=== PATIENT | female | born 1960 | race Caucasian/White ===

== ENCOUNTER → 2018-12-17 | Outpatient (CLI) | payer OTHER ==
[~2018-12-17] MED LIST: LISINOPRIL; ZOLOFT; [UNRECOGNIZED DRUG - OTHER]; [UNRECOGNIZED DRUG - OTHER]
== END ==
LOC: CARD 08:13
PROVIDERS: ATTEND Internal Medicine Cardiovascular Disease
DX: R07.89 Other chest pain (principal); J44.9 Chronic obstructive pulmonary disease, unspecified; I10 Essential (primary) hypertension; Z72.0 Tobacco use
CPT/HCPCS: 93306

== ENCOUNTER 2019-01-01 12:49 | Emergency (ER) | payer OTHER ==
[~2019-01-01] VITALS: Ht 162.6 cm; Wt 78.0 kg
--- NOTE | 2019-01-01 13:06 | Diagnostic Imaging Report ---
INDICATION: Stroke with left-sided weakness and slurred speech. Noncontrast brain CT is performed. FINDINGS: There were no extra-axial fluid collections. No intracranial hemorrhage. No intracranial mass or mass effect. No midline shift. The ventricles are normal in size and position. There were no focal parenchymal abnormalities in the brain. Calvarial windows are unremarkable. IMPRESSION: Negative noncontrast brain CT. Dictated by: Dictated on workstation # [id number]
[2019-01-01 13:10] LABS: BASOPHILS # (AUTO) 0.1 10^3/uL (0.0-0.1); BASOPHILS % (AUTO) 1 % (0-10); EOSINOPHILS # (AUTO) 0.2 10^3/uL (0.0-0.3); EOSINOPHILS % (AUTO) 2 % (0-10); HEMATOCRIT 41 % (35-52); HEMOGLOBIN 14.3 G/DL (11.5-16.0); LYMPHOCYTES # (AUTO) 4.2 X 10^3 (1.0-4.0); LYMPHOCYTES % (AUTO) 35 % (12-44); MEAN CORPUSCULAR HEMOGLOBIN 33 PG (25-34); MEAN CORPUSCULAR HGB CONC 35 G/DL (32-36); MEAN CORPUSCULAR VOLUME 95 FL (80-99); MEAN PLATELET VOLUME 11.3 FL (7.4-10.4); MONOCYTES # (AUTO) 1.2 X 10^3 (0.0-1.0); MONOCYTES % (AUTO) 10 % (0-12); NEUTROPHILS # (AUTO) 6.5 X 10^3 (1.8-7.8); NEUTROPHILS % (AUTO) 53 % (42-75); PLATELET COUNT 198 10^3/uL (130-400); RED CELL DISTRIBUTION WIDTH 13.6 % (10.0-14.5); WHITE BLOOD COUNT 12.2 10^3/uL (4.3-11.0)
--- NOTE | 2019-01-01 13:27 | ED 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 Problem ---
General Chief Complaint: Neuro-Stroke Like Symptoms Stated Complaint: STROKE Nursing Triage Note: PT PRESENTS WITH SLURRED SPEECH, LEFT- SIDED WEAKNESS, AND PAIN IN LEFT CALF X COUPLE DAYS. BG 156 EN ROUTE PER EMS. Nursing Sepsis Screen: No Definite Risk Source: patient Exam Limitations: no limitations History of Present Illness Date Seen by Provider: Jan 01, 2019 Time Seen by Provider: 12:48 Initial Comments Here by EMS with report of slurred speech and left-sided weakness. She is also got pain in her left calf is had that for a few days. The patient reports that she's got low back problems and has pain from that. Speech was quite slurred on arrival and there appeared to be left-sided weakness. Son reports at 1145 the patient became acutely ill with left-sided weakness that actually was described as global weakness. EMS was called and brought her to the hospital. Stroke activation initiated on arrival. Patient denies any injuries or any other problems. Timing/Duration: 1 hour Severity: moderate Associated Symptoms: No fever/chills, No nausea/vomiting, No seizures; slurred speech, trouble walking, weakness Allergies and Home Medications Allergies Coded Allergies: Sulfa (Sulfonamide Antibiotics) (Unverified Allergy, Unknown, 05/26/18) latex (Unverified Allergy, Unknown, 05/26/18) loratadine (Unverified Allergy, Unknown, 05/26/18) mushroom (Unverified Allergy, Unknown, 05/25/18) pseudoephedrine (Unverified Allergy, Unknown, 05/26/18) sulfamethoxazole (Unverified Allergy, Unknown, 05/26/18) trimethoprim (Unverified Allergy, Unknown, 05/26/18) Patient Home Medication List Home Medication List Reviewed: Yes Review of Systems Review of Systems Constitutional: see HPI; No chills, No fever Eyes: No Symptoms Reported Ears, Nose, Mouth, Throat: see HPI; denies mouth swelling, denies throat pain Respiratory: No cough, No short of breath Cardiovascular: No chest pain, No edema Gastrointestinal: No abdominal pain, No nausea, No vomiting Genitourinary: no symptoms reported : No Musculoskeletal: see HPI, back pain, muscle pain Skin: no symptoms reported Psychiatric/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: See HPI, Weakness All Other Systems Reviewed Negative Unless Noted: Yes Past Akbvjiz-Whzsxn-Uyjhvi Hx Past Med/Social Hx: Reviewed Nursing Past Med/Soc Hx Patient Social History Alcohol Use: Denies Use Alcohol Beverage of Choice: Other Recreational Drug Use: No Smoking Status: Current Everyday Smoker Type Used: Cigarettes Recent Foreign Travel: No Contact w/Someone Who Travel: No Recent Infectious Disease Expo: No Recent Hopitalizations: No Seasonal Allergies Seasonal Allergies: Yes Past Medical History Surgeries: Yes (HERNIA) Section, Hysterectomy Respiratory: Yes COPD Currently Using CPAP: No Currently Using BIPAP: No Cardiac: Yes (CHEST PAIN) Hypertension 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: No Genitourinary: No Gastrointestinal: Yes Gall Bladder Disease Musculoskeletal: Yes Degenerate Disk Disease, Chronic Back Pain Endocrine: No HEENT: No Cancer: No Psychosocial: Yes (SINCE PASSED 2 MONTHS AGO) Sleep Difficulties, Anxiety, Depression Integumentary: No Blood Disorders: No Adverse Reaction/Blood Tranf: No Family Medical History Reviewed Nursing Family Hx Cardiovascular disease 19 MOTHER Cataracts Colon cancer 19 FATHER (UNKNOWN) G8 BROTHER G8 BROTHER G8 BROTHER G8 SISTER Congenital heart disease 19 MOTHER (UNKNOWN) Diabetes mellitus 19 MOTHER G8 BROTHER G8 BROTHER Infertility Kidney disease 19 MOTHER Osteoporosis G8 SISTER Physical Exam Vital Signs Vital Signs - First Documented 01/01/19 01/01/19 12:50 13:29 Temp 99.5 Pulse 94 Resp 21 B/P (MAP) 164/102 (122) Pulse Ox 94 O2 Delivery Nasal Cannula O2 Flow Rate 2.00 Capillary Refill : Less Than 3 Seconds Height, Weight, BMI Height: 5'4.00" Weight: 172lbs. 0.0oz. 78.874551nm; 27.8 BMI Method:Stated General Appearance: WD/WN, mild distress HEENT: PERRL/EOMI (2 mm bilaterally), TMs normal, pharynx normal Neck: full range of motion, supple Respiratory: lungs clear, normal breath sounds, no accessory muscle use Cardiovascular: regular rate, rhythm, no murmur Peripheral Pulses: 2+ Dorsalis Pedis (R), 2+ Left Dors-Pedis (L), 2+ Radial Pulses (R), 2+ Radial Pulses (L) Gastrointestinal: non tender, soft Back: normal inspection, no CVA tenderness, no vertebral tenderness Extremities: non-tender, normal inspection Neurologic/Psychiatric: alert, normal mood/affect, oriented x 3 Crainal Nerves: PERRL, abnormal speech (slurred) Motor/Sensory: no sensory deficit, weak motor strength LUE, weak motor strength LLE Skin: normal color, warm/dry Progress/Results/Core Measures Results/Orders Lab Results Laboratory Tests Test 01/01/19 12:51 01/01/19 13:19 01/01/19 13:23 Range/Units White Blood Count 12.2 H 4.3-11.0 10^3/uL Red Blood Count 4.37 4.35-5.85 10^6/uL Hemoglobin 14.3 11.5-16.0 G/DL Hematocrit 41 35-52 % Mean Corpuscular Volume 95 80-99 FL Mean Corpuscular Hemoglobin 33 25-34 PG Mean Corpuscular Hemoglobin Concent 35 32-36 G/DL Red Cell Distribution Width 13.6 10.0-14.5 % Platelet Count 198 130-400 10^3/uL Mean Platelet Volume 11.3 H 7.4-10.4 FL Neutrophils (%) (Auto) 53 42-75 % Lymphocytes (%) (Auto) 35 12-44 % Monocytes (%) (Auto) 10 0-12 % Eosinophils (%) (Auto) 2 0-10 % Basophils (%) (Auto) 1 0-10 % Neutrophils # (Auto) 6.5 1.8-7.8 X 10^3 Lymphocytes # (Auto) 4.2 H 1.0-4.0 X 10^3 Monocytes # (Auto) 1.2 H 0.0-1.0 X 10^3 Eosinophils # (Auto) 0.2 0.0-0.3 10^3/uL Basophils # (Auto) 0.1 0.0-0.1 10^3/uL Sodium Level 143 135-145 MMOL/L Potassium Level 3.5 L 3.6-5.0 MMOL/L Chloride Level 109 H 98-107 MMOL/L Carbon Dioxide Level 25 21-32 MMOL/L Anion Gap 9 5-14 MMOL/L Blood Urea Nitrogen 16 7-18 MG/DL Creatinine 0.86 0.60-1.30 MG/DL Estimat Glomerular Filtration Rate > 60 BUN/Creatinine Ratio 19 Glucose Level 91 70-105 MG/DL Calcium Level 9.2 8.5-10.1 MG/DL Corrected Calcium 9.2 8.5-10.1 MG/DL Total Bilirubin 0.2 0.1-1.0 MG/DL Aspartate Amino Transf (AST/SGOT) 27 5-34 U/L Alanine Aminotransferase (ALT/SGPT) 27 0-55 U/L Alkaline Phosphatase 88 40-136 U/L Troponin I < 0.028 <0.028 NG/ML Total Protein 6.9 6.4-8.2 GM/DL Albumin 4.0 3.2-4.5 GM/DL Thyroid Stimulating Hormone (TSH) 0.59 0.35-4.94 UIU/ML Salicylates Level < 5.0 L 5.0-20.0 MG/DL Acetaminophen Level < 10 L 10-30 UG/ML Serum Alcohol < 10 <10 MG/DL Urine Color YELLOW Urine Clarity CLEAR Urine pH 5 5-9 Urine Specific [place] 1.005 L 1.016-1.022 Urine Protein NEGATIVE NEGATIVE Urine Glucose (UA) NEGATIVE NEGATIVE Urine Ketones NEGATIVE NEGATIVE Urine Nitrite NEGATIVE NEGATIVE Urine Bilirubin NEGATIVE NEGATIVE Urine Urobilinogen NORMAL NORMAL MG/DL Urine Leukocyte Esterase NEGATIVE NEGATIVE Urine RBC (Auto) NEGATIVE NEGATIVE Urine RBC NONE /HPF Urine WBC RARE /HPF Urine Squamous Epithelial Cells 5-10 /HPF Urine Crystals NONE /LPF Urine Bacteria FEW H /HPF Urine Casts NONE /LPF Urine Mucus NEGATIVE /LPF Urine Culture Indicated YES Urine Opiates Screen NEGATIVE NEGATIVE Urine Oxycodone Screen NEGATIVE NEGATIVE Urine Methadone Screen NEGATIVE NEGATIVE Urine Propoxyphene Screen NEGATIVE NEGATIVE Urine Barbiturates Screen NEGATIVE NEGATIVE Ur Tricyclic Antidepressants Screen NEGATIVE NEGATIVE Urine Phencyclidine Screen NEGATIVE NEGATIVE Urine Amphetamines Screen NEGATIVE NEGATIVE Urine Methamphetamines Screen NEGATIVE NEGATIVE Urine Benzodiazepines Screen NEGATIVE NEGATIVE Urine Cocaine Screen NEGATIVE NEGATIVE Urine Cannabinoids Screen NEGATIVE NEGATIVE Prothrombin Time 12.2 12.2-14.7 SEC INR Comment 0.9 0.8-1.4 Activated Partial Thromboplast Time 26 24-35 SEC D-Dimer 0.31 0.00-0.49 UG/ML Glucometer 102 70-110 MG/DL My Orders Orders - JERROD MIRANDA MD Ct Head Wo-R/O Stroke (01/01/19 12:52) Cbc With Automated Diff (01/01/19 12:53) Protime With Inr (01/01/19 12:53) Partial Thromboplastin Time (01/01/19 12:53) Comprehensive Metabolic Panel (01/01/19 12:53) Fibrin Degradation Products (01/01/19 12:53) Troponin I (01/01/19 12:53) Ua Culture If Indicated (01/01/19 12:53) Chest 1 View, Ap/Pa Only (01/01/19 12:53) Catheter(Urinary) Insert & Ass 03,15 (01/01/19 12:53) Ekg Tracing (01/01/19 12:53) Nothing By Mouth (01/01/19 Dinner) Accucheck Stat ONCE (01/01/19 12:53) Saline Lock/Iv-Start (01/01/19 12:53) Saline Lock/Iv-Start (01/01/19 12:53) Vital Signs Stroke Patient Q15M (01/01/19 12:53) O2 (01/01/19 12:53) Intake & Output 06,14,22 (01/01/19 12:53) Monitor-Rhythm Ecg Trace Only (01/01/19 12:53) Dysphagia Screening Tool (01/01/19 12:53) Post Thrombolytic Adminstratio (01/01/19 12:53) Lipid Panel (01/02/19 06:00) Acetaminophen (01/01/19 13:21) Alcohol (01/01/19 13:21) Drug Screen Stat (Urine) (01/01/19 13:21) Salicylate (01/01/19 13:21) Thyroid Stimulating Hormone (01/01/19 13:21) Urine Culture (01/01/19 13:19) Ct Angio Head/Neck (01/01/19 13:57) Iohexol Injection (Omnipaque 350 Mg/Ml 1 (01/01/19 14:15) Received Contrast (Hold Metformin- Contr (01/01/19 14:15) Ns Iv 1000 Ml (Sodium Chloride 0.9%) (01/01/19 16:04) Saline Lock/Iv-Start (01/01/19 16:10) Ns Iv 1000 Ml (Sodium Chloride 0.9%) (01/01/19 16:10) Medications Given in ED Current Medications Medications Dose Ordered Sig/Marika Route Start Time Stop Time Status Last Admin Dose Admin Iohexol 75 ml ONCE ONCE IV 01/01/19 14:15 01/01/19 14:16 DC 01/01/19 14:20 75 ML Sodium Chloride 1,000 ml @ 0 mls/hr Q0M ONCE IV 01/01/19 16:10 01/01/19 16:11 DC 01/01/19 16:07 1,000 MLS/HR Vital Signs/I&O 01/01/19 01/01/19 01/01/19 01/01/19 12:50 13:29 14:07 15:00 Temp 99.5 Pulse 94 88 76 Resp 21 20 20 B/P (MAP) 164/102 (122) 151/91 113/70 Pulse Ox 94 94 96 95 O2 Delivery Nasal Cannula O2 Flow Rate 2.00 Blood Pressure Mean: 122 FSBG Bedside Testing Finger Stick Blood Glucose: 102 Blood Glucose Action Taken: rn and physician notified Progress Progress Note : Progress Note Seen and evaluated on arrival. Stroke activation initiated with rapid CT assessment. Stroke order set initiated. Stroke scale 5 but left lower extremity is chronic which would bring stroke scale to 3 for left arm and dysarthria. CT negative. On a contraindication to TPA has relative with regard to low stroke scale and and patient's symptoms are improving. I did discuss the case with the stroke neurologist at 1435. We reviewed all the findings thus far. CT angiogram of the head and neck is pending and patient is currently having the procedure done. Patient's symptoms have improved some more and she is much more responsive and reactive with the family and with medical personnel. Still reports some left-sided weakness. Stroke scale is now 3 I did discuss with patient and family as well as stroke neurologist regarding TPA. TPA not Indicated for low stroke scale and improving symptoms so we will did not give that. We will continue to monitor. 1611: I discussed at length with the patient regarding admission and including talking with Dr. Ortiz. We will offer her admission at least observation status for probable TIA. Patient is adamant that she does not want to stay. I and her son both discussed the risk and benefits with her including and patient still stated she wants to go home. We will allow for discharge home with the understanding that she return. Patient verbalize understanding. We will give normal saline 1 L bolus to flush contrast and then discharge. Initial ECG Impression Date: Jan 01, 2019 Initial ECG Impression Time: 13:09 Initial ECG Rate: 84 Initial ECG Rhythm: Normal Sinus Comment Sinus rhythm with left atrial abnormality. Left ventricular hypertrophy noted insulin to previous of 05/25/18. Normal axis. Interpreted by me. Diagnostic Imaging Diagonstic Imaging: Xray Plain Films/CT/US/NM/MRI: chest Comments NAME: JULIEN NEWTON [facility] REC#: [id number] PT STATUS: REG ER : 1960 PHYSICIAN: JERROD MIRANDA MD ADMIT DATE: 01/01/19/ER Signed Date of Exam: 01/01/19 CT HEAD WO-R/O STROKE INDICATION: Stroke with left-sided weakness and slurred speech. Noncontrast brain CT is performed. FINDINGS: There were no extra-axial fluid collections. No intracranial hemorrhage. No intracranial mass or mass effect. No midline shift. The ventricles are normal in size and position. There were no focal parenchymal abnormalities in the brain. Calvarial windows are unremarkable. IMPRESSION: Negative noncontrast brain CT. Dictated by: Dictated on workstation # [id number] Dict: 01/01/19 1301 Trans: 01/01/19 1343 Interpreted by: FADI CLEMENTS MD Electronically signed by: FADI CLEMENTS MD 01/01/19 1343 Diagonstic Imaging: CT Plain Films/CT/US/NM/MRI: head Comments NAME: JULIEN NEWTON [facility] REC#: [id number] PT STATUS: REG ER : 1960 PHYSICIAN: JERROD MIRANDA MD ADMIT DATE: 01/01/19/ER Signed Date of Exam: 01/01/19 CHEST 1 VIEW, AP/PA ONLY INDICATION: Left-sided weakness and slurred speech. Time of exam: 1:26 PM Correlation is made with prior study from 05/25/2018. The heart size is normal. The pulmonary vascularity is unremarkable. The lungs are clear. No infiltrate, effusion or pneumothorax is detected. Impression: No acute cardiopulmonary process is detected. Dictated by: Dictated on workstation # [id number] Dict: 01/01/19 1340 Trans: 01/01/19 1519 Interpreted by: ADRIANE CAMPBELL MD Electronically signed by: ADRIANE CAMPBELL MD 01/01/19 1519 Diagonstic Imaging: CT Plain Films/CT/US/NM/MRI: head, other Comments [facility] [place] NAME: JULIEN NEWTON [facility] REC#: [id number] PT STATUS: REG ER : 1960 PHYSICIAN: JERROD MIRANDA MD ADMIT DATE: 01/01/19/ER Draft Date of Exam:01/01/19 CT ANGIO HEAD/NECK CLINICAL INDICATION: Followup stroke activation. EXAMS: 1: Head CT with and without IV contrast. 2: CT angiogram of the head and neck performed with 100 cc of Omnipaque 350 IV contrast. Sagittal and coronal MIP reformations were created for better visualization of vascular anatomy. COMPARISON: Head CT without contrast dated 01/01/2019. FINDINGS: Head CT: There is no evidence of acute cerebral infarct, intracranial hemorrhage, or gross mass effect. There is no abnormal IV contrast enhancement. The brain parenchymal volume appears appropriate for patient's age. There is normal meza-white matter distinction. There is no significant midline shift or herniation. There is no evidence of hydrocephalus. The basal cisterns are unremarkable. The skull, extracranial soft tissue, and orbits are unremarkable. There is mild mucosal thickening involving the left maxillary sinus. Temporal bones show no significant abnormality. CT angiogram: Of note, the aortic arch is not completely imaged on this exam. The origin of the left subclavian artery, left common carotid artery and brachiocephalic artery are not completely imaged. The visualized portions of the brachiocephalic artery, and right subclavian artery are patent. There is dense contrast in the left subclavian vein which obscures the mid to distal left subclavian artery. Otherwise, left subclavian artery is patent. The visualized portion of the bilateral CCA, bilateral cervical ICA, and bilateral ECA are patent. There are only mild atherosclerotic changes involving the bilateral ICA bulb with no significant stenosis. The bilateral cervical vertebral arteries are patent. The intradural bilateral cervical vertebral arteries are patent. The PICA are patent. The basilar artery, bilateral superior cerebellar arteries are patent. The left posterior communicating artery is patent. There is a right posterior communicating artery. The right P1 RESTAURANT SHIFT SUPERVISOR is patent. The petrous and cavernous carotid arteries are patent. The bilateral A1 ACAs and distal branches are patent. The bilateral MCA and the distal branches are patent. The dural venous sinuses are patent. The neck soft tissue structures are unremarkable. There are emphysematous lung disease changes. The neck soft tissue structures show no significant abnormality. There are cervical spine vertebral body spurs with suggestion of diffuse disc bulge at C6-C7 level with associated [id number] right C6-C7 bony neural foramen narrowing and moderate left C6-C7 bony neural foramen narrowing. IMPRESSION: 1: Unremarkable CT scan of the brain for age. There is no abnormal IV contrast enhancement. 2: CT angiogram of the [place] and neck shows no significant stenosis, vascular malformation, aneurysm, or dissection. 3: Mild left maxillary sinus disease. Results of this report were discussed with Dr. Jerrod Miranda via the telephone on 01/01/2019 at 1450 hours. Dictated on workstation # [id number] Dict: 01/01/19 1440 Trans: 01/01/19 1503 [facility] [id number] Interpreted by: ALEXANDRO BEASLEY MD Electronically signed by: Departure Impression Primary Impression: Transient cerebral ischemia Qualified Codes: G45.9 - Transient cerebral ischemic attack, unspecified Additional Impression: Low back pain with left-sided sciatica Qualified Codes: M54.42 - Lumbago with sciatica, left side; G89.29 - Other chronic pain Disposition: 01 HOME, SELF-CARE Condition: Stable Departure-Patient Inst. Decision time for Depature: 16:14 Referrals: KLAUDIA VELEZ (PCP) Primary Care Physician NO,LOCAL PHYSICIAN (Family) Primary Care Physician Patient Instructions: Low Back Pain (DC), Sciatica (DC), Transient Ischemic Attack (DC) Add. Discharge Instructions: All discharge instructions reviewed with patient and/or family. Voiced understanding. Continue home medications as previously prescribed. You need to return for any concerns and certainly for any increasing weakness, numbness, vision or balance problems, speech difficulty, facial droop or other concerns as needed. It is very important that he follow up with your DrIsabel right away for recheck and further evaluation. Follow-up with your doctor regarding her back problems as well as you need further workup for that which is in progress. Drink plenty of fluids and eat a normal diet. Copy Copies To 1: MALAIKA ORTIZ MD, TIMOTHY D MD Jan 01, 2019 13:27
[2019-01-01 13:28] LABS: ALANINE AMINOTRANSFERASE 27 U/L (0-55); ALKALINE PHOSPHATASE 88 U/L (40-136); BILIRUBIN,TOTAL 0.2 MG/DL (0.1-1.0); BUN/CREATININE RATIO 19; CALCIUM 9.2 MG/DL (8.5-10.1); CARBON DIOXIDE 25 MMOL/L (21-32); CHLORIDE 109 MMOL/L (98-107); CREATININE SERUM 0.86 MG/DL (0.60-1.30); GFR ESTIMATED > 60; GLUCOSE 91 MG/DL (70-105); POTASSIUM 3.5 MMOL/L (3.6-5.0); SODIUM 143 MMOL/L (135-145); TOTAL PROTEIN 6.9 GM/DL (6.4-8.2)
[2019-01-01 13:35] LABS: BILIRUBIN,URINE NEGATIVE (NEGATIVE); CLARITY,URINE CLEAR; COLOR,URINE YELLOW; GLUCOSE, URINE (UA) NEGATIVE (NEGATIVE); KETONES,URINE NEGATIVE (NEGATIVE); LEUKOCYTE ESTERASE ,URINE NEGATIVE (NEGATIVE); NITRITE,URINE NEGATIVE (NEGATIVE); PH,URINE 5 (5-9); PROTEIN,URINE NEGATIVE (NEGATIVE); UROBILINOGEN,URINE NORMAL (NORMAL)
--- NOTE | 2019-01-01 13:43 | Diagnostic Imaging Report ---
INDICATION: Left-sided weakness and slurred speech. Time of exam: 1:26 PM Correlation is made with prior study from 05/25/2018. The heart size is normal. The pulmonary vascularity is unremarkable. The lungs are clear. No infiltrate, effusion or pneumothorax is detected. Impression: No acute cardiopulmonary process is detected. Dictated by: Dictated on workstation # [id number]
[2019-01-01 13:46] LABS: FIBRIN DEGRADATION PRODUCTS 0.31 UG/ML (0.00-0.49); INR 0.9 (0.8-1.4); PROTHROMBIN TIME PATIENT 12.2 SEC (12.2-14.7)
[2019-01-01 13:50] LABS: BACTERIA,URINE FEW /HPF
[2019-01-01 13:51] LABS: WBC,URINE RARE /HPF
[2019-01-01 13:53] LABS: SALICYLATE < 5.0 MG/DL (5.0-20.0)
[2019-01-01 13:55] LABS: AMPHETAMINE SCREEN, URINE NEGATIVE (NEGATIVE); BARBITURATE SCREEN URINE NEGATIVE (NEGATIVE); BENZODIAZEPINES SCREEN URINE NEGATIVE (NEGATIVE); CANNABINOID SCREEN, URINE NEGATIVE (NEGATIVE); COCAINE SCREEN URINE NEGATIVE (NEGATIVE); METHADONE STAT NEGATIVE (NEGATIVE); METHAMPHETAMINE SCREEN URINE S NEGATIVE (NEGATIVE); OPIATE SCREEN URINE NEGATIVE (NEGATIVE); OXYCODONE STAT NEGATIVE (NEGATIVE); PROPOXYPHENE STAT NEGATIVE (NEGATIVE); TRICYCLIC ANTIDEPRESSANTS SCRE NEGATIVE (NEGATIVE)
[2019-01-01 13:58] LABS: ACETAMINOPHEN < 10 UG/ML (10-30)
[2019-01-01 14:07] VITALS: BP 151/91
[2019-01-01] MEDS ORDERED: IOHEXOL 350 MG/ML 100 ML (OMNIPAQUE 350) VIAL IV ONE (14:15)
[2019-01-01] MEDS ORDERED: HOLD METFORMIN - RECEIVED CONTRAST 20 ML VIAL IV SCH (14:15)
[2019-01-01 15:00] VITALS: BP 113/70
--- NOTE | 2019-01-01 15:04 | Diagnostic Imaging Report ---
CLINICAL INDICATION: Followup stroke activation. EXAMS: 1: Head CT with and without IV contrast. 2: CT angiogram of the head and neck performed with 100 cc of Omnipaque 350 IV contrast. Sagittal and coronal MIP reformations were created for better visualization of vascular anatomy. COMPARISON: Head CT without contrast dated 01/01/2019. FINDINGS: Head CT: There is no evidence of acute cerebral infarct, intracranial hemorrhage, or gross mass effect. There is no abnormal IV contrast enhancement. The brain parenchymal volume appears appropriate for patient's age. There is normal meza-white matter distinction. There is no significant midline shift or herniation. There is no evidence of hydrocephalus. The basal cisterns are unremarkable. The skull, extracranial soft tissue, and orbits are unremarkable. There is mild mucosal thickening involving the left maxillary sinus. Temporal bones show no significant abnormality. CT angiogram: Of note, the aortic arch is not completely imaged on this exam. The origin of the left subclavian artery, left common carotid artery and brachiocephalic artery are not completely imaged. The visualized portions of the brachiocephalic artery, and right subclavian artery are patent. There is dense contrast in the left subclavian vein which obscures the mid to distal left subclavian artery. Otherwise, left subclavian artery is patent. The visualized portion of the bilateral CCA, bilateral cervical ICA, and bilateral ECA are patent. There are only mild atherosclerotic changes involving the bilateral ICA bulb with no significant stenosis. The bilateral cervical vertebral arteries are patent. The intradural bilateral cervical vertebral arteries are patent. The PICA are patent. The basilar artery, bilateral superior cerebellar arteries are patent. The left posterior communicating artery is patent. There is a right posterior communicating artery. The right P1 MANAGER GAMING is patent. The petrous and cavernous carotid arteries are patent. The bilateral A1 ACAs and distal branches are patent. The bilateral MCA and the distal branches are patent. The dural venous sinuses are patent. The neck soft tissue structures are unremarkable. There are emphysematous lung disease changes. The neck soft tissue structures show no significant abnormality. There are cervical spine vertebral body spurs with suggestion of diffuse disc bulge at C6-C7 level with associated [id number]-sujgok right C6-C7 bony neural foramen narrowing and moderate left C6-C7 bony neural foramen narrowing. IMPRESSION: 1: Unremarkable CT scan of the brain for age. There is no abnormal IV contrast enhancement. 2: CT angiogram of the [place] and neck shows no significant stenosis, vascular malformation, aneurysm, or dissection. 3: Mild left maxillary sinus disease. Results of this report were discussed with Dr. Jerrod Brown via the telephone on 01/01/2019 at 1450 hours. Dictated by: Dictated on workstation # [id number]
[2019-01-01] MEDS ORDERED: NS IV 1000 ML 1,000 ML ONE (16:04)
[2019-01-01] MEDS ORDERED: NS IV 1000 ML 1,000 ML IV ONE (16:10)
[2019-01-01 17:24] VITALS: BP 115/79
== END 2019-01-01 17:23 | disposition home or self-care (01) ==
LOC: EDUNIT# 12:49 → ER 12:50
DX: G45.9 Transient cerebral ischemic attack, unspecified (principal); M54.42 Lumbago with sciatica, left side; J44.9 Chronic obstructive pulmonary disease, unspecified; F41.9 Anxiety disorder, unspecified; F32.9 Major depressive disorder, single episode, unspecified; I10 Essential (primary) hypertension; F17.210 Nicotine dependence, cigarettes, uncomplicated; Z87.19 Personal history of other diseases of the digestive system; Z82.49 Family history of ischemic heart disease and other diseases of the circulatory system; Z80.0 Family history of malignant neoplasm of digestive organs; Z88.2 Allergy status to sulfonamides; Z98.890 Other specified postprocedural states; Z90.710 Acquired absence of both cervix and uterus; Z91.040 Latex allergy status; Z88.8 Allergy status to other drugs, medicaments and biological substances; Z88.1 Allergy status to other antibiotic agents
CPT/HCPCS: 36415; 70450; 70496; 70498; 71045; 80053; 80306; 80320; 80329; 81000; 82962; 84443; 84484; 85025; 85379; 85610; 85730; 87088; 93005; 93041; 96360

== ENCOUNTER → 2019-01-10 | Outpatient (CLI) | payer OTHER ==
--- NOTE | 2019-01-10 13:16 | Diagnostic Imaging Report ---
CLINICAL INDICATION: Patient with low back pain and bilateral leg pain/numbness with left side worse than the right. Patient has had lumbar discectomy about two years ago. EXAM: MRI of the lumbar spine performed without IV contrast. Sequences include sagittal T2, sagittal T1, sagittal T2 fat-sat, and axial T2. COMPARISON: None. FINDINGS: There is abnormal straightening of the lumbar spine posture. There is no acute lumbar spine fracture or dislocation. There is a small amount of Modic type I degenerative signal changes involving the L1-L2 intervertebral level. The visualized portions of the distal thoracic spinal cord, conus medullaris, and cauda equina nerve roots are unremarkable. The conus medullaris tip is seen at the L1-L2 intervertebral level. There is no significant paraspinal soft tissue abnormality. There are mild to moderately hypertrophic disc spurs seen throughout the lumbar spine and facet arthropathy. T11-T12: There is a small left paracentral disc protrusion/herniation which causes mild central canal narrowing and xxpf-mq-xjarnspu left neural foramen narrowing. There is a chronic Schmorl's node involving the endplates. There is no significant right neural foramen narrowing. T12-L1: Posterior disc bulge is seen with mild bilateral facet arthropathy. There is no significant central spinal canal or neural foramen narrowing. L1-L2: There is a diffuse disc bulge with superimposed left paracentral disc protrusion/herniation. There is crao-ol-kmgofmor loss of intervertebral disc height and mild bilateral facet arthropathy. There is mild impression upon the thecal sac anteriorly. There is no significant right neural foramen narrowing and moderate left neural foramen narrowing. L2-L3: There is a diffuse disc bulge with moderate loss of intervertebral disc height. There is mild bilateral facet arthropathy. There is aqun-dj-jjzepygo central canal narrowing. There is bsjf-bb-tdwvrsyq bilateral neural foramen narrowing. L3-L4: There is a diffuse disc bulge with moderate loss of intervertebral disc height. There is moderate bilateral facet arthropathy. There is moderate central canal narrowing and severe bilateral neural foramen narrowing. L4-L5: There is a diffuse disc bulge with mild loss of intervertebral disc height. There is moderate bilateral facet arthropathy. There is severe bilateral neural foramen narrowing. There is mild impression upon the thecal sac anteriorly. L5-S1: There is a diffuse disc bulge with nnxt-fh-nsrqpvkj loss of intervertebral disc height. There is moderate left facet arthropathy/hypertrophy and xaqv-aj-coxarreo right facet arthropathy. There is no significant central canal narrowing. There is severe bilateral neural foramen narrowing. IMPRESSION: There is txyvbqrl-lc-ujqgru thoracolumbar spine degenerative disc disease and multilevel diffuse disc bulges, disc herniations, and facet arthropathy. This is described in detail above. Dictated by: Dictated on workstation # [id number]
== END ==
LOC: RAD 12:06
PROVIDERS: ATTEND Nurse Practitioner
DX: M51.17 Intervertebral disc disorders with radiculopathy, lumbosacral region (principal); M46.87 Other specified inflammatory spondylopathies, lumbosacral region; M48.07 Spinal stenosis, lumbosacral region; M51.15 Intervertebral disc disorders with radiculopathy, thoracolumbar region; M47.26 Other spondylosis with radiculopathy, lumbar region; Z98.890 Other specified postprocedural states
CPT/HCPCS: 72148

== ENCOUNTER → 2019-02-26 | Outpatient (CLI) | payer OTHER ==
[~2019-02-26] VITALS: Ht 162.6 cm; Wt 76.2 kg
[~2019-02-26] MED LIST changes: +ASPI-586 PO; +BUSP5TAB59 PO; +CATHETER FLUSH 10 ML SYR IV PRN; +CYCL10TA9 PO; +EZET10TA27 PO; +FLUT1DIS28 IH; +ICOS1CAP PO; +LISI1TAB8 PO; +MELO7.5T46 PO; +NITR0.4T42 SL; +PANT40TA3 PO; +PRAV10TA PO; +REGADENOSON 0.4 MG/5 ML SYR (LEXISCAN) IV ONE; +TRAM50TA2 PO; +VNL75T PO
--- NOTE | 2019-02-26 15:16 | STRESS TEST ---
DATE OF SERVICE: 02/26/2019 LEXISCAN MYOVIEW STRESS TEST REPORT REFERRING PHYSICIAN [facility]. Baseline heart rate is 88, baseline blood pressure is 148/95. Baseline EKG is sinus rhythm with diffuse T-wave inversion. SUMMARY: The patient was injected with 10.89 mCi of technetium-99 Myoview and the resting images were obtained. Then, the patient received 0.4 mg of Lexiscan followed by 32.4 mCi of technetium-99 Myoview. Throughout the test, there were no EKG changes. The resting and stress images were reviewed and compared in the short axis, horizontal long axis, and vertical long axis views. Review of the images showed breast attenuation, there is decreased uptake noted involving the mid to apical inferior wall and inferolateral wall with subtle reversibility. SSS is 8. SDS 1. TID value 1.15. On the gated images, the left ventricle appeared to be in normal size with normal contractility. Calculated ejection fraction 62%. CONCLUSION: 1. The patient tolerated Lexiscan well. 2. Breast attenuation with decreased uptake at the mid to apical inferior wall and inferolateral wall with subtle reversibility. 3. Normal left ventricular size with normal contractility. Calculated ejection fraction 62%. Job ID: [id number] DocumentID: [id number] Dictated Date: 02/26/2019 15:04:28 Production Control Specialist Date: 02/26/2019 15:15:54 Dictated By: HARPREET GOLDMAN MD
== END ==
LOC: CARD 07:54
PROVIDERS: ATTEND Internal Medicine Cardiovascular Disease
DX: R07.89 Other chest pain (principal); I10 Essential (primary) hypertension; J44.9 Chronic obstructive pulmonary disease, unspecified; F41.9 Anxiety disorder, unspecified; Z72.0 Tobacco use
CPT/HCPCS: 78452; 93017

== ENCOUNTER 2019-03-05 06:35 | Day surgery (SDC) | payer OTHER ==
[~2019-03-05] VITALS: Ht 162.6 cm; Wt 76.2 kg
[2019-03-05] VITALS (11 sets, daily range): BP systolic 110–150; BP diastolic 72–113
[~2019-03-05 06:35] MED LIST changes: -ASPI-586 PO; -BUSP5TAB59 PO; -CATHETER FLUSH 10 ML SYR IV PRN; -CYCL10TA9 PO; -EZET10TA27 PO; -FLUT1DIS28 IH; -ICOS1CAP PO; -LISI1TAB8 PO; -MELO7.5T46 PO; -NITR0.4T42 SL; -PANT40TA3 PO; -PRAV10TA PO; -REGADENOSON 0.4 MG/5 ML SYR (LEXISCAN) IV ONE; -TRAM50TA2 PO; -VNL75T PO
[2019-03-05] MEDS ORDERED: NS IV 1000 ML 1,000 ML ONE (06:44)
[2019-03-05] MEDS ORDERED: HEParin (CATH LAB) 2,000 ML IV ONE (06:44)
[2019-03-05] MEDS ORDERED: LIDOCAINE 1% INJ 20 ML 20 ML VIAL ONE (06:44)
[2019-03-05] MEDS ORDERED: NS IV 1000 ML 1,000 ML IV SCH ×2 (06:45→08:21)
[2019-03-05 07:11] LABS: HEMOGLOBIN 15.5 G/DL (11.5-16.0); MEAN PLATELET VOLUME 11.8 FL (7.4-10.4)
[2019-03-05 07:13] LABS: BILIRUBIN,URINE NEGATIVE (NEGATIVE); CLARITY,URINE CLEAR; COLOR,URINE YELLOW; GLUCOSE, URINE (UA) NEGATIVE (NEGATIVE); KETONES,URINE NEGATIVE (NEGATIVE); LEUKOCYTE ESTERASE ,URINE NEGATIVE (NEGATIVE); NITRITE,URINE NEGATIVE (NEGATIVE); PH,URINE 7 (5-9); PROTEIN,URINE NEGATIVE (NEGATIVE); UROBILINOGEN,URINE NORMAL (NORMAL)
--- OUTSIDE RECORDS SUMMARY | 2019-03-05 07:22 | XMS REPORT | Continuity of Care Document ---
Author Organization Unknown Address Unknown Allergies Active Description Code Type Severity Reaction Onset Reported/Identified Relationship to Patient Clinical Status Yes mushroom [id number] Drug Allergy Unknown N/A 05/25/2018 Yes latex [id number] Drug Allergy Unknown N/A 05/26/2018 Yes loratadine [id number] Drug Allergy Unknown N/A 05/26/2018 Yes pseudoephedrine [id number] Drug Allergy Unknown N/A 05/26/2018 Yes Sulfa (Sulfonamide Antibiotics) [id number] Drug Allergy Unknown N/A 05/26/2018 Yes sulfamethoxazole [id number] Drug Allergy Unknown N/A 05/26/2018 Yes trimethoprim [id number] Drug Allergy Unknown N/A 05/26/2018 Medications There is no data. Problems Date Dx Coded Attending Type Code Diagnosis Diagnosed By 05/26/2018 JARED HENRY MD Ot F17.210 NICOTINE DEPENDENCE, CIGARETTES, UNCOMPL 05/26/2018 JARED HENRY MD Ot F32.9 MAJOR DEPRESSIVE DISORDER, SINGLE EPISOD 05/26/2018 JARED HENRY MD, Ot F41.9 ANXIETY DISORDER, UNSPECIFIED 05/26/2018 JARED HENRY MD Ot I10 ESSENTIAL (PRIMARY) HYPERTENSION 05/26/2018 JARED HENRY MD Ot R07.9 CHEST PAIN, UNSPECIFIED 05/31/2018 JARED HENRY MD Ot F17.210 NICOTINE DEPENDENCE, CIGARETTES, UNCOMPL 05/31/2018 JARED HENRY MD, Ot F32.9 MAJOR DEPRESSIVE DISORDER, SINGLE EPISOD 05/31/2018 JARED HENRY MD, Ot F41.9 ANXIETY DISORDER, UNSPECIFIED 05/31/2018 JARED HENRY MD Ot I10 ESSENTIAL (PRIMARY) HYPERTENSION 05/31/2018 JARED HENRY MD Ot R07.9 CHEST PAIN, UNSPECIFIED 05/31/2018 CARL MD, JARED M Ot F17.210 NICOTINE DEPENDENCE, CIGARETTES, UNCOMPL 05/31/2018 JARED HENRY MD Ot F32.9 MAJOR DEPRESSIVE DISORDER, SINGLE EPISOD 05/31/2018 JARED HENRY MD Ot F41.9 ANXIETY DISORDER, UNSPECIFIED 05/31/2018 JARED HENRY MD Ot I10 ESSENTIAL (PRIMARY) HYPERTENSION 05/31/2018 JARED HENRY MD Ot R07.9 CHEST PAIN, UNSPECIFIED 12/18/2018 HARPREET GOLDMAN MD J Ot I10 ESSENTIAL (PRIMARY) HYPERTENSION 12/18/2018 HARPREET GOLDMAN MD J Ot J44.9 CHRONIC OBSTRUCTIVE PULMONARY DISEASE, U 12/18/2018 HARPREET GOLDMAN MD J Ot R07.89 OTHER CHEST PAIN 12/18/2018 HARPREET GOLDMAN MD J Ot Z72.0 TOBACCO USE 01/01/2019 HARPREET GOLDMAN MD J Ot I10 ESSENTIAL (PRIMARY) HYPERTENSION 01/01/2019 HARPREET GOLDMAN MD J Ot J44.9 CHRONIC OBSTRUCTIVE PULMONARY DISEASE, U 01/01/2019 HARPREET GOLDMAN MD J Ot R07.89 OTHER CHEST PAIN 01/01/2019 HARPREET GOLDMAN MD J Ot Z72.0 TOBACCO USE 01/01/2019 HANNAH MIRANDA MD Ot F17.210 NICOTINE DEPENDENCE, CIGARETTES, UNCOMPL 01/01/2019 HANNAH MIRANDA MD Ot F32.9 MAJOR DEPRESSIVE DISORDER, SINGLE EPISOD 01/01/2019 HANNAH MIRANDA MD Ot F41.9 ANXIETY DISORDER, UNSPECIFIED 01/01/2019 HANNAH MIRANDA MD Ot G45.9 TRANSIENT CEREBRAL ISCHEMIC ATTACK, UNSP 01/01/2019 HANNAH MIRANDA MD Ot I10 ESSENTIAL (PRIMARY) HYPERTENSION 01/01/2019 HANNAH MIRANDA MD Ot J44.9 CHRONIC OBSTRUCTIVE PULMONARY DISEASE, U 01/01/2019 HANNAH MIRANDA MD Ot M54.42 LUMBAGO WITH SCIATICA, LEFT SIDE 01/01/2019 HANNAH MIRANDA MD Ot R47.81 SLURRED SPEECH 01/01/2019 HANNAH MIRANDA MD Ot Z80.0 FAMILY HISTORY OF MALIGNANT NEOPLASM OF 01/01/2019 HANNAH MIRANDA MD Ot Z82.49 FAMILY HX OF ISCHEM HEART DIS AND OTH DI 01/01/2019 HANNAH MIRANDA MD Ot Z87.19 PERSONAL HISTORY OF OTHER DISEASES OF TH 01/01/2019 HANNAH MIRANDA MD, Ot Z88.1 ALLERGY STATUS TO OTHER ANTIBIOTIC AGENT 01/01/2019 HANNAH MIRANDA MD Ot Z88.2 ALLERGY STATUS TO SULFONAMIDES STATUS 01/01/2019 HANNAH MIRANDA MD Ot Z88.8 ALLERGY STATUS TO OTH DRUG/MEDS/BIOL SUB 01/01/2019 HANNAH MIRANDA MD Ot Z90.710 ACQUIRED ABSENCE OF BOTH CERVIX AND UTER 01/01/2019 HANNAH MIRANDA MD Ot Z91.040 LATEX ALLERGY STATUS 01/01/2019 HANNAH MIRANDA MD Ot Z98.890 OTHER SPECIFIED POSTPROCEDURAL STATES 01/04/2019 HANNAH MIRANDA MD Ot F17.210 NICOTINE DEPENDENCE, CIGARETTES, UNCOMPL 01/04/2019 HANNAH MIRANDA MD Ot F32.9 MAJOR DEPRESSIVE DISORDER, SINGLE EPISOD 01/04/2019 HANNAH MIRANDA MD Ot F41.9 ANXIETY DISORDER, UNSPECIFIED 01/04/2019 HANNAH MIRANDA MD Ot G45.9 TRANSIENT CEREBRAL ISCHEMIC ATTACK, UNSP 01/04/2019 HANNAH MIRANDA MD Ot I10 ESSENTIAL (PRIMARY) HYPERTENSION 01/04/2019 HANNAH MIRANDA MD Ot J44.9 CHRONIC OBSTRUCTIVE PULMONARY DISEASE, U 01/04/2019 HANNAH MIRANDA MD Ot M54.42 LUMBAGO WITH SCIATICA, LEFT SIDE 01/04/2019 HANNAH MIRANDA MD Ot R47.81 SLURRED SPEECH 01/04/2019 HANNAH MIRANDA MD Ot Z80.0 FAMILY HISTORY OF MALIGNANT NEOPLASM OF 01/04/2019 HANNAH MIRANDA MD Ot Z82.49 FAMILY HX OF ISCHEM HEART DIS AND OTH DI 01/04/2019 HANNAH MIRANDA MD Ot Z87.19 PERSONAL HISTORY OF OTHER DISEASES OF TH 01/04/2019 HANNAH MIRANDA MD Ot Z88.1 ALLERGY STATUS TO OTHER ANTIBIOTIC AGENT 01/04/2019 HANNAH MIRANDA MD Ot Z88.2 ALLERGY STATUS TO SULFONAMIDES STATUS 01/04/2019 HANNAH MIRANDA MD Ot Z88.8 ALLERGY STATUS TO OTH DRUG/MEDS/BIOL SUB 01/04/2019 HANNAH MIRANDA MD Ot Z90.710 ACQUIRED ABSENCE OF BOTH CERVIX AND UTER 01/04/2019 HANNAH MIRANDA MD Ot Z91.040 LATEX ALLERGY STATUS 01/04/2019 HANNAH MIRANDA MD Ot Z98.890 OTHER SPECIFIED POSTPROCEDURAL STATES 01/22/2019 KLAUDIA VELEZ Ot M46.87 OTH INFLAMMATORY SPONDYLOPATHIES, LUMBOS 01/22/2019 KLAUDIA VELEZP Ot M47.26 OTHER SPONDYLOSIS WITH RADICULOPATHY, BRENNAN 01/22/2019 KLAUDIA VELEZ Ot M48.07 SPINAL STENOSIS, LUMBOSACRAL REGION 01/22/2019 KLAUDIA VELEZ Ot M51.15 INTVRT DISC DISORDERS W RADICULOPATHY, T 01/22/2019 KLAUDIA VELEZ Ot M51.17 INTVRT DISC DISORDERS W RADICULOPATHY, L 01/22/2019 KLAUDIA VELEZ Ot Z98.890 OTHER SPECIFIED POSTPROCEDURAL STATES Procedures There is no data. Results Test Result Range Complete blood count (CBC) with automated white blood cell (WBC) differential - 01/01/19 12:51 Blood leukocytes automated count (number/volume) 12.2 10*3/uL 4.3-11.0 Blood erythrocytes automated count (number/volume) 4.37 10*6/uL 4.35-5.85 Venous blood hemoglobin measurement (mass/volume) 14.3 g/dL 11.5-16.0 Blood hematocrit (volume fraction) 41 % 35-52 Automated erythrocyte mean corpuscular volume 95 [foz_us] 80-99 Automated erythrocyte mean corpuscular hemoglobin (mass per erythrocyte) 33 pg 25-34 Automated erythrocyte mean corpuscular hemoglobin concentration measurement (mass/volume) 35 g/dL 32-36 Automated erythrocyte distribution width ratio 13.6 % 10.0- 14.5 Automated blood platelet count (count/volume) 198 10*3/uL 130-400 Automated blood platelet mean volume measurement 11.3 [foz_us] 7.4-10.4 Automated blood neutrophils/100 leukocytes 53 % 42-75 Automated blood lymphocytes/100 leukocytes 35 % 12-44 Blood monocytes/100 leukocytes 10 % 0-12 Automated blood eosinophils/100 leukocytes 2 % 0-10 Automated blood basophils/100 leukocytes 1 % 0-10 Blood neutrophils automated count (number/volume) 6.5 10*3 1.8-7.8 Blood lymphocytes automated count (number/volume) 4.2 10*3 1.0-4.0 Blood monocytes automated count (number/volume) 1.2 10*3 0.0- 1.0 Automated eosinophil count 0.2 10*3/uL 0.0-0.3 Automated blood basophil count (count/volume) 0.1 10*3/uL 0.0-0.1 Comprehensive metabolic panel - 01/01/19 12:51 Serum or plasma sodium measurement (moles/volume) 143 mmol/L 135-145 Serum or plasma potassium measurement (moles/volume) 3.5 mmol/L 3.6-5.0 Serum or plasma chloride measurement (moles/volume) 109 mmol/L 98-107 Carbon dioxide 25 mmol/L 21-32 Serum or plasma anion gap determination (moles/volume) 9 mmol/L 5-14 Serum or plasma urea nitrogen measurement (mass/volume) 16 mg/dL 7-18 Serum or plasma creatinine measurement (mass/volume) 0.86 mg/dL 0.60-1.30 Serum or plasma urea nitrogen/creatinine mass ratio 19 NRG Serum or plasma creatinine measurement with calculation of estimated glomerular filtration rate > NRG Serum or plasma glucose measurement (mass/volume) 91 mg/dL 70-105 Serum or plasma calcium measurement (mass/volume) 9.2 mg/dL 8.5-10.1 Serum or plasma total bilirubin measurement (mass/volume) 0.2 mg/dL 0.1-1.0 Serum or plasma alkaline phosphatase measurement (enzymatic activity/volume) 88 U/L 40-136 Serum or plasma aspartate aminotransferase measurement (enzymatic activity/volume) 27 U/L 5-34 Serum or plasma alanine aminotransferase measurement (enzymatic activity/volume) 27 U/L 0-55 Serum or plasma protein measurement (mass/volume) 6.9 g/dL 6.4-8.2 Serum or plasma albumin measurement (mass/volume) 4.0 g/dL 3.2-4.5 CALCIUM CORRECTED 9.2 mg/dL 8.5-10.1 Serum or plasma troponin i.cardiac measurement (mass/volume) - 01/01/19 12:51 Serum or plasma troponin i.cardiac measurement (mass/volume) < ng/mL <0.028 THYROID STIMULATING HORMONE - 01/01/19 12:51 THYROID STIMULATING HORMONE 0.59 u[iU]/mL 0.35-4.94 Serum or plasma salicylates measurement (mass/volume) - 01/01/19 12:51 Serum or plasma salicylates measurement (mass/volume) < mg/dL 5.0-20.0 Serum or plasma acetaminophen measurement (mass/volume) - 01/01/19 12:51 Serum or plasma acetaminophen measurement (mass/volume) < ug/mL 10-30 Serum or plasma ethanol measurement (mass/volume) - 01/01/19 12:51 Serum or plasma ethanol measurement (mass/volume) < mg/dL <10 Complete urinalysis with reflex to culture - 01/01/19 13:19 Urine color determination YELLOW NRG Urine clarity determination CLEAR NRG Urine pH measurement by test strip 5 5-9 Specific gravity of urine by test strip 1.005 1.016-1.022 Urine protein assay by test strip, semi-quantitative NEGATIVE NEGATIVE Urine glucose detection by automated test strip NEGATIVE NEGATIVE Erythrocytes detection in urine sediment by light microscopy NEGATIVE NEGATIVE Urine ketones detection by automated test strip NEGATIVE NEGATIVE Urine nitrite detection by test strip NEGATIVE NEGATIVE Urine total bilirubin detection by test strip NEGATIVE NEGATIVE Urine urobilinogen measurement by automated test strip (mass/volume) NORMAL NORMAL Urine leukocyte esterase detection by dipstick NEGATIVE NEGATIVE Automated urine sediment erythrocyte count by microscopy (number/high power field) NONE NRG Automated urine sediment leukocyte count by microscopy (number/high power field) RARE NRG Bacteria detection in urine sediment by light microscopy FEW NRG Squamous epithelial cells detection in urine sediment by light microscopy 5-10 NRG Crystals detection in urine sediment by light microscopy NONE NRG Casts detection in urine sediment by light microscopy NONE NRG Mucus detection in urine sediment by light microscopy NEGATIVE NRG Complete urinalysis with reflex to culture YES NRG Urine drug screening test - 01/01/19 13:19 Urine phencyclidine detection by screening method NEGATIVE NEGATIVE Urine benzodiazepines detection by screening method NEGATIVE NEGATIVE Urine cocaine detection NEGATIVE NEGATIVE Urine amphetamines detection by screening method NEGATIVE NEGATIVE Urine methamphetamine detection by screening method NEGATIVE NEGATIVE Urine cannabinoids detection by screening method NEGATIVE NEGATIVE Urine opiates detection by screening method NEGATIVE NEGATIVE Urine barbiturates detection NEGATIVE NEGATIVE Screening urine tricyclic antidepressants detection NEGATIVE NEGATIVE Urine methadone detection by screening method NEGATIVE NEGATIVE Urine oxycodone detection NEGATIVE NEGATIVE Urine propoxyphene detection NEGATIVE NEGATIVE Capillary blood glucose measurement by glucometer (mass/volume) - 01/01/19 13:23 Capillary blood glucose measurement by glucometer (mass/volume) 102 mg/dL 70-110 PT panel in platelet poor plasma by coagulation assay - 01/01/19 13:23 Prothrombin time (PT) in platelet poor plasma by coagulation assay 12.2 s 12.2-14.7 INR in platelet poor plasma or blood by coagulation assay 0.9 0.8-1.4 Activated partial thromboplastin time (aPTT) in platelet poor plasma bycoagulation assay - 01/01/19 13:23 Activated partial thromboplastin time (aPTT) in platelet poor plasma bycoagulation assay 26 s 24-35 Fibrin D-dimer FEU measurement in platelet poor plasma (mass/volume) - 01/01/19 13:23 Fibrin D-dimer FEU measurement in platelet poor plasma (mass/volume) 0.31 ug/mL 0.00-0.49 Encounters ACCT No. Visit Date/Time Discharge Status Pt. Type Provider Facility Loc./Unit Complaint [id number] 02/26/2019 07:54:00 02/26/2019 23:59:59 CLS Outpatient HARPREET GOLDMAN MD [facility] CARD ANTERIOR CHEST WALL PAIN [id number] 01/10/2019 12:06:00 01/10/2019 23:59:59 CLS Outpatient VELEZ, KLAUDIA J SAND SYSTEM OPERATOR [facility] RAD LUMBAR RADICULOPATHY [id number] 01/01/2019 12:50:00 01/01/2019 17:23:00 DIS Emergency HANNAH MIRANDA MD [facility] ER STROKE [id number] 12/17/2018 08:13:00 12/17/2018 23:59:59 CLS Outpatient HARPREET GOLDMAN MD [facility] CARD ANTERIOR CHEST WALL PAIN [id number] 12/05/2018 15:50:00 12/05/2018 23:59:59 CLS Preadmit HARPREET GOLDMAN MD [facility] CARD ANTERIOR CHEST WALL PAIN [id number] 05/25/2018 18:54:00 05/26/2018 03:50:00 DIS Inpatient CARL PAN, JARED Sow [facility] 4TH CHEST PAIN [id number] 03/05/2019 08:00:00 PEN Preadmit HARPREET GOLDMAN MD [facility] CATH ABN STRESS TEST
[2019-03-05 07:27] LABS: INR 0.9 (0.8-1.4)
[2019-03-05 07:32] LABS: BACTERIA,URINE NEGATIVE /HPF; RBC,URINE RARE /HPF
[2019-03-05] MEDS ORDERED: BUSP5TAB59 PO (07:33)
[2019-03-05] MEDS ORDERED: TRAM50TA2 PO (07:33)
[2019-03-05] MEDS ORDERED: EZET10TA27 PO (07:33)
[2019-03-05] MEDS ORDERED: PRAV10TA PO (07:33)
[2019-03-05] MEDS ORDERED: CYCL10TA9 PO (07:33)
[2019-03-05] MEDS ORDERED: PANT40TA3 PO (07:33)
[2019-03-05] MEDS ORDERED: LISI1TAB8 PO (07:33)
[2019-03-05] MEDS ORDERED: NITR0.4T42 SL (07:33)
[2019-03-05] MEDS ORDERED: FLUT1DIS28 IH (07:33)
[2019-03-05] MEDS ORDERED: ASPI-586 PO (07:33)
[2019-03-05] MEDS ORDERED: VNL75T PO (07:33)
[2019-03-05] MEDS ORDERED: MELO7.5T46 PO (07:33)
[2019-03-05 07:34] LABS: ALANINE AMINOTRANSFERASE 30 U/L (0-55); ALBUMIN 4.2 GM/DL (3.2-4.5); ALKALINE PHOSPHATASE 99 U/L (40-136); BILIRUBIN,TOTAL 0.3 MG/DL (0.1-1.0); BUN/CREATININE RATIO 18; CALCIUM 9.5 MG/DL (8.5-10.1); CARBON DIOXIDE 22 MMOL/L (21-32); CHLORIDE 107 MMOL/L (98-107); CHOLESTEROL 167 MG/DL (< 200); CREATININE SERUM 0.74 MG/DL (0.60-1.30); GFR ESTIMATED > 60; GLUCOSE 123 MG/DL (70-105); HDL CHOLESTEROL 27 MG/DL (40-60); POTASSIUM 3.6 MMOL/L (3.6-5.0); SODIUM 144 MMOL/L (135-145); TOTAL PROTEIN 7.4 GM/DL (6.4-8.2); TRIGLYCERIDES 741 MG/DL (<150); VLDL CHOLESTEROL 148 MG/DL (5-40)
[2019-03-05] MEDS ORDERED: MIDAZOLAM 5 MG/5 ML (VERSED) VIAL ONE (07:35)
[2019-03-05] MEDS ORDERED: fentaNYL INJECTION 100 MCG/2 ML AMP ONE (07:35)
--- NOTE | 2019-03-05 07:49 | Diagnostic Imaging Report ---
INDICATION: Heart disease. Comparison is made with prior examination from 01/01/2019. FINDINGS: The heart size, mediastinal configuration, and pulmonary vascularity are within normal limits. There is no pleural effusion, pneumothorax, or pneumonia. The osseous structures are unremarkable. IMPRESSION: No acute cardiopulmonary abnormality. Dictated by: Dictated on workstation # [id number]
--- NOTE | 2019-03-05 08:08 | Cardiac Procedure Note-CS/ASA ---
Pre-Procedure Note Pre-Op Procedure Note H&P Reviewed The H&P was reviewed, patient examined and no changes noted. Date H&P Reviewed: March 05, 2019 Time H&P Reviewed: 07:30 Conscious Sedation Pre-Proced Time 07:30 ASA Score 3 For ASA 3 and 4: Consider anesthesia and medical clearance. Also, for patients with a history of failed moderate sedation consider anesthesia. Airway Lungs Heart ASA score ASA 1: a normal healthy patient ASA 2: a patient with a mild systemic disease (mid diabetes, controlled hypertension, obesity x ASA 3: a patient with a severe systemic disease that limits activity (angina, COPD, prior Myocardial infarction) ASA 4: a patient with an incapacitating disease that is a constant threat to life (CHF, renal failure) ASA 5: a moribund patient not expected to survive 24 hrs. (ruptured aneurysm) ASA 6: a declared brain- patient whose organs are being harvested. For emergent operations, add the letter E after the classification Mallampati Classification Grade 3 Sedation Plan Analgesia, Amnesia, Plan communicated to team members, Discussed options with patient/fam, Discussed risks with patient/fam The patient is an appropriate candidate to undergo the planned procedure, sedation, and anesthesia. The patient immediately re-assessed prior to indication. HARPREET GOLDMAN MD March 05, 2019 08:08
[2019-03-05] MEDS ORDERED: ICOS1CAP PO (08:24)
--- NOTE | 2019-03-05 08:25 | Discharge Inst-Post CATH ---
Discharge Inst-CATH/EP Post Cardiac Cath/EP D/C Inst Follow Up/Plan Appointment with Dr. Sevilla's office in 2-4 weeks <b>CARDIAC CATH/EP PROCEDURE DISCHARGE INSTRUCTIONS</b> Cardiac Rehab Please be expecting a follow up call from Cardiac Rehab within in one week. ACTIVITY * Go Home directly and rest. * Limit activity of the leg (or wrist if it was used) for 7 days including aerobics, swimming, jogging, bicycling, etc. * Restrict stair-climbing for 7 days if possible, if not, climb up with your non-cath leg, then bring together on the same step. * Avoid lifting, pushing, pulling or excessive movement of the affected extremity for 7 days. * Customary sexual activity may be resumed after 2 days-use caution not to use a position that strains or causes pain to the affected extremity. * No driving for 24 hours. * NO SMOKING. * Avoid straining for bowel movements for 7 days. * Gentle walking on level ground is allowed. * Returning to work will depend on the type of procedure and the results. Your doctor will discuss this with you. CALL YOUR DOCTOR FOR ANY OF THE FOLLOWING: *If bleeding from the puncture site occurs- Apply gentle pressure to site with clean cloth and call your doctor or EMS. * If a knot or lump forms under the skin, increases in size, or causes pain. * If bruising appears to be worsening or moving further down your leg instead of disappearing. * Temperature above 101 F. CARE OF YOUR GROIN INCISION; * Bruising or purple discoloration of the skin near the puncture site is common. * You may shower only, no bathtub bathing for 5 days. Be careful to avoid slipping as your leg may feel stiff. * If a closure device was used on your femoral artery, please see the attached guide regarding care of the device and your leg. * Leave dressing on FOR 24 hours. CARE OF YOUR WRIST INCISION; * Bruising or purple discoloration of the skin near the puncture site is common. * You may shower. * DO NOT submerge wrist. * Leave dressing on FOR 24 hours. HARPREET SEVILLA MD March 05, 2019 08:25
[2019-03-05] MEDS ORDERED: PATIENT MAY USE OWN MEDS, ALL PO SCH (08:30)
--- NOTE | 2019-03-05 08:33 | Cardiac Cath Report ---
Cardiac Cath Report Physician (s)/Cheese Cooker (s) Physician HARPREET GOLDMAN MD Pre-Procedure Diagnosis Pre-Procedure Diagnosis: coronary artery disease Post-Procedure Note Procedure Start Date: March 05, 2019 Name of Procedure: left heart catheterization Left ventriculogram Aortic arch angiogram Findings/Procedure Note PROCEDURE NOTE: 58 years old lady with history of hypertension and hyperlipidemia, had an abnormal stress test with inferior wall ischemia she was scheduled for cardiac catheterization possible PTCA. After explaining the procedure to the patient, all pros and cons were explained, all questions were answered. The patient signed the consent and then she was placed on the cardiac catheterization laboratory. Groin was prepped SL fashion local anesthesia was used. Sheath placed in the Right femoral artery. Bella right and left catheter were used to access the coronary system. Pigtail was used to access the left ventricular cavity. Left ventriculogram was done Aortic arch angiogram was done At the end of the procedure the sheath was removed. Closure device was used FINDINGS: Hemodynamics LV 132/22, end-diastolic pressure of 22 Aorta 136/84 mean of 106 ANATOMY: Left Main is free of obstructive disease Left Anterior Descending is slightly tortuous with mild disease, the first diagonal artery is moderate in size with 50 percent stenosis proximally. Left Circumflex it is moderate in size with normal obstructive disease Right Coronory Artery is dominant artery, totally occluded proximally, lateral filling the right coronary artery from the left system LV Gram is normal in size, normal systolic function, estimated ejection fraction 60 percent Aorta evaluation done with aortic arch angiogram which showed normal aortic arch, no dissection or aneurysm, origin of the innominate artery, left carotid artery and left subclavian arteries were normal CONCLUSION: 1. Totally occluded dominant right coronary system with collaterals filling the right from the left system 2. 50 percent proximal first diagonal artery stenosis, moderate disease 3. Otherwise mild coronary artery disease in the LAD and circumflex system 4. Normal left ventricular size and systolic function estimated ejection fraction 60 percent 5. Normal aortic arch and great vessels of the neck DISCUSSION AND RECOMMENDATION: patient has totally occluded right coronary artery that appeared to be chronic total occlusion, we will continue to try aggressive medical therapy. 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
== END 2019-03-05 12:25 | disposition home or self-care (01) ==
LOC: CATH 06:35 → SDC 08:41 → CATH 12:25
PROVIDERS: ATTEND Internal Medicine Cardiovascular Disease
DX: I25.118 Atherosclerotic heart disease of native coronary artery with other forms of angina pectoris (principal); I25.10 Atherosclerotic heart disease of native coronary artery without angina pectoris; I10 Essential (primary) hypertension; E78.5 Hyperlipidemia, unspecified; E78.1 Pure hyperglyceridemia; J44.9 Chronic obstructive pulmonary disease, unspecified; F32.9 Major depressive disorder, single episode, unspecified; K21.9 Gastro-esophageal reflux disease without esophagitis; F41.9 Anxiety disorder, unspecified; Z79.82 Long term (current) use of aspirin; Z79.899 Other long term (current) drug therapy; I65.23 Occlusion and stenosis of bilateral carotid arteries; M51.35 Other intervertebral disc degeneration, thoracolumbar region; F17.210 Nicotine dependence, cigarettes, uncomplicated
CPT/HCPCS: 36221; 36415; 71045; 80053; 80061; 81000; 85027; 85610; 85730; 87081; 93458

== ENCOUNTER → 2019-04-21 | Outpatient (CLI) | payer OTHER ==
[~2019-04-21] MED LIST changes: +ASPI-586 PO; +BUSP5TAB59 PO; +CYCL10TA9 PO; +EZET10TA49 PO; +FLUT1DIS28 IH; +ICOS1CAP PO; +LISI1TAB8 PO; +MELO7.5T46 PO; +NITR0.4T42 SL; +PANT40TA3 PO; +PRAV10TA PO; +TRAM50TA2 PO; +VNL75T PO
[2019-04-21 13:21] LABS: ABG BASE EXCESS 0.5 MMOL/L (-2.5-2.5); ABG OXYGEN SATURATION 97 % (94-100); ABG PCO2 35 MMHG (35-45); ABG PH 7.45 (7.37-7.43); ABG PO2 70 MMHG (79-93); ABG TCO2 25.4 MMOL/L (21.0-31.0)
[2019-04-21 13:22] LABS: ALLENS TEST YES-POS; INSPIRED O2 ROOM AIR
[2019-04-21 13:23] LABS: PATIENT TEMP 96.7; VENTILATOR NO
== END ==
LOC: RT 10:15
PROVIDERS: ATTEND Internal Medicine Critical Care Medicine
DX: R06.00 Dyspnea, unspecified (principal); Z72.0 Tobacco use
CPT/HCPCS: 36600; 82805

== ENCOUNTER 2019-05-20 12:16 | Emergency (ER) | payer OTHER ==
[~2019-05-20] VITALS: Ht 162.6 cm; Wt 77.1 kg
--- OUTSIDE RECORDS SUMMARY | 2019-05-20 12:20 | XMS REPORT | Continuity of Care Document ---
Author Organization Unknown Address Unknown Phone Unavailable Allergies Active Description Code Type Severity Reaction Onset Reported/Identified Relationship to Patient Clinical Status Yes BACTRIM DS SEVERE SEVERE Yes BACTRIM DS SEVERE UNKNOWN Yes CLARITIN SEVERE SEVERE Yes CLARITIN SEVERE UNKNOWN Yes mushroom [id number] Drug Allergy Unknown N/A 05/25/2018 Yes latex [id number] Drug Allergy Unknown N/A 05/26/2018 Yes loratadine [id number] Drug Allergy Unknown N/A 05/26/2018 Yes pseudoephedrine [id number] Drug Allergy Unknown N/A 05/26/2018 Yes Sulfa (Sulfonamide Antibiotics) [id number] Drug Allergy Unknown N/A 05/26/2018 Yes sulfamethoxazole [id number] Drug Allergy Unknown N/A 05/26/2018 Yes trimethoprim [id number] Drug Allergy Unknown N/A 05/26/2018 Medications Medication Packaging Start Date Stop Date Route Dosage Sig KETOROLAC VIAL INJ 60 MG/2CC (TORADOL VIAL) MG 09/25/2018 09/25/2018 [id number] Problems Date Dx Coded Attending Type Code Diagnosis Diagnosed By 05/26/2018 JARED HENRY MD Ot F17.210 NICOTINE DEPENDENCE, CIGARETTES, UNCOMPL 05/26/2018 JARED HENRY MD, Ot F32.9 MAJOR DEPRESSIVE [...] MD Ot F41.9 ANXIETY DISORDER, UNSPECIFIED 05/31/2018 AJRED HENRY MD Ot I10 ESSENTIAL (PRIMARY) HYPERTENSION [...] HENRY MD Ot R07.9 CHEST PAIN, UNSPECIFIED 09/25/2018 Brokob, Maritza W 466.0 ACUTE BRONCHITIS 09/25/2018 Brokob, Maritza A 724.4 THORACIC OR LUMBOSACRAL NEURITIS OR RADICULITIS, UNSPECIFIED 09/25/2018 Brokob, Maritza W J20.9 ACUTE BRONCHITIS, UNSPECIFIED 09/25/2018 Brokob, Maritza A M54.16 RADICULOPATHY, LUMBAR REGION 12/18/2018 HARPREET GOLDMAN MD Ot I10 ESSENTIAL (PRIMARY) HYPERTENSION 12/18/2018 HARPREET GOLDMAN MD Ot J44.9 CHRONIC OBSTRUCTIVE PULMONARY DISEASE, U 12/18/2018 HARPREET GOLDMAN MD Ot R07.89 OTHER CHEST PAIN 12/18/2018 HARPREET GOLDMAN MD Ot Z72.0 TOBACCO USE 01/01/2019 HARPREET GOLDMAN MD Ot I10 ESSENTIAL (PRIMARY) HYPERTENSION 01/01/2019 HARPREET GOLDMAN MD Ot J44.9 CHRONIC OBSTRUCTIVE PULMONARY DISEASE, U 01/01/2019 HARPREET GOLDMAN MD Ot R07.89 OTHER CHEST PAIN 01/01/2019 HARPREET GOLDMAN MD Ot Z72.0 TOBACCO USE 01/01/2019 HANNAH MIRANDA MD Ot F17.210 NICOTINE DEPENDENCE, CIGARETTES, UNCOMPL 01/01/2019 HANNAH MIRANDA MD Ot F32.9 MAJOR DEPRESSIVE DISORDER, SINGLE EPISOD 01/01/2019 HANNAH MIRANDA MD Ot F41.9 ANXIETY DISORDER, UNSPECIFIED 01/01/2019 HANNAH MIRANDA MD, Ot G45.9 TRANSIENT CEREBRAL ISCHEMIC ATTACK, UNSP 01/01/2019 HANNAH MIRANDA MD Ot I10 ESSENTIAL (PRIMARY) HYPERTENSION 01/01/2019 HANNAH MIRANDA MD, Ot J44.9 CHRONIC OBSTRUCTIVE PULMONARY DISEASE, U 01/01/2019 HANNAH MIRANDA MD Ot M54.42 LUMBAGO WITH SCIATICA, LEFT SIDE 01/01/2019 HANNAH MIRANDA MD Ot R47.81 SLURRED SPEECH 01/01/2019 HANNAH MIRANDA MD, Ot Z80.0 FAMILY HISTORY OF MALIGNANT NEOPLASM OF 01/01/2019 HANNAH MIRANDA MD, Ot Z82.49 FAMILY HX OF ISCHEM HEART DIS AND OTH DI 01/01/2019 HANNAH MIRANDA MD, Ot Z87.19 PERSONAL HISTORY OF OTHER DISEASES OF TH 01/01/2019 HANNAH MIRANDA MD, Ot Z88.1 ALLERGY STATUS TO OTHER ANTIBIOTIC AGENT 01/01/2019 HANNAH MIRANDA MD Ot Z88.2 ALLERGY STATUS TO SULFONAMIDES STATUS 01/01/2019 HANNAH MIRANDA MD, Ot Z88.8 ALLERGY STATUS TO OTH DRUG/MEDS/BIOL [...] DEPRESSIVE DISORDER, SINGLE EPISOD 01/04/2019 HANNAH MIRANDA MD, Ot F41.9 ANXIETY DISORDER, UNSPECIFIED 01/04/2019 HANNAH MIRADNA MD, Ot 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 TRANSIENT CEREBRAL ISCHEMIC ATTACK, UNSP 01/04/2019 HANNAH MIRANDA MD Ot I10 ESSENTIAL (PRIMARY) HYPERTENSION 01/04/2019 HANNAH MIRANDA MD, Ot J44.9 CHRONIC OBSTRUCTIVE PULMONARY DISEASE, U [...] OTHER DISEASES OF TH 01/04/2019 HANNAH MIRANDA MD, Ot Z88.1 ALLERGY STATUS TO OTHER ANTIBIOTIC AGENT 01/04/2019 HANNAH MIRANDA MD, Ot Z88.2 ALLERGY STATUS TO SULFONAMIDES STATUS 01/04/2019 HANNAH MIRANDA MD, Ot Z88.8 ALLERGY STATUS TO OTH DRUG/MEDS/BIOL SUB 01/04/2019 HANNAH MIRANDA MD Ot Z90.710 ACQUIRED ABSENCE OF BOTH CERVIX AND UTER 01/04/2019 HANNAH MIRANDA MD Ot Z91.040 LATEX ALLERGY STATUS 01/04/2019 HANNAH MIRANDA MD Ot Z98.890 OTHER SPECIFIED POSTPROCEDURAL STATES 01/22/2019 KLAUDIA VELEZ Ot M46.87 OTH INFLAMMATORY SPONDYLOPATHIES, LUMBOS 01/22/2019 KLAUDIA VELEZP Ot M47.26 OTHER SPONDYLOSIS WITH RADICULOPATHY, BRENNAN 01/22/2019 KLAUDIA VELEZP Ot M48.07 SPINAL STENOSIS, LUMBOSACRAL REGION 01/22/2019 KLAUDIA VELEZP Ot M51.15 INTVRT DISC DISORDERS W RADICULOPATHY, T 01/22/2019 KLAUDIA VELEZP Ot M51.17 INTVRT DISC DISORDERS W RADICULOPATHY, L 01/22/2019 KLAUDIA VELEZP Ot Z98.890 OTHER SPECIFIED POSTPROCEDURAL STATES 03/04/2019 HARPREET GOLDMAN MD Ot F41.9 ANXIETY DISORDER, UNSPECIFIED 03/04/2019 HARPREET GOLDMAN MD Ot I10 ESSENTIAL (PRIMARY) HYPERTENSION 03/04/2019 HARPREET GOLDMAN MD Ot J44.9 CHRONIC OBSTRUCTIVE PULMONARY DISEASE, U 03/04/2019 HARPREET GOLDMAN MD Ot R07.89 OTHER CHEST PAIN 03/04/2019 HARPREET GOLDMAN MD Ot Z72.0 TOBACCO USE 03/05/2019 HARPREET GOLDMAN MD Ot E78.1 PURE HYPERGLYCERIDEMIA 03/05/2019 HARPREET GOLDMAN MD Ot E78.5 HYPERLIPIDEMIA, UNSPECIFIED 03/05/2019 HARPREET GOLDMAN MD Ot F17.210 NICOTINE DEPENDENCE, CIGARETTES, UNCOMPL 03/05/2019 HARPREET GOLDMAN MD Ot F32.9 MAJOR DEPRESSIVE DISORDER, SINGLE EPISOD 03/05/2019 HARPREET GOLDMAN MD Ot F41.9 ANXIETY DISORDER, UNSPECIFIED 03/05/2019 HARPREET GOLDMAN MD Ot I10 ESSENTIAL (PRIMARY) HYPERTENSION 03/05/2019 HARPREET GOLDMAN MD Ot I25.10 ATHSCL HEART DISEASE OF [place] CORONARY 03/05/2019 HARPREET GOLDMAN MD Ot I25.118 ATHSCL HEART DISEASE OF [place] COR ART W 03/05/2019 HARPREET GOLDMAN MD Ot I65.23 OCCLUSION AND STENOSIS OF BILATERAL [place] 03/05/2019 HARPREET GOLDMAN MD, Ot J44.9 CHRONIC OBSTRUCTIVE PULMONARY DISEASE, U 03/05/2019 HARPREET GOLDMAN MD Ot K21.9 GASTRO-ESOPHAGEAL REFLUX DISEASE WITHOUT 03/05/2019 HARPREET GOLDMAN MD Ot 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, 03/05/2019 HARPREET GOLDMAN MD Ot Z79.82 SUPERVISOR TREE TRIMMING (CURRENT) USE OF ASPIRIN 03/05/2019 HARPREET GOLDMAN MD Ot Z79.899 OTHER FPC (CURRENT) DRUG THERAPY 03/06/2019 HARPREET GOLDMAN MD, Ot F41.9 ANXIETY DISORDER, UNSPECIFIED 03/06/2019 HARPREET GOLDMAN MD Ot I10 ESSENTIAL (PRIMARY) HYPERTENSION 03/06/2019 HARPREET GOLDMAN MD, Ot J44.9 CHRONIC OBSTRUCTIVE PULMONARY DISEASE, U 03/06/2019 HARPREET GOLDMAN MD Ot R07.89 OTHER CHEST PAIN 03/06/2019 HARPREET GOLDMAN MD Ot Z72.0 TOBACCO USE 03/07/2019 HARPREET GOLDMAN MD Ot E78.1 PURE HYPERGLYCERIDEMIA 03/07/2019 HARPREET GOLDMAN MD Ot E78.5 HYPERLIPIDEMIA, UNSPECIFIED 03/07/2019 HARPREET GOLDMAN MD Ot F17.210 NICOTINE DEPENDENCE, CIGARETTES, UNCOMPL 03/07/2019 HARPREET GOLDMAN MD, Ot F32.9 MAJOR DEPRESSIVE DISORDER, SINGLE EPISOD 03/07/2019 HARPREET GOLDMAN MD, Ot F41.9 ANXIETY DISORDER, UNSPECIFIED 03/07/2019 HARPREET GOLDMAN MD Ot I10 ESSENTIAL (PRIMARY) HYPERTENSION 03/07/2019 HARPREET GOLDMAN MD, Ot I25.10 ATHSCL HEART DISEASE OF [place] CORONARY 03/07/2019 HARPREET GOLDMAN MD, Ot I25.118 ATHSCL HEART DISEASE OF [place] COR ART W 03/07/2019 HARPREET GOLDMAN MD Ot I65.23 OCCLUSION AND STENOSIS OF BILATERAL [place] 03/07/2019 HARPREET GOLDMAN MD, Ot J44.9 CHRONIC OBSTRUCTIVE PULMONARY DISEASE, U 03/07/2019 HARPREET GOLDMAN MD, Ot K21.9 GASTRO-ESOPHAGEAL REFLUX DISEASE WITHOUT 03/07/2019 HARPREET GOLDMAN MD Ot 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, 03/07/2019 HARPREET GOLDMAN MD, Ot Z79.82 SUPERVISOR TREE TRIMMING (CURRENT) USE OF ASPIRIN 03/07/2019 HARPREET GOLDMAN MD, Ot Z79.899 OTHER SUPERVISOR TREE TRIMMING (CURRENT) DRUG THERAPY 03/13/2019 HARPREET GOLDMAN MD, Ot F41.9 ANXIETY DISORDER, UNSPECIFIED 03/13/2019 HARPREET GOLDMAN MD Ot I10 ESSENTIAL (PRIMARY) HYPERTENSION 03/13/2019 HARPREET GOLDMAN MD, Ot J44.9 CHRONIC OBSTRUCTIVE PULMONARY DISEASE, U 03/13/2019 HARPREET GOLDMAN MD Ot R07.89 OTHER CHEST PAIN 03/13/2019 HARPREET GOLDMAN MD, Ot Z72.0 TOBACCO USE 05/07/2019 JESS CHACON DO Ot R06.00 DYSPNEA, UNSPECIFIED 05/07/2019 JESS CHACON DO Ot Z72.0 TOBACCO USE Procedures There is no data. Results Test Result Range CMP - 06/25/18 16:29 GLUCOSE 81 mg/dL 65-99 UREA NITROGEN (BUN) 19 mg/dL 7-25 CREATININE 0.90 mg/dL 0.50-1.05 eGFR NON-AFR. ANDORRAN 71 mL/min/1.73m2 > OR=60 eGFR 83 mL/min/1.73m2 > OR=60 BUN/CREATININE RATIO NOT APPLICABLE (calc) 6-22 SODIUM 140 mmol/L 135-146 POTASSIUM 4.3 mmol/L 3.5-5.3 CHLORIDE 103 mmol/L 98-110 CARBON DIOXIDE 30 mmol/L 20-32 CALCIUM 9.9 mg/dL 8.6-10.4 PROTEIN, TOTAL 7.3 g/dL 6.1-8.1 ALBUMIN 4.4 g/dL 3.6-5.1 GLOBULIN 2.9 g/dL (calc) 1.9-3.7 ALBUMIN/GLOBULIN RATIO 1.5 (calc) 1.0-2.5 BILIRUBIN, TOTAL 0.4 mg/dL 0.2-1.2 ALKALINE PHOSPHATASE 67 U/L 33-130 AST 16 U/L 10-35 ALT 13 U/L 6-29 Complete blood count (CBC) with automated white [...] platelet poor plasma (mass/volume) 0.31 ug/mL 0.00-0.49 Automated blood complete blood count (hemogram) panel - 03/05/19 07:03 Blood leukocytes automated count (number/volume) 10.0 10*3/uL 4.3-11.0 Blood erythrocytes automated count (number/volume) 4.76 10*6/uL 4.35-5.85 Venous blood hemoglobin measurement (mass/volume) 15.5 g/dL 11.5-16.0 Blood hematocrit (volume fraction) 44 % 35-52 Automated erythrocyte mean corpuscular volume 93 [foz_us] 80-99 Automated erythrocyte mean corpuscular hemoglobin (mass per erythrocyte) 33 pg 25-34 Automated erythrocyte mean corpuscular hemoglobin concentration measurement (mass/volume) 35 g/dL 32-36 Automated erythrocyte distribution width ratio 13.0 % 10.0- 14.5 Automated blood platelet count (count/volume) 199 10*3/uL 130-400 Automated blood platelet mean volume measurement 11.8 [foz_us] 7.4-10.4 PT panel in platelet poor plasma by coagulation assay - 03/05/19 07:03 Prothrombin time (PT) in platelet poor plasma by coagulation assay 12.0 s 12.2-14.7 INR in platelet poor plasma or blood by coagulation assay 0.9 0.8-1.4 Activated partial thromboplastin time (aPTT) in platelet poor plasma bycoagulation assay - 03/05/19 07:03 Activated partial thromboplastin time (aPTT) in platelet poor plasma bycoagulation assay 28 s 24-35 Complete urinalysis with reflex to culture - 03/05/19 07:03 Urine color determination YELLOW NRG Urine clarity determination CLEAR NRG Urine pH measurement by test strip 7 5-9 Specific gravity of urine by test [...] erythrocyte count by microscopy (number/high power field) RARE NRG Automated urine sediment leukocyte count by microscopy (number/high power field) NONE NRG Bacteria detection in urine sediment by light microscopy NEGATIVE NRG Squamous epithelial cells detection in urine sediment by light microscopy 2-5 NRG Crystals detection in urine sediment by light microscopy NONE NRG Casts detection in urine sediment by light microscopy NONE NRG Mucus detection in urine sediment by light microscopy NEGATIVE NRG Complete urinalysis with reflex to culture NO NRG Comprehensive metabolic panel - 03/05/19 07:03 Serum or plasma sodium measurement (moles/volume) 144 mmol/L 135-145 Serum or plasma potassium measurement (moles/volume) 3.6 mmol/L 3.6-5.0 Serum or plasma chloride measurement (moles/volume) 107 mmol/L 98-107 Carbon dioxide 22 mmol/L 21-32 Serum or plasma anion gap determination (moles/volume) 15 mmol/L 5-14 Serum or plasma urea nitrogen measurement (mass/volume) 13 mg/dL 7-18 Serum or plasma creatinine measurement (mass/volume) 0.74 mg/dL 0.60-1.30 Serum or plasma urea nitrogen/creatinine mass ratio 18 NRG Serum or plasma creatinine measurement with calculation of estimated glomerular filtration rate > NRG Serum or plasma glucose measurement (mass/volume) 123 mg/dL 70-105 Serum or plasma calcium measurement (mass/volume) 9.5 mg/dL 8.5-10.1 Serum or plasma total bilirubin measurement (mass/volume) 0.3 mg/dL 0.1-1.0 Serum or plasma alkaline phosphatase measurement (enzymatic activity/volume) 99 U/L 40-136 Serum or plasma aspartate aminotransferase measurement (enzymatic activity/volume) 26 U/L 5-34 Serum or plasma alanine aminotransferase measurement (enzymatic activity/volume) 30 U/L 0-55 Serum or plasma protein measurement (mass/volume) 7.4 g/dL 6.4-8.2 Serum or plasma albumin measurement (mass/volume) 4.2 g/dL 3.2-4.5 CALCIUM CORRECTED 9.3 mg/dL 8.5-10.1 Lipid 1996 panel - 03/05/19 07:03 Serum or plasma triglyceride measurement (mass/volume) 741 mg/dL <150 Serum or plasma cholesterol measurement (mass/volume) 167 mg/dL < 200 Serum or plasma cholesterol in HDL measurement (mass/volume) 27 mg/dL 40-60 Cholesterol in LDL [mass/volume] in serum or plasma by direct assay 52 mg/dL 1-129 Serum or plasma cholesterol in VLDL measurement (mass/volume) 148 mg/dL 5-40 Methicillin resistant Staphylococcus aureus (MRSA) screening culture - 03/05/19 07:03 Methicillin resistant Staphylococcus aureus (MRSA) screening culture NEG NRG Arterial blood gas measurement - 04/21/19 13:10 Blood pCO2 35 mm[Hg] 35-45 Blood pO2 70 mm[Hg] 79-93 Arterial blood bicarbonate measurement (moles/volume) 24 mmol/L 23-27 Arterial blood base excess by calculation 0.5 mmol/L -2.5-2.5 Arterial blood oxygen saturation measurement 97 % 94-100 * Inhaled oxygen flow rate ROOM AIR NRG Arterial blood pH measurement with patient temperature correction 7.45 7.37-7.43 Arterial blood carbon dioxide, total measurement (moles/volume) 25.4 mmol/L 21.0-31.0 Body site LT RAD NRG Assessment of wrist artery patency prior to arterial puncture YES-POS NRG Setting of ventilation mode NO NRG Measurement of body temperature 96.7 NRG Encounters ACCT No. Visit Date/Time Discharge Status Pt. Type Provider Facility Loc./Unit Complaint [id number] 05/01/2019 12:44:00 05/01/2019 23:59:00 DIS Outpatient VelezKlaudia [id number] 09/25/2018 18:27:00 09/25/2018 19:20:00 [id number] 19:05:24 Document Registration [id number] 04/30/2019 09:00:00 04/30/2019 23:59:59 CLS Outpatient KLAUDIA VELEZ [facility] [id number] 06/25/2018 15:20:00 Document Registration [id number] 04/24/2019 11:03:00 04/24/2019 23:59:59 CLS Preadmit JESS CHACON DO [facility] SLEEP G47.10 G47.50 R06.00 R06.83 SNORING [id number] 04/24/2019 11:00:00 04/24/2019 23:59:59 CLS Preadmit JESS CHACON DO [facility] RT DYSPNEA [id number] 04/24/2019 10:59:00 04/24/2019 23:59:59 CLS Preadmit JESS CAHCON DO [facility] RAD DYSPNEA [id number] 04/23/2019 10:00:00 04/23/2019 23:59:59 CLS Preadmit HARPREET GOLDMAN MD [facility] CR STABLE ANGINA [id number] 04/21/2019 12:51:00 04/21/2019 23:59:59 CLS Outpatient JESS CHACON DO [facility] RT R06.00 [id number] 03/05/2019 06:35:00 03/05/2019 12:25:00 DIS Outpatient HARPREET GOLDMAN MD [facility] CATH ABN STRESS TEST [id number] 02/26/2019 07:54:00 02/26/2019 23:59:59 CLS Outpatient HARPREET GOLDMAN MD [facility] CARD ANTERIOR CHEST WALL PAIN [id number] 01/10/2019 12:06:00 01/10/2019 23:59:59 CLS Outpatient KLAUDIA VELEZ [employer]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 [facility] RAD LUMBAR RADICULOPATHY [id number] 01/01/2019 12:50:00 01/01/2019 17:23:00 DIS Emergency HANNAH MIRANDA MD [facility] ER STROKE [id number] 12/17/2018 08:13:00 12/17/2018 23:59:59 CLS Outpatient HARPREET GOLDMAN MD [facility] CARD ANTERIOR CHEST WALL PAIN [id number] 12/05/2018 15:50:00 12/05/2018 23:59:59 CLS Preadmit HARPREET GOLDMAN MD [facility] CARD ANTERIOR CHEST WALL PAIN [id number] 05/25/2018 18:54:00 05/26/2018 03:50:00 DIS Inpatient CARL PAN, JARED Sow [facility] 4TH CHEST PAIN
--- NOTE | 2019-05-20 12:55 | ED Neck-Back Pain/Injury ---
General Chief Complaint: Head/Cervical Problems Stated Complaint: NECK/SHOULDER/HEAD PAIN Nursing Triage Note: has neck, shoulder, and head pain that started approx 4 weeks ago Nursing Sepsis Screen: No Definite Risk Source of Information: Patient Exam Limitations: No Limitations History of Present Illness Date Seen by Provider: May 20, 2019 Time Seen by Provider: 13:30 Initial Comments 60-year-old female who presents to the emergency room with complaints of head, neck pain that radiates down into her shoulders bilaterally for the past 4 week s. She reports that her doctor told her she probably had slipped disks in her neck. She has chronic low back pain but has had increasing pain for the past 4 weeks. She reports that she also fell out of her bed this morning striking her head on her bedside table. There is no ecchymosis or abrasions noted. She does have mild cervical spine tenderness. Denies loss of consciousness. Location: C-Spine Timing/Duration: Other (4 weeks) Associated Symptoms: denies symptoms Allergies and Home Medications Allergies Coded Allergies: Sulfa (Sulfonamide Antibiotics) (Unverified Allergy, Unknown, 05/26/18) latex (Unverified Allergy, Unknown, 05/26/18) loratadine (Unverified Allergy, Unknown, 05/26/18) mushroom (Unverified Allergy, Unknown, 05/25/18) pseudoephedrine (Unverified Allergy, Unknown, 05/26/18) sulfamethoxazole (Unverified Allergy, Unknown, 05/26/18) trimethoprim (Unverified Allergy, Unknown, 05/26/18) Home Medications Aspirin 81 Mg Tablet.dr, 81 MG PO DAILY, (Reported) Buspirone HCl 5 Mg Tablet, 5 MG PO BID, (Reported) Cyclobenzaprine HCl 10 Mg Tablet, 10 MG PO TID PRN for PRN, (Reported) Ezetimibe 10 Mg Tablet, 10 MG PO DAILY, (Reported) Fluticasone/Salmeterol 1 Each Blst.w.dev, 1 EACH IH DAILY, (Reported) Icosapent Ethyl 1 Gm Capsule, 1 GM PO BID Prescribed by: HARPREET GOLDMAN on 03/05/19 0824 Lisinopril/Hydrochlorothiazide 1 Each Tablet, 1 EACH PO DAILY, (Reported) Meloxicam 7.5 Mg Tablet, 7.5 MG PO DAILY, (Reported) Pantoprazole Sodium 40 Mg Tablet.dr, 40 MG PO DAILY, (Reported) Pravastatin Sodium 10 Mg Tablet, 10 MG PO HS, (Reported) Tramadol HCl 50 Mg Tablet, 50 MG PO TID PRN for PRN, (Reported) Venlafaxine HCl 75 Mg Tab, 75 MG PO DAILY PRN, (Reported) Patient Home Medication List Home Medication List Reviewed: Yes Review of Systems Constitutional: see HPI; No chills, No fever Musculoskeletal: see HPI, neck pain All Other Systems Reviewed Negative Unless Noted: Yes Past Gnxrsfk-Afgqzn-Bgtxqw Hx Past Med/Social Hx: Reviewed Nursing Past Med/Soc Hx Patient Social History Alcohol Use: Denies Use Number of Drinks Today: II Alcohol Beverage of Choice: Other Recreational Drug Use: No Type Used: Cigarettes Recent Foreign Travel: No Contact w/Someone Who Travel: No Recent Infectious Disease Expo: No Recent Hopitalizations: No Physical Abuse: No Sexual Abuse: No Mistreated: No Fear: No Seasonal Allergies Seasonal Allergies: No Past Medical History Surgeries: Yes Appendectomy, Bowel Surgery, Section, Hysterectomy, Lumpectomy Respiratory: Yes COPD Currently Using CPAP: No Currently Using BIPAP: No Cardiac: Yes Hypertension 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: No 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 PROGRAM DIRECTOR History: Hysterectomy Genitourinary: No Gastrointestinal: No Gall Bladder Disease Musculoskeletal: Yes (HERNIATED DISK) Chronic Back Pain Endocrine: No HEENT: No Cancer: No Psychosocial: Yes Depression Integumentary: No Blood Disorders: No Adverse Reaction/Blood Tranf: No Family Medical History Reviewed Nursing Family Hx Cardiovascular disease 19 MOTHER Cataracts Colon cancer 19 FATHER (UNKNOWN) G8 BROTHER G8 BROTHER G8 BROTHER G8 SISTER Congenital heart disease 19 MOTHER (UNKNOWN) Diabetes mellitus 19 MOTHER G8 BROTHER G8 BROTHER Infertility Kidney disease 19 MOTHER Osteoporosis G8 SISTER Physical Exam Vital Signs Vital Signs - First Documented 05/20/19 12:23 Temp 96.9 Pulse 101 Resp 18 B/P (MAP) 130/87 (101) Capillary Refill : Less Than 3 Seconds Height, Weight, BMI Height: 5'4.00" Weight: 170lbs. 0.0oz. [id number]; 28.8 BMI Method:Stated General Appearance: No Apparent Distress, WD/WN Cardiovascular: Regular Rate, Rhythm, No Edema, No Gallop, No JVD, No Murmur, Normal Peripheral Pulses Respiratory: Chest Non Tender, Lungs Clear, Normal Breath Sounds, No Accessory Muscle Use, No Respiratory Distress, Accessory Muscle Use Back: Vertebral Tenderness (C-spine) Extremity: Normal Capillary Refill Neurologic/Psychiatric: Alert, Oriented x3, Normal Mood/Affect Skin: Normal Color, Warm/Dry Progress/Results/Core Measures Results/Orders My Orders Orders - LADY KAPLAN Ct Head/Cervical Spine Wo (05/20/19 12:22) Ketorolac Injection (Toradol Injection) (05/20/19 13:30) Vital Signs/I&O 05/20/19 12:23 Temp 96.9 Pulse 101 Resp 18 B/P (MAP) 130/87 (101) Blood Pressure Mean: 101 Departure Impression Primary Impression: Neck pain Disposition: 01 HOME, SELF-CARE Condition: Stable/Unchanged Departure-Patient Inst. Decision time for Depature: 13:29 Referrals: [facility] (PCP) Primary Care Physician KLAUDIA VELEZ (Family) Primary Care Physician EDWARD MAGANA MD Patient Instructions: Chronic Neck Pain (DC) Add. Discharge Instructions: Continue your home medications as previously prescribed. Take the hydrocodone as needed for pain relief. Follow-up with [facility] to schedule an appointment for further evaluation neck. Return back to the emergency room for worsening symptoms or concerns as needed. All discharge instructions reviewed with patient and/or family. Voiced understanding. Scripts Hydrocodone Bit/Acetaminophen (Hydrocodone/Acetaminophen 5/325mg Tablet) 1 Tab Tab 1 EACH PO Q4-6HR PRN for PAIN-MODERATE MDD 10 for 3 Days, #10 TAB Prov: LADY KAPLAN 05/20/19 LADY KAPLAN May 20, 2019 12:55
--- NOTE | 2019-05-20 13:04 | NUR ---
pt sitting quietly in ED bed playing with cell phone, pt denies any needs or c/o at this time, pt shows no s/s of distress, vs assessed and stable, will continue to monitor
--- NOTE | 2019-05-20 13:10 | Diagnostic Imaging Report ---
PROCEDURE: CT head and CT cervical spine without contrast. TECHNIQUE: Multiple contiguous axial images were obtained through the brain and cervical spine without the use of intravenous contrast. Sagittal and coronal reformations through the cervical spine were then performed. Auto Exposure Controls were utilized during the CT exam to meet ALARA standards for radiation dose reduction. INDICATION: Trauma, fall last night hitting head on nightstand. COMPARISON: CTA head and neck from 01/01/2019. FINDINGS: CT head: No hyperdense hemorrhage or space-occupying mass. No hydrocephalus or midline shift. Lal-white matter differentiation is well preserved. No skull fracture. Paranasal sinuses and mastoid air cells are clear. CT cervical spine: No fracture or traumatic malalignment in the cervical spine. No high-grade spinal stenosis. Nyaw-pl-lybngydg spinal stenosis at C6-C7 due to posterior disc osteophyte complex. No cervical lymphadenopathy. Thyroid is normal. Minimal calcifications of the bilateral carotid bulbs. IMPRESSION: 1. No acute intracranial process or skull fracture. 2. No fracture or malalignment in the cervical spine. Dictated by: Dictated on workstation # [id number]
[2019-05-20] MEDS ORDERED: KETOROLAC 60 MG/2 ML VIAL IM ONE (13:30)
[2019-05-20] MEDS ORDERED: ACHD5005 PO (13:32)
--- NOTE | 2019-05-20 13:40 | NUR ---
pt rates pain at 03/24, pt has no needs or c/o at this time
[2019-05-20 13:42] VITALS: BP 108/58
== END 2019-05-20 13:43 | disposition home or self-care (01) ==
LOC: EDUNIT# 12:16 → ER 12:16
DX: M54.2 Cervicalgia (principal); I10 Essential (primary) hypertension; J44.9 Chronic obstructive pulmonary disease, unspecified; F32.9 Major depressive disorder, single episode, unspecified; Z90.710 Acquired absence of both cervix and uterus; Z88.2 Allergy status to sulfonamides; Z88.1 Allergy status to other antibiotic agents; Z88.8 Allergy status to other drugs, medicaments and biological substances; Z91.040 Latex allergy status; Z79.82 Long term (current) use of aspirin; Z79.51 Long term (current) use of inhaled steroids; Z90.49 Acquired absence of other specified parts of digestive tract; Z82.49 Family history of ischemic heart disease and other diseases of the circulatory system; Z80.0 Family history of malignant neoplasm of digestive organs; W06.XXXA Fall from bed, initial encounter
CPT/HCPCS: 70450; 72125; 96372

== ENCOUNTER 2019-07-03 14:05 | Emergency (ER) | payer OTHER ==
[~2019-07-03] VITALS: Ht 162 cm; Wt 85.0 kg
[~2019-07-03 14:05] MED LIST changes: +ACHD5005 PO
--- NOTE | 2019-07-03 14:22 | NUR ---
SEE LIST FOR CURRENT MEDS
[2019-07-03] MEDS ORDERED: ASPIRIN 81 MG CHEW (CHILDREN'S ASA) PO STA (14:33)
[2019-07-03 14:40] LABS: BASOPHILS % (AUTO) 0 % (0-10); EOSINOPHILS % (AUTO) 0 % (0-10); HEMATOCRIT 43 % (35-52); LYMPHOCYTES # (AUTO) 1.8 X 10^3 (1.0-4.0); LYMPHOCYTES % (AUTO) 11 % (12-44); MEAN CORPUSCULAR HEMOGLOBIN 33 PG (25-34); MEAN CORPUSCULAR HGB CONC 35 G/DL (32-36); MEAN CORPUSCULAR VOLUME 95 FL (80-99); MEAN PLATELET VOLUME 11.2 FL (7.4-10.4); MONOCYTES # (AUTO) 0.7 X 10^3 (0.0-1.0); MONOCYTES % (AUTO) 4 % (0-12); NEUTROPHILS # (AUTO) 14.1 X 10^3 (1.8-7.8); NEUTROPHILS % (AUTO) 84 % (42-75); PLATELET COUNT 248 10^3/uL (130-400); RED CELL DISTRIBUTION WIDTH 12.4 % (10.0-14.5); WHITE BLOOD COUNT 16.7 10^3/uL (4.3-11.0)
[2019-07-03 14:44] LABS: INR 0.9 (0.8-1.4); PROTHROMBIN TIME PATIENT 12.4 SEC (12.2-14.7)
--- NOTE | 2019-07-03 14:49 | ED Chest Pain ---
General Chief Complaint: Chest Pain Stated Complaint: CHEST PAIN Nursing Triage Note: PT ARRIVED PER EMS, PT CO OF CHEST PAIN ROVING CAN TENDER GONE NOW HAS TAKEN ONE NITRO AT HOME. PT CHEST PAIN FREE AT THIS X. Nursing Sepsis Screen: No Definite Risk Source: patient, family Exam Limitations: no limitations (JINA GIBBONS MED STUDENT) History of Present Illness Date Seen by Provider: Jul 03, 2019 Time Seen by Provider: 14:30 Initial Comments The patient is a wd/wn 58 y/o woman who is here with a chief complaint of chest pain. She states that she has been sick with congested lungs for the past few days. She was prescribed doxycycline and mucinex 2 days ago. This morning she woke up and felt like her congestion was getting worse and had a tight feeling in her chest. Around 11 am she started having a sharp stabbing pain in her chest while she was at the clinic. They administer her nitrogylcerin and the pain resolved within 3-5 minutes. Afterwards she felt dizzy and nauseated and she states that she is still having the dizzy sensation intermittently. She says that she has had chest pain in the past, but never this intense. Timing/Duration: 4-6 hours Severity/Quality: mild Location: substernal Associated Symptoms: diaphoresis, dizziness, fever/chills (JINA GIBBONS MED STUDENT) Prior CP/Workup: cardiac cath, stress test ASA po ROVING CAN TENDER: No NTG SL ROVING CAN TENDER: Yes Associated Symptoms: heartburn; No nausea/vomiting (HANNAH MIRANDA MD) Allergies and Home Medications Allergies Coded Allergies: Sulfa (Sulfonamide Antibiotics) (Unverified Allergy, Unknown, 05/26/18) latex (Unverified Allergy, Unknown, 05/26/18) loratadine (Unverified Allergy, Unknown, 05/26/18) mushroom (Unverified Allergy, Unknown, 05/25/18) pseudoephedrine (Unverified Allergy, Unknown, 05/26/18) sulfamethoxazole (Unverified Allergy, Unknown, 05/26/18) trimethoprim (Unverified Allergy, Unknown, 05/26/18) Home Medications Aspirin 81 Mg Tablet.dr, 81 MG PO DAILY, (Reported) Buspirone HCl 5 Mg Tablet, 5 MG PO BID, (Reported) Cyclobenzaprine HCl 10 Mg Tablet, 10 MG PO TID PRN for PRN, (Reported) Ezetimibe 10 Mg Tablet, 10 MG PO DAILY, (Reported) Fluticasone/Salmeterol 1 Each Blst.w.dev, 1 EACH IH DAILY, (Reported) Hydrocodone Bit/Acetaminophen 1 Tab Tab, 1 EACH PO Q4-6HR PRN for PAIN-MODERATE Prescribed by: LADY KAPLAN on 05/20/19 1332 Icosapent Ethyl 1 Gm Capsule, 1 GM PO BID Prescribed by: HARPREET GOLDMAN on 03/05/19 0824 Lisinopril/Hydrochlorothiazide 1 Each Tablet, 1 EACH PO DAILY, (Reported) Meloxicam 7.5 Mg Tablet, 7.5 MG PO DAILY, (Reported) Pantoprazole Sodium 40 Mg Tablet.dr, 40 MG PO DAILY, (Reported) Pravastatin Sodium 10 Mg Tablet, 10 MG PO HS, (Reported) Tramadol HCl 50 Mg Tablet, 50 MG PO TID PRN for PRN, (Reported) Venlafaxine HCl 75 Mg Tab, 75 MG PO DAILY PRN, (Reported) Patient Home Medication List Home Medication List Reviewed: Yes (HANNAH MIRANDA MD) Review of Systems Review of Systems Constitutional: diaphoresis, dizziness, fever Respiratory: Cough, Shortness of Air Cardiovascular: Chest Pain, Lightheadedness Genitourinary: Frequency; Denies Pain (JINA GIBBONS STUDENT) Gastrointestinal: See HPI; Denies Vomiting (HANNAH MIRANDA MD) All Other Systems Reviewed Negative Unless Noted: Yes (HANNAH MIRANDA MD) Past Yulrmjd-Agrueo-Gdqfmz Hx Past Med/Social Hx: Reviewed Nursing Past Med/Soc Hx (HANNAH MIRANDA MD) Patient Social History Alcohol Use: Denies Use Number of Drinks Today: II Alcohol Beverage of Choice: Other Recreational Drug Use: No Smoking Status: Current Everyday Smoker Type Used: Cigarettes Recent Foreign Travel: No Contact w/Someone Who Travel: No Recent Infectious Disease Expo: No Recent Hopitalizations: No (JINA GIBBONS STUDENT) Seasonal Allergies Seasonal Allergies: No (JINA GIBBONS STUDENT) Past Medical History Surgeries: Yes Appendectomy, Bowel Surgery, Section, Hysterectomy, Lumpectomy Respiratory: Yes COPD Currently Using CPAP: No Currently Using BIPAP: No Cardiac: Yes Hypertension 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 Genitourinary: No Gastrointestinal: No Gall Bladder Disease Musculoskeletal: Yes (HERNIATED DISK) Chronic Back Pain Endocrine: No HEENT: No Cancer: No Psychosocial: Yes Depression Integumentary: No Blood Disorders: No Adverse Reaction/Blood Tranf: No (JINA GIBBONS STUDENT) Family Medical History Reviewed Nursing Family Hx (HANNAH MIRANDA MD) Cardiovascular disease 19 MOTHER Cataracts Colon cancer 19 FATHER (UNKNOWN) G8 BROTHER G8 BROTHER G8 BROTHER G8 SISTER Congenital heart disease 19 MOTHER (UNKNOWN) Diabetes mellitus 19 MOTHER G8 BROTHER G8 BROTHER Infertility Kidney disease 19 MOTHER Osteoporosis G8 SISTER Physical Exam Vital Signs Vital Signs - First Documented (HANNAH MIRANDA MD) Vital Signs Capillary Refill : Less Than 3 Seconds (JINA GIBBONS STUDENT) Height, Weight, BMI Height: 5'4.00" Weight: 170lbs. 0.0oz. 77.502284yu; 32.00 BMI Method:Stated General Appearance: WD/WN, Anxious Respiratory: Chest Non Tender, Wheezing Cardiovascular: Regular Rate, Rhythm, No Edema Neurologic/Psychiatric: Alert, Oriented x3 Skin: Normal Color, Warm/Dry (JINA GIBBONS STUDENT) General Appearance: WD/WN HEENT: PERRL/EOMI, Pharynx Normal Neck: Non Tender, Supple Respiratory: Lungs Clear, Normal Breath Sounds Cardiovascular: Regular Rate, Rhythm, No Edema, No Murmur Gastrointestinal: Non Tender, Soft Extremity: Normal Range of Motion, Non Tender Neurologic/Psychiatric: Alert, Oriented x3 Skin: Normal Color, Warm/Dry (HANNAH MIRANDA MD) Progress/Results/Core Measures Results/Orders Lab Results Laboratory Tests Test 07/03/19 14:11 07/03/19 16:10 Range/Units White Blood Count 16.7 H 4.3-11.0 10^3/uL Red Blood Count 4.52 4.35-5.85 10^6/uL Hemoglobin 15.0 11.5-16.0 G/DL Hematocrit 43 35-52 % Mean Corpuscular Volume 95 80-99 FL Mean Corpuscular Hemoglobin 33 25-34 PG Mean Corpuscular Hemoglobin Concent 35 32-36 G/DL Red Cell Distribution Width 12.4 10.0-14.5 % Platelet Count 248 130-400 10^3/uL Mean Platelet Volume 11.2 H 7.4-10.4 FL Neutrophils (%) (Auto) 84 H 42-75 % Lymphocytes (%) (Auto) 11 L 12-44 % Monocytes (%) (Auto) 4 0-12 % Eosinophils (%) (Auto) 0 0-10 % Basophils (%) (Auto) 0 0-10 % Neutrophils # (Auto) 14.1 H 1.8-7.8 X 10^3 Lymphocytes # (Auto) 1.8 1.0-4.0 X 10^3 Monocytes # (Auto) 0.7 0.0-1.0 X 10^3 Eosinophils # (Auto) 0.0 0.0-0.3 10^3/uL Basophils # (Auto) 0.0 0.0-0.1 10^3/uL Neutrophils % (Manual) 84 % Lymphocytes % (Manual) 12 % Monocytes % (Manual) 3 % Basophils % (Manual) 1 % Blood Morphology Comment NORMAL Prothrombin Time 12.4 12.2-14.7 SEC INR Comment 0.9 0.8-1.4 Activated Partial Thromboplast Time 22 L 24-35 SEC Sodium Level 135 135-145 MMOL/L Potassium Level 4.4 3.6-5.0 MMOL/L Chloride Level 103 98-107 MMOL/L Carbon Dioxide Level 21 21-32 MMOL/L Anion Gap 11 5-14 MMOL/L Blood Urea Nitrogen 15 7-18 MG/DL Creatinine 1.00 0.60-1.30 MG/DL Estimat Glomerular Filtration Rate 57 BUN/Creatinine Ratio 15 Glucose Level 322 H 70-105 MG/DL Calcium Level 9.2 8.5-10.1 MG/DL Corrected Calcium 9.1 8.5-10.1 MG/DL Magnesium Level 1.9 1.6-2.4 MG/DL Total Bilirubin 0.3 0.1-1.0 MG/DL Aspartate Amino Transf (AST/SGOT) 27 5-34 U/L Alanine Aminotransferase (ALT/SGPT) 56 H 0-55 U/L Alkaline Phosphatase 90 40-136 U/L Myoglobin 42.3 10.0-92.0 NG/ML Troponin I < 0.028 < 0.028 <0.028 NG/ML Total Protein 7.1 6.4-8.2 GM/DL Albumin 4.1 3.2-4.5 GM/DL (HANNAH MIRANDA MD) My Orders Orders - HANNAH MIRANDA MD Cbc With Automated Diff (07/03/19 14:31) Magnesium (07/03/19 14:31) Chest 1 View, Ap/Pa Only (07/03/19 14:31) Ekg Tracing (07/03/19 14:31) Cardiac Profile 1 (07/03/19 14:31) Comprehensive Metabolic Panel (07/03/19 14:31) Myoglobin Serum (07/03/19 14:31) Protime With Inr (07/03/19 14:31) Partial Thromboplastin Time (07/03/19 14:31) O2 (07/03/19 14:31) Monitor-Rhythm Ecg Trace Only (07/03/19 14:31) Lipid Panel (07/04/19 06:00) Ed Iv/Invasive Line Start (07/03/19 14:31) Aspirin Chewable Tablet (Baby Aspirin Ch (07/03/19 14:33) Manual Differential (07/03/19 14:11) Lidocaine 2% Viscous 15 Ml (Xylocaine Vi (07/03/19 15:15) Antacid Suspension (Mylanta Suspension (07/03/19 15:15) Famotidine Injection (Pepcid Injection) (07/03/19 15:08) Troponin I (07/03/19 15:57) (HANNAH MIRANDA MD) Medications Given in ED Current Medications Medications Dose Ordered Sig/Marika Route Start Time Stop Time Status Last Admin Dose Admin Al Hydrox/Mg Hydrox/Simethicone 30 ml ONCE ONCE PO 07/03/19 15:15 07/03/19 15:16 DC 07/03/19 15:19 30 ML Lidocaine HCl 15 ml ONCE ONCE PO 07/03/19 15:15 07/03/19 15:16 DC 07/03/19 15:20 15 ML (HANNAH MIRANDA MD) Vital Signs/I&O 07/03/19 07/03/19 14:05 14:05 Temp 37.1 Pulse 105 Resp 18 B/P (MAP) 133/71 (91) Pulse Ox 98 98 O2 Delivery Nasal Cannula Nasal Cannula O2 Flow Rate 2.00 2.00 (HANNAH MIRANDA MD) Blood Pressure Mean: 91 Progress Progress Note : Progress Note The patient is resting comfortably in the exam room. She will be evaluated for cardiac ischemia with standard protocol. (JINA GIBBONS MED STUDENT) Progress Note : Progress Note Have seen and evaluated the patient and agree with above except as indicated. I have directed the plan of care. Patient is here with central chest pain that has been intermittent but worse today. She went to the clinic and had an event where it was quite severe. She did take one of her nitroglycerin and did feel better. She came here by EMS for the continuing pain. She does have cardiac history and has previous cardiac workup including heart catheter and stress test. 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 She is currently being medically managed. Reports that the pain was central and went up the middle of her chest and radiated to the left and went to her back. Ports that she is on prednisone for cough and congestion and this is her second around that she has been on. Has noted some increase as reflux. Does have continued cough. Denies nausea or vomiting. Chest sounds are coarse. Heart is regular in rate and rhythm. She is slightly tachycardic. She has increased stress recently as her that within the last year has a birthday coming up this week and that is causing her great sadness. We will check labs, EKG and chest x-ray. Famotidine 20 mg IV and GI cocktail given. Monitor patient. 1600: Pain has resolved and she is feeling much better. Troponin is negative and there is no other acute findings. We will repeat troponin at the 2 hour juan daniel and reassess. Patient is comfortable with that plan. This was discussed at length with the patient and her family who are in agreement. 1641: Overall improved. Repeat troponin negative. Discharged home with return precautions. Patient verbalize understanding instructions and agreement with plan. (HANNAH MIRANDA MD) Initial ECG Impression Date: Jul 03, 2019 Initial ECG Impression Time: 14:07 Initial ECG Rate: 101 Initial ECG Rhythm: S.Tach Comment Sinus tachycardia with LVH. Normal axis. No evidence of ST elevation IN. Similar to previous of 01/01/19. Interpreted by me. (HANNAH MIRANDA MD) Diagnostic Imaging Diagonstic Imaging: Xray Plain Films/CT/US/NM/MRI: chest Comments [facility]. [place], [place] NAME: J[facility] REC#: [id number] PT STATUS: REG ER : 1960 PHYSICIAN: HANNAH MIRANDA MD ADMIT DATE: 07/03/19/ER Draft Date of Exam:07/03/19 CHEST 1 VIEW, AP/PA ONLY INDICATION: Chest pain, resolved with nitroglycerin. TECHNIQUE: Single-view chest at 02:40 p.m. CORRELATION STUDY: 03/05/2019. FINDINGS: Heart size and vasculature are within normal limits. Mildly prominent appearance about the mediastinum and likely tortuous ectatic thoracic aorta. Lung adams are slightly hyperinflated but overall clear. No infiltrate. IMPRESSION: 1. Stable chest demonstrates no acute abnormality. Dictated on workstation # [id number] Dict: 07/03/19 1447 Trans: 07/03/19 1500 [id number] Interpreted by: FRANKLIN ANDRADE DO Electronically signed by: (HANNAH MIRANDA MD) Departure Impression Primary Impression: Chest pain Qualified Codes: R07.9 - Chest pain, unspecified Additional Impression: Gastroesophageal reflux disease Qualified Codes: K21.9 - Gastro-esophageal reflux disease without esophagitis Disposition: 01 HOME, SELF-CARE Condition: Improved Departure-Patient Inst. Decision time for Depature: 16:42 (HANNAH MIRANDA MD) Referrals: [facility] (PCP) Primary Care Physician KLAUDIA VELEZ (Family) Primary Care Physician Patient Instructions: Chest Pain (DC), Acid Reflux (Gastroesophageal Reflux Disease), Adult (DC) Add. Discharge Instructions: All discharge instructions reviewed with patient and/or family. Voiced understanding. Follow-up with your in one to 2 days for recheck. You should initiate [id number]-[id number]-aztuhdm famotidine (Pepcid) 20 mg once or twice daily for the next 7 days and then as needed thereafter. Talk with your doctor about adjusting your pantoprazole or switching medicines as you're having problems. Follow-up with your carry out clerk with in 1 week for recheck and further evaluation. Return for worse pain, fever, vomiting, weakness, breathing problems or other concerns as needed. JINA GIBBONS MED STUDENT Jul 03, 2019 14:49 HANNAH MIRANDA MD Jul 03, 2019 16:09
[2019-07-03 14:53] LABS: ALANINE AMINOTRANSFERASE 56 U/L (0-55); ALBUMIN 4.1 GM/DL (3.2-4.5); ALKALINE PHOSPHATASE 90 U/L (40-136); BILIRUBIN,TOTAL 0.3 MG/DL (0.1-1.0); BUN/CREATININE RATIO 15; CALCIUM 9.2 MG/DL (8.5-10.1); CARBON DIOXIDE 21 MMOL/L (21-32); CHLORIDE 103 MMOL/L (98-107); GFR ESTIMATED 57; GLUCOSE 322 MG/DL (70-105); MAGNESIUM 1.9 MG/DL (1.6-2.4); POTASSIUM 4.4 MMOL/L (3.6-5.0); SODIUM 135 MMOL/L (135-145); TOTAL PROTEIN 7.1 GM/DL (6.4-8.2)
--- NOTE | 2019-07-03 15:01 | Diagnostic Imaging Report ---
INDICATION: Chest pain, resolved with nitroglycerin. TECHNIQUE: Single-view chest at 02:40 p.m. CORRELATION STUDY: 03/05/2019. FINDINGS: Heart size and vasculature are within normal limits. Mildly prominent appearance about the mediastinum and likely tortuous ectatic thoracic aorta. Lung adams are slightly hyperinflated but overall clear. No infiltrate. IMPRESSION: 1. Stable chest demonstrates no acute abnormality. Dictated by: Dictated on workstation # [id number]
[2019-07-03 15:07] LABS: BASOPHILS % (MANUAL) 1 %; LYMPHOCYTES % (MANUAL) 12 %; MONOCYTES % (MANUAL) 3 %; NEUTROPHILS % (MANUAL) 84 %
[2019-07-03 15:08] LABS: RBC MORPH NORMAL
[2019-07-03] MEDS ORDERED: FAMOTIDINE 20MG/2ML IV (PEPCID) IV STA (15:08)
[2019-07-03] MEDS ORDERED: ANTACID SUSP 30 ML UDC (MYLANTA) PO ONE (15:15)
[2019-07-03] MEDS ORDERED: LIDOCAINE 2% VISCOUS 15 ML UDC PO ONE (15:15)
[2019-07-03 16:52] VITALS: BP 125/71
== END 2019-07-03 16:59 | disposition home or self-care (01) ==
LOC: EDUNIT# 14:05 → ER 14:06
DX: R07.9 Chest pain, unspecified (principal); K21.9 Gastro-esophageal reflux disease without esophagitis; I10 Essential (primary) hypertension; J44.9 Chronic obstructive pulmonary disease, unspecified; F32.9 Major depressive disorder, single episode, unspecified; F17.210 Nicotine dependence, cigarettes, uncomplicated; Z90.49 Acquired absence of other specified parts of digestive tract; Z90.710 Acquired absence of both cervix and uterus; Z95.9 Presence of cardiac and vascular implant and graft, unspecified; Z88.2 Allergy status to sulfonamides; Z91.040 Latex allergy status; Z88.1 Allergy status to other antibiotic agents; Z88.8 Allergy status to other drugs, medicaments and biological substances; Z79.82 Long term (current) use of aspirin; Z79.51 Long term (current) use of inhaled steroids; Z82.49 Family history of ischemic heart disease and other diseases of the circulatory system; Z80.0 Family history of malignant neoplasm of digestive organs
CPT/HCPCS: 36415; 71045; 80053; 83735; 83874; 84484; 85007; 85027; 85610; 85730; 93005; 93041

== ENCOUNTER 2019-10-06 18:10 | Emergency (ER) | payer OTHER ==
[~2019-10-06] VITALS: Ht 162.5 cm; Wt 78.1 kg
[2019-10-06 19:52] LABS: BILIRUBIN,URINE NEGATIVE (NEGATIVE); CLARITY,URINE CLEAR; COLOR,URINE YELLOW; GLUCOSE, URINE (UA) NEGATIVE (NEGATIVE); KETONES,URINE NEGATIVE (NEGATIVE); LEUKOCYTE ESTERASE ,URINE NEGATIVE (NEGATIVE); NITRITE,URINE NEGATIVE (NEGATIVE); PROTEIN,URINE NEGATIVE (NEGATIVE)
[2019-10-06 19:52] LABS: BASOPHILS # (AUTO) 0.1 10^3/uL (0.0-0.1); BASOPHILS % (AUTO) 1 % (0-10); EOSINOPHILS # (AUTO) 0.2 10^3/uL (0.0-0.3); EOSINOPHILS % (AUTO) 2 % (0-10); HEMATOCRIT 43 % (35-52); LYMPHOCYTES # (AUTO) 4.1 X 10^3 (1.0-4.0); LYMPHOCYTES % (AUTO) 40 % (12-44); MEAN CORPUSCULAR HEMOGLOBIN 33 PG (25-34); MEAN CORPUSCULAR HGB CONC 35 G/DL (32-36); MEAN CORPUSCULAR VOLUME 95 FL (80-99); MEAN PLATELET VOLUME 11.5 FL (7.4-10.4); MONOCYTES # (AUTO) 1.3 X 10^3 (0.0-1.0); MONOCYTES % (AUTO) 12 % (0-12); NEUTROPHILS # (AUTO) 4.6 X 10^3 (1.8-7.8); NEUTROPHILS % (AUTO) 45 % (42-75); PLATELET COUNT 211 10^3/uL (130-400); RED CELL DISTRIBUTION WIDTH 13.4 % (10.0-14.5); WHITE BLOOD COUNT 10.2 10^3/uL (4.3-11.0)
[2019-10-06 19:57] LABS: INR 0.9 (0.8-1.4); PROTHROMBIN TIME PATIENT 12.6 SEC (12.2-14.7)
--- NOTE | 2019-10-06 19:59 | Diagnostic Imaging Report ---
PROCEDURE: CT cervical spine without contrast. TECHNIQUE: Multiple contiguous axial images were obtained through the cervical spine without the use of intravenous contrast. Sagittal and coronal reformations were then performed. Auto Exposure Controls were utilized during the CT exam to meet ALARA standards for radiation dose reduction. INDICATION: Severe neck pain radiating down the left upper extremity. COMPARISON is made with study performed 05/30/2019 FINDINGS: Degenerative changes are greatest at the C6-C7 level where posterior osteophyte disc material results in severe canal stenosis with moderate right and jefx-mm-bhgpmjsv left foraminal stenosis, unchanged. Alignment is normal. More mild degenerative changes throughout the remaining levels are unchanged. No paravertebral mass, hemorrhage or fluid collection. Carotid vascular calcifications, chronic. IMPRESSION: No change in multilevel spondylosis and resultant stenosis greatest at C6-C7. Dictated by: Dictated on workstation # [id number]
[2019-10-06 20:00] LABS: BACTERIA,URINE MODERATE /HPF; RBC,URINE RARE /HPF; WBC,URINE 0-2 /HPF
--- NOTE | 2019-10-06 20:01 | Diagnostic Imaging Report ---
INDICATION: Neck and back pain. FINDINGS: The lungs are clear. The heart and vessels normal. There is no effusion or pneumothorax. There has been no change when compared to study of 07/03/2019. IMPRESSION: Stable negative chest. Dictated by: Dictated on workstation # [id number]
[2019-10-06 20:02] LABS: AMPHETAMINE SCREEN, URINE NEGATIVE (NEGATIVE); BARBITURATE SCREEN URINE NEGATIVE (NEGATIVE); BENZODIAZEPINES SCREEN URINE NEGATIVE (NEGATIVE); CANNABINOID SCREEN, URINE NEGATIVE (NEGATIVE); COCAINE SCREEN URINE NEGATIVE (NEGATIVE); METHADONE STAT NEGATIVE (NEGATIVE); METHAMPHETAMINE SCREEN URINE S NEGATIVE (NEGATIVE); OPIATE SCREEN URINE NEGATIVE (NEGATIVE); OXYCODONE STAT NEGATIVE (NEGATIVE); PROPOXYPHENE STAT NEGATIVE (NEGATIVE); TRICYCLIC ANTIDEPRESSANTS SCRE NEGATIVE (NEGATIVE)
[2019-10-06 20:05] LABS: ALANINE AMINOTRANSFERASE 22 U/L (0-55); ALBUMIN 4.3 GM/DL (3.2-4.5); ALKALINE PHOSPHATASE 88 U/L (40-136); BILIRUBIN,TOTAL 0.4 MG/DL (0.1-1.0); BUN/CREATININE RATIO 10; CALCIUM 9.6 MG/DL (8.5-10.1); CARBON DIOXIDE 23 MMOL/L (21-32); CHLORIDE 106 MMOL/L (98-107); CREATINE KINASE 233 U/L (29-168); CREATININE SERUM 0.83 MG/DL (0.60-1.30); GFR ESTIMATED > 60; GLUCOSE 104 MG/DL (70-105); POTASSIUM 3.5 MMOL/L (3.6-5.0); SODIUM 141 MMOL/L (135-145); TOTAL PROTEIN 7.2 GM/DL (6.4-8.2)
[2019-10-06 20:12] LABS: CREATINE KINASE MB 2.7 NG/ML (<6.6)
[2019-10-06] MEDS ORDERED: diphenhydrAMINE 50 MG/ML INJ (BENADRYL) IVP ONE (20:15)
[2019-10-06] MEDS ORDERED: ORPHENADRINE 60 MG/2 ML (NORFLEX) AMP IV ONE (20:15)
[2019-10-06] MEDS ORDERED: KETOROLAC 30 MG/ML VIAL IVP ONE (20:15)
[2019-10-06] MEDS ORDERED: MELO15TA14 PO (20:27)
[2019-10-06] MEDS ORDERED: CYCL10TA9 PO (20:27)
[2019-10-06] MEDS ORDERED: TRAM-42 PO (20:27)
--- NOTE | 2019-10-06 20:27 | ED Neck-Back Pain/Injury ---
General Chief Complaint: General Problems/Pain Stated Complaint: BACK OF NECK AND L ARM PAIN Nursing Triage Note: Pt ambulatory to ED with multiple complaints. Pt reports severe neck pain that radiates into the L arm upon waking this morning. Pt also reports BUCIO. Pt reports then having a syncopal episode just [employer] to ED. Pt's daughter witnessed episode and reports pt woke up within a couple of seconds. Pt reports neck pain has worsened over the course of the day. Nursing Sepsis Screen: No Definite Risk Allergies and Home Medications Allergies Coded Allergies: Sulfa (Sulfonamide Antibiotics) (Unverified Allergy, Unknown, 05/26/18) latex (Unverified Allergy, Unknown, 05/26/18) loratadine (Unverified Allergy, Unknown, 05/26/18) mushroom (Unverified Allergy, Unknown, 05/25/18) pseudoephedrine (Unverified Allergy, Unknown, 05/26/18) sulfamethoxazole (Unverified Allergy, Unknown, 05/26/18) trimethoprim (Unverified Allergy, Unknown, 05/26/18) Home Medications Aspirin 81 Mg Tablet.dr, 81 MG PO DAILY, (Reported) Buspirone HCl 5 Mg Tablet, 5 MG PO BID, (Reported) Cyclobenzaprine HCl 10 Mg Tablet, 10 MG PO TID PRN for PRN, (Reported) Ezetimibe 10 Mg Tablet, 10 MG PO DAILY, (Reported) Fluticasone/Salmeterol 1 Each Blst.w.dev, 1 EACH IH DAILY, (Reported) Hydrocodone Bit/Acetaminophen 1 Tab Tab, 1 EACH PO Q4-6HR PRN for PAIN-MODERATE Prescribed by: LADY KAPLAN on 05/20/19 1332 Icosapent Ethyl 1 Gm Capsule, 1 GM PO BID Prescribed by: HARPREET GOLDMAN on 03/05/19 0824 Lisinopril/Hydrochlorothiazide 1 Each Tablet, 1 EACH PO DAILY, (Reported) Meloxicam 7.5 Mg Tablet, 7.5 MG PO DAILY, (Reported) Pantoprazole Sodium 40 Mg Tablet.dr, 40 MG PO DAILY, (Reported) Pravastatin Sodium 10 Mg Tablet, 10 MG PO HS, (Reported) Tramadol HCl 50 Mg Tablet, 50 MG PO TID PRN for PRN, (Reported) Venlafaxine HCl 75 Mg Tab, 75 MG PO DAILY PRN, (Reported) Past Ktwykvt-Nddgfe-Wotetn Hx Patient Social History Alcohol Use: Denies Use Number of Drinks Today: II Alcohol Beverage of Choice: Other Recreational Drug Use: No Smoking Status: Current Everyday Smoker Type Used: Cigarettes 2nd Hand Smoke Exposure: Yes Recent Foreign Travel: No Contact w/Someone Who Travel: No Recent Infectious Disease Expo: No Recent Hopitalizations: No Seasonal Allergies Seasonal Allergies: No Past Medical History Surgeries: Yes Appendectomy, Bowel Surgery, Section, Hysterectomy, Lumpectomy Respiratory: Yes COPD Currently Using CPAP: No Currently Using BIPAP: No Cardiac: Yes Hypertension 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: No 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 Genitourinary: No Gastrointestinal: No Gall Bladder Disease Musculoskeletal: Yes (HERNIATED DISK) Chronic Back Pain Endocrine: No HEENT: No Cancer: No Psychosocial: Yes Depression Integumentary: No Blood Disorders: No Adverse Reaction/Blood Tranf: No Family Medical History Cardiovascular disease 19 MOTHER Cataracts Colon cancer 19 FATHER (UNKNOWN) G8 BROTHER G8 BROTHER G8 BROTHER G8 SISTER Congenital heart disease 19 MOTHER (UNKNOWN) Diabetes mellitus 19 MOTHER G8 BROTHER G8 BROTHER Infertility Kidney disease 19 MOTHER Osteoporosis G8 SISTER Physical Exam Vital Signs Vital Signs - First Documented 10/06/19 18:19 Temp 36.6 Pulse 92 Resp 15 B/P (MAP) 128/83 (98) Pulse Ox 96 O2 Delivery Room Air Capillary Refill : Less Than 3 Seconds Height, Weight, BMI Height: 5'4.00" Weight: 170lbs. 0.0oz. [id number]; 29.00 BMI Method:Stated Progress/Results/Core Measures Results/Orders Lab Results Laboratory Tests Test 10/06/19 19:38 10/06/19 19:42 Range/Units White Blood Count 10.2 4.3-11.0 10^3/uL Red Blood Count 4.52 4.35-5.85 10^6/uL Hemoglobin 15.0 11.5-16.0 G/DL Hematocrit 43 35-52 % Mean Corpuscular Volume 95 80-99 FL Mean Corpuscular Hemoglobin 33 25-34 PG Mean Corpuscular Hemoglobin Concent 35 32-36 G/DL Red Cell Distribution Width 13.4 10.0-14.5 % Platelet Count 211 130-400 10^3/uL Mean Platelet Volume 11.5 H 7.4-10.4 FL Neutrophils (%) (Auto) 45 42-75 % Lymphocytes (%) (Auto) 40 12-44 % Monocytes (%) (Auto) 12 0-12 % Eosinophils (%) (Auto) 2 0-10 % Basophils (%) (Auto) 1 0-10 % Neutrophils # (Auto) 4.6 1.8-7.8 X 10^3 Lymphocytes # (Auto) 4.1 H 1.0-4.0 X 10^3 Monocytes # (Auto) 1.3 H 0.0-1.0 X 10^3 Eosinophils # (Auto) 0.2 0.0-0.3 10^3/uL Basophils # (Auto) 0.1 0.0-0.1 10^3/uL Prothrombin Time 12.6 12.2-14.7 SEC INR Comment 0.9 0.8-1.4 Activated Partial Thromboplast Time 28 24-35 SEC Sodium Level 141 135-145 MMOL/L Potassium Level 3.5 L 3.6-5.0 MMOL/L Chloride Level 106 98-107 MMOL/L Carbon Dioxide Level 23 21-32 MMOL/L Anion Gap 12 5-14 MMOL/L Blood Urea Nitrogen 8 7-18 MG/DL Creatinine 0.83 0.60-1.30 MG/DL Estimat Glomerular Filtration Rate > 60 BUN/Creatinine Ratio 10 Glucose Level 104 70-105 MG/DL Calcium Level 9.6 8.5-10.1 MG/DL Corrected Calcium 9.4 8.5-10.1 MG/DL Magnesium Level 2.0 1.6-2.4 MG/DL Total Bilirubin 0.4 0.1-1.0 MG/DL Aspartate Amino Transf (AST/SGOT) 22 5-34 U/L Alanine Aminotransferase (ALT/SGPT) 22 0-55 U/L Alkaline Phosphatase 88 40-136 U/L Total Creatine Kinase 233 H 29-168 U/L Creatine Kinase MB 2.7 <6.6 NG/ML Myoglobin 64.4 10.0-92.0 NG/ML Troponin I < 0.028 <0.028 NG/ML B-Type Natriuretic Peptide < 10.0 <100.0 PG/ML Total Protein 7.2 6.4-8.2 GM/DL Albumin 4.3 3.2-4.5 GM/DL Serum Alcohol < 10 <10 MG/DL Urine Color YELLOW Urine Clarity CLEAR Urine pH 7.0 5-9 Urine Specific [place] <=1.005 1.016-1.022 Urine Protein NEGATIVE NEGATIVE Urine Glucose (UA) NEGATIVE NEGATIVE Urine Ketones NEGATIVE NEGATIVE Urine Nitrite NEGATIVE NEGATIVE Urine Bilirubin NEGATIVE NEGATIVE Urine Urobilinogen 1.0 < = 1.0 MG/DL Urine Leukocyte Esterase NEGATIVE NEGATIVE Urine RBC (Auto) TRACE-I NEGATIVE Urine RBC RARE /HPF Urine WBC 0-2 /HPF Urine Squamous Epithelial Cells 5-10 /HPF Urine Crystals NONE /LPF Urine Bacteria MODERATE H /HPF Urine Casts NONE /LPF Urine Mucus NEGATIVE /LPF Urine Culture Indicated YES Urine Opiates Screen NEGATIVE NEGATIVE Urine Oxycodone Screen NEGATIVE NEGATIVE Urine Methadone Screen NEGATIVE NEGATIVE Urine Propoxyphene Screen NEGATIVE NEGATIVE Urine Barbiturates Screen NEGATIVE NEGATIVE Ur Tricyclic Antidepressants Screen NEGATIVE NEGATIVE Urine Phencyclidine Screen NEGATIVE NEGATIVE Urine Amphetamines Screen NEGATIVE NEGATIVE Urine Methamphetamines Screen NEGATIVE NEGATIVE Urine Benzodiazepines Screen NEGATIVE NEGATIVE Urine Cocaine Screen NEGATIVE NEGATIVE Urine Cannabinoids Screen NEGATIVE NEGATIVE My Orders Orders - DEYSI MILLER DO Ed Iv/Invasive Line Start (10/06/19 19:28) Ekg Tracing (10/06/19 19:28) Monitor-Rhythm Ecg Trace Only (10/06/19 19:28) BNP (10/06/19 19:28) Cbc With Automated Diff (10/06/19 19:28) Comprehensive Metabolic Panel (10/06/19 19:28) Creatine Kinase (10/06/19 19:28) Creatine Kinase Mb (10/06/19 19:28) Magnesium (10/06/19:28) Protime With Inr (10/06/19:28) Partial Thromboplastin Time (10/06/19 19:28) Myoglobin Serum (10/06/19 19:28) Troponin I (10/06/19 19:28) Ct Cervical Spine Wo (10/06/19 19:35) Chest 1 View, Ap/Pa Only (10/06/19 19:35) Alcohol (10/06/19 19:35) Drug Screen Stat (Urine) (10/06/19 19:35) Ua Culture If Indicated (10/06/19 19:35) Urine Culture (10/06/19 19:42) Ketorolac Injection (Toradol Injection) (10/06/19 20:15) Orphenadrine Injection (Norflex Injectio (10/06/19 20:15) Diphenhydramine Injection (Benadryl Inje (10/06/19 20:15) Vital Signs/I&O 10/06/19 18:19 Temp 36.6 Pulse 92 Resp 15 B/P (MAP) 128/83 (98) Pulse Ox 96 O2 Delivery Room Air Blood Pressure Mean: 98 Departure Impression Primary Impression: EXACERBATION OF CHRONIC NECK PAIN Additional Impressions: Cervical radicular pain Cervical disc disease Disposition: HOME, SELF-CARE Condition: Improved Departure-Patient Inst. Referrals: [facility] (PCP) Primary Care Physician KLAUDIA VELEZ (Family) Primary Care Physician Patient Instructions: Chronic Neck Pain (DC), Chronic Pain (DC), Degenerative Disc Disease (DC), Radiculopathy (DC) Add. Discharge Instructions: ALTERNATE ICE AND HEAT TO SORE AREAS AT 20 MINUTE INTERVALS FOLLOW UP WITH YOUR DR IN 3-4 DAYS IF NO BETTER All discharge instructions reviewed with patient and/or family. Voiced understanding. Scripts Tramadol HCl (Ultram) 50 Mg Tablet 50 MG PO Q4H PRN for PAIN-MODERATE for 3 Days, #20 TAB Prov: DEYSI MILLER DO 10/06/19 Cyclobenzaprine HCl (Cyclobenzaprine HCl) 10 Mg Tablet 10 MG PO Q8H, #15 TAB Prov: DEYSI MILLER DO 10/06/19 Meloxicam (Mobic) 15 Mg Tablet 15 MG PO DAILY, #10 TAB Prov: DEYSI MILLER DO 10/06/19 DEYSI MILLER DO Oct 06, 2019 20:27
[2019-10-06 20:41] VITALS: BP 129/97
== END 2019-10-06 20:42 | disposition home or self-care (01) ==
LOC: EDUNIT# 18:10 → ER 18:11
DX: M54.12 Radiculopathy, cervical region (principal); G89.29 Other chronic pain; M50.90 Cervical disc disorder, unspecified, unspecified cervical region; J44.9 Chronic obstructive pulmonary disease, unspecified; I10 Essential (primary) hypertension; F32.9 Major depressive disorder, single episode, unspecified; F17.210 Nicotine dependence, cigarettes, uncomplicated; Z90.49 Acquired absence of other specified parts of digestive tract; Z90.710 Acquired absence of both cervix and uterus; Z88.2 Allergy status to sulfonamides; Z91.040 Latex allergy status; Z88.8 Allergy status to other drugs, medicaments and biological substances; Z88.1 Allergy status to other antibiotic agents; Z79.82 Long term (current) use of aspirin; Z79.51 Long term (current) use of inhaled steroids; Z82.49 Family history of ischemic heart disease and other diseases of the circulatory system; Z80.0 Family history of malignant neoplasm of digestive organs
CPT/HCPCS: 36415; 71045; 72125; 80053; 80306; 80320; 81000; 82550; 82553; 83735; 83874; 83880; 84484; 85025; 85610; 85730; 87088; 93041; 96374; 96375

== ENCOUNTER 2019-12-24 19:07 | Emergency (ER) | payer OTHER ==
[~2019-12-24] VITALS: Ht 162.5 cm; Wt 78.1 kg
[~2019-12-24 19:07] MED LIST changes: +LISI1TAB25 PO; -LISI1TAB8 PO; +MELO15TA14 PO; +TRAM-42 PO; -TRAM50TA2 PO; +TRM50T PO
[2019-12-24] MEDS ORDERED: morphine INJ 10 MG/ML 1ML (SYR OR VIAL) IVP STA (19:14)
[2019-12-24] MEDS ORDERED: ASPIRIN 81 MG CHEW (CHILDREN'S ASA) PO ONE (19:15)
--- NOTE | 2019-12-24 19:17 | ED Chest Pain ---
General Stated Complaint: PAIN IN LEFT ARM/ CHEST PAIN Source: patient Exam Limitations: no limitations History of Present Illness Date Seen by Provider: Dec 24, 2019 Time Seen by Provider: 19:15 Initial Comments To ER with reports of left superior lateral chest pain intermittent since 3 AM this morning. This particular episode began about 3 hours ago and has been constant since then. She has her left arm in a sling secondary to suspected left shoulder injury after she fell at home along time ago. She denies cough or shortness of breath. She describes the pain as sharp. Touching the left anterior lateral chest worsens her pain and sends shooting pains down the left arm. 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 daily) NTG SL ART GLASS DESIGNER: No Allergies and Home Medications Allergies Coded Allergies: Sulfa (Sulfonamide Antibiotics) (Unverified Allergy, Unknown, 05/26/18) latex (Unverified Allergy, Unknown, 05/26/18) loratadine (Unverified Allergy, Unknown, 05/26/18) mushroom (Unverified Allergy, Unknown, 05/25/18) pseudoephedrine (Unverified Allergy, Unknown, 05/26/18) sulfamethoxazole (Unverified Allergy, Unknown, 05/26/18) trimethoprim (Unverified Allergy, Unknown, 05/26/18) Home Medications Aspirin 81 Mg Tablet.dr, 81 MG PO DAILY, (Reported) Buspirone HCl 5 Mg Tablet, 5 MG PO BID, (Reported) Cyclobenzaprine HCl 10 Mg Tablet, 10 MG PO TID PRN for PRN, (Reported) Cyclobenzaprine HCl 10 Mg Tablet, 10 MG PO Q8H Prescribed by: DEYSI MILLER on 10/06/192026 Ezetimibe 10 Mg Tablet, 10 MG PO DAILY, (Reported) Fluticasone/Salmeterol 1 Each Blst.w.dev, 1 EACH IH DAILY, (Reported) Hydrocodone Bit/Acetaminophen 1 Tab Tab, 1 EACH PO Q4-6HR PRN for PAIN-MODERATE Prescribed by: LADY KAPLAN on 05/20/19 1332 Icosapent Ethyl 1 Gm Capsule, 1 GM PO BID Prescribed by: HARPREET GOLDMAN on 03/05/19 0824 Lisinopril/Hydrochlorothiazide 1 Each Tablet, 1 EACH PO DAILY, (Reported) Meloxicam 7.5 Mg Tablet, 7.5 MG PO DAILY, (Reported) Meloxicam 15 Mg Tablet, 15 MG PO DAILY Prescribed by: DEYSI MILLER on 10/06/192026 Pantoprazole Sodium 40 Mg Tablet.dr, 40 MG PO DAILY, (Reported) Pravastatin Sodium 10 Mg Tablet, 10 MG PO HS, (Reported) Tramadol HCl 50 Mg Tablet, 50 MG PO TID PRN for PRN, (Reported) Tramadol HCl 50 Mg Tablet, 50 MG PO Q4H PRN for PAIN-MODERATE Prescribed by: DEYSI MILLER on 10/06/192026 Venlafaxine HCl 75 Mg Tab, 75 MG PO DAILY PRN, (Reported) Patient Home Medication List Home Medication List Reviewed: Yes Review of Systems Review of Systems Constitutional: see HPI Respiratory: No Symptoms Reported Cardiovascular: See HPI, Chest Pain Gastrointestinal: No Symptoms Reported Genitourinary: No Symptoms Reported Musculoskeletal: see HPI Skin: no symptoms reported Psychiatric/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: No Symptoms Reported Past Xxxrtkd-Hybrot-Dubkxm Hx Patient Social History Alcohol Beverage of Choice: Other Type Used: Cigarettes 2nd Hand Smoke Exposure: Yes Recent Foreign Travel: No Contact w/Someone Who Travel: No Recent Hopitalizations: No Seasonal Allergies Seasonal Allergies: No Past Medical History Surgeries: Yes (CARDIAC CATH 03/05/19-NO INTERVENTION;LUMBAR DISCETOMY X 2-L2 /L5) Appendectomy, Cardiac, Section, Gallbladder, Hysterectomy, Lumpectomy Respiratory: Yes COPD Currently Using CPAP: No Currently Using BIPAP: No Cardiac: Yes (CATH 03/05/19--TOTALLY OCCLUDED RCA/CHRONIC, NO INTERVENTION) Coronary Artery Disease, High Cholesterol, Hypertension 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 Genitourinary: No Gastrointestinal: Yes (S/P AMAYA) Gall Bladder Disease Musculoskeletal: Yes (CHRONIC NECK PAIN; "BULGING DISCS" PER PT) Degenerate Disk Disease, Chronic Back Pain Endocrine: No HEENT: No Cancer: No Psychosocial: Yes Sleep Difficulties, Anxiety, Depression Integumentary: No Blood Disorders: No Adverse Reaction/Blood Tranf: No Family Medical History Cardiovascular disease 19 MOTHER Cataracts Colon cancer 19 FATHER (UNKNOWN) G8 BROTHER G8 BROTHER G8 BROTHER G8 SISTER Congenital heart disease 19 MOTHER (UNKNOWN) Diabetes mellitus 19 MOTHER G8 BROTHER G8 BROTHER Infertility Kidney disease 19 MOTHER Osteoporosis G8 SISTER Physical Exam Vital Signs Vital Signs - First Documented Capillary Refill : Height, Weight, BMI Height: 5'4.00" Weight: 170lbs. 0.0oz. 77.390130we; 29.00 BMI Method:Stated General Appearance: No Apparent Distress, WD/WN, Chronically ill Neck: Full Range of Motion, Normal Inspection Respiratory: No Accessory Muscle Use, No Respiratory Distress, Other (palpation of the left anterior chest reproduces and worsens the pain.) Cardiovascular: Regular Rate, Rhythm, Normal Peripheral Pulses Gastrointestinal: Normal Bowel Sounds, Non Tender, Soft Extremity: Normal Capillary Refill, Normal Inspection Neurologic/Psychiatric: Alert, Oriented x3 Skin: Normal Color, Warm/Dry Progress/Results/Core Measures Results/Orders Lab Results Laboratory Tests Test 12/24/19 19:15 12/24/19 21:10 Range/Units White Blood Count 13.9 H 4.3-11.0 10^3/uL Red Blood Count 4.65 4.35-5.85 10^6/uL Hemoglobin 15.9 11.5-16.0 G/DL Hematocrit 45 35-52 % Mean Corpuscular Volume 96 80-99 FL Mean Corpuscular Hemoglobin 34 25-34 PG Mean Corpuscular Hemoglobin Concent 36 32-36 G/DL Red Cell Distribution Width 13.0 10.0-14.5 % Platelet Count 252 130-400 10^3/uL Mean Platelet Volume 10.9 H 7.4-10.4 FL Neutrophils (%) (Auto) 50 42-75 % Lymphocytes (%) (Auto) 40 12-44 % Monocytes (%) (Auto) 8 0-12 % Eosinophils (%) (Auto) 1 0-10 % Basophils (%) (Auto) 1 0-10 % Neutrophils # (Auto) 7.0 1.8-7.8 X 10^3 Lymphocytes # (Auto) 5.5 H 1.0-4.0 X 10^3 Monocytes # (Auto) 1.1 H 0.0-1.0 X 10^3 Eosinophils # (Auto) 0.2 0.0-0.3 10^3/uL Basophils # (Auto) 0.1 0.0-0.1 10^3/uL Prothrombin Time 12.4 12.2-14.7 SEC INR Comment 0.9 0.8-1.4 Activated Partial Thromboplast Time 28 24-35 SEC D-Dimer 0.24 0.00-0.49 UG/ML Sodium Level 140 135-145 MMOL/L Potassium Level 3.6 3.6-5.0 MMOL/L Chloride Level 105 98-107 MMOL/L Carbon Dioxide Level 20 L 21-32 MMOL/L Anion Gap 15 H 5-14 MMOL/L Blood Urea Nitrogen 10 7-18 MG/DL Creatinine 0.89 0.60-1.30 MG/DL Estimat Glomerular Filtration Rate > 60 BUN/Creatinine Ratio 11 Glucose Level 155 H 70-105 MG/DL Calcium Level 9.4 8.5-10.1 MG/DL Corrected Calcium 9.1 8.5-10.1 MG/DL Magnesium Level 2.0 1.6-2.4 MG/DL Total Bilirubin 0.3 0.1-1.0 MG/DL Aspartate Amino Transf (AST/SGOT) 26 5-34 U/L Alanine Aminotransferase (ALT/SGPT) 21 0-55 U/L Alkaline Phosphatase 97 40-136 U/L Myoglobin 112.2 H 10.0-92.0 NG/ML Troponin I < 0.028 < 0.028 <0.028 NG/ML B-Type Natriuretic Peptide < 10.0 <100.0 PG/ML Total Protein 7.7 6.4-8.2 GM/DL Albumin 4.4 3.2-4.5 GM/DL My Orders Orders - HITESH HOLLOWAY APRN Cbc With Automated Diff (12/24/19 19:10) Magnesium (12/24/19 19:10) Chest 1 View, Ap/Pa Only (12/24/19 19:10) Ekg Tracing (12/24/19 19:10) Comprehensive Metabolic Panel (12/24/19 19:10) Myoglobin Serum (12/24/19 19:10) Protime With Inr (12/24/19 19:10) Partial Thromboplastin Time (12/24/19 19:10) O2 (12/24/19 19:10) Monitor-Rhythm Ecg Trace Only (12/24/19 19:10) Lipid Panel (12/25/19 06:00) Ed Iv/Invasive Line Start (3/11/20 19:10) BNP (12/24/19 19:10) Troponin I (12/24/19 19:10) Aspirin Chewable Tablet (Baby Aspirin Ch (12/24/19 19:15) Morphine Injection (Morphine Injection (12/24/19 19:14) Fibrin Degradation Products (12/24/19 19:15) Troponin I (12/24/19 20:56) Medications Given in ED Current Medications Medications Dose Ordered Sig/Marika Route Start Time Stop Time Status Last Admin Dose Admin Aspirin 324 mg ONCE ONCE PO 12/24/19 19:15 12/24/19 19:16 DC 12/24/19 19:20 324 MG Vital Signs/I&O 12/24/19 12/24/19 19:09 19:09 Temp 36.1 Pulse 97 Resp 20 B/P (MAP) 113/66 (82) O2 Delivery Room Air Room Air Departure Impression Primary Impression: Chest pain Disposition: 01 HOME, SELF-CARE Condition: Stable Departure-Patient Inst. Decision time for Depature: 21:56 Referrals: [facility] (PCP) Primary Care Physician KLAUDIA VELEZ (Family) Primary Care Physician Patient Instructions: Chest Pain (DC) Add. Discharge Instructions: 1. Return to ER for any concerns 2. Follow-up with your doctor next week 3. HITESH HOLLOWAY APRN Dec 24, 2019 19:17
[2019-12-24 19:24] LABS: BASOPHILS # (AUTO) 0.1 10^3/uL (0.0-0.1); BASOPHILS % (AUTO) 1 % (0-10); EOSINOPHILS # (AUTO) 0.2 10^3/uL (0.0-0.3); EOSINOPHILS % (AUTO) 1 % (0-10); HEMATOCRIT 45 % (35-52); HEMOGLOBIN 15.9 G/DL (11.5-16.0); LYMPHOCYTES # (AUTO) 5.5 X 10^3 (1.0-4.0); LYMPHOCYTES % (AUTO) 40 % (12-44); MEAN CORPUSCULAR HEMOGLOBIN 34 PG (25-34); MEAN CORPUSCULAR HGB CONC 36 G/DL (32-36); MEAN CORPUSCULAR VOLUME 96 FL (80-99); MEAN PLATELET VOLUME 10.9 FL (7.4-10.4); MONOCYTES # (AUTO) 1.1 X 10^3 (0.0-1.0); MONOCYTES % (AUTO) 8 % (0-12); NEUTROPHILS % (AUTO) 50 % (42-75); PLATELET COUNT 252 10^3/uL (130-400); WHITE BLOOD COUNT 13.9 10^3/uL (4.3-11.0)
--- NOTE | 2019-12-24 19:41 | Diagnostic Imaging Report ---
INDICATION: Chest pain radiating to the left arm. FINDINGS: Frontal view of the chest demonstrates the lungs to be clear. The heart, mediastinum, and pulmonary vascularity and visualized bony thorax are normal. IMPRESSION: Normal chest. Dictated by: Dictated on workstation # [id number]
[2019-12-24 19:43] LABS: ALANINE AMINOTRANSFERASE 21 U/L (0-55); ALBUMIN 4.4 GM/DL (3.2-4.5); ALKALINE PHOSPHATASE 97 U/L (40-136); BILIRUBIN,TOTAL 0.3 MG/DL (0.1-1.0); BUN/CREATININE RATIO 11; CARBON DIOXIDE 20 MMOL/L (21-32); CHLORIDE 105 MMOL/L (98-107); CREATININE SERUM 0.89 MG/DL (0.60-1.30); GFR ESTIMATED > 60; GLUCOSE 155 MG/DL (70-105); POTASSIUM 3.6 MMOL/L (3.6-5.0); SODIUM 140 MMOL/L (135-145); TOTAL PROTEIN 7.7 GM/DL (6.4-8.2)
[2019-12-24 19:51] LABS: FIBRIN DEGRADATION PRODUCTS 0.24 UG/ML (0.00-0.49); INR 0.9 (0.8-1.4); PROTHROMBIN TIME PATIENT 12.4 SEC (12.2-14.7)
[2019-12-24 20:55] LABS: CALCIUM 9.4 MG/DL (8.5-10.1)
[2019-12-24] MEDS ORDERED: TRAM-42 PO (21:57)
[2019-12-24 22:11] VITALS: BP 110/74
--- OUTSIDE RECORDS SUMMARY | 2019-12-26 22:25 | XMS REPORT | Continuity of Care Document ---
Author Organization Unknown Address Unknown Phone Unavailable Allergies Active Description Code Type Severity Reaction Onset Reported/Identified Relationship to Patient Clinical Status Yes BACTRIM DS SEVERE SEVERE Yes BACTRIM DS SEVERE UNKNOWN Yes CLARITIN SEVERE SEVERE Yes CLARITIN SEVERE UNKNOWN Yes mushroom [id number] Drug Allergy Unknown N/A 05/25/2018 Yes latex [id number] Drug Allergy Unknown N/A 05/26/2018 Yes loratadine [id number] Drug Allerg y Unknown N/A 05/26/2018 Yes pseudoephedrine [id number] D rug Allergy Unknown N/A 05/26/2018 Yes Sulfa (Sulfonamide Antibiotics) [id number] Drug Allergy Unknown N/A 018 Yes sulfamethoxazole [id number] Drug Allergy Unknown N/A 05/26/2018 Yes trimethoprim [id number] Drug Allergy Unknown N/A 05/26/2018 Medications Medication Packaging Start Date St op Date Route Dosage Sig KETOROLAC VIAL INJ 60 MG/2CC (TORADOL VIAL ) MG 09/25/2018 09/25/2018 ONCE&1905 ORPHENADRINE INJ 60 MG/2CC (NORFLEX) MG 10/26/2019 10/26/2019 ONCE&2156 KETOROLAC VIAL INJ 60 MG/2CC (TORADOL VIAL ) MG 10/26/2019 10/26/2019 ONCE&2156 ORPHENADRINE INJ 60 MG/2CC (NORFLEX) MG 11/22/2019 11/22/2019 ONCE&1655 KETOROLAC VIAL INJ 60 MG/2CC (TORADOL VIAL ) MG 11/22/2019 11/22/2019 ONCE&1655 Problems Date Dx Coded Attending Type Code Diagnosis Diagnosed By 05/26/2018 CARL PAN, JARED Sow Ot F17.210 NICOTINE DEPENDENCE, CIGARETTES, UNCOMPL 05/26/2018 JARED HENRY MD, Ot F32. 9 MAJOR DEPRESSIVE DISORDER, SINGLE EPISOD 05/26/2018 JARED HENRY MD Ot F41. 9 ANXIETY DISORDER, UNSPECIFIED 05/26/2018 JARED HENRY MD Ot I10 ESSENTIAL (PRIMARY) HYPERTENSION 05/26/2018 JARED HENRY MD Ot R07. 9 CHEST PAIN, UNSPECIFIED 05/31/2018 JARED HENRY MD Ot F17.210 NICOTINE DEPENDENCE, CIGARETTES, UNCOMPL 05/31/2018 JARED HENRY MD Ot F32. 9 MAJOR DEPRESSIVE DISORDER, SINGLE EPISOD 05/31/2018 CARL PAN, JARED Sow Ot F41. 9 ANXIETY DISORDER, UNSPECIFIED 05/31/2018 JARED HENRY MD Ot I10 ESSENTIAL (PRIMARY) HYPERTENSION 05/31/2018 JARED HENRY MD Ot R07. 9 CHEST PAIN, UNSPECIFIED 05/31/2018 JARED HENRY MD Ot F17.210 NICOTINE DEPENDENCE, CIGARETTES, UNCOMPL 05/31/2018 JARED HENRY MD Ot F32. 9 MAJOR DEPRESSIVE DISORDER, SINGLE EPISOD 05/31/2018 JARED HENRY MD Ot F41. 9 ANXIETY DISORDER, UNSPECIFIED 05/31/2018 JARED HENRY MD Ot I10 ESSENTIAL (PRIMARY) HYPERTENSION 05/31/2018 JARED HENRY MD Ot R07. 9 CHEST PAIN, UNSPECIFIED 09/25/2018 Brokob, Maritza W 466.0 ACUTE BRONCHITIS 09/25/2018 Brokob, Maritza A 724.4 THORACIC OR LUMBOSACRAL NEURITIS OR RADICULITIS, UNSPECIFIED 09/25/2018 Brokob, Maritza W J20.9 ACUTE BRONCHITIS, UNSPECIFIED 09/25/2018 Brokob, Maritza A M54.16 RADICULOPATHY, LUMBAR REGION 12/18/2018 HARPREET GOLDMAN MD Ot I10 ESSENTIAL (PRIMARY) HYPERTENSION 12/18/2018 HARPREET GOLDMAN MD Ot J44. 9 CHRONIC OBSTRUCTIVE PULMONARY DISEASE, U 12/18/2018 HARPREET GOLDMAN MD Ot R07. 89 OTHER CHEST PAIN 12/18/2018 HARPREET GOLDMAN MD Ot Z72. 0 TOBACCO USE 01/01/2019 HARPREET GOLDMAN MD Ot I10 ESSENTIAL (PRIMARY) HYPERTENSION 01/01/2019 HARPREET GOLDMAN MD, Ot J44. 9 CHRONIC OBSTRUCTIVE PULMONARY DISEASE, U 01/01/2019 HARPREET GOLDMAN MD Ot R07. 89 OTHER CHEST PAIN 01/01/2019 HARPREET GOLDMAN MD Ot Z72. 0 TOBACCO USE 01/01/2019 HANNAH MIRANDA MD, Ot F17.210 NICOTINE DEPENDENCE, CIGARETTES, UNCOMPL 01/01/2019 HANNAH MIRANDA MD, Ot F32.9 MAJOR DEPRESSIVE DISORDER, SINGLE EPISOD 01/01/2019 HANNAH MIRANDA MD, Ot F41.9 ANXIETY DISORDER, UNSPECIFIED 01/01/2019 HANNAH MIRANDA MD, Ot G45.9 TRANSIENT CEREBRAL ISCHEMIC ATTACK, UNSP 01/01/2019 HANNAH MIRANDA MD, Ot I10 ESSENTIAL (PRIMARY) HYPERTENSION 01/01/2019 HANNAH MIRANDA MD, Ot J44.9 CHRONIC OBSTRUCTIVE PULMONARY DISEASE, U 01/01/2019 HANNAH MIRANDA MD, Ot M54.42 LUMBAGO WITH SCIATICA, LEFT SIDE 01/01/2019 HANNAH MIRANAD MD Ot R47.81 SLURRED SPEECH 01/01/2019 HANNAH MIRANDA MD Ot Z80.0 FAMILY HISTORY OF MALIGNANT NEOPLASM OF 01/01/2019 HANNAH MIRANDA MD Ot Z82.49 FAMILY HX OF ISCHEM HEART DIS AND OTH DI 01/01/2019 HANNAH MIRANDA MD, Ot Z87.19 PERSONAL HISTORY OF OTHER DISEASES OF TH 01/01/2019 HANNAH MIRANDA MD Ot Z88.1 ALLERGY STATUS [...] OTHER SPECIFIED POSTPROCEDURAL STATES 01/04/2019 HANNAH MIRANDA MD, Ot F17.210 NICOTINE DEPENDENCE, CIGARETTES, UNCOMPL 01/04/2019 HANNAH MIRANDA MD Ot F32.9 MAJOR DEPRESSIVE DISORDER, SINGLE EPISOD 01/04/2019 HANNAH MIRANDA MD Ot F41.9 ANXIETY DISORDER, UNSPECIFIED 01/04/2019 HANNAH MIRANDA MD Ot G45.9 TRANSIENT CEREBRAL ISCHEMIC ATTACK, UNSP 01/04/2019 HANNAH MIRNADA MD Ot I10 ESSENTIAL (PRIMARY) HYPERTENSION 01/04/2019 [...] MIRANDA MD Ot Z88.8 ALLERGY STATUS TO OT DRUG/MEDS/BIOL SUB 01/04/2019 HANNAH MIRANDA MD Ot Z90.710 ACQUIRED ABSENCE OF BOTH CERVIX AND UTER 01/04/2019 HANNAH MIRANDA MD Ot Z91.040 LATEX ALLERGY STATUS 01/04/2019 HANNAH MIRANDA MD Ot Z98.890 OTHER SPECIFIED POSTPROCEDURAL STATES 01/22/2019 KLAUDIA BELTRAN Ot M46.87 OTH INFLAMMATORY SPONDYLOPATHIES, LUMBOS 01/22/2019 KLAUDIA BELTRANP Ot M47.26 OTHER SPONDYLOSIS WITH RADICULOPATHY, BRENNAN 01/22/2019 KLAUDIA BELTRAN COMMUNITY HEALTH REPRESENTATIVE Ot M48.07 SPINAL STENOSIS, LUMBOSACRAL REGION 01/22/2019 KLAUDIA BELTRANP Ot M51.15 INTVRT DISC DISORDERS W RADICULOPATHY, T 01/22/2019 KLAUDIA BELTRAN Ot M51.17 INTVRT DISC DISORDERS W RADICULOPATHY, L 01/22/2019 KLAUDIA BELTRAN Ot Z98.890 OTHER SPECIFIED POSTPROCEDURAL STATES 03/04/2019 HARPREET GOLDMAN MD Ot F41. 9 ANXIETY DISORDER, UNSPECIFIED 03/04/2019 HARPREET GOLDMAN MD Ot I10 ESSENTIAL (PRIMARY) HYPERTENSION 03/04/2019 HARPREET GOLDMAN MD Ot J44. 9 CHRONIC OBSTRUCTIVE PULMONARY DISEASE, U 03/04/2019 HARPREET GOLDMAN MD Ot R07. 89 OTHER CHEST PAIN 03/04/2019 HARPREET GOLDMAN MD Ot Z72. 0 TOBACCO USE 03/05/2019 HARPREET GOLDMAN MD Ot E78. 1 PURE HYPERGLYCERIDEMIA 03/05/2019 HARPREET GOLDMAN MD Ot E78. 5 HYPERLIPIDEMIA, UNSPECIFIED 03/05/2019 HARPREET GOLDMAN MD Ot F17.210 NICOTINE DEPENDENCE, CIGARETTES, UNCOMPL 03/05/2019 HARPREET GOLDMAN MD Ot F32. 9 MAJOR DEPRESSIVE DISORDER, SINGLE EPISOD 03/05/2019 HARPREET GOLDMAN MD Ot F41. 9 ANXIETY DISORDER, UNSPECIFIED 03/05/2019 HARPREET GOLDMAN MD Ot I10 ESSENTIAL (PRIMARY) HYPERTENSION 03/05/2019 HARPREET GOLDMAN MD Ot I25. 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 23 OCCLUSION AND STENOSIS OF BILATERAL [place] 03/05/2019 HARPREET GOLDMAN MD, Ot J44. 9 CHRONIC OBSTRUCTIVE PULMONARY DISEASE, U 03/05/2019 HARPREET GOLDMAN MD Ot K21. 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 82 [employer] (CURRENT) USE OF ASPIRIN 03/05/2019 HARPREET GOLDMAN MD Ot Z79.899 OTHER [employer] (CURRENT) DRUG THERAPY 03/06/2019 HARPREET GOLDMAN MD Ot F41. 9 ANXIETY DISORDER, UNSPECIFIED 03/06/2019 HARPREET GOLDMAN MD Ot I10 ESSENTIAL (PRIMARY) HYPERTENSION 03/06/2019 HARPREET GOLDMAN MD Ot J44. 9 CHRONIC OBSTRUCTIVE PULMONARY DISEASE, U 03/06/2019 HARPREET GOLDMAN MD Ot R07. 89 OTHER CHEST PAIN 03/06/2019 HARPREET GOLDMAN MD Ot Z72. 0 TOBACCO USE 03/07/2019 HARPREET GOLDMAN MD Ot E78. 1 PURE HYPERGLYCERIDEMIA 03/07/2019 HARPREET GOLDMAN MD Ot E78. 5 HYPERLIPIDEMIA, UNSPECIFIED 03/07/2019 HARPREET GOLDMAN MD Ot F17.210 NICOTINE DEPENDENCE, CIGARETTES, UNCOMPL 03/07/2019 HARPREET GOLDMAN MD Ot F32. 9 MAJOR DEPRESSIVE DISORDER, SINGLE EPISOD 03/07/2019 HARPREET GOLDMAN MD Ot F41. 9 ANXIETY DISORDER, UNSPECIFIED 03/07/2019 HARPREET GOLDMAN MD Ot I10 ESSENTIAL (PRIMARY) HYPERTENSION 03/07/2019 HARPREET GOLDMAN MD Ot I25. 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 23 OCCLUSION AND STENOSIS OF BILATERAL [place] 03/07/2019 HARPREET GOLDMAN MD Ot J44. 9 CHRONIC OBSTRUCTIVE PULMONARY DISEASE, U 03/07/2019 HARPREET GOLDMAN MD Ot K21. 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 82 [facility] (CURRENT) USE OF ASPIRIN 03/07/2019 HARPREET GOLDMAN MD Ot Z79.899 OTHER [facility] (CURRENT) DRUG THERAPY 03/13/2019 HARPREET GOLDMAN MD Ot F41. 9 ANXIETY DISORDER, UNSPECIFIED 03/13/2019 HARPREET GOLDMAN MD Ot I10 ESSENTIAL (PRIMARY) HYPERTENSION 03/13/2019 HARPREET GOLDMAN MD Ot J44. 9 CHRONIC OBSTRUCTIVE PULMONARY DISEASE, U 03/13/2019 HARPREET GOLDMAN MD Ot R07. 89 OTHER CHEST PAIN 03/13/2019 SUSI PAN, HARPREET Veloz Ot Z72. 0 TOBACCO USE 05/07/2019 JESS CHACON DO Ot R06. 00 DYSPNEA, UNSPECIFIED 05/07/2019 JESS CHACON DO Ot Z72. 0 TOBACCO USE 05/20/2019 LADY KAPLAN Ot F32.9 MAJOR DEPRESSIVE DISORDER, SINGLE EPISOD 05/20/2019 LADY KAPLAN Ot I10 ESSENTIAL (PRIMARY) HYPERTENSION 05/20/2019 LADY KAPLAN Ot J44.9 CHRONIC OBSTRUCTIVE PULMONARY DISEASE, U 05/20/2019 LADY KAPLAN Ot M54.2 CERVICALGIA 05/20/2019 ANGELO KAPLANIS Ot W06.XXXA FALL FROM BED, INITIAL ENCOUNTER 05/20/2019 LADY KAPLAN Ot Z79.51 [facility] (CURRENT) USE OF INHALED STERO 05/20/2019 LADY KAPLAN Ot Z79.82 [employer] (CURRENT) USE OF ASPIRIN 05/20/2019 LADY KAPLAN Ot Z80.0 FAMILY HISTORY OF MALIGNANT NEOPLASM OF 05/20/2019 LADY KAPLAN Ot Z82.49 FAMILY HX OF ISCHEM HEART DIS AND OTH DI 05/20/2019 LADY KAPLAN Ot Z88.1 ALLERGY STATUS TO OTHER ANTIBIOTIC AGENT 05/20/2019 LADY KAPLAN Ot Z88.2 ALLERGY STATUS TO SULFONAMIDES STATUS 05/20/2019 LADY KAPLAN Ot Z88.8 ALLERGY STATUS TO OTH DRUG/MEDS/BIOL SUB 05/20/2019 LADY KAPLAN Ot Z90.49 ACQUIRED ABSENCE OF OTHER SPECIFIED PART 05/20/2019 LADY KAPLAN Ot Z90.710 ACQUIRED ABSENCE OF BOTH CERVIX AND UTER 05/20/2019 LADY KAPLAN Ot Z91.040 LATEX ALLERGY STATUS 05/29/2019 LADY KAPLAN Ot F32.9 MAJOR DEPRESSIVE DISORDER, SINGLE EPISOD 05/29/2019 LADY KAPLAN Ot I10 ESSENTIAL (PRIMARY) HYPERTENSION 05/29/2019 LADY KAPLAN Ot J44.9 CHRONIC OBSTRUCTIVE PULMONARY DISEASE, U 05/29/2019 LADY KAPLAN Ot M54.2 CERVICALGIA 05/29/2019 ANGELO KAPLANIS Ot W06.XXXA FALL FROM BED, INITIAL ENCOUNTER 05/29/2019 BERNOT, LADY Ot Z79.51 [employer] (CURRENT) USE OF INHALED STERO 05/29/2019 ROSAURA, LADY Ot Z79.82 [employer] (CURRENT) USE OF ASPIRIN 05/29/2019 ROSAURA, LADY Ot Z80.0 FAMILY HISTORY OF MALIGNANT NEOPLASM OF 05/29/2019 BERNOT, LADY Ot Z82.49 FAMILY HX OF ISCHEM HEART DIS AND OTH DI 05/29/2019 ROSAURA LADY Ot Z88.1 ALLERGY STATUS TO OTHER ANTIBIOTIC AGENT 05/29/2019 ROSAURA LADY Ot Z88.2 ALLERGY STATUS TO SULFONAMIDES STATUS 05/29/2019 BERNJEFFERY LADY Ot Z88.8 ALLERGY STATUS TO OTH DRUG/MEDS/BIOL SUB 05/29/2019 BERNOT, LADY Ot Z90.49 ACQUIRED ABSENCE OF OTHER SPECIFIED PART 05/29/2019 BERNOT LADY Ot Z90.710 ACQUIRED ABSENCE OF BOTH CERVIX AND UTER 05/29/2019 ROSAURA LADY Ot Z91.040 LATEX ALLERGY STATUS 05/31/2019 ROSAURA LADY Ot F32.9 MAJOR DEPRESSIVE DISORDER, SINGLE EPISOD 05/31/2019 ROSAURA LADY Ot I10 ESSENTIAL (PRIMARY) HYPERTENSION 05/31/2019 ROSAURA LADY Ot J44.9 CHRONIC OBSTRUCTIVE PULMONARY DISEASE, U 05/31/2019 ROSAURA LADY Ot M54.2 CERVICALGIA 05/31/2019 ROSAURA LADY Ot W06.XXXA FALL FROM BED, INITIAL ENCOUNTER 05/31/2019 ANGELO KAPLANIS Ot Z79.51 [employer] (CURRENT) USE OF INHALED STERO 05/31/2019 ROSAURA LADY Ot Z79.82 [facility] (CURRENT) USE OF ASPIRIN 05/31/2019 ROSAURA LADY Ot Z80.0 FAMILY HISTORY OF MALIGNANT NEOPLASM OF 05/31/2019 BERNJEFFERY, LADY Ot Z82.49 FAMILY HX OF ISCHEM HEART DIS AND OTH DI 05/31/2019 ROSAURA LADY Ot Z88.1 ALLERGY STATUS TO OTHER ANTIBIOTIC AGENT 05/31/2019 BERNOT, LADY Ot Z88.2 ALLERGY STATUS TO SULFONAMIDES STATUS 05/31/2019 BERNJEFFERY, LADY Ot Z88.8 ALLERGY STATUS TO OTH DRUG/MEDS/BIOL SUB 05/31/2019 ROSAURA LADY Ot Z90.49 ACQUIRED ABSENCE OF OTHER SPECIFIED PART 05/31/2019 LADY KAPLAN Ot Z90.710 ACQUIRED ABSENCE OF BOTH CERVIX AND UTER 05/31/2019 LADY KAPLAN Ot Z91.040 LATEX ALLERGY STATUS 07/03/2019 HANNAH MIRANDA MD Ot F17.210 NICOTINE DEPENDENCE, CIGARETTES, UNCOMPL 07/03/2019 HANNAH MIRANDA MD Ot F32.9 MAJOR DEPRESSIVE DISORDER, SINGLE EPISOD 07/03/2019 HANNAH MIRANDA MD Ot I10 ESSENTIAL (PRIMARY) HYPERTENSION 07/03/2019 HANNAH MIRANDA MD, Ot J44.9 CHRONIC OBSTRUCTIVE PULMONARY DISEASE, U 07/03/2019 HANNAH MIRANDA MD, Ot K21.9 GASTRO-ESOPHAGEAL REFLUX DISEASE WITHOUT 07/03/2019 HANNAH MIRANDA MD, Ot R07.9 CHEST PAIN, UNSPECIFIED 07/03/2019 HANNAH MIRANDA MD, Ot Z79.51 [employer] (CURRENT) USE OF INHALED STERO 07/03/2019 HANNAH MIRANDA MD Ot Z79.82 [employer] (CURRENT) USE OF ASPIRIN 07/03/2019 HANNAH MIRANDA MD Ot Z80.0 FAMILY HISTORY OF MALIGNANT NEOPLASM OF 07/03/2019 HANNAH MIRANDA MD Ot Z82.49 FAMILY HX OF ISCHEM HEART DIS AND OTH DI 07/03/2019 HANNAH MIRANDA MD Ot Z88.1 ALLERGY STATUS TO OTHER ANTIBIOTIC AGENT 07/03/2019 HANNAH MIRANDA MD Ot Z88.2 ALLERGY STATUS TO SULFONAMIDES STATUS 07/03/2019 HANNAH MIRANDA MD Ot Z88.8 ALLERGY STATUS TO OT DRUG/MEDS/BIOL SUB 07/03/2019 HANNAH MIRANDA MD Ot Z90.49 ACQUIRED ABSENCE OF OTHER SPECIFIED PART 07/03/2019 HANNAH MIRANDA MD Ot Z90.710 ACQUIRED ABSENCE OF BOTH CERVIX AND UTER 07/03/2019 HANNAH MIRANDA MD Ot Z91.040 LATEX ALLERGY STATUS 07/03/2019 HANNAH MIRANDA MD Ot Z95.9 PRESENCE OF CARDIAC AND VASCULAR IMPLANT 07/07/2019 HANNAH MIRANDA MD Ot F17.210 NICOTINE DEPENDENCE, CIGARETTES, UNCOMPL 07/07/2019 HANNAH MIRANDA MD, Ot F32.9 MAJOR DEPRESSIVE DISORDER, SINGLE EPISOD 07/07/2019 HANNAH MIRANDA MD Ot I10 ESSENTIAL (PRIMARY) HYPERTENSION 07/07/2019 HANNAH MIRANDA MD, Ot J44.9 CHRONIC OBSTRUCTIVE PULMONARY DISEASE, U 07/07/2019 HANNAH MIRANDA MD, Ot K21.9 GASTRO-ESOPHAGEAL REFLUX DISEASE WITHOUT 07/07/2019 HANNAH MIRANDA MD Ot R07.9 CHEST PAIN, UNSPECIFIED 07/07/2019 HANNAH MIRANDA MD, Ot Z79.51 [facility] (CURRENT) USE OF INHALED STERO 07/07/2019 HANNAH MIRANDA MD, Ot Z79.82 [facility] (CURRENT) USE OF ASPIRIN 07/07/2019 HANNAH MIRANDA MD, Ot Z80.0 FAMILY HISTORY OF MALIGNANT NEOPLASM OF 07/07/2019 HANNAH MIRANDA MD, Ot Z82.49 FAMILY HX OF ISCHEM HEART DIS AND OTH DI 07/07/2019 HANNAH MIRANDA MD, Ot Z88.1 ALLERGY STATUS TO OTHER ANTIBIOTIC AGENT 07/07/2019 HANNAH MIRANDA MD Ot Z88.2 ALLERGY STATUS TO SULFONAMIDES STATUS 07/07/2019 HANNAH MIRANDA MD, Ot Z88.8 ALLERGY STATUS TO OTH DRUG/MEDS/BIOL SUB 07/07/2019 HANNAH MIRANDA MD, Ot Z90.49 ACQUIRED ABSENCE OF OTHER SPECIFIED PART 07/07/2019 HANNAH MIRANDA MD Ot Z90.710 ACQUIRED ABSENCE OF BOTH CERVIX AND UTER 07/07/2019 HANNAH MIRANDA MD Ot Z91.040 LATEX ALLERGY STATUS 07/07/2019 HANNAH MIRANDA MD Ot Z95.9 PRESENCE OF CARDIAC AND VASCULAR IMPLANT 10/06/2019 PAUL DO DEYSI K Ot F17.210 NICOTINE DEPENDENCE, CIGARETTES, UNCOMPL 10/06/2019 SHANTI MILLER DOA Vielka Ot F32.9 MAJOR DEPRESSIVE DISORDER, SINGLE EPISOD 10/06/2019 DEYSI MILLER DO K Ot G89.29 OTHER CHRONIC PAIN 10/06/2019 PAUL DO DEYSI K Ot I10 ESSENTIAL (PRIMARY) HYPERTENSION 10/06/2019 DEYSI MILLER DO Ot J44.9 CHRONIC OBSTRUCTIVE PULMONARY DISEASE, U 10/06/2019 DEYSI MILLER DO Ot M50.90 CERVICAL DISC DISORDER, UNSP, UNSPECIFIE 10/06/2019 DEYSI MILLER DO Ot M54.12 RADICULOPATHY, CERVICAL REGION 10/06/2019 DEYSI MILLER DO Ot M54.2 CERVICALGIA 10/06/2019 DEYSI MILLER DO Ot Z79.51 [facility] (CURRENT) USE OF INHALED STERO 10/06/2019 DEYSI MILLER DO Ot Z79.82 [employer] (CURRENT) USE OF ASPIRIN 10/06/2019 DEYSI MILLER DO Ot Z80.0 FAMILY HISTORY OF MALIGNANT NEOPLASM OF 10/06/2019 DEYSI MILLER DO Ot Z82.49 FAMILY HX OF ISCHEM HEART DIS AND OTH DI 10/06/2019 DEYSI MILLER DO Ot Z88.1 ALLERGY STATUS TO OTHER ANTIBIOTIC AGENT 10/06/2019 DEYSI MILLER DO Ot Z88.2 ALLERGY STATUS TO SULFONAMIDES STATUS 10/06/2019 DEYSI MILLER DO Ot Z88.8 ALLERGY STATUS TO OTH DRUG/MEDS/BIOL SUB 10/06/2019 DEYSI MILLER DO Ot Z90.49 ACQUIRED ABSENCE OF OTHER SPECIFIED PART 10/06/2019 DEYSI MILLER DO Ot Z90.710 ACQUIRED ABSENCE OF BOTH CERVIX AND UTER 10/06/2019 DEYSI MILLER DO Ot Z91.040 LATEX ALLERGY STATUS 10/09/2019 DEYSI MILLER DO Ot F17.210 NICOTINE DEPENDENCE, CIGARETTES, UNCOMPL 10/09/2019 DEYSI MILLER DO Ot F32.9 MAJOR DEPRESSIVE DISORDER, SINGLE EPISOD 10/09/2019 DEYSI MILLER DO Ot G89.29 OTHER CHRONIC PAIN 10/09/2019 DEYSI MILLER DO Ot I10 ESSENTIAL (PRIMARY) HYPERTENSION 10/09/2019 DEYSI MILLER DO Ot J44.9 CHRONIC OBSTRUCTIVE PULMONARY DISEASE, U 10/09/2019 DEYSI MILLER DO Ot M50.90 CERVICAL DISC DISORDER, UNSP, UNSPECIFIE 10/09/2019 DEYSI MILLER DO Ot M54.12 RADICULOPATHY, CERVICAL REGION 10/09/2019 DEYSI MILLER DO Ot M54.2 CERVICALGIA 10/09/2019 DEYSI MILLER DO Ot Z79.51 [employer] (CURRENT) USE OF INHALED STERO 10/09/2019 DEYSI MILLER DO Ot Z79.82 [employer] (CURRENT) USE OF ASPIRIN 10/09/2019 PAUL DEYSI CINTRON Ot Z80.0 FAMILY HISTORY OF MALIGNANT NEOPLASM OF 10/09/2019 DEYSI MILLER DO Ot Z82.49 FAMILY HX OF ISCHEM HEART DIS AND OTH DI 10/09/2019 DEYSI MILLER DO Ot Z88.1 ALLERGY STATUS TO OTHER ANTIBIOTIC AGENT 10/09/2019 DEYSI MILLER DO Ot Z88.2 ALLERGY STATUS TO SULFONAMIDES STATUS 10/09/2019 DEYSI MILLER DO Ot Z88.8 ALLERGY STATUS TO OTH DRUG/MEDS/BIOL SUB 10/09/2019 PAUL DEYSI CINTRON Ot Z90.49 ACQUIRED ABSENCE OF OTHER SPECIFIED PART 10/09/2019 DEYSI MILLER DO Ot Z90.710 ACQUIRED ABSENCE OF BOTH CERVIX AND UTER 10/09/2019 DEYSI MILLER DO Ot Z91.040 LATEX ALLERGY STATUS 10/13/2019 DEYSI MILLER DO Ot F17.210 NICOTINE DEPENDENCE, CIGARETTES, UNCOMPL 10/13/2019 DEYSI MILLER DO Ot F32.9 MAJOR DEPRESSIVE DISORDER, SINGLE EPISOD 10/13/2019 DEYSI MILLER DO Ot G89.29 OTHER CHRONIC PAIN 10/13/2019 DEYSI MILLER DO Ot I10 ESSENTIAL (PRIMARY) HYPERTENSION 10/13/2019 DEYSI MILLER DO Ot J44.9 CHRONIC OBSTRUCTIVE PULMONARY DISEASE, U 10/13/2019 DEYSI MILLER DO Ot M50.90 CERVICAL DISC DISORDER, UNSP, UNSPECIFIE 10/13/2019 DEYSI MILLER DO Ot M54.12 RADICULOPATHY, CERVICAL REGION 10/13/2019 DEYSI MILLER DO Ot M54.2 CERVICALGIA 10/13/2019 DEYSI MILLER DO Ot Z79.51 [employer] (CURRENT) USE OF INHALED STERO 10/13/2019 DEYSI MILLER DO Ot Z79.82 [facility] (CURRENT) USE OF ASPIRIN 10/13/2019 DEYSI MILLER DO Ot Z80.0 FAMILY HISTORY OF MALIGNANT NEOPLASM OF 10/13/2019 SHANTI MILLER DOA K Ot Z82.49 FAMILY HX OF ISCHEM HEART DIS AND OTH DI 10/13/2019 DEYSI MILLER DO Ot Z88.1 ALLERGY STATUS TO OTHER ANTIBIOTIC AGENT 10/13/2019 PAUL CINTRON DEYSI Vora Ot Z88.2 ALLERGY STATUS TO SULFONAMIDES STATUS 10/13/2019 DEYSI MILLER DO Ot Z88.8 ALLERGY STATUS TO OTH DRUG/MEDS/BIOL SUB 10/13/2019 PAUL CINTRON DEYSI Vora Ot Z90.49 ACQUIRED ABSENCE OF OTHER SPECIFIED PART 10/13/2019 PAUL CINTRON DEYSI Vora Ot Z90.710 ACQUIRED ABSENCE OF BOTH CERVIX AND UTER 10/13/2019 PAUL DO DESYI Vora Ot Z91.040 LATEX ALLERGY STATUS 10/26/2019 Hitesh Holloway 718.71 DEVELOPMENTAL DISLOCATION OF JOINT, SHOULDER REGION 10/26/2019 Hitesh Holloway J20.9 ACUTE BRONCHITIS, UNSPECIFIED 10/26/2019 Hitesh Holloway M24.812 OTH SPECIFIC JOINT DERANGEMENTS OF LEFT SHOULDER, NEC 10/26/2019 Hitesh Holloway M54.16 RADICULOPATHY, LUMBAR REGION 11/22/2019 Jaren Phillips 719.41 PAIN IN JOINT INVOLVING SHOULDER REGION 11/22/2019 Jaren Phillips J20.9 ACUTE BRONCHITIS, UNSPECIFIED 11/22/2019 Jaren Phillips M25.512 PAIN IN LEFT SHOULDER 11/22/2019 Jaren Phillips M54.16 RADICULOPATHY, LUMBAR REGION Procedures There is no data. Results Test Result Range [facility] - 06/25/18 16:29 GLUCOSE 81 mg/dL 65-99 UREA NITROGEN (BUN) 19 mg/dL 7-25 CREATININE 0.90 mg/dL 0.50-1.05 eGFR NON-AFR. [place] 71 mL/min/1.73m2 > OR = 60 eGFR 83 mL/min/1.73m2 > OR = 60 BUN/CREATININE RATIO NOT APPLICABLE (calc) 6-22 SODIUM 140 mmol/L 135-146 POTASSIUM 4.3 mmol/L 3.5-5.3 CHLORIDE 103 mmol/L 98-110 CARBON DIOXIDE 30 mmol/L 20-32 CALCIUM 9.9 mg/dL 8.6-10.4 PROTEIN, TOTAL 7.3 g/dL 6.1-8.1 ALBUMIN 4.4 g/dL 3.6-5.1 GLOBULIN 2.9 g/dL (calc) 1.9-3.7 ALBUMIN/GLOBULIN RATIO 1.5 (calc) 1.0-2. 5 BILIRUBIN, TOTAL 0.4 mg/dL 0.2-1.2 ALKALINE PHOSPHATASE 67 U/L 33-130 AST 16 U/L 10-35 ALT 13 U/L 6-29 Complete blood count (CBC) with automate d white blood cell (WBC) differential - 01/01/19 12:51 Blood leukocytes automated count (number/volume) 12.2 10*3/uL 4.3-11.0 Blood erythrocytes automated count (number/volume) 4.37 10*6/uL 4.35-5.85 Venous blood hemoglobin measurement (mass/volume) 14.3 g/dL 11.5-16.0 Blood hematocrit (volume fraction) 41 % 35-52 Automated erythrocyte mean corpuscular volume 95 [ foz_us] 80-99 Automated erythrocyte mean corpuscular h emoglobin (mass per erythrocyte) 33 pg 25-34 Automated erythrocyte mean corpuscular h emoglobin concentration measurement (mass/volume) 35 g/dL 32-36 Automated erythrocyte distribution width ratio 13. 6 % 10.0- 14.5 Automated blood platelet count [...] 10*3 1.0-4.0 Blood monocytes automated count (number/volume) 1. 2 10*3 0.0-1.0 Automated eosinophil count 0.2 10*3/uL 0 .0-0.3 Automated blood basophil count (count/volume) 0.1 10*3/uL 0.0-0.1 Comprehensive metabolic panel - 01/01/19 12:51 Serum or plasma sodium measurement (moles/volume) 143 mmol/L 135-145 Serum or plasma potassium measurement (moles/volume) 3.5 mmol/L 3.6-5.0 Serum or plasma chloride measurement (moles/volume) 109 mmol/L 98-107 Carbon dioxide 25 mmol/L 21-32 Serum or plasma anion gap determination (moles/volume) 9 mmol/L 5-14 Serum or plasma urea nitrogen measurement (mass/volume ) 16 mg/dL 7-18 Serum or plasma creatinine measurement (mass/volume) 0.86 mg/dL 0.60-1.30 Serum or plasma urea nitrogen/creatinine mass ratio 19 NRG Serum or plasma creatinine measurement w ith calculation of estimated glomerular filtration rate > NRG Serum or plasma glucose measurement (mass/volume) 91 mg/dL 70-105 Serum or plasma calcium measurement (mass/volume) 9.2 mg/dL 8.5-10.1 Serum or plasma total bilirubin measurement (mass/volu me) 0.2 mg/dL 0.1-1.0 Serum or plasma alkaline phosphatase maddy surement (enzymatic activity/volume) 88 U/L 40-136 Serum or plasma aspartate aminotransfera se measurement (enzymatic activity/volume) 27 U/L 5-34 Serum or plasma alanine aminotransferase measurement (enzymatic activity/volume) 27 U/L 0-55 Serum or plasma protein measurement (mass/volume) 6.9 g/dL 6.4-8.2 Serum or plasma albumin measurement (mass/volume) 4.0 g/dL 3.2-4.5 CALCIUM CORRECTED 9.2 mg/dL 8.5-10.1 Serum or plasma troponin i.cardiac measu rement (mass/volume) - 01/01/19 12:51 Serum or plasma troponin i.cardiac measurement (mass/v olume) < ng/mL <0.028 THYROID STIMULATING HORMONE - 01/01/19 1 2:51 THYROID STIMULATING HORMONE 0.59 u[iU]/mL 0.35-4.94 Serum or plasma salicylates measurement (mass/volume) - 01/01/19 12:51 Serum or plasma salicylates measurement (mass/volume) < mg/dL 5.0-20.0 Serum or plasma acetaminophen measuremen t (mass/volume) - 01/01/19 12:51 Serum or plasma acetaminophen measurement (mass/volume ) < ug/mL 10-30 Serum or plasma ethanol measurement (mas s/volume) - 01/01/19 12:51 Serum or plasma ethanol measurement (mass/volume) < mg/dL <10 Complete urinalysis with reflex to cultu re - 01/01/19 13:19 Urine color determination YELLOW NRG Urine clarity determination CLEAR NR G Urine pH measurement by test strip 5 5-9 Specific gravity of urine by test strip 1.005 1.016-1.022 Urine protein assay by test strip, semi-quantitative NEGATIVE NEGATIVE Urine glucose detection by automated test strip NE GATIVE NEGATIVE Erythrocytes detection in urine sediment by light micr oscopy NEGATIVE NEGATIVE Urine ketones detection by automated test strip NE GATIVE NEGATIVE Urine nitrite detection by test strip NEGATIVE NEGATIVE Urine total bilirubin detection by test strip NEGA TIVE NEGATIVE Urine urobilinogen measurement by automated test strip (mass/volume) NORMAL NORMAL Urine leukocyte esterase detection by dipstick NEG ATIVE NEGATIVE Automated urine sediment erythrocyte cou nt by microscopy (number/high power field) NONE NRG Automated urine sediment leukocyte count by microscopy (number/high power field) RARE NRG Bacteria detection in urine sediment by light microsco py FEW NRG Squamous epithelial cells detection in u rine sediment by light microscopy 5-10 NRG Crystals detection in urine sediment by light microsco py NONE NRG Casts detection in urine sediment by light microscopy NONE NRG Mucus detection in urine sediment by light microscopy NEGATIVE NRG Complete urinalysis with reflex to culture YES NRG Urine drug screening test - 01/01/19 13: 19 Urine phencyclidine detection by screening method NEGATIVE NEGATIVE Urine benzodiazepines detection by screening method NEGATIVE NEGATIVE Urine cocaine detection NEGATIVE NEGATI VE Urine amphetamines detection by screening method N EGATIVE NEGATIVE Urine methamphetamine detection by screening method NEGATIVE NEGATIVE Urine cannabinoids detection by screening method N EGATIVE NEGATIVE Urine opiates detection by screening method NEGATI VE NEGATIVE Urine barbiturates detection NEGATIVE N EGATIVE Screening urine tricyclic antidepressants detection NEGATIVE NEGATIVE Urine methadone detection by screening method NEGA TIVE NEGATIVE Urine oxycodone detection NEGATIVE NEGA TIVE Urine propoxyphene detection NEGATIVE N EGATIVE Capillary blood glucose measurement by g lucometer (mass/volume) - 01/01/19 13:23 Capillary blood glucose measurement by glucometer (mas s/volume) 102 mg/dL 70-110 PT panel in platelet poor plasma by coag ulation assay - 01/01/19 13:23 Prothrombin time (PT) in platelet poor plasma by coagu lation assay 12.2 s 12.2-14.7 INR in platelet poor plasma or blood by coagulation as say 0.9 0.8-1.4 Activated partial thromboplastin time (a PTT) in platelet poor plasma bycoagulation assay - 01/01/19 13:23 Activated partial thromboplastin time (a PTT) in platelet poor plasma bycoagulation assay 26 s 24-35 Fibrin D-dimer FEU measurement in platel et poor plasma (mass/volume) - 01/01/19 13:23 Fibrin D-dimer FEU measurement in platelet poor plasma (mass/volume) 0.31 ug/mL 0.00-0.49 Automated blood complete blood count (he mogram) panel - 03/05/19 07:03 Blood leukocytes automated count (number/volume) 10.0 10*3/uL 4.3-11.0 Blood erythrocytes automated count (number/volume) 4.76 10*6/uL 4.35-5.85 Venous blood hemoglobin measurement (mass/volume) 15.5 g/dL 11.5-16.0 Blood hematocrit (volume fraction) 44 % 35-52 Automated erythrocyte mean corpuscular volume 93 [ foz_us] 80-99 Automated erythrocyte mean corpuscular h emoglobin (mass per erythrocyte) 33 pg 25-34 Automated erythrocyte mean corpuscular h emoglobin concentration measurement (mass/volume) 35 g/dL 32-36 Automated erythrocyte distribution width ratio 13. 0 % 10.0- 14.5 Automated blood platelet count (count/volume) 199 10*3/uL 130-400 Automated blood platelet mean volume measurement 11.8 [foz_us] 7.4-10.4 PT panel in platelet poor plasma by coag ulation assay - 03/05/19 07:03 Prothrombin time (PT) in platelet poor plasma by coagu lation assay 12.0 s 12.2-14.7 INR in platelet poor plasma or blood by coagulation as say 0.9 0.8-1.4 Activated partial thromboplastin time (a PTT) in platelet poor plasma bycoagulation assay - 03/05/19 07:03 Activated partial thromboplastin time (a PTT) in platelet poor plasma bycoagulation assay 28 s 24-35 Complete urinalysis with reflex to cultu re - 03/05/19 07:03 Urine color determination YELLOW NRG Urine clarity determination CLEAR NR G Urine pH measurement by test strip 7 5-9 Specific gravity of urine by test strip 1.005 1.016-1.022 Urine protein assay by test strip, semi-quantitative NEGATIVE NEGATIVE Urine glucose detection by automated test strip NE GATIVE NEGATIVE Erythrocytes detection in urine sediment by light micr oscopy NEGATIVE NEGATIVE Urine ketones detection by automated test strip NE GATIVE NEGATIVE Urine nitrite detection by test strip NEGATIVE NEGATIVE Urine total bilirubin detection by test strip NEGA TIVE NEGATIVE Urine urobilinogen measurement by automated test strip (mass/volume) NORMAL NORMAL Urine leukocyte esterase detection by dipstick NEG ATIVE NEGATIVE Automated urine sediment erythrocyte cou nt by microscopy (number/high power field) RARE NRG Automated urine sediment leukocyte count by microscopy (number/high power field) NONE NRG Bacteria detection in urine sediment by light microsco py NEGATIVE NRG Squamous epithelial cells detection in u rine sediment by light microscopy 2-5 NRG Crystals detection in urine sediment by light microsco py NONE NRG Casts detection in urine sediment [...] 5-14 Serum or plasma urea nitrogen measurement (mass/volume ) 13 mg/dL 7-18 Serum or plasma creatinine measurement (mass/volume) 0.74 mg/dL 0.60-1.30 Serum or plasma urea nitrogen/creatinine mass ratio 18 NRG Serum or plasma creatinine measurement w ith calculation of estimated glomerular filtration rate > NRG Serum or plasma glucose measurement (mass/volume) 123 mg/dL 70-105 Serum or plasma calcium measurement (mass/volume) 9.5 mg/dL 8.5-10.1 Serum or plasma total bilirubin measurement (mass/volu me) 0.3 mg/dL 0.1-1.0 Serum or plasma alkaline phosphatase maddy surement (enzymatic activity/volume) 99 U/L 40-136 Serum or plasma aspartate aminotransfera se measurement (enzymatic activity/volume) 26 U/L 5-34 Serum [...] Serum or plasma cholesterol in HDL measurement (mass/v olume) 27 mg/dL 40-60 Cholesterol in LDL [mass/volume] in serum or plasma by direct assay 52 mg/dL 1-129 Serum or plasma cholesterol in VLDL measurement (mass/ volume) 148 mg/dL 5-40 Methicillin resistant Staphylococcus aur eus (MRSA) screening culture - 03/05/19 07:03 Methicillin resistant Staphylococcus aureus (MRSA) scr eening culture NEG NRG Arterial blood gas measurement - 9 13:10 Blood pCO2 35 mm[Hg] 35-45 Blood pO2 70 mm[Hg] 79-93 Arterial blood bicarbonate measurement (moles/volume) 24 mmol/L 23-27 Arterial blood base excess by calculation 0.5 mmol /L -2.5-2.5 Arterial blood oxygen saturation measurement 97 % 94-100 * Inhaled oxygen flow rate ROOM AIR NRG Arterial blood pH measurement with patient temperature correction 7.45 7.37-7.43 Arterial blood carbon dioxide, total measurement (mole s/volume) 25.4 mmol/L 21.0-31.0 Body site LT RAD NRG Assessment of wrist artery patency prior to arterial p uncture YES-POS NRG Setting of ventilation mode NO NR G Measurement of body temperature 96.7 NRG Complete blood count (CBC) with automate d white blood cell (WBC) differential - 07/03/19 14:11 Blood leukocytes automated count (number/volume) 16.7 10*3/uL 4.3-11.0 Blood erythrocytes automated count (number/volume) 4.52 10*6/uL 4.35-5.85 Venous blood hemoglobin measurement (mass/volume) 15.0 g/dL 11.5-16.0 Blood hematocrit (volume fraction) 43 % 35-52 Automated erythrocyte mean corpuscular volume 95 [ foz_us] 80-99 Automated erythrocyte mean corpuscular h emoglobin (mass per erythrocyte) 33 pg 25-34 Automated erythrocyte mean corpuscular h emoglobin concentration measurement (mass/volume) 35 g/dL 32-36 Automated erythrocyte distribution width ratio 12. 4 % 10.0- 14.5 Automated blood platelet count (count/volume) 248 10*3/uL 130-400 Automated blood platelet mean volume measurement 11.2 [foz_us] 7.4-10.4 Automated blood neutrophils/100 leukocytes 84 % 42-75 Automated blood lymphocytes/100 leukocytes 11 % 12-44 Blood monocytes/100 leukocytes 4 % 0-12 Automated blood eosinophils/100 leukocytes 0 % 0-10 Automated blood basophils/100 leukocytes 0 % 0-10 Blood neutrophils automated count (number/volume) 14.1 10*3 1.8-7.8 Blood lymphocytes automated count (number/volume) 1.8 10*3 1.0-4.0 Blood monocytes automated count (number/volume) 0. 7 10*3 0.0-1.0 Automated eosinophil count 0.0 10*3/uL 0 .0-0.3 Automated blood basophil count (count/volume) 0.0 10*3/uL 0.0-0.1 PT panel in platelet poor plasma by coag ulation assay - 07/03/19 14:11 Prothrombin time (PT) in platelet poor plasma by coagu lation assay 12.4 s 12.2-14.7 INR in platelet poor plasma or blood by coagulation as say 0.9 0.8-1.4 Activated partial thromboplastin time (a PTT) in platelet poor plasma bycoagulation assay - 07/03/19 14:11 Activated partial thromboplastin time (a PTT) in platelet poor plasma bycoagulation assay 22 s 24-35 Comprehensive metabolic panel - 07/03/19 14:11 Serum or plasma sodium measurement (moles/volume) 135 mmol/L 135-145 Serum or plasma potassium measurement (moles/volume) 4.4 mmol/L 3.6-5.0 Serum or plasma chloride measurement (moles/volume) 103 mmol/L 98-107 Carbon dioxide 21 mmol/L 21-32 Serum or plasma anion gap determination (moles/volume) 11 mmol/L 5-14 Serum or plasma urea nitrogen measurement (mass/volume ) 15 mg/dL 7-18 Serum or plasma creatinine measurement (mass/volume) 1.00 mg/dL 0.60-1.30 Serum or plasma urea nitrogen/creatinine mass ratio 15 NRG Serum or plasma creatinine measurement w ith calculation of estimated glomerular filtration rate 57 NRG Serum or plasma glucose measurement (mass/volume) 322 mg/dL 70-105 Serum or plasma calcium measurement (mass/volume) 9.2 mg/dL 8.5-10.1 Serum or plasma total bilirubin measurement (mass/volu me) 0.3 mg/dL 0.1-1.0 Serum or plasma alkaline phosphatase maddy surement (enzymatic activity/volume) 90 U/L 40-136 Serum or plasma aspartate aminotransfera se measurement (enzymatic activity/volume) 27 U/L 5-34 Serum or plasma alanine aminotransferase measurement (enzymatic activity/volume) 56 U/L 0-55 Serum or plasma protein measurement (mass/volume) 7.1 g/dL 6.4-8.2 Serum or plasma albumin measurement (mass/volume) 4.1 g/dL 3.2-4.5 CALCIUM CORRECTED 9.1 mg/dL 8.5-10.1 Magnesium - 07/03/19 14:11 Magnesium 1.9 mg/dL 1.6-2.4 Serum or plasma troponin i.cardiac measu rement (mass/volume) - 07/03/19 14:11 Serum or plasma troponin i.cardiac measurement (mass/v olume) < ng/mL <0.028 Myoglobin, serum - 07/03/19 14:11 Myoglobin, serum 42.3 ng/mL 10.0-92.0 Manual absolute plasma cell count - 06/15 07/03 14:11 Blood monocytes/100 leukocytes 3 % NRG Manual blood segmented neutrophils/100 leukocytes 84 % NRG Manual blood lymphocytes/100 leukocytes 12 % NRG Manual blood basophils/100 leukocytes 1 % NRG Blood erythrocyte morphology finding identification NORMAL NRG Serum or plasma troponin i.cardiac measu rement (mass/volume) - 07/03/19 16:10 Serum or plasma troponin i.cardiac measurement (mass/v olume) < ng/mL <0.028 Complete blood count (CBC) with automate d white blood cell (WBC) differential - 10/06/19 19:38 Blood leukocytes automated count (number/volume) 10.2 10*3/uL 4.3-11.0 Blood erythrocytes automated count (number/volume) 4.52 10*6/uL 4.35-5.85 Venous blood hemoglobin measurement (mass/volume) 15.0 g/dL 11.5-16.0 Blood hematocrit (volume fraction) 43 % 35-52 Automated erythrocyte mean corpuscular volume 95 [ foz_us] 80-99 Automated erythrocyte mean corpuscular h emoglobin (mass per erythrocyte) 33 pg 25-34 Automated erythrocyte mean corpuscular h emoglobin concentration measurement (mass/volume) 35 g/dL 32-36 Automated erythrocyte distribution width ratio 13. 4 % 10.0- 14.5 Automated blood platelet count (count/volume) 211 10*3/uL 130-400 Automated blood platelet mean volume measurement 11.5 [foz_us] 7.4-10.4 Automated blood neutrophils/100 leukocytes 45 % 42-75 Automated blood lymphocytes/100 leukocytes 40 % 12-44 Blood monocytes/100 leukocytes 12 % 0-12 Automated blood eosinophils/100 leukocytes 2 % 0-10 Automated blood basophils/100 leukocytes 1 % 0-10 Blood neutrophils automated count (number/volume) 4.6 10*3 1.8-7.8 Blood lymphocytes automated count (number/volume) 4.1 10*3 1.0-4.0 Blood monocytes automated count (number/volume) 1. 3 10*3 0.0-1.0 Automated eosinophil count 0.2 10*3/uL 0 .0-0.3 Automated blood basophil count (count/volume) 0.1 10*3/uL 0.0-0.1 PT panel in platelet poor plasma by coag ulation assay - 10/06/19 19:38 Prothrombin time (PT) in platelet poor plasma by coagu lation assay 12.6 s 12.2-14.7 INR in platelet poor plasma or blood by coagulation as say 0.9 0.8-1.4 Activated partial thromboplastin time (a PTT) in platelet poor plasma bycoagulation assay - 10/06/19 19:38 Activated partial thromboplastin time (a PTT) in platelet poor plasma bycoagulation assay 28 s 24-35 Comprehensive metabolic panel - 10/06/19 19:38 Serum or plasma sodium measurement (moles/volume) 141 mmol/L 135-145 Serum or plasma potassium measurement (moles/volume) 3.5 mmol/L 3.6-5.0 Serum or plasma chloride measurement (moles/volume) 106 mmol/L 98-107 Carbon dioxide 23 mmol/L 21-32 Serum or plasma anion gap determination (moles/volume) 12 mmol/L 5-14 Serum or plasma urea nitrogen measurement (mass/volume ) 8 mg/dL 7-18 Serum or plasma creatinine measurement (mass/volume) 0.83 mg/dL 0.60-1.30 Serum or plasma urea nitrogen/creatinine mass ratio 10 NRG Serum or plasma creatinine measurement w ith calculation of estimated glomerular filtration rate > NRG Serum or plasma glucose measurement (mass/volume) 104 mg/dL 70-105 Serum or plasma calcium measurement (mass/volume) 9.6 mg/dL 8.5-10.1 Serum or plasma total bilirubin measurement (mass/volu me) 0.4 mg/dL 0.1-1.0 Serum or plasma alkaline phosphatase maddy surement (enzymatic activity/volume) 88 U/L 40-136 Serum or plasma aspartate aminotransfera se measurement (enzymatic activity/volume) 22 U/L 5-34 Serum or plasma alanine aminotransferase measurement (enzymatic activity/volume) 22 U/L 0-55 Serum or plasma protein measurement (mass/volume) 7.2 g/dL 6.4-8.2 Serum or plasma albumin measurement (mass/volume) 4.3 g/dL 3.2-4.5 CALCIUM CORRECTED 9.4 mg/dL 8.5-10.1 Magnesium - 10/06/19 19:38 Magnesium 2.0 mg/dL 1.6-2.4 Serum or plasma creatine kinase measurem ent (enzymatic activity/volume) - 10/06/19 19:38 Serum or plasma creatine kinase measurem ent (enzymatic activity/volume) 233 U/L 29-168 Serum or plasma creatine kinase MB measu rement (enzymatic activity/volume) - 10/06/19 19:38 Serum or plasma creatine kinase MB measu rement (enzymatic activity/volume) 2.7 ng/mL <6.6 Serum or plasma troponin i.cardiac measu rement (mass/volume) - 10/06/19 19:38 Serum or plasma troponin i.cardiac measurement (mass/v olume) < ng/mL <0.028 Myoglobin, serum - 10/06/19 19:38 Myoglobin, serum 64.4 ng/mL 10.0-92.0 Serum or plasma ethanol measurement (mas s/volume) - 10/06/19 19:38 Serum or plasma ethanol measurement (mass/volume) < mg/dL <10 Serum or plasma lithium measurement (mol es/volume) - 10/06/19 19:38 BNP PT < 10.0 <100.0 Complete urinalysis with reflex to cultu re - 10/06/19 19:42 Urine color determination YELLOW NRG Urine clarity determination CLEAR NR G Urine pH measurement by test strip 7.0 5-9 Specific gravity of urine by test strip <= 1.016-1.022 Urine protein assay by test strip, semi-quantitative NEGATIVE NEGATIVE Urine glucose detection by automated test strip NE GATIVE NEGATIVE Erythrocytes detection in urine sediment by light micr oscopy TRACE-I NEGATIVE Urine ketones detection by automated test strip NE GATIVE NEGATIVE Urine nitrite detection by test strip NEGATIVE NEGATIVE Urine total bilirubin detection by test strip NEGA TIVE NEGATIVE Urine urobilinogen measurement by automated test strip (mass/volume) 1.0 mg/dL < = 1.0 Urine leukocyte esterase detection by dipstick NEG ATIVE NEGATIVE Automated urine sediment erythrocyte cou nt by microscopy (number/high power field) RARE NRG Automated urine sediment leukocyte count by microscopy (number/high power field) [HPF] NRG Bacteria detection in urine sediment by light microsco py MODERATE NRG Squamous epithelial cells detection in u rine sediment by light microscopy 5-10 NRG Crystals detection in urine sediment by light microsco py NONE NRG Casts detection in urine sediment by light microscopy NONE NRG Mucus detection in urine sediment by light microscopy NEGATIVE NRG Complete urinalysis with reflex to culture YES NRG Urine drug screening test - 10/06/19 19: 42 Urine phencyclidine detection by screening method NEGATIVE NEGATIVE Urine benzodiazepines detection by screening method NEGATIVE NEGATIVE Urine cocaine detection NEGATIVE NEGATI VE Urine amphetamines detection by screening method N EGATIVE NEGATIVE Urine methamphetamine detection by screening method NEGATIVE NEGATIVE Urine cannabinoids detection by screening method N EGATIVE NEGATIVE Urine opiates detection by screening method NEGATI VE NEGATIVE Urine barbiturates detection NEGATIVE N EGATIVE Screening urine tricyclic antidepressants detection NEGATIVE NEGATIVE Urine methadone detection by screening method NEGA TIVE NEGATIVE Urine oxycodone detection NEGATIVE NEGA TIVE Urine propoxyphene detection NEGATIVE N EGATIVE Bacterial urine culture - 10/06/19 19:42 Bacterial urine culture 3 OR MORE NRG COLONY COUNT 30,000 CFU/ML NRG FTX;REPORTABLE GRAM POSITIVES, SUGGESTING PROBABLE NRG FREE TEXT ENTRY 2 COLLECTION CONTAMINATION WITH SK IN CHESTER NRG FREE TEXT ENTRY 3 NO SUSCEPTIBILITY PERFORMED NRG Complete blood count (CBC) with automate d white blood cell (WBC) differential - 12/24/19 19:15 Blood leukocytes automated count (number/volume) 13.9 10*3/uL 4.3-11.0 Blood erythrocytes automated count (number/volume) 4.65 10*6/uL 4.35-5.85 Venous blood hemoglobin measurement (mass/volume) 15.9 g/dL 11.5-16.0 Blood hematocrit (volume fraction) 45 % 35-52 Automated erythrocyte mean corpuscular volume 96 [ foz_us] 80-99 Automated erythrocyte mean corpuscular h emoglobin (mass per erythrocyte) 34 pg 25-34 Automated erythrocyte mean corpuscular h emoglobin concentration measurement (mass/volume) 36 g/dL 32-36 Automated erythrocyte distribution width ratio 13. 0 % 10.0- 14.5 Automated blood platelet count (count/volume) 252 10*3/uL 130-400 Automated blood platelet mean volume measurement 10.9 [foz_us] 7.4-10.4 Automated blood neutrophils/100 leukocytes 50 % 42-75 Automated blood lymphocytes/100 leukocytes 40 % 12-44 Blood monocytes/100 leukocytes 8 % 0-12 Automated blood eosinophils/100 leukocytes 1 % 0-10 Automated blood basophils/100 leukocytes 1 % 0-10 Blood neutrophils automated count (number/volume) 7.0 10*3 1.8-7.8 Blood lymphocytes automated count (number/volume) 5.5 10*3 1.0-4.0 Blood monocytes automated count (number/volume) 1. 1 10*3 0.0-1.0 Automated eosinophil count 0.2 10*3/uL 0 .0-0.3 Automated blood basophil count (count/volume) 0.1 10*3/uL 0.0-0.1 Comprehensive metabolic panel - 12/24/19 19:15 Serum or plasma sodium measurement (moles/volume) 140 mmol/L 135-145 Serum or plasma potassium measurement (moles/volume) 3.6 mmol/L 3.6-5.0 Serum or plasma chloride measurement (moles/volume) 105 mmol/L 98-107 Carbon dioxide 20 mmol/L 21-32 Serum or plasma anion gap determination (moles/volume) 15 mmol/L 5-14 Serum or plasma urea nitrogen measurement (mass/volume ) 10 mg/dL 7-18 Serum or plasma creatinine measurement (mass/volume) 0.89 mg/dL 0.60-1.30 Serum or plasma urea nitrogen/creatinine mass ratio 11 NRG Serum or plasma creatinine measurement w ith calculation of estimated glomerular filtration rate > NRG Serum or plasma glucose measurement (mass/volume) 155 mg/dL 70-105 Serum or plasma calcium measurement (mass/volume) 9.4 mg/dL 8.5-10.1 Serum or plasma total bilirubin measurement (mass/volu me) 0.3 mg/dL 0.1-1.0 Serum or plasma alkaline phosphatase maddy surement (enzymatic activity/volume) 97 U/L 40-136 Serum or plasma aspartate aminotransfera se measurement (enzymatic activity/volume) 26 U/L 5-34 Serum or plasma alanine aminotransferase measurement (enzymatic activity/volume) 21 U/L 0-55 Serum or plasma protein measurement (mass/volume) 7.7 g/dL 6.4-8.2 Serum or plasma albumin measurement (mass/volume) 4.4 g/dL 3.2-4.5 CALCIUM CORRECTED 9.1 mg/dL 8.5-10.1 Magnesium - 12/24/19 19:15 Magnesium 2.0 mg/dL 1.6-2.4 Serum or plasma troponin i.cardiac measu rement (mass/volume) - 12/24/19 19:15 Serum or plasma troponin i.cardiac measurement (mass/v olume) < ng/mL <0.028 Myoglobin, serum - 12/24/19 19:15 Myoglobin, serum 112.2 ng/mL 10.0-92.0 PT panel in platelet poor plasma by coag ulation assay - 12/24/19 19:15 Prothrombin time (PT) in platelet poor plasma by coagu lation assay 12.4 s 12.2-14.7 INR in platelet poor plasma or blood by coagulation as say 0.9 0.8-1.4 Activated partial thromboplastin time (a PTT) in platelet poor plasma bycoagulation assay - 12/24/19 19:15 Activated partial thromboplastin time (a PTT) in platelet poor plasma bycoagulation assay 28 s 24-35 Fibrin D-dimer FEU measurement in platel et poor plasma (mass/volume) - 12/24/19 19:15 Fibrin D-dimer FEU measurement in platelet poor plasma (mass/volume) 0.24 ug/mL 0.00-0.49 Serum or plasma lithium measurement (mol es/volume) - 12/24/19 19:15 BNP PT < 10.0 <100.0 Serum or plasma troponin i.cardiac measu rement (mass/volume) - 12/24/19 21:10 Serum or plasma troponin i.cardiac measurement (mass/v olume) < ng/mL <0.028 Encounters ACCT No. Visit Date/Time Discharge Status Pt. Type Provider Facility Loc./Unit Complaint [id number] 11/22/2019 16:26:00 11/22/2019 17:10 :[id number]/26/2019 21:44:00 10/26/2019 22:52 :00 DIS Outpatient Hitesh Holloway [facility] ER [id number] 05/01/2019 12:44:00 05/01/2019 23:59: 00 DIS Outpatient Beltran, Klaudia [id number] 09/25/2018 18:27:00 09/25/2018 19:20: 00 [id number]/25/2018 19:05:24 Document Registration [id number] 09/25/2019 10:40:00 09/25/2019 23:59: 59 CLS Outpatient GLENROY HUERTAS [id number] 06/25/2018 15:20:00 Document Registration [id number] 12/24/2019 19:09:00 020 22:14:00 DIS Emergency HITESH HOLLOWAY APRN [facility] ER PAIN IN LEFT ARM/ CHEST PAIN [id number] 10/06/2019 18:11:00 20:42:00 DIS Emergency DEYSI MILLER DO [facility] ER BACK OF NECK AND L ARM PAIN [id number] 07/03/2019 14:06:00 16:59:00 DIS Emergency HANNAH MIRANDA MD [facility] ER CHEST PAIN [id number] 05/20/2019 12:16:00 13:43:00 DIS Emergency LADY KAPLAN [facility] ER NECK/SHOULDER/HEAD PAIN [id number] 04/24/2019 11:03:00 23:59:59 CLS Preadmit JESS CHACON DO [facility] SLEEP G47.10 G47.50 R06.00 R0 6.83 SNORING [id number] 04/24/2019 11:00:00 23:59:59 CLS Preadmit JESS CHACON DO [facility] RT DYSPNEA [id number] 04/24/2019 10:59:00 23:59:59 CLS Preadmit JESS CHACON DO [facility] RAD DYSPNEA [id number] 04/23/2019 10:00:00 23:59:59 CLS Preadmit HARPREET GOLDMAN MD [facility] CR STABLE ANGINA [id number] 04/21/2019 12:51:00 23:59:59 CLS Outpatient JESS CHACON DO [facility] RT R06.00 [id number] 03/05/2019 06:35:00 12:25:00 DIS Outpatient HARPREET GOLDMAN MD [facility] CATH ABN STRESS TEST [id number] 02/26/2019 07:54:00 23:59:59 CLS Outpatient HARPREET GOLDMAN MD [facility] CARD ANTERIOR CHEST WALL JAYCOB N [id number] 01/10/2019 12:06:00 23:59:59 CLS Outpatient KLAUDIA BELTRANP [facility] RAD LUMBAR RADICULO GOPAL [id number] 01/01/2019 12:50:00 17:23:00 DIS Emergency HANNAH MIRANDA MD [facility] ER STROKE [id number] 12/17/2018 08:13:00 23:59:59 CLS Outpatient HARPREET GOLDMAN MD [facility] CARD ANTERIOR CHEST WALL JAYCOB N [id number] 12/05/2018 15:50:00 23:59:59 CLS Preadmit HARPREET GOLDMAN MD [facility] CARD ANTERIOR CHEST WALL JAYCOB N [id number] 05/25/2018 18:54:00 03:50:00 DIS Inpatient CARL PAN, JARED Sow [facility] 4TH CHEST PAIN [id number] 12/17/2019 11:40:00 Document Registration
== END 2019-12-24 22:14 | disposition home or self-care (01) ==
LOC: EDUNIT# 19:07 → ER 19:09
DX: R07.89 Other chest pain (principal); J44.9 Chronic obstructive pulmonary disease, unspecified; I10 Essential (primary) hypertension; E78.00 Pure hypercholesterolemia, unspecified; I25.10 Atherosclerotic heart disease of native coronary artery without angina pectoris; F41.9 Anxiety disorder, unspecified; F32.9 Major depressive disorder, single episode, unspecified; Z86.73 Personal history of transient ischemic attack (TIA), and cerebral infarction without residual deficits; Z88.2 Allergy status to sulfonamides; Z91.040 Latex allergy status; Z88.8 Allergy status to other drugs, medicaments and biological substances; Z91.018 Allergy to other foods; Z79.82 Long term (current) use of aspirin; Z77.22 Contact with and (suspected) exposure to environmental tobacco smoke (acute) (chronic); Z90.710 Acquired absence of both cervix and uterus; Z80.0 Family history of malignant neoplasm of digestive organs; Z82.49 Family history of ischemic heart disease and other diseases of the circulatory system
CPT/HCPCS: 36415; 71045; 80053; 83735; 83874; 83880; 84484; 85025; 85379; 85610; 85730; 93005; 93041

== ENCOUNTER 2020-01-19 14:04 | Emergency (ER) | payer OTHER ==
[~2020-01-19] VITALS: Ht 162 cm; Wt 77.2 kg
--- OUTSIDE RECORDS SUMMARY | 2020-01-19 14:49 | XMS REPORT | Continuity of Care Document ---
Author Organization Unknown Address Unknown Phone Unavailable Allergies Active Description Code Type Severity Reaction Onset Reported/Identified Relationship to Patient Clinical Status Yes BACTRIM DS SEVERE SEVERE Yes BACTRIM DS SEVERE UNKNOWN Yes CLARITIN SEVERE SEVERE Yes CLARITIN SEVERE UNKNOWN Yes mushroom [id number] Drug Allergy Unknown N/A 05/25/2018 Yes latex [id number] Drug Allergy Unknown N/A 05/26/2018 Yes loratadine [id number] Drug Allerg y Unknown N/A 05/26/2018 Yes pseudoephedrine [id number] D rug Allergy Unknown N/A 05/26/2018 Yes Sulfa (Sulfonamide Antibiotics) [id number] Drug Allergy Unknown N/A 018 Yes sulfamethoxazole [id number] Drug Allergy Unknown N/A 05/26/2018 Yes trimethoprim [id number] Drug Allergy Unknown N/A 05/26/2018 Medications Medication [...] SPONDYLOSIS WITH RADICULOPATHY, BRENNAN 01/22/2019 KLAUDIA BELTRAN HVAC SPECIALIST Ot M48.07 SPINAL STENOSIS, LUMBOSACRAL REGION 01/22/2019 [...] Ot I25. 10 ATHSCL HEART DISEASE OF [place] CORONARY 03/05/2019 HARPREET GOLDMAN MD Ot I25.118 ATHSCL HEART DISEASE OF [place] COR ART W 03/05/2019 HARPREET GOLDMAN MD Ot I65. 23 OCCLUSION AND STENOSIS OF BILATERAL [place] 03/05/2019 HARPREET GOLDMAN MD, Ot J44. 9 CHRONIC OBSTRUCTIVE PULMONARY DISEASE, U 03/05/2019 HARPREET GOLDMAN MD Ot K21. 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 82 RADIO TALK SHOW HOST (CURRENT) USE OF ASPIRIN 03/05/2019 HARPREET GOLDMAN MD Ot Z79.899 OTHER RADIO TALK SHOW HOST (CURRENT) DRUG THERAPY 03/06/2019 HARPREET GOLDMAN MD [...] Ot I25. 10 ATHSCL HEART DISEASE OF [place] CORONARY 03/07/2019 HARPREET GOLDMAN MD Ot I25.118 ATHSCL HEART DISEASE OF [place] COR ART W 03/07/2019 HARPREET GOLDMAN MD Ot I65. 23 OCCLUSION AND STENOSIS OF [place] 03/07/2019 HARPREET GOLDMAN MD Ot J44. 9 CHRONIC OBSTRUCTIVE PULMONARY DISEASE, U 03/07/2019 HARPREET GOLDMAN MD Ot K21. 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 82 LONGTERM (CURRENT) USE OF ASPIRIN 03/07/2019 HARPREET GOLDMAN MD Ot Z79.899 OTHER LONGTERM (CURRENT) DRUG THERAPY 03/13/2019 HARPREET GOLDMAN MD Ot F41. 9 ANXIETY DISORDER, UNSPECIFIED 03/13/2019 HARPREET GOLDMAN MD Ot I10 ESSENTIAL (PRIMARY) HYPERTENSION 03/13/2019 HARPREET GOLDMAN MD Ot J44. 9 CHRONIC OBSTRUCTIVE PULMONARY DISEASE, U 03/13/2019 HARPREET GOLDMAN MD Ot R07. 89 OTHER CHEST PAIN 03/13/2019 USSI PAN, HARPREET Veloz Ot Z72. 0 TOBACCO [...] INITIAL ENCOUNTER 05/20/2019 LADY KAPLAN Ot Z79.51 LONGTERM (CURRENT) USE OF INHALED STERO 05/20/2019 LADY KAPLAN Ot Z79.82 RADIO TALK SHOW HOST (CURRENT) USE OF ASPIRIN 05/20/2019 LADY KAPLAN [...] Ot I10 ESSENTIAL (PRIMARY) HYPERTENSION 05/29/2019 LADY KPALAN Ot J44.9 CHRONIC OBSTRUCTIVE PULMONARY DISEASE, U 05/29/2019 LADY KAPLAN Ot M54.2 CERVICALGIA 05/29/2019 ANGELO KAPLANIS Ot W06.XXXA FALL FROM BED, INITIAL ENCOUNTER 05/29/2019 BERNOT, LADY Ot Z79.51 RADIO TALK SHOW HOST (CURRENT) USE OF INHALED STERO 05/29/2019 ROSAURA, LADY Ot Z79.82 RADIO TALK SHOW HOST (CURRENT) USE OF ASPIRIN 05/29/2019 ROSAURA, LADY [...] INITIAL ENCOUNTER 05/31/2019 ANGELO KAPLANIS Ot Z79.51 RADIO TALK SHOW HOST (CURRENT) USE OF INHALED STERO 05/31/2019 ROSAURA LADY Ot Z79.82 LONGTERM (CURRENT) USE OF ASPIRIN 05/31/2019 ROSAURA LADY [...] Ot F17.210 NICOTINE DEPENDENCE, CIGARETTES, UNCOMPL 07/03/2019 HNANAH MIRANDA MD Ot F32.9 MAJOR DEPRESSIVE DISORDER, SINGLE EPISOD 07/03/2019 HANNAH MIRANDA MD Ot I10 ESSENTIAL (PRIMARY) HYPERTENSION 07/03/2019 HANNAH MIRANDA MD, Ot J44.9 CHRONIC OBSTRUCTIVE PULMONARY DISEASE, U 07/03/2019 HANNAH MIRANDA MD, Ot K21.9 GASTRO-ESOPHAGEAL REFLUX DISEASE WITHOUT 07/03/2019 HANNAH MIRANDA MD, Ot R07.9 CHEST PAIN, UNSPECIFIED 07/03/2019 HANNAH MIRANDA MD, Ot Z79.51 RADIO TALK SHOW HOST (CURRENT) USE OF INHALED STERO 07/03/2019 HANNAH MIRANDA MD Ot Z79.82 RADIO TALK SHOW HOST (CURRENT) USE OF ASPIRIN 07/03/2019 HANNAH MIRANDA [...] UNSPECIFIED 07/07/2019 HANNAH MIRANDA MD, Ot Z79.51 LONGTERM (CURRENT) USE OF INHALED STERO 07/07/2019 HANNAH MIRANDA MD, Ot Z79.82 LONGTERM (CURRENT) USE OF ASPIRIN 07/07/2019 HANNAH MIRANDA [...] MILLER DO Ot M54.2 CERVICALGIA 10/06/2019 DEYSI IMLLER DO Ot Z79.51 LONGTERM (CURRENT) USE OF INHALED STERO 10/06/2019 DEYSI MILLER DO Ot Z79.82 RADIO TALK SHOW HOST (CURRENT) USE OF ASPIRIN 10/06/2019 DEYSI MILLER [...] CERVICALGIA 10/09/2019 DEYSI MILLER DO Ot Z79.51 RADIO TALK SHOW HOST (CURRENT) USE OF INHALED STERO 10/09/2019 DEYSI MILLER DO Ot Z79.82 RADIO TALK SHOW HOST (CURRENT) USE OF ASPIRIN 10/09/2019 PAUL DEYSI [...] CERVICALGIA 10/13/2019 DEYSI MILLER DO Ot Z79.51 RADIO TALK SHOW HOST (CURRENT) USE OF INHALED STERO 10/13/2019 DEYSI MILLER DO Ot Z79.82 LONGTERM (CURRENT) USE OF ASPIRIN 10/13/2019 DEYSI MILLER DO Ot Z80.0 FAMILY HISTORY OF MALIGNANT NEOPLASM OF 10/13/2019 SHANTI MILLER DOBekah Vora Ot Z82.49 FAMILY HX OF ISCHEM HEART DIS AND OTH DI 10/13/2019 PAUL CINTRON DEYSI Vora Ot Z88.1 ALLERGY STATUS TO OTHER ANTIBIOTIC AGENT 10/13/2019 PAUL CINTRON DEYSI Vielka Ot Z88.2 ALLERGY STATUS TO SULFONAMIDES STATUS 10/13/2019 DEYSI MILLER DO Ot Z88.8 ALLERGY STATUS TO OTH DRUG/MEDS/BIOL SUB 10/13/2019 PAUL CINTRON DEYSI Vielka Ot Z90.49 ACQUIRED ABSENCE OF OTHER SPECIFIED PART 10/13/2019 PAUL CINTRON DEYSI Vielka Ot Z90.710 ACQUIRED ABSENCE OF BOTH CERVIX AND UTER 10/13/2019 PAUL DO DEYSI Vielka Ot Z91.040 LATEX ALLERGY STATUS 10/26/2019 Hitesh [...] 11/22/2019 Jaren Phillips M54.16 RADICULOPATHY, LUMBAR REGION 12/24/2019 HITESH HOLLOWAY APRN Ot E78.00 PURE HYPERCHOLESTEROLEMIA, UNSPECIFIED 12/24/2019 HITESH HOLLOWAY APRN Ot F32 .9 MAJOR DEPRESSIVE DISORDER, SINGLE EPISOD 12/24/2019 HITESH HOLLOWAY APRN Ot F41 .9 ANXIETY DISORDER, UNSPECIFIED 12/24/2019 HITESH HOLLOWAY APRN Ot I10 ESSENTIAL (PRIMARY) HYPERTENSION 12/24/2019 HITESH HOLLOWAY APRN Ot I25.10 ATHSCL HEART DISEASE OF [place] CORONARY 12/24/2019 HITESH HOLLOWAY APRN Ot J44 .9 CHRONIC OBSTRUCTIVE PULMONARY DISEASE, U 12/24/2019 HITESH HOLLOWAY APRN Ot R07.89 OTHER CHEST PAIN 12/24/2019 HITESH HOLLOWAY APRN Ot Z77.22 CNTCT W AND EXPSR TO ENVIRON TOBACCO SMO 12/24/2019 HITESH HOLLOWAY APRN Ot Z79.82 RADIO TALK SHOW HOST (CURRENT) USE OF ASPIRIN 12/24/2019 HITESH HOLLOWAY APRN Ot Z80 .0 FAMILY HISTORY OF MALIGNANT NEOPLASM OF 12/24/2019 HITESH HOLLOWAY APRN Ot Z82.49 FAMILY HX OF ISCHEM HEART DIS AND OTH DI 12/24/2019 HITESH HOLLOWAY APRN Ot Z86.73 PRSNL HX OF TIA (TIA), AND CEREB INFRC W 12/24/2019 HITESH HOLLOWAY APRN Ot Z88 .2 ALLERGY STATUS TO SULFONAMIDES STATUS 12/24/2019 HITESH HOLLOWAY APRN Ot Z88 .8 ALLERGY STATUS TO OTH DRUG/MEDS/BIOL SUB 12/24/2019 HITESH HOLLOWAY APRN Ot Z90.710 ACQUIRED ABSENCE OF BOTH CERVIX AND UTER 12/24/2019 HITESH HOLLOWAY APRN Ot Z91.018 ALLERGY TO OTHER FOODS 12/24/2019 HITESH HOLLOWAY APRN Ot Z91.040 LATEX ALLERGY STATUS Procedures There is no data. Results Test Result Range CMP - 06/25/18 16:29 GLUCOSE 81 mg/dL 65-99 UREA NITROGEN (BUN) 19 mg/dL 7-25 CREATININE 0.90 mg/dL 0.50-1.05 eGFR NON-AFR. [place] 71 mL/min/1.73m2 > OR = 60 eGFR [...] FREE TEXT ENTRY 3 NO SUSCEPTIBILITY PERFORMED NR Complete blood count (CBC) with automate d [...] Status Pt. Type Provider Facility Loc./Unit Complaint [id number] 11/22/2019 16:26:00 11/22/2019 17:10 :00 DIS [facility]patient [facility] [id number] 10/26/2019 21:44:00 10/26/2019 22:52 :00 DIS Outpatient Shona [facility] ER [id number] 05/01/2019 12:44:00 05/01/2019 23:59: 00 DIS Outpatient Beltran Klaudia [id number] 09/25/2018 18:27:00 09/25/2018 19:20: 00 [id number] 09/25/2018 19:05:24 Document Registration [id number] 09/25/2019 10:40:00 09/25/2019 23:59: 59 CLS Outpatient GLENROY HUERTAS CHCVielka PATERSON [id number] 06/25/2018 15:20:00 Document Registration [id number] 12/24/2019 19:09:00 020 22:14:00 DIS Emergency HITESH HOLLOWAY APRN [facility] ER PAIN IN LEFT ARM/ CHEST PAIN [id number] 10/06/2019 18:11:00 019 20:42:00 DIS Emergency DEYSI MILLER DO [facility] ER BACK OF NECK AND L ARM PAIN [id number] 07/03/2019 14:06:00 019 16:59:00 DIS Emergency HANNAH MIRANDA MD [facility] ER CHEST PAIN [id number] 05/20/2019 12:16:00 13:43:00 DIS Emergency LADY KAPLAN [facility] ER NECK/SHOULDER/HEAD PAIN [id number] 04/24/2019 11:03:00 23:59:59 CLS Preadmit JESS CHACON DO [facility] SLEEP G47.10 G47.50 R06.00 R0 6.83 SNORING [id number] 04/24/2019 11:00:00 23:59:59 CLS Preadmit JESS CHACON DO [facility] RT DYSPNEA [id number] 04/24/2019 10:59:00 23:59:59 CLS Preadmit JESS CHACON DO [facility] RAD DYSPNEA [id number] 04/23/2019 10:00:00 23:59:59 CLS Preadmit HARPREET GOLDMAN MD [facility] CR STABLE ANGINA [id number] 04/21/2019 12:51:00 23:59:59 CLS Outpatient JESS CHACON DO [facility] RT R06.00 [id number] 03/05/2019 06:35:00 12:25:00 DIS Outpatient HARPREET GOLDMAN MD [facility] CATH ABN STRESS TEST [id number] 02/26/2019 07:54:00 23:59:59 CLS Outpatient HARPREET GOLDMAN MD [facility] CARD ANTERIOR CHEST WALL JAYCOB N [id number] 01/10/2019 12:06:00 23:59:59 CLS Outpatient KLAUDIA BELTRAN [facility] RAD LUMBAR RADICULO GOPAL [id number] 01/01/2019 12:50:00 17:23:00 DIS Emergency HANNAH MIRANDA MD [facility] ER STROKE [id number] 12/17/2018 08:13:00 23:59:59 CLS Outpatient SUSI PAN, HARPREET Veloz [facility] CARD ANTERIOR CHEST WALL JAYCOB N [id number] 12/05/2018 15:50:00 019 23:59:59 CLS Preadmit HARPREET GOLDMAN MD [facility] CARD ANTERIOR CHEST WALL JAYCOB N [id number] 05/25/2018 18:54:00 018 03:50:00 DIS Inpatient CARL APN, JARED Sow [facility] 4TH CHEST PAIN [id number] 01/19/2020 14:06:[address] Emergency KAREN PAN, JINA Cruz [facility] ER LEFT SHOULDER PAIN [id number] 12/17/2019 11:40:00 Document Registration
[2020-01-19] MEDS ORDERED: ACETAMINOPHEN 325 MG TABLET PO STA (15:22)
--- NOTE | 2020-01-19 15:49 | Diagnostic Imaging Report ---
Clinical indication: Patient status post fall partially 4 months ago. Patient complains of increased pain in left shoulder. EXAM: X-ray of the left shoulder, 3 views including scapular Y view. COMPARISON: None. FINDINGS: There is no acute fracture or dislocation. There are moderately hypertrophic spurs involving the left acromioclavicular interval. There is minimal spurring of the inferior glenoid rim region. IMPRESSION: Degenerative disease of the left shoulder with no acute fracture or dislocation. Dictated by: Dictated on workstation # [id number]
[2020-01-19] MEDS ORDERED: CELE100C PO (16:10)
--- NOTE | 2020-01-19 16:10 | ED Upper Extremity ---
General Chief Complaint: Upper Extremity Stated Complaint: LEFT SHOULDER PAIN Nursing Triage Note: AMB TO ED WITH SLING IN PLACE ON L ARM. REPORTS SHE HAS HAD PAIN IN L ARM FOR 2 MONTHS HAS HAD X AY'S THAT RESULTS NEG. PAIN GETTING WORSE TYLENOL IS NOT HELPING. HAS HAD ARM IN SLING FOR 1 MONTH. IS TAKING ARM OUT AND DOING ROM ON IT. Nursing Sepsis Screen: No Definite Risk History of Present Illness Date Seen by Provider: Jan 19, 2020 Time Seen by Provider: 14:30 Initial Comments 59-year-old female presents for left shoulder pain. She states it's been present for approximately 2-3 months. She is seeing her primary care provider. She is taking Flexeril and Tylenol with no improvement. She has an MRI scheduled for early February. She had one scheduled in November but had to cancel due to her son being sick. She reports approximately 2 months ago that she fell, landing on her left shoulder. She did have an x-ray but was not treated here. She has been wearing a sling, but removes it several times daily for range of motion Onset: other (chronic 2-3 months) Severity: mild Pain/Injury Location: left shoulder Method of Injury: fell (2 months ago) Allergies and Home Medications Allergies Coded Allergies: Sulfa (Sulfonamide Antibiotics) (Unverified Allergy, Unknown, 05/26/18) latex (Unverified Allergy, Unknown, 05/26/18) loratadine (Unverified Allergy, Unknown, 05/26/18) mushroom (Unverified Allergy, Unknown, 05/25/18) pseudoephedrine (Unverified Allergy, Unknown, 05/26/18) sulfamethoxazole (Unverified Allergy, Unknown, 05/26/18) trimethoprim (Unverified Allergy, Unknown, 05/26/18) Home Medications Aspirin 81 Mg Tablet.dr, 81 MG PO DAILY, (Reported) Buspirone HCl 5 Mg Tablet, 5 MG PO BID, (Reported) Celecoxib 100 Mg Capsule, 100 MG PO BID Prescribed by: SACHA QUEEN on 01/19/201609 Cyclobenzaprine HCl 10 Mg Tablet, 10 MG PO TID PRN for PRN, (Reported) Cyclobenzaprine HCl 10 Mg Tablet, 10 MG PO Q8H Prescribed by: DEYSI MILLER on 10/06/192026 Ezetimibe 10 Mg Tablet, 10 MG PO DAILY, (Reported) Fluticasone/Salmeterol 1 Each Blst.w.dev, 1 EACH IH DAILY, (Reported) Hydrocodone Bit/Acetaminophen 1 Tab Tab, 1 EACH PO Q4-6HR PRN for PAIN-MODERATE Prescribed by: LADY KAPLAN on 05/20/19 1332 Icosapent Ethyl 1 Gm Capsule, 1 GM PO BID Prescribed by: HARPREET GOLDMAN on 03/05/19 0824 Lisinopril/Hydrochlorothiazide 1 Each Tablet, 1 EACH PO DAILY, (Reported) Meloxicam 7.5 Mg Tablet, 7.5 MG PO DAILY, (Reported) Meloxicam 15 Mg Tablet, 15 MG PO DAILY Prescribed by: DEYSI MILLER on 10/06/192026 Pantoprazole Sodium 40 Mg Tablet.dr, 40 MG PO DAILY, (Reported) Pravastatin Sodium 10 Mg Tablet, 10 MG PO HS, (Reported) Tramadol HCl 50 Mg Tablet, 50 MG PO TID PRN for PRN, (Reported) Tramadol HCl 50 Mg Tablet, 50 MG PO Q4H PRN for PAIN-MODERATE Prescribed by: DEYSI MILLER on 10/06/192026 Tramadol HCl 50 Mg Tablet, 50 MG PO TID Prescribed by: HITESH HOLLOWAY on 12/24/192156 Venlafaxine HCl 75 Mg Tab, 75 MG PO DAILY PRN, (Reported) Patient Home Medication List Home Medication List Reviewed: Yes Review of Systems Constitutional: no symptoms reported, see HPI Musculoskeletal: see HPI, joint pain (left shoulder) All Other Systems Reviewed Negative Unless Noted: Yes Past Ohvcdkz-Gbaqfs-Ohziee Hx Past Med/Social Hx: Reviewed Nursing Past Med/Soc Hx Patient Social History Alcohol Use: Denies Use Number of Drinks Today: II Alcohol Beverage of Choice: Other Recreational Drug Use: No Smoking Status: Current Everyday Smoker Type Used: Cigarettes 2nd Hand Smoke Exposure: Yes Recent Foreign Travel: No Contact w/Someone Who Travel: No Recent Infectious Disease Expo: No Recent Hopitalizations: No Seasonal Allergies Seasonal Allergies: No Past Medical History Surgeries: Yes (CARDIAC CATH 03/05/19-NO INTERVENTION;LUMBAR DISCETOMY X 2-L2 /L5) Appendectomy, Cardiac, Section, Gallbladder, Hysterectomy, Lumpectomy Respiratory: Yes COPD Currently Using CPAP: No Currently Using BIPAP: No Cardiac: Yes (CATH 03/05/19--TOTALLY OCCLUDED RCA/CHRONIC, NO INTERVENTION) Coronary Artery Disease, High Cholesterol, Hypertension 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: Yes TIA 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 Genitourinary: No Gastrointestinal: Yes Gastroesophageal Reflux, Gall Bladder Disease Musculoskeletal: Yes (CHRONIC NECK PAIN; "BULGING DISCS" PER PT) Degenerate Disk Disease, Chronic Back Pain Endocrine: Yes (STATES "HYPOGLYCEMIA") HEENT: No Cancer: No Psychosocial: Yes Sleep Difficulties, Anxiety, Depression Integumentary: No Blood Disorders: No Adverse Reaction/Blood Tranf: No Family Medical History Cardiovascular disease 19 MOTHER Cataracts Colon cancer 19 FATHER (UNKNOWN) G8 BROTHER G8 BROTHER G8 BROTHER G8 SISTER Congenital heart disease 19 MOTHER (UNKNOWN) Diabetes mellitus 19 MOTHER G8 BROTHER G8 BROTHER Infertility Kidney disease 19 MOTHER Osteoporosis G8 SISTER Physical Exam Vital Signs Vital Signs - First Documented 01/19/20 14:10 Temp 35.9 Pulse 98 Resp 18 B/P (MAP) 152/88 (109) Pulse Ox 96 O2 Delivery Room Air Capillary Refill : Less Than 3 Seconds Height, Weight, BMI Height: 5'4.00" Weight: 170lbs. 0.0oz. 77.473748vk; 29.00 BMI Method:Stated General Appearance: WD/WN, no apparent distress Neck: non-tender, full range of motion, supple, normal inspection Cardiovascular: normal peripheral pulses, regular rate, rhythm Respiratory: chest non-tender, lungs clear, normal breath sounds Shoulder: normal inspection, limited ROM (Elevation to 120, full internal and external ROM Left shoulder. ), soft tissue tenderness Elbow/Forearm: normal inspection, non-tender, no evidence of injury, normal ROM, Left Neurologic/Tendon: normal sensation, normal motor functions, normal tendon functions Neurologic/Psychiatric: no motor/sensory deficits, alert, normal mood/affect, oriented x 3 Left shoulder biceps, triceps, and external rotators power V/V. negative apprehension, marcellus signs. Positive impingement. Crepitus with ROM. Progress/Results/Core Measures Results/Orders My Orders Orders - SACHA QUEEN Acetaminophen Tablet/Caplet (Tylenol T (01/19/20 15:22) Shoulder, Left, 3 Views (01/19/20 15:23) Vital Signs/I&O 01/19/20 01/19/20 14:10 16:12 Temp 35.9 Pulse 98 97 Resp 18 18 B/P (MAP) 152/88 (109) 135/90 Pulse Ox 96 97 O2 Delivery Room Air Room Air Blood Pressure Mean: 109 Diagnostic Imaging Diagonstic Imaging: Xray Plain Films/CT/US/NM/MRI: other (left shoulder) Comments NAME: [facility] REC#: [id number] PT STATUS: REG ER : 1960 PHYSICIAN: SACHA QUEEN ADMIT DATE: 01/19/20/ER Signed Date of Exam:01/19/20 SHOULDER, LEFT, 3 VIEWS Clinical indication: Patient status post fall partially 4 months ago. Patient complains of increased pain in left shoulder. EXAM: X-ray of the left shoulder, 3 views including scapular Y view. COMPARISON: None. FINDINGS: There is no acute fracture or dislocation. There are moderately hypertrophic spurs involving the left acromioclavicular interval. There is minimal spurring of the inferior glenoid rim region. IMPRESSION: Degenerative disease of the left shoulder with no acute fracture or dislocation. Dictated by: Dictated on workstation # [id number] Dict: 01/19/20 1546 Trans: 01/19/20 1608 [id number] Interpreted by: ALEXANDRO BEASLEY MD Electronically signed by: ALEXANDRO BEASLEY MD 01/19/20 1608 Departure Impression Primary Impression: Left shoulder pain Qualified Codes: M25.512 - Pain in left shoulder Additional Impression: Degenerative joint disease of left shoulder Qualified Codes: M19.012 - Primary osteoarthritis, left shoulder Disposition: 01 HOME, SELF-CARE Condition: Improved Departure-Patient Inst. Decision time for Depature: 16:00 Referrals: [facility] (PCP) Primary Care Physician KLAUDIA VELEZ (Family) Primary Care Physician Patient Instructions: Shoulder Pain (DC) Add. Discharge Instructions: Alternate Tylenol 650 mg and ibuprofen 600 mg every 4 hours for pain or fever. Alternate heat and ice for 20 minutes every 2 hours while awake. Follow-up with your primary care provider if symptoms are not improving or worsen. Return to the emergency department for new, urgent health care needs. Take Celebrex as prescribed. Keep your scheduled appointment for MRI, you may contact your primary care provider see if this can be completed sooner. All discharge instructions reviewed with patient and/or family. Voiced understanding. Scripts Celecoxib (Celebrex) 100 Mg Capsule 100 MG PO BID, #60 CAP 0 Refills Prov: SACHA QUEEN 01/19/20 SACHA QUEEN Jan 19, 2020 16:10
[2020-01-19 16:12] VITALS: BP 135/90
== END 2020-01-19 16:12 | disposition home or self-care (01) ==
LOC: EDUNIT# 14:04 → ER 14:06
DX: M25.512 Pain in left shoulder (principal); M19.012 Primary osteoarthritis, left shoulder; F17.210 Nicotine dependence, cigarettes, uncomplicated; F44.9 Dissociative and conversion disorder, unspecified; I25.10 Atherosclerotic heart disease of native coronary artery without angina pectoris; E78.00 Pure hypercholesterolemia, unspecified; I10 Essential (primary) hypertension; K21.9 Gastro-esophageal reflux disease without esophagitis; F41.9 Anxiety disorder, unspecified; F32.9 Major depressive disorder, single episode, unspecified
CPT/HCPCS: 73030

== ENCOUNTER → 2020-02-16 | Outpatient (CLI) | payer OTHER ==
[~2020-02-16] MED LIST changes: +CELE100C PO
--- NOTE | 2020-02-16 11:12 | Diagnostic Imaging Report ---
EXAMINATION: Magnetic resonance imaging of the left shoulder without contrast. DATE: February 16, 2020. COMPARISON: Left shoulder radiographs January 19, 2020. HISTORY: 59-year-old female, left shoulder pain, decreased range of motion. TECHNIQUE: Magnetic Resonance Imaging sequences were performed of the shoulder without contrast. FINDINGS: ROTATOR CUFF, LIGAMENTS, TENDONS, AND MUSCLES: There is mild supraspinatus tendinopathy. The infraspinatus, subscapularis, and teres minor tendons are intact. There is normal rotator cuff muscle bulk and signal. LONG HEAD OF BICEPS: The biceps labral attachment and long head of the biceps tendon are intact. The long head of the biceps tendon is normally positioned within the bicipital groove. GLENOHUMERAL JOINT: The humeral head is well positioned relative to the glenoid. There is prominent motion artifact, particularly on axial imaging, which limits glenohumeral joint assessment. There is no clearly identified labral tear or paralabral cyst. The articular cartilage is grossly intact. There is no joint effusion. ACROMIOCLAVICULAR JOINT: The acromioclavicular joint is normally aligned. The coracoclavicular and coracoacromial ligaments are intact. There are moderate to severe acromioclavicular degenerative changes with osteophytes extending approximately 2 mm below the joint margin. There is a small acromioclavicular joint effusion. There is prominent adjacent degenerative related marrow edema. BONE: The bones all have normal configuration. The bone marrow signal is within normal limits. Specifically, negative for fracture, osteomyelitis, osteonecrosis, or marrow replacing process. BURSAE AND SOFT TISSUES: The bursae and soft tissue surrounding the shoulder are unremarkable. IMPRESSION: 1. Advanced acromioclavicular degenerative changes with small acromioclavicular joint effusion and adjacent degenerative related marrow edema. No bone erosion or bone destruction. 2. Mild supraspinatus tendinopathy. Negative for rotator cuff tendon tear. 3. Intact proximal long head of biceps tendon. 4. Grossly unremarkable glenohumeral joint assessment. 5. No acute fracture, bone contusion, or evidence of osteonecrosis. Dictated by: Dictated on workstation # [id number]
== END ==
LOC: RAD 09:16
PROVIDERS: ATTEND Nurse Practitioner Family
DX: M19.012 Primary osteoarthritis, left shoulder (principal); M25.412 Effusion, left shoulder; M77.9 Enthesopathy, unspecified
CPT/HCPCS: 73221

== ENCOUNTER → 2020-03-31 | Outpatient (CLI) | payer OTHER ==
[~2020-03-31] VITALS: Ht 162.6 cm; Wt 77.2 kg
[~2020-03-31] MED LIST changes: +LIDOCAINE 1% INJ 20 ML 20 ML VIAL INJ ONE
--- NOTE | 2020-03-31 14:27 | Diagnostic Imaging Report ---
INDICATION: Left breast calcifications. Patient present for stereotactic biopsy. DETAILS OF THE PROCEDURE: The patient was brought to the stereotactic suite and placed in a chair in a sitting upright position. The left breast was positioned craniocaudal. The cluster of calcifications at the nipple line posteriorly was stereotactically targeted. The superior left breast was then prepped and draped in the usual sterile fashion. A small amount of 1% lidocaine was utilized for local anesthesia. An 8 gauge stereotactic needle was advanced from a craniocaudal approach and placed with its tip per stereotactic coordinates. A total of four core biopsies was obtained with the 8 gauge needle utilizing a vacuum-assisted device. All images were viewed on a dedicated workstation. A specimen radiograph was obtained demonstrating a significant cluster of calcifications in sample labeled #5. There were also calcifications noted within samples 2, 3, and 4. A marker clip was then deployed. The needle was removed and hemostasis was obtained using manual compression. The two view CC and MLO mammography shows the marker clip in the upper central left breast. IMPRESSION: Stereotactic biopsy of the cluster of microcalcifications in the upper posterior left breast at the nipple line on the CC view utilizing the vacuum assisted device. Pathology results are currently pending. Dictated by: Dictated on workstation # [id number]
== END ==
LOC: RAD 12:29
PROVIDERS: ATTEND Nurse Practitioner Family
DX: R92.0 Mammographic microcalcification found on diagnostic imaging of breast (principal)
CPT/HCPCS: 19081; A4648

== ENCOUNTER → 2020-06-02 | Day surgery (SDC) | payer OTHER ==
[~2020-06-02] MED LIST changes: +ASPI-999 PO; +BUP/EPI 0.5% 1:200,000 (MARCAINE) 10ML VIAL IJ ONE; +BUSP10TA95 PO; +IOPAMIDOL 61% 30 ML (ISOVUE 300) VIAL ONE; -LIDOCAINE 1% INJ 20 ML 20 ML VIAL INJ ONE; +LIDOCAINE PF 2% 5 ML (XYLOCAINE) VIAL ONE; -LISI1TAB25 PO; +LISI1TAB46 PO; +METH750T3 PO; +MIDAZOLAM 2 MG/2 ML (VERSED) VIAL ONE; +ONDANSETRON 4 MG/2 ML (SDV) Z0FRAN ONE; +ROCURONIUM 10 MG/ML 5 ML SYRINGE IV ONE; +SEVOFLURANE (ULTANE) 15 ML INHAL SOLN ONE; +ceFAZolin 2 GM IV Premixed 50 ML ONE; +fentaNYL INJECTION 100 MCG/2 ML AMP ONE; +proPOfol 200 MG/20 ML (DIPRIVAN) VIAL IV ONE
[2020-06-03 06:50] LABS: HEMOGLOBIN 15.5 G/DL (11.5-16.0); MEAN CORPUSCULAR HEMOGLOBIN 33 PG (25-34); WHITE BLOOD COUNT 11.5 10^3/uL (4.3-11.0)
[2020-06-03 06:51] LABS: HEMATOCRIT 45 % (35-52); MEAN CORPUSCULAR HGB CONC 35 G/DL (32-36); MEAN CORPUSCULAR VOLUME 96 FL (80-99); MEAN PLATELET VOLUME 11.7 FL (7.4-10.4); PLATELET COUNT 198 10^3/uL (130-400)
--- NOTE | 2020-06-03 08:12 | Diagnostic Imaging Report ---
INDICATION: Cholecystectomy Operative cholangiogram performed in the routine fashion with injection via the cystic duct stump and surgery. Contrast fills the biliary tree. There are no filling defects in the common duct. Contrast passes into duodenum without obstruction. Fluoroscopy time was 7 seconds IMPRESSION: Unremarkable operative cholangiogram. Dictated by: Dictated on workstation # [id number]
--- NOTE | 2020-06-03 09:28 | Progress Note-Post Operative ---
Post-Operative Progess Note Surgeon (s)/Sport Shoe Spike Assembler (s) Surgeon PRISCILLA FITCH DO Sport Shoe Spike Assembler: Dari Pre-Operative Diagnosis cholelithiasis/cholecystitis Post-Operative Diagnosis same plus adhesions Procedure & Operative Findings Date of Procedure 06/03/20 Procedure Performed/Findings PROCEDURE: Laparoscopic cholecystectomy with intraoperative cholangiogram. COMPLICATIONS: None. PROCEDURE: The patient was taken to the operating suite and was prepped and draped in sterile fashion. A surgical pause was performed. Just superior to the umbilicus, a 12 mm incision was made. Dissection was taken down to the fascia, which was then scored and grasped with a Lamberto, found a previously placed mesh. Grasped the mesh and made an incision with metsenbaum scissors. Bluntly entered the abdomen and gently pushed fat away from the incision. An 0 Vicryl suture was placed in a [id number] fashion and a Lemus trocar was placed and secured. Pneumoperitoneum was achieved. A 5mm trochar place in the subxyphoid and 2 in the right upper quadrant. Adhesions were taken down off the mesh and abdominal wall to help get the trochar in the correct place. The gallbladder was then grasped and elevated. The cystic duct, and cystic artery were then dissected out. Clip was placed on the distal portion of the cystic duct which was then partially transected. An arrow catheter was inserted into the duct. The cholangiogram was then performed. No filing defects and contrast made its way into the duodenum. Catheter removed. Clips were placed on proximal portion of the cystic duct and then the duct was then transected. Clips were placed along the proximal and distal portion of the cystic artery which was then transected. Hook cautery was used to dissect the gallbladder from the gallbladder fossa achieving hemostasis. The gallbladder was placed in an Endobag and removed through the 12 mm trocar site. The abdomen was then reinspected. Copious amounts of irrigation were used to irrigate the abdomen and there were no signs of active bleeding. Hemostasis had been achieved. Next grasped the mesh and sutured it closed with an 0 prolene (permanent) suture.The 12 mm fascial defect was then closed with the 0 Vicryl suture that had been placed in a [id number] fashion. The abdomen was then desufflated, the trocars were removed. The abdomen was then washed and dried. The skin was then closed using 4-0 Monocryl in a subcuticular fashion. The abdomen was washed and dried and Skin Affix was place over incisions. Patient tolerated the procedure well without any complications and was taken to the recovery room in stable condition. Anesthesia Type GET Estimated Blood Loss Estimated blood loss (mL): scant Specimens/Packing Specimens Removed GB and contents PRISCILLA FITCH DO Jun 03, 2020 09:28
--- NOTE | 2020-06-09 08:40 | Anesthesia-General Post-Op ---
General Significant Intra-Op Events Notes addendum 06-02-20 at 1045 Patient Condition Mental Status/LOC: Same as Preop Cardiovascular: Satisfactory Nausea/Vomiting: Absent Respiratory: Satisfactory Pain: Controlled Complications: Absent Post Op Complications Complications None Follow Up Care/Instructions Patient Instructions None needed. Anesthesia/Patient Condition Patient Condition Patient is doing well, no complaints, stable vital signs, no apparent adverse anesthesia problems. No complications reported per nursing. JAGDISH CARLISLE CRNA Jun 09, 2020 08:40
== END | disposition home or self-care (01) ==
LOC: SDC 07:06
PROVIDERS: ATTEND Surgery
DX: K80.10 Calculus of gallbladder with chronic cholecystitis without obstruction (principal); K29.50 Unspecified chronic gastritis without bleeding; K21.0 Gastro-esophageal reflux disease with esophagitis; K66.0 Peritoneal adhesions (postprocedural) (postinfection); K44.9 Diaphragmatic hernia without obstruction or gangrene; B96.81 Helicobacter pylori [H. pylori] as the cause of diseases classified elsewhere; I10 Essential (primary) hypertension; F41.9 Anxiety disorder, unspecified; E78.5 Hyperlipidemia, unspecified; J44.9 Chronic obstructive pulmonary disease, unspecified; F32.9 Major depressive disorder, single episode, unspecified; I25.10 Atherosclerotic heart disease of native coronary artery without angina pectoris; F17.210 Nicotine dependence, cigarettes, uncomplicated; Z88.2 Allergy status to sulfonamides; Z91.040 Latex allergy status; Z88.8 Allergy status to other drugs, medicaments and biological substances; Z79.82 Long term (current) use of aspirin; Z79.899 Other long term (current) drug therapy; Z86.73 Personal history of transient ischemic attack (TIA), and cerebral infarction without residual deficits; Z11.2 Encounter for screening for other bacterial diseases
CPT/HCPCS: 36415; 76000; 85025; 87081; 88304; 88305; 94664

== ENCOUNTER 2020-07-09 08:31 | Outpatient (RCR) | payer OTHER ==
[~2020-07-09 08:31] MED LIST changes: -BUP/EPI 0.5% 1:200,000 (MARCAINE) 10ML VIAL IJ ONE; -IOPAMIDOL 61% 30 ML (ISOVUE 300) VIAL ONE; -LIDOCAINE PF 2% 5 ML (XYLOCAINE) VIAL ONE; -MIDAZOLAM 2 MG/2 ML (VERSED) VIAL ONE; -ONDANSETRON 4 MG/2 ML (SDV) Z0FRAN ONE; -PANT40TA3 PO; +PANT40TA52 PO; -ROCURONIUM 10 MG/ML 5 ML SYRINGE IV ONE; -SEVOFLURANE (ULTANE) 15 ML INHAL SOLN ONE; -ceFAZolin 2 GM IV Premixed 50 ML ONE; -fentaNYL INJECTION 100 MCG/2 ML AMP ONE; -proPOfol 200 MG/20 ML (DIPRIVAN) VIAL IV ONE
== END 2020-10-07 ==
LOC: LAB 08:31
PROVIDERS: ATTEND Surgery
DX: R19.5 Other fecal abnormalities (principal); B96.81 Helicobacter pylori [H. pylori] as the cause of diseases classified elsewhere

== ENCOUNTER 2020-12-15 11:52 | Emergency (ER) | payer OTHER ==
[~2020-12-15] VITALS: Ht 162 cm; Wt 73.4 kg
[~2020-12-15 11:52] MED LIST changes: +METH-732 PO; -METH750T3 PO
[2020-12-15 12:05] VITALS: BP 187/117
[2020-12-15] MEDS ORDERED: TRAM-42 PO (12:42)
[2020-12-15] MEDS ORDERED: PERM60CR17 TP (12:42)
[2020-12-15] MEDS ORDERED: PRD20T PO (12:42)
--- NOTE | 2020-12-15 12:43 | ED Neck-Back Pain/Injury ---
General Chief Complaint: Head/Cervical Problems Stated Complaint: NECK/SHOULDER PAIN LEFT Nursing Triage Note: PT PRESENTS TO ED VIA POV FROM HOME WITH COMPLAINTS OF NECK AND UPPER BACK PAIN X 3 DAYS. PT HAS HISTORY OF CHRONIC NECK PAIN. Nursing Sepsis Screen: No Definite Risk Source of Information: Patient Exam Limitations: No Limitations History of Present Illness Date Seen by Provider: Dec 15, 2020 Time Seen by Provider: 12:37 Initial Comments To ER to ER with reports of a rash to her neck and left arm which she gets every year it is very itchy and painful. She also has left shoulder pain and neck and upper back pain. She relates the back and neck pain to a bulging disc in her neck that was found on an MRI. Pain is worse for about 3 days. No injuries. Location: C-Spine, Paraspinous Muscles Timing/Duration: 2-3 Days Severity: Moderate Allergies and Home Medications Allergies Coded Allergies: Sulfa (Sulfonamide Antibiotics) (Unverified Allergy, Unknown, 05/26/18) latex (Unverified Allergy, Unknown, 05/26/18) loratadine (Unverified Allergy, Unknown, 05/26/18) mushroom (Unverified Allergy, Unknown, 05/25/18) pseudoephedrine (Unverified Allergy, Unknown, 05/26/18) sulfamethoxazole (Unverified Allergy, Unknown, 05/26/18) trimethoprim (Unverified Allergy, Unknown, 05/26/18) Home Medications Aspirin 81 Mg Tab.chew, 81 MG PO DAILY, (Reported) Buspirone HCl 10 Mg Tablet, 10 MG PO BID, (Reported) Fluticasone/Salmeterol 1 Each Blst.w.dev, 1 EACH IH DAILY, (Reported) Icosapent Ethyl 1 Gm Capsule, 1 GM PO BID, (Reported) Lisinopril/Hydrochlorothiazide 1 Each Tablet, 1 EACH PO DAILY, (Reported) Methocarbamol 750 Mg Tablet, 750 MG PO DAILY, (Reported) Nitroglycerin 0.4 Mg Tab.subl, 0.4 MG SL UD PRN for CHEST PAIN (ANGINA), (Reported) Pantoprazole Sodium 40 Mg Tablet.dr, 40 MG PO DAILY, (Reported) Pravastatin Sodium 10 Mg Tablet, 10 MG PO HS, (Reported) Patient Home Medication List Home Medication List Reviewed: Yes Review of Systems Constitutional: see HPI; No chills, No fever EENTM: see HPI Respiratory: no symptoms reported Cardiovascular: no symptoms reported Genitourinary: no symptoms reported Musculoskeletal: no symptoms reported Skin: no symptoms reported Psychiatric/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: No Symptoms Reported Past Jitqroj-Jdnfoi-Wcaadi Hx Patient Social History Alcohol Use: Denies Use Number of Drinks Today: II Alcohol Beverage of Choice: Other Smoking Status: Current Everyday Smoker Type Used: Cigarettes 2nd Hand Smoke Exposure: Yes Recent Infectious Disease Expo: No Recent Hopitalizations: No Seasonal Allergies Seasonal Allergies: No Past Medical History Surgeries: Yes (LUMBAR DISCETOMY X 2-L2 /L5) Appendectomy, Cardiac, Section, Gallbladder, Hysterectomy, Lumpectomy Respiratory: Yes COPD Currently Using CPAP: No Currently Using BIPAP: No Cardiac: Yes (CATH 03/05/19--TOTALLY OCCLUDED RCA/CHRONIC, NO INTERVENTION) Coronary Artery Disease, High Cholesterol, Hypertension 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 Genitourinary: No Gastrointestinal: Yes Gastroesophageal Reflux, Gall Bladder Disease Musculoskeletal: Yes (CHRONIC NECK PAIN; "BULGING DISCS" PER PT) Degenerate Disk Disease, Chronic Back Pain Endocrine: Yes (STATES "HYPOGLYCEMIA") HEENT: No Cancer: No Psychosocial: Yes Sleep Difficulties, Anxiety, Depression Integumentary: No Blood Disorders: No Adverse Reaction/Blood Tranf: No Family Medical History Cardiovascular disease 19 MOTHER Cataracts Colon cancer 19 FATHER (UNKNOWN) G8 BROTHER G8 BROTHER G8 BROTHER G8 SISTER Congenital heart disease 19 MOTHER (UNKNOWN) Diabetes mellitus 19 MOTHER G8 BROTHER G8 BROTHER Infertility Kidney disease 19 MOTHER Osteoporosis G8 SISTER Physical Exam Vital Signs Vital Signs - First Documented 12/15/20 12:05 Temp 37.2 Pulse 94 Resp 20 B/P (MAP) 187/117 (140) Pulse Ox 95 Capillary Refill : Less Than 3 Seconds Height, Weight, BMI Height: 5'4.00" Weight: 170lbs. 0.0oz. 77.055815fv; 27.00 BMI Method:Stated General Appearance: No Apparent Distress, WD/WN Neck: Full Range of Motion, Normal Inspection Respiratory: No Accessory Muscle Use, No Respiratory Distress Gastrointestinal: Normal Bowel Sounds, Non Tender, Soft Neurologic/Psychiatric: Alert, Oriented x3 Skin: Normal Color, Warm/Dry, Other (Excoriated type rash to the dorsal left forearm and nape of her neck both sides. Concern for scabies.) Progress/Results/Core Measures Results/Orders Vital Signs/I&O 12/15/20 12:05 Temp 37.2 Pulse 94 Resp 20 B/P (MAP) 187/117 (140) Pulse Ox 95 Blood Pressure Mean: 140 Departure Impression Primary Impression: Cervical radiculopathy Additional Impression: Rash and nonspecific skin eruption Disposition: 01 HOME, SELF-CARE Condition: Stable Departure-Patient Inst. Decision time for Depature: 12:40 Referrals: [facility] (PCP) Primary Care Physician KLAUDIA VELEZ (Family) Primary Care Physician Patient Instructions: Skin Rash ED, Radiculopathy Add. Discharge Instructions: 1. Steroids and pain medication as directed. Apply the cream to your entire body from the neck down tomorrow morning upon awakening, leave it on all day then wash it off tomorrow night in the shower. All discharge instructions reviewed with patient and/or family. Voiced understanding. Scripts Tramadol HCl (Ultram) 50 Mg Tablet 50 MG PO Q6H PRN for PAIN-MODERATE (5-7), #14 TAB Prov: HITESH HOLLOWAY APRN 12/15/20 Prednisone (Prednisone) 20 Mg Tab 40 MG PO DAILY, #8 TAB Prov: HITESH HOLLOWAY APRN 12/15/20 Permethrin (Elimite) 60 Gm Cream..g. 60 GM TP ONCE, #1 TUBE Prov: HITESH HOLLOWAY APRN 12/15/20 HITESH HOLLOWAY APRN Dec 15, 2020 12:43
[2020-12-15] MEDS ORDERED: ORPHENADRINE 60 MG/2 ML (NORFLEX) AMP (ED ONLY) IM ONE (13:00)
[2020-12-15] MEDS ORDERED: KETOROLAC 60 MG/2 ML VIAL IM ONE (13:00)
== END 2020-12-15 13:05 | disposition home or self-care (01) ==
LOC: EDUNIT# 11:52 → ER 11:54
DX: M54.12 Radiculopathy, cervical region (principal); R21 Rash and other nonspecific skin eruption; I10 Essential (primary) hypertension; E78.00 Pure hypercholesterolemia, unspecified; K21.9 Gastro-esophageal reflux disease without esophagitis; F41.9 Anxiety disorder, unspecified; F17.210 Nicotine dependence, cigarettes, uncomplicated; Z95.9 Presence of cardiac and vascular implant and graft, unspecified; Z88.1 Allergy status to other antibiotic agents; Z91.040 Latex allergy status; Z88.2 Allergy status to sulfonamides; Z88.8 Allergy status to other drugs, medicaments and biological substances; Z86.73 Personal history of transient ischemic attack (TIA), and cerebral infarction without residual deficits; Z80.0 Family history of malignant neoplasm of digestive organs; Z83.3 Family history of diabetes mellitus; Z79.82 Long term (current) use of aspirin
CPT/HCPCS: 99284

== ENCOUNTER 2021-01-08 15:31 | Emergency (ER) | payer OTHER ==
[~2021-01-08] VITALS: Ht 162 cm; Wt 76.2 kg
[~2021-01-08 15:31] MED LIST changes: +PERM60CR17 TP; +PRD20T PO
[2021-01-08] MEDS ORDERED: ACHD5005 PO (16:33)
[2021-01-08] MEDS ORDERED: TR1C15 TP (16:33)
--- NOTE | 2021-01-08 16:33 | ED Upper Extremity ---
General Chief Complaint: Upper Extremity Stated Complaint: LEFT SHOULDER/NECK PAIN Nursing Triage Note: Pt ambulatory to FT2 with complaint of left shoulder/neck pain x 1 month with worsening the last 4 days. Patient states pain is worse with movement. She has been taking tylenol and using icy hot with no relief. She is complaining of a headache. She is also complaining of a rash on bilateral arms, neck, back and legs x 5 weeks. Nursing Sepsis Screen: No Definite Risk Source: patient Exam Limitations: no limitations History of Present Illness Date Seen by Provider: Jan 08, 2021 Time Seen by Provider: 15:40 Initial Comments Complains of a rash to the dorsal aspect of each arm and the back of her neck. She was on triamcinolone cream which did almost take it away but when she ran out the rash came back. She then saw another provider and was given permethrin which she states did not help. Additionally, her granddaughter sleeps in the same bed as her and does not have any rash. She states that she gets this rash every winter and triamcinolone takes it away. It is very itchy. It is on both arms. She is unable to lift either arm up because of neck pain which has been an ongoing issue and she knows that she has a bulging disc in her neck. Onset: other Severity: moderate Pain/Injury Location: bilateral shoulder, bilateral arm Method of Injury: unknown Modifying Factors: Worse With Movement Allergies and Home Medications Allergies Coded Allergies: Sulfa (Sulfonamide Antibiotics) (Unverified Allergy, Unknown, 05/26/18) latex (Unverified Allergy, Unknown, 05/26/18) loratadine (Unverified Allergy, Unknown, 05/26/18) mushroom (Unverified Allergy, Unknown, 05/25/18) pseudoephedrine (Unverified Allergy, Unknown, 05/26/18) sulfamethoxazole (Unverified Allergy, Unknown, 05/26/18) trimethoprim (Unverified Allergy, Unknown, 05/26/18) Home Medications Aspirin 81 Mg Tab.chew, 81 MG PO DAILY, (Reported) Buspirone HCl 10 Mg Tablet, 10 MG PO BID, (Reported) Fluticasone/Salmeterol 1 Each Blst.w.dev, 1 EACH IH DAILY, (Reported) Icosapent Ethyl 1 Gm Capsule, 1 GM PO BID, (Reported) Lisinopril/Hydrochlorothiazide 1 Each Tablet, 1 EACH PO DAILY, (Reported) Methocarbamol 750 Mg Tablet, 750 MG PO DAILY, (Reported) Nitroglycerin 0.4 Mg Tab.subl, 0.4 MG SL UD PRN for CHEST PAIN (ANGINA), (Reported) Pantoprazole Sodium 40 Mg Tablet.dr, 40 MG PO DAILY, (Reported) Permethrin 60 Gm Cream..g., 60 GM TP ONCE Prescribed by: HITESH HOLLOWAY on 12/15/20 1242 Pravastatin Sodium 10 Mg Tablet, 10 MG PO HS, (Reported) Prednisone 20 Mg Tab, 40 MG PO DAILY Prescribed by: HITESH HOLLOWAY on 12/15/20 1242 Tramadol HCl 50 Mg Tablet, 50 MG PO Q6H PRN for PAIN-MODERATE (5-7) Prescribed by: HITESH HOLLOWAY on 12/15/20 1245 Patient Home Medication List Home Medication List Reviewed: Yes Review of Systems Constitutional: see HPI; No chills, No fever EENTM: see HPI Respiratory: no symptoms reported Cardiovascular: no symptoms reported Genitourinary: no symptoms reported Musculoskeletal: see HPI, neck pain Skin: see HPI, pruritus, rash Past Txbkout-Oshvdr-Kaxbyl Hx Patient Social History Alcohol Use: Denies Use Number of Drinks Today: II Alcohol Beverage of Choice: Other Smoking Status: Current Everyday Smoker Type Used: Cigarettes 2nd Hand Smoke Exposure: Yes Recent Infectious Disease Expo: No Recent Hopitalizations: No Seasonal Allergies Seasonal Allergies: No Past Medical History Surgeries: Yes (LUMBAR DISCETOMY X 2-L2 /L5) Appendectomy, Cardiac, Section, Gallbladder, Hysterectomy, Lumpectomy Respiratory: Yes COPD Currently Using CPAP: No Currently Using BIPAP: No Cardiac: Yes (CATH 03/05/19--TOTALLY OCCLUDED RCA/CHRONIC, NO INTERVENTION) Coronary Artery Disease, High Cholesterol, Hypertension 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 Genitourinary: No Gastrointestinal: Yes Gastroesophageal Reflux, Gall Bladder Disease Musculoskeletal: Yes (CHRONIC NECK PAIN; "BULGING DISCS" PER PT) Degenerate Disk Disease, Chronic Back Pain Endocrine: Yes (STATES "HYPOGLYCEMIA") HEENT: No Cancer: No Psychosocial: Yes Sleep Difficulties, Anxiety, Depression Integumentary: No Blood Disorders: No Adverse Reaction/Blood Tranf: No Family Medical History Cardiovascular disease 19 MOTHER Cataracts Colon cancer 19 FATHER (UNKNOWN) G8 BROTHER G8 BROTHER G8 BROTHER G8 SISTER Congenital heart disease 19 MOTHER (UNKNOWN) Diabetes mellitus 19 MOTHER G8 BROTHER G8 BROTHER Infertility Kidney disease 19 MOTHER Osteoporosis G8 SISTER Physical Exam Vital Signs Vital Signs - First Documented 01/08/21 15:45 Temp 36.0 Pulse 93 Resp 14 B/P (MAP) 179/120 (139) Pulse Ox 96 O2 Delivery Room Air Capillary Refill : Less Than 3 Seconds Height, Weight, BMI Height: 5'4.00" Weight: 170lbs. 0.0oz. 77.818410zb; 29.00 BMI Method:Stated General Appearance: WD/WN, no apparent distress HEENT: PERRL/EOMI, normal ENT inspection Neck: non-tender, full range of motion Respiratory: no respiratory distress, no accessory muscle use Shoulder: normal inspection, non-tender Elbow/Forearm: normal inspection, non-tender Hand: normal inspection, non-tender Neurologic/Psychiatric: alert, normal mood/affect, oriented x 3 Skin: normal color, warm/dry, other (There is an excoriated maculopapular mary thematous rash to the dorsum of each forearm and the nape of her neck.) Progress/Results/Core Measures Results/Orders Vital Signs/I&O 01/08/21 15:45 Temp 36.0 Pulse 93 Resp 14 B/P (MAP) 179/120 (139) Pulse Ox 96 O2 Delivery Room Air Blood Pressure Mean: 139 Departure Impression Primary Impression: Rash and nonspecific skin eruption Additional Impression: Cervical radiculopathy Disposition: 01 HOME, SELF-CARE Condition: Stable Departure-Patient Inst. Decision time for Depature: 16:31 Referrals: [facility] [place] (PCP) Primary Care Physician KLAUDIA VELEZ (Family) Primary Care Physician OLLIE DELONG BRIAN J MD Patient Instructions: Skin Rash (DC) Add. Discharge Instructions: All discharge instructions reviewed with patient and/or family. Voiced understanding. 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
[2021-01-08 16:41] VITALS: BP 176/120
== END 2021-01-08 16:42 | disposition home or self-care (01) ==
LOC: EDUNIT# 15:31 → ER 15:35
DX: R21 Rash and other nonspecific skin eruption (principal); M54.12 Radiculopathy, cervical region; I10 Essential (primary) hypertension; K21.9 Gastro-esophageal reflux disease without esophagitis; E78.00 Pure hypercholesterolemia, unspecified; F41.9 Anxiety disorder, unspecified; J44.9 Chronic obstructive pulmonary disease, unspecified; F17.210 Nicotine dependence, cigarettes, uncomplicated; Z88.2 Allergy status to sulfonamides; Z88.1 Allergy status to other antibiotic agents; Z91.040 Latex allergy status; Z88.8 Allergy status to other drugs, medicaments and biological substances; Z86.73 Personal history of transient ischemic attack (TIA), and cerebral infarction without residual deficits; Z82.49 Family history of ischemic heart disease and other diseases of the circulatory system; Z80.0 Family history of malignant neoplasm of digestive organs; Z83.3 Family history of diabetes mellitus; Z95.9 Presence of cardiac and vascular implant and graft, unspecified; Z79.82 Long term (current) use of aspirin; Z79.52 Long term (current) use of systemic steroids
CPT/HCPCS: 99281

== ENCOUNTER 2021-04-14 12:18 | Emergency (ER) | payer OTHER ==
[~2021-04-14] VITALS: Ht 162 cm; Wt 73.6 kg
[~2021-04-14 12:18] MED LIST changes: +TR1C15 TP
[2021-04-14] MEDS ORDERED: KETOROLAC 60 MG/2 ML VIAL IM ONE (13:30)
[2021-04-14] MEDS ORDERED: ORPHENADRINE 60 MG/2 ML (NORFLEX) AMP (ED ONLY) IM ONE (13:30)
--- NOTE | 2021-04-14 13:33 | ED Back Pain ---
General Chief Complaint: Back Problems Stated Complaint: BACK PAIN / LEG PAIN / NAUSEA Nursing Triage Note: AMB TO ROOM WITH C/OCHRONIC BACK PAIN WITH RADIATION DOWN BOTH LEGS C/O OF NUMBNESS AT TIMES. ONSET 3 DAYS AGO Source of Information: Patient Exam Limitations: No Limitations History of Present Illness Date Seen by Provider: Apr 14, 2021 Time Seen by Provider: 13:32 Initial Comments To ER with chronic left low back pain that radiates all the way down the left leg. She has sciatica and believes it flared up. No loss of bowel or bladder control no fevers or chills no loss of sensation of her genitals. This began 3 days ago. The pain began before a fall, she subsequently fell because of the pain. Location: Lumbar Spine Timing/Duration: 2-3 Days Severity: Moderate Associated Symptoms: denies symptoms Allergies and Home Medications Allergies Coded Allergies: Sulfa (Sulfonamide Antibiotics) (Unverified Allergy, Unknown, 05/26/18) latex (Unverified Allergy, Unknown, 05/26/18) loratadine (Unverified Allergy, Unknown, 05/26/18) mushroom (Unverified Allergy, Unknown, 05/25/18) pseudoephedrine (Unverified Allergy, Unknown, 05/26/18) sulfamethoxazole (Unverified Allergy, Unknown, 05/26/18) trimethoprim (Unverified Allergy, Unknown, 05/26/18) Home Medications Aspirin 81 Mg Tab.chew, 81 MG PO DAILY, (Reported) Buspirone HCl 10 Mg Tablet, 10 MG PO BID, (Reported) Fluticasone/Salmeterol 1 Each Blst.w.dev, 1 EACH IH DAILY, (Reported) Hydrocodone/Acetaminophen 1 Each Tablet, 1 TAB PO Q4H PRN for PAIN-MODERATE (5- 7) Prescribed by: HITESH HOLLOWAY on 01/08/21 1633 Icosapent Ethyl 1 Gm Capsule, 1 GM PO BID, (Reported) Lisinopril/Hydrochlorothiazide 1 Each Tablet, 1 EACH PO DAILY, (Reported) Methocarbamol 750 Mg Tablet, 750 MG PO DAILY, (Reported) Nitroglycerin 0.4 Mg Tab.subl, 0.4 MG SL UD PRN for CHEST PAIN (ANGINA), (Reported) Pantoprazole Sodium 40 Mg Tablet.dr, 40 MG PO DAILY, (Reported) Permethrin 60 Gm Cream..g., 60 GM TP ONCE Prescribed by: HITESH HOLLOWAY on 12/15/20 1242 Pravastatin Sodium 10 Mg Tablet, 10 MG PO HS, (Reported) Prednisone 20 Mg Tab, 40 MG PO DAILY Prescribed by: HITESH HOLLOWAY on 12/15/20 1242 Tramadol HCl 50 Mg Tablet, 50 MG PO Q6H PRN for PAIN-MODERATE (5-7) Prescribed by: HITESH HOLLOWAY on 12/15/20 1245 Triamcinolone Acet 15 Gm Cr, 15 GM TP BID Prescribed by: HITESH HOLLOWAY on 01/08/21 1633 Patient Home Medication List Home Medication List Reviewed: Yes Review of Systems Constitutional: see HPI EENTM: see HPI Respiratory: no symptoms reported Cardiovascular: no symptoms reported Genitourinary: no symptoms reported Musculoskeletal: no symptoms reported Skin: no symptoms reported Psychiatric/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: No Symptoms Reported Past Eibtsiu-Emiqwb-Zgwgjm Hx Patient Social History Smokeless Tobacco Frequency: Current Everyday User Substance use?: No Pt feels they are or have been: No Seasonal Allergies Seasonal Allergies: No Past Medical History Surgeries: Yes (LUMBAR DISCETOMY X 2-L2 /L5) Appendectomy, Cardiac, Section, Gallbladder, Hysterectomy, Lumpectomy Respiratory: Yes COPD Currently Using CPAP: No Currently Using BIPAP: No Cardiac: Yes (CATH 03/05/19--TOTALLY OCCLUDED RCA/CHRONIC, NO INTERVENTION) Coronary Artery Disease, High Cholesterol, Hypertension 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 Genitourinary: No Gastrointestinal: Yes Gastroesophageal Reflux, Gall Bladder Disease Musculoskeletal: Yes (CHRONIC NECK PAIN; "BULGING DISCS" PER PT) Degenerate Disk Disease, Chronic Back Pain Endocrine: Yes (STATES "HYPOGLYCEMIA") HEENT: No Cancer: No Psychosocial: Yes Sleep Difficulties, Anxiety, Depression Integumentary: No Blood Disorders: No Adverse Reaction/Blood Tranf: No Family Medical History Cardiovascular disease 19 MOTHER Cataracts Colon cancer 19 FATHER (UNKNOWN) G8 BROTHER G8 BROTHER G8 BROTHER G8 SISTER Congenital heart disease 19 MOTHER (UNKNOWN) Diabetes mellitus 19 MOTHER G8 BROTHER G8 BROTHER Infertility Kidney disease 19 MOTHER Osteoporosis G8 SISTER Physical Exam Vital Signs Vital Signs - First Documented 04/14/21 12:26 Temp 37.2 Pulse 95 Resp 18 B/P (MAP) 159/90 (113) Pulse Ox 97 O2 Delivery Room Air Capillary Refill : Less Than 3 Seconds Height, Weight, BMI Height: 5'4.00" Weight: 170lbs. 0.0oz. 77.862804mj; 28.00 BMI Method:Stated General Appearance: No Apparent Distress, WD/WN Neck: Full Range of Motion, Normal Inspection Cardiovascular: Regular Rate, Rhythm, Normal Peripheral Pulses Respiratory: No Accessory Muscle Use, No Respiratory Distress Gastrointestinal: Normal Bowel Sounds, Non Tender, Soft Extremity: Normal Capillary Refill, Normal Inspection Neurologic/Psychiatric: Alert, Oriented x3 Skin: Normal Color, Warm/Dry Progress/Results/Core Measures Results/Orders My Orders Orders - HITESH HOLLOWAY APRN Pelvis With Left Hip 2-3 Views (04/14/21 13:30) Ketorolac Injection (Toradol Injection) (04/14/21 13:30) Orphenadrine Inj (Ed Only) (Norflex Inje (04/14/21 13:30) Medications Given in ED Current Medications Medications Dose Ordered Sig/Marika Route Start Time Stop Time Status Last Admin Dose Admin Ketorolac Tromethamine 60 mg ONCE ONCE IM 04/14/21 13:30 04/14/21 13:31 DC 04/14/21 13:59 60 MG Orphenadrine Citrate 60 mg ONCE ONCE IM 04/14/21 13:30 04/14/21 13:31 DC 04/14/21 13:59 60 MG Vital Signs/I&O 04/14/21 12:26 Temp 37.2 Pulse 95 Resp 18 B/P (MAP) 159/90 (113) Pulse Ox 97 O2 Delivery Room Air Blood Pressure Mean: 113 Departure Impression Primary Impression: Lumbar radiculopathy Disposition: 01 HOME, SELF-CARE Condition: Stable Departure-Patient Inst. Decision time for Depature: 14:14 Referrals: [facility] (PCP) Primary Care Physician KLAUDIA VELEZ (Family) Primary Care Physician Patient Instructions: Radiculopathy Add. Discharge Instructions: 1. Pain medication as directed. Return to your primary care provider next week for recheck. Return to ER for any worsening. All discharge instructions reviewed with patient and/or family. Voiced understanding. Scripts Methocarbamol (Methocarbamol) 750 Mg Tablet 750 MG PO Q6-8HR for Back Pain, #14 TAB Prov: HITESH HOLLOWAY APRN 04/14/21 Prednisone (Prednisone) 20 Mg Tab 40 MG PO DAILY, #6 TAB 0 Refills Prov: HITESH HOLLOWAY APRN 04/14/21 HITESH HOLLOWAY APRN Apr 14, 2021 13:33
--- NOTE | 2021-04-14 13:59 | Diagnostic Imaging Report ---
CLINICAL INDICATION: Patient fell yesterday and now having pain in the left hip. Patient states she landed on her left side. EXAM: X-ray of the pelvis, AP view, and frog-leg view of the left hip. COMPARISON: None. FINDINGS: There is no acute fracture or dislocation. There are small spurs involving the lateral femoral head/neck junction region. Sacroiliac joints show no significant abnormality. Vascular calcifications are seen. IMPRESSION: There is no acute fracture or dislocation. Dictated by: Dictated on workstation # [id number]
[2021-04-14] MEDS ORDERED: PRD20T PO (14:16)
[2021-04-14] MEDS ORDERED: METH-732 PO (14:16)
[2021-04-14 14:24] VITALS: BP 139/102
== END 2021-04-14 14:28 | disposition home or self-care (01) ==
LOC: EDUNIT# 12:18 → ER 12:19
DX: M54.16 Radiculopathy, lumbar region (principal); J44.9 Chronic obstructive pulmonary disease, unspecified; G89.29 Other chronic pain; M54.2 Cervicalgia; K21.9 Gastro-esophageal reflux disease without esophagitis; E78.00 Pure hypercholesterolemia, unspecified; I10 Essential (primary) hypertension; F41.9 Anxiety disorder, unspecified; I25.10 Atherosclerotic heart disease of native coronary artery without angina pectoris; F17.200 Nicotine dependence, unspecified, uncomplicated; Z86.73 Personal history of transient ischemic attack (TIA), and cerebral infarction without residual deficits; Z79.82 Long term (current) use of aspirin; Z79.52 Long term (current) use of systemic steroids; Z79.899 Other long term (current) drug therapy; Z79.891 Long term (current) use of opiate analgesic

== ENCOUNTER 2021-07-06 16:09 | Emergency (ER) | payer OTHER ==
[~2021-07-06] VITALS: Ht 162.5 cm; Wt 73.4 kg
--- OUTSIDE RECORDS SUMMARY | 2021-07-06 16:14 | XMS REPORT | Clinical Summary ---
Author Author [facility] Organization [facility] Address Unknown Phone Unavailable Care Team Providers Care Proof Technician Helper Name Role Phone Adama Lockwood MD PCP Source Comments [facility] (Labor and Delivery) documents do not appear in the [facility] Allergies Not on File Medications Please verify current medications with patient. Not on file Active Problems Not on file Social History Date Tobacco Use Types Packs/Day Years Used Never Assessed Sex Assigned at Date Recorded Not on file Last Filed Vital Signs Not on file Plan of Treatment Health Maintenance Due Date Last Done Comments CT Colonography 1961 Colon cancer: DNA-based 1961 stool test (Cologuard) HPV/Cotest 1961 Sigmoidoscopy 1960 gFOBT or FIT 1961 COVID-19 Vaccine (1) 1973 Cervical Cancer Screening 1982 Pap Smear 1982 Colonoscopy 2011 Colorectal Cancer 2011 Screening Mammogram 2011 Influenza Vaccine (#1) 2021 Pneumococcal Vaccine: 65+ 2026 Years (1 of 1 - PPSV23) HPV Vaccine Aged Out No longer eligible based on patient's age to complete this topic Pneumococcal Vaccine: Aged Out No longer eligib le based on patient's age to Pediatrics (0 to 5 Years) complete this topic and At-Risk Patients (6 to 64 Years) Results Not on filefrom Last 3 Months Insurance Type Payer Benefit Subscriber ID Effective Phone Address Plan / Dates Group [place] [employer] [place] [id number] Effective [phone] PO [facility] [place] [id number] [place] [address] [id number] 2019-P [phone] C/O PGBA [employer] Author [employer] [facility] [place] [address] [id number] 12 Advance 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
--- OUTSIDE RECORDS SUMMARY | 2021-07-06 16:14 | XMS REPORT | Clinical Summary ---
Author Author [facility] Organization [facility] Address Unknown Phone Unavailable Care Team Providers Care Night Custodian Name Role Phone Anton Garay RN Unavailable Unavailable No Pcp, Na PCP Unavailable Nandini Grewal Unavailable Source Comments Some departments are not documenting in the electronic medical record. If you d o not see the information that you expected, contact Release of Information in [facility] [employer] Information Management department at [phone] for further assistan ce in locating additional records.[facility] Allergies Comments Active Allergy Reactions Severity Noted Date Adhesive Tape (Rosins) UNKNOWN 07/20/2014 Sulfamethoxazole-Trimetho UNKNOWN 07/20/2014 prim Loratadine UNKNOWN 07/20/2014 Sulfa (Sulfonamide UNKNOWN 07/20/2014 Antibiotics) Medications End Date Status Medication Sig Dispensed Refills Start Date Active lisinopril (PRINIVIL; Take 20 mg by 0 ZESTRIL) 20 mg tablet mouth daily. Active HYDROcodone-ibuprofen Take 1 Tab by 0 (VICOPROFEN) 7.5-200 mg mouth every tablet 12 hours as needed. Active aspirin EC 81 mg tablet Take 81 mg by 0 mouth daily. Active pantoprazole DR Take 40 mg by 0 (PROTONIX) 40 mg tablet mouth daily. Active pravastatin (PRAVACHOL) Take 20 mg by 0 20 mg tablet mouth daily. Active metoprolol XL (TOPROL XL) Take 25 mg by 0 25 mg tablet mouth daily. Active naproxen (NAPROSYN) 500 Take 500 mg 0 mg tablet by mouth twice daily with meals. Active cyclobenzaprine Take 10 mg by 0 (FLEXERIL) 10 mg tablet mouth three times daily as needed. Active GUAIFENESIN (MUCINEX PO) Take by 0 mouth. Active Problems Problem Noted Date Hyperlipidemia 08/04/2014 Hypertension 08/04/2014 Surgical History Surgery Date Site/Laterality Comments HX HERNIA REPAIR 1977 HX APPENDECTOMY 1989 HYSTERECTOMY, TOTAL 1989 ABDOMINAL HX LUMPECTOMY 1994 bilateral Medical History Medical History Date Comments Back pain HTN (hypertension) Hyperlipemia Chest pain Dyspnea Family History Medical History Relation Name Comments Diabetes Mother Hypertension Mother Relation Name Status Comments Father brain turmor (Age 37) Mother (Age 78) Social History Date Tobacco Use Types Packs/Day Years Used Current Every Day Smoker Cigarettes 1 Comments Alcohol Use Standard Drinks/Week No 0 (1 standard drink = 0.6 o z pure alcohol) Sex Assigned at Date Recorded Not on file Last Filed Vital Signs Reading Time Taken Comments Vital Sign 179/110 07/20/2014 3:00 PM CDT Blood Pressure 74 07/20/2014 3:00 PM CDT Pulse 37.2 C (99 F) 07/20/2014 1:04 PM CDT Temperature - - Respiratory Rate 96% 07/20/2014 3:00 PM CDT Oxygen Saturation - - Inhaled Oxygen Concentration 73.5 kg (162 lb) 07/20/2014 1:04 PM CDT Weight - - Height - - Body Mass Index Plan of Treatment Health Maintenance Due Date Last Done Comments HIV SCREENING 1976 DTAP/TDAP VACCINES (1 - 1979 Tdap) HEPATITIS C SCREENING 1979 PHYSICAL (COMPREHENSIVE) 1979 EXAM CERVICAL CANCER SCREENING 1982 BREAST CANCER SCREENING 2001 COLORECTAL CANCER 2011 SCREENING SHINGLES RECOMBINANT 2011 VACCINE (1 of 2) INFLUENZA VACCINE 07/15/2021 Results Not on filefrom Last 3 Months Insurance Type Payer Benefit Subscriber ID Effective Phone Address Plan / Dates Group Indemnity [facility] [id number] 2020-P CHOICE/CHO resent ICE PLUS HMO [id number] 2012-P FOR LIFE resent 

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
[2021-07-06] MEDS: fentaNYL INJ 100 MCG/2 ML AMP IVP ONE (16:38)
[2021-07-06 16:47] LABS: BASOPHILS # (AUTO) 0.1 10^3/uL (0.0-0.1); BASOPHILS % (AUTO) 1 % (0-10); EOSINOPHILS # (AUTO) 0.3 10^3/uL (0.0-0.3); EOSINOPHILS % (AUTO) 3 % (0-10); HEMATOCRIT 42 % (35-52); HEMOGLOBIN 14.9 g/dL (11.5-16.0); LYMPHOCYTES # (AUTO) 4.2 10^3/uL (1.0-4.0); LYMPHOCYTES % (AUTO) 37 % (12-44); MEAN CORPUSCULAR HEMOGLOBIN 34 pg (25-34); MEAN CORPUSCULAR HGB CONC 35 g/dL (32-36); MEAN CORPUSCULAR VOLUME 95 fL (80-99); MEAN PLATELET VOLUME 11.5 fL (9.0-12.2); MONOCYTES # (AUTO) 1.1 10^3/uL (0.0-1.0); MONOCYTES % (AUTO) 10 % (0-12); NEUTROPHILS # (AUTO) 5.6 10^3/uL (1.8-7.8); NEUTROPHILS % (AUTO) 49 % (42-75); PLATELET COUNT 239 10^3/uL (130-400); WHITE BLOOD COUNT 11.3 10^3/uL (4.3-11.0)
[2021-07-06 16:54] LABS: ALBUMIN 3.7 GM/DL (3.2-4.5); POTASSIUM 3.8 MMOL/L (3.6-5.0)
[2021-07-06 16:55] LABS: CALCIUM 9.5 MG/DL (8.5-10.1)
[2021-07-06 16:56] LABS: TOTAL PROTEIN 6.7 GM/DL (6.4-8.2)
[2021-07-06 16:58] LABS: BILIRUBIN,TOTAL 0.4 MG/DL (0.1-1.0)
[2021-07-06 17:00] LABS: CREATININE SERUM 0.68 MG/DL (0.60-1.30)
[2021-07-06 17:08] LABS: ERYTHROCYTE SEDIMENTATION RATE 9 MM/HR (0-30)
--- NOTE | 2021-07-06 17:23 | Diagnostic Imaging Report ---
PROCEDURE: MRI lumbar spine without contrast. TECHNIQUE: Multiplanar, multisequence MRI of the lumbar spine was performed without contrast. INDICATION: Chronic back pain. Right leg radiculopathy. COMPARISON: 01/10/2019. FINDINGS: Five lumbar type vertebral bodies are visualized with the last well-formed disc space designated L5-S1. No acute fracture or dislocation is seen in the lumbar spine. Alignment is anatomic. Vertebral body heights are well maintained. Prominent Schmorl's node is seen in the superior endplate of the L2 vertebral body. The conus terminates at the L1 level. No mass is seen associated with the conus or nerve roots of the cauda equina. No epidural collection is identified. Multilevel degenerative changes are seen in the lumbar spine with disc bulges, facet hypertrophy and buckling of the ligamentum flavum. T12-L1: No significant spinal canal or foraminal stenosis. L1-L2: Disc desiccation and facet hypertrophy results in no significant spinal canal narrowing and zqqm-xs-dizlhufo right and moderate left foraminal stenosis. L2-L3: Disc desiccation with broad-based disc bulge, facet hypertrophy and buckling of ligamentum flavum results in ucht-db-yispqbpq spinal canal narrowing and xffu-jg-txqtxitb bilateral foraminal narrowing. L3-L4: Broad-based disc bulge, facet hypertrophy and buckling of the ligamentum flavum results in adkq-zv-izuvhxrd spinal canal narrowing and severe bilateral foraminal stenosis. L4-L5: Broad-based disc bulge with superimposed left foraminal protrusion, facet hypertrophy and buckling of the ligamentum flavum results in mild spinal canal narrowing, severe left lateral recess stenosis and moderate to severe right and severe left foraminal stenosis. L5-S1: Broad-based disc bulge, facet hypertrophy and buckling of the ligamentum flavum results in no significant spinal canal narrowing and severe bilateral foraminal stenosis. Paravertebral soft tissues are unremarkable. IMPRESSION: 1. No acute fracture or dislocation in the lumbar spine. 2. Multilevel degenerative changes in the lumbar spine, greatest at L3-L4, L4-L5 and L5-S1. In particular, the levels demonstrate high-grade bilateral foraminal stenosis. The degenerative changes are fairly similar compared to the prior exam. Dictated by: Dictated on workstation # [id number]
[2021-07-06 17:29] LABS: BILIRUBIN,URINE NEGATIVE (NEGATIVE); CLARITY,URINE CLEAR; COLOR,URINE YELLOW; GLUCOSE, URINE (UA) NEGATIVE (NEGATIVE); KETONES,URINE NEGATIVE (NEGATIVE); LEUKOCYTE ESTERASE ,URINE NEGATIVE (NEGATIVE); NITRITE,URINE NEGATIVE (NEGATIVE); PROTEIN,URINE NEGATIVE (NEGATIVE)
[2021-07-06 17:46] LABS: BACTERIA,URINE TRACE /HPF; WBC,URINE 0-2 /HPF
[2021-07-06] MEDS ORDERED: ACHD5005 PO (17:53)
[2021-07-06 18:09] VITALS: BP 149/71
== END 2021-07-06 18:09 | disposition home or self-care (01) ==
LOC: EDUNIT# 16:09 → ER 16:10
DX: M54.16 Radiculopathy, lumbar region (principal); J44.9 Chronic obstructive pulmonary disease, unspecified; I10 Essential (primary) hypertension; E78.00 Pure hypercholesterolemia, unspecified; I25.10 Atherosclerotic heart disease of native coronary artery without angina pectoris; K21.9 Gastro-esophageal reflux disease without esophagitis; F41.9 Anxiety disorder, unspecified; G89.29 Other chronic pain; M54.9 Dorsalgia, unspecified; Z86.73 Personal history of transient ischemic attack (TIA), and cerebral infarction without residual deficits; Z79.52 Long term (current) use of systemic steroids; Z79.899 Other long term (current) drug therapy; Z79.82 Long term (current) use of aspirin; Z79.891 Long term (current) use of opiate analgesic
CPT/HCPCS: 36415; 72148; 80053; 81000; 85025; 85652; 86141

== ENCOUNTER 2021-07-23 18:42 | Emergency (ER) | payer OTHER ==
[~2021-07-23] VITALS: Ht 162.6 cm; Wt 73.5 kg
[2021-07-23 18:51] VITALS: BP 163/104
[2021-07-23] MEDS ORDERED: lisINopril 20 MG (PRINIVIL) TABLET PO ONE (19:00)
--- NOTE | 2021-07-23 19:09 | ED General ---
General Chief Complaint: General Problems/Pain Stated Complaint: SCIATIC NERVE PAIN/ELEV BP Source of Information: Patient Exam Limitations: No Limitations History of Present Illness Date Seen by Provider: Jul 23, 2021 Time Seen by Provider: 19:01 Initial Comments To ER with reports of pain in the low back that radiates down the right leg. She also ran out of her lisinopril/HCTZ 03/10. a few days ago. She is scheduled to see spine surgery on the of this month. I saw her recently for this back pain and did MRI from the emergency room due to concern for cauda equina syndrome. That was proven to not be the case and she was diagnosed with lumbar radiculopathy. Timing/Duration: 1-2 Days, Getting Worse Severity: Moderate Associated Systoms: Denies Symptoms Allergies and Home Medications Allergies Coded Allergies: Sulfa (Sulfonamide Antibiotics) (Unverified Allergy, Unknown, 05/26/18) latex (Unverified Allergy, Unknown, 05/26/18) loratadine (Unverified Allergy, Unknown, 05/26/18) mushroom (Unverified Allergy, Unknown, 05/25/18) pseudoephedrine (Unverified Allergy, Unknown, 05/26/18) sulfamethoxazole (Unverified Allergy, Unknown, 05/26/18) trimethoprim (Unverified Allergy, Unknown, 05/26/18) Patient Home Medication List Home Medication List Reviewed: Yes Aspirin (Aspirin) 81 Mg Tab.chew, 81 MG PO DAILY, (Reported) Entered as Reported by: MADDIE GROSS on 05/26/20 1442 Buspirone HCl (Buspirone HCl) 10 Mg Tablet, 10 MG PO BID, (Reported) Entered as Reported by: MADDIE GROSS on 05/26/20 1523 Fluticasone/Salmeterol (Advair 100-50 Diskus) 1 Each Blst.w.dev, 1 EACH IH DAILY, (Reported) Entered as Reported by: PRISCILLA BROWN on 03/05/19 0733 Hydrocodone/Acetaminophen (Hydrocodone-Acetamin 5-325 mg) 1 Each Tablet, 1 TAB PO Q4H PRN for PAIN-MODERATE (5-7) Prescribed by: HITESH HOLLOWAY on 01/08/21 1633 Hydrocodone/Acetaminophen (Hydrocodone-Acetamin 5-325 mg) 1 Each Tablet, 1 TAB PO Q4H PRN for PAIN-MODERATE (5-7) Prescribed by: HITESH HOLLOWAY on 07/06/21 175 Icosapent Ethyl (Vascepa) 1 Gm Capsule, 1 GM PO BID, (Reported) Entered as Reported by: MADDIE GROSS on 05/26/20 152 Lisinopril/Hydrochlorothiazide (Lisinopril-Hctz 20-12.5 mg Tab) 1 Each Tablet, 1 EACH PO DAILY, (Reported) Entered as Reported by: PRISCILLA BROWN on 03/05/19732 Methocarbamol (Methocarbamol) 750 Mg Tablet, 750 MG PO DAILY, (Reported) Entered as Reported by: MADDIE GROSS on 05/26/20 152 Methocarbamol (Methocarbamol) 750 Mg Tablet, 750 MG PO Q6-8HR Prescribed by: HITESH HOLLOWAY on 04/14/21 141 Nitroglycerin (Nitroglycerin) 0.4 Mg Tab.subl, 0.4 MG SL UD PRN for CHEST PAIN (ANGINA), (Reported) Entered as Reported by: PRISCILLA BROWN on 03/05/19 07 Pantoprazole Sodium (Pantoprazole Sodium) 40 Mg Tablet.dr, 40 MG PO DAILY, (Reported) Entered as Reported by: PRISCILLA BROWN on 03/05/19732 Permethrin (Elimite) 60 Gm Cream..g., 60 GM TP ONCE Prescribed by: HITESH HOLLOWAY on 12/15/20 124 Pravastatin Sodium (Pravastatin Sodium) 10 Mg Tablet, 10 MG PO HS, (Reported) Entered as Reported by: PRISCILLA BROWN on 03/05/19 07 Prednisone (Prednisone) 20 Mg Tab, 40 MG PO DAILY Prescribed by: HITESH HOLLOWAY on 12/15/20 1242 Prednisone (Prednisone) 20 Mg Tab, 40 MG PO DAILY Prescribed by: HITESH HOLLOWAY on 04/14/21 1416 Tramadol HCl (Ultram) 50 Mg Tablet, 50 MG PO Q6H PRN for PAIN-MODERATE (5-7) Prescribed by: HITESH HOLLOWAY on 12/15/20 1245 Triamcinolone Acet (Triamcinolone Acetonide 0.1% Cream) 15 Gm Cr, 15 GM TP BID Prescribed by: HITESH HOLLOWAY on 01/08/21 1633 Review of Systems Review of Systems Constitutional: see HPI; No chills, No fever EENTM: see HPI Respiratory: no symptoms reported, see HPI Cardiovascular: no symptoms reported Genitourinary: no symptoms reported Musculoskeletal: see HPI, back pain Skin: no symptoms reported Psychiatric/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: No Symptoms Reported Hematologic/Lymphatic: No Symptoms Reported Past Ozqokvj-Ucsufh-Nrfhck Hx Patient Social History Tobacco Use?: Yes Tobacco type used: Cigarettes Substance use?: No Alcohol Use?: No Pt feels they are or have been: No Seasonal Allergies Seasonal Allergies: No Past Medical History Surgery/Hospitalization HX: htn, chronic lower back pain, bilateral breast bx, matthias, appy, hysto, tubal, henria Surgeries: Yes (LUMBAR DISCETOMY X 2-L2 /L5) Appendectomy, Cardiac, Section, Gallbladder, Hysterectomy, Lumpectomy Respiratory: Yes COPD Currently Using CPAP: No Currently Using BIPAP: No Cardiac: Yes (CATH 03/05/19--TOTALLY OCCLUDED RCA/CHRONIC, NO INTERVENTION) Coronary Artery Disease, High Cholesterol, Hypertension 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 Genitourinary: No Gastrointestinal: Yes Gastroesophageal Reflux, Gall Bladder Disease Musculoskeletal: Yes (CHRONIC NECK PAIN; "BULGING DISCS" PER PT) Degenerate Disk Disease, Chronic Back Pain Endocrine: Yes (STATES "HYPOGLYCEMIA") HEENT: No Cancer: No Psychosocial: Yes Sleep Difficulties, Anxiety, Depression Integumentary: No Blood Disorders: No Adverse Reaction/Blood Tranf: No Family Medical History Cardiovascular disease 19 MOTHER Cataracts Colon cancer 19 FATHER (UNKNOWN) G8 BROTHER G8 BROTHER G8 BROTHER G8 SISTER Congenital heart disease 19 MOTHER (UNKNOWN) Diabetes mellitus 19 MOTHER G8 BROTHER G8 BROTHER Infertility Kidney disease 19 MOTHER Osteoporosis G8 SISTER Physical Exam Vital Signs Capillary Refill : Height, Weight, BMI Height: 5'4.00" Weight: 170lbs. 0.0oz. 77.051505bo; 27.00 BMI Method:Stated General Appearance: No Apparent Distress, WD/WN Eyes: Bilateral Eye Normal Inspection, Bilateral Eye PERRL, Bilateral Eye EOMI Respiratory: No Accessory Muscle Use, No Respiratory Distress Cardiovascular: Regular Rate, Rhythm, Normal Peripheral Pulses Gastrointestinal: Normal Bowel Sounds, Non Tender, Soft Back: Normal Inspection, Other Extremity: Normal Capillary Refill, Normal Inspection Neurologic/Psychiatric: Alert, Oriented x3 Skin: Normal Color, Warm/Dry Progress/Results/Core Measures Suspected Sepsis SIRS Temperature: Pulse: Respiratory Rate: Blood Pressure / Mean: Results/Orders My Orders Orders - HITESH HOLLOWAY APRN Lisinopril Tablet (Zestril Tablet) (07/23/21 19:00) Hydrochlorothiazide Cap/Tablet (Hctz Cap (07/23/21 19:00) Rx-Hydrocodone/Apap 5-325 Mg (Rx-Vicodin (07/23/21 19:00) Vital Signs/I&O Capillary Refill : Departure Impression Primary Impression: Hypertension Additional Impression: Lumbar radiculopathy Disposition: HOME, SELF-CARE Condition: Stable Departure-Patient Inst. Decision time for Depature: 19:03 Referrals: NO,LOCAL PHYSICIAN (PCP/Family) Primary Care Physician Patient Instructions: CHRONIC PAIN, High Blood Pressure (DC) Add. Discharge Instructions: 1. return to Er for any concerns. Scripts Hydrocodone/Acetaminophen (Hydrocodone-Acetamin 5-325 mg) 1 Each Tablet 1 TAB PO Q4H PRN for PAIN-MODERATE (5-7), #10 TAB Prov: HITESH HOLLOWAY APRN 07/23/21 Lisinopril/Hydrochlorothiazide (Lisinopril-Hctz 20-12.5 mg Tab) 1 Each Tablet 1 EACH PO DAILY, #20 TAB Prov: HITESH HOLLOWAY APRN 07/23/21 HITESH HOLLOWAY APRN Jul 23, 2021 19:08
[2021-07-23] MEDS ORDERED: ACHD5005 PO (19:10)
[2021-07-23] MEDS ORDERED: LISI1TAB46 PO (19:10)
== END 2021-07-23 19:18 | disposition home or self-care (01) ==
LOC: EDUNIT# 18:42 → ER 18:44
DX: M54.16 Radiculopathy, lumbar region (principal); I10 Essential (primary) hypertension; I25.10 Atherosclerotic heart disease of native coronary artery without angina pectoris; K21.9 Gastro-esophageal reflux disease without esophagitis; G89.29 Other chronic pain; E78.00 Pure hypercholesterolemia, unspecified; M54.2 Cervicalgia; G47.9 Sleep disorder, unspecified; F41.9 Anxiety disorder, unspecified; F32.A Depression, unspecified; J44.9 Chronic obstructive pulmonary disease, unspecified; F17.210 Nicotine dependence, cigarettes, uncomplicated; Z79.82 Long term (current) use of aspirin; Z79.51 Long term (current) use of inhaled steroids; Z79.891 Long term (current) use of opiate analgesic; Z79.52 Long term (current) use of systemic steroids; Z79.899 Other long term (current) drug therapy
CPT/HCPCS: 99283

== ENCOUNTER 2021-09-30 18:18 | Emergency (ER) | payer OTHER ==
[~2021-09-30] VITALS: Ht 172 cm; Wt 83.9 kg
[~2021-09-30 18:18] MED LIST changes: +CYCL10TA25 PO; -CYCL10TA9 PO
[2021-09-30] MEDS ORDERED: ASPIRIN 81 MG CHEW (CHILDREN'S ASA) PO ONE ×2 (18:30→18:45)
--- NOTE | 2021-09-30 18:41 | ED Chest Pain ---
General Stated Complaint: CP,SOB, L ARM PAIN Source: patient Exam Limitations: no limitations (HITESH HOLLOWAY APRN) History of Present Illness Date Seen by Provider: Sep 30, 2021 Time Seen by Provider: 18:40 Initial Comments To ER by private vehicle with reports of chest pain shortness of breath. She had a sinus infection for 3 weeks but has not recently been tested for Covid. She states that she has not had a Covid vaccine and does not want one either. She continues to smoke 1 pack of cigarettes per day. Denies fevers or chills. She has COPD and has been more short of breath lately. Her chest pain has been intermittent since yesterday. This current episode constant for 2 hours. She took 2 nitroglycerin at home without any relief. She has not yet had aspirin. She ran out of her antihypertensive 2 days ago. Timing/Duration: changing over time Severity/Quality: moderate Location: central Radiation: no radiation Activities at Onset: none ASA po REEL WORKER: No NTG SL REEL WORKER: Yes (HITESH HOLLOWAY APRN) Allergies and Home Medications Allergies Coded Allergies: Sulfa (Sulfonamide Antibiotics) (Unverified Allergy, Unknown, 05/26/18) latex (Unverified Allergy, Unknown, 05/26/18) loratadine (Unverified Allergy, Unknown, 05/26/18) mushroom (Unverified Allergy, Unknown, 05/25/18) pseudoephedrine (Unverified Allergy, Unknown, 05/26/18) sulfamethoxazole (Unverified Allergy, Unknown, 05/26/18) trimethoprim (Unverified Allergy, Unknown, 05/26/18) Patient Home Medication List Home Medication List Reviewed: Yes (HITESH HOLLOWAY APRN) Aspirin (Aspirin) 81 Mg Tab.chew, 81 MG PO DAILY, (Reported) Entered as Reported by: MADDIE GROSS on 05/26/20 1442 Buspirone HCl (Buspirone HCl) 10 Mg Tablet, 10 MG PO BID, (Reported) Entered as Reported by: MADDIE GROSS on 05/26/20 1523 Cefuroxime Axetil (Cefuroxime) 250 Mg Tablet, 250 MG PO BID Prescribed by: HITESH HOLLOWAY on 09/30/212024 Fluticasone/Salmeterol (Advair 100-50 Diskus) 1 Each Blst.w.dev, 1 EACH IH DAILY, (Reported) Entered as Reported by: PRISCILLA BROWN on 03/05/19732 Hydrocodone/Acetaminophen (Hydrocodone-Acetamin 5-325 mg) 1 Each Tablet, 1 TAB PO Q4H PRN for PAIN-MODERATE (5-7) Prescribed by: HITESH HOLLOWAY on 01/08/21 1633 Hydrocodone/Acetaminophen (Hydrocodone-Acetamin 5-325 mg) 1 Each Tablet, 1 TAB PO Q4H PRN for PAIN-MODERATE (5-7) Prescribed by: HITESH HOLLOWAY on 07/06/21 1754 Hydrocodone/Acetaminophen (Hydrocodone-Acetamin 5-325 mg) 1 Each Tablet, 1 TAB PO Q4H PRN for PAIN-MODERATE (5-7) Prescribed by: HITESH HOLLOWAY on 07/23/211909 Icosapent Ethyl (Vascepa) 1 Gm Capsule, 1 GM PO BID, (Reported) Entered as Reported by: MADDIE GROSS on 05/26/20 152 Lisinopril/Hydrochlorothiazide (Lisinopril-Hctz 20-12.5 mg Tab) 1 Each Tablet, 1 EACH PO DAILY, (Reported) Entered as Reported by: PRISCILLA BROWN on 03/05/19732 Lisinopril/Hydrochlorothiazide (Lisinopril-Hctz 20-12.5 mg Tab) 1 Each Tablet, 1 EACH PO DAILY Prescribed by: HITESH HOLLOWAY on 07/23/211909 Methocarbamol (Methocarbamol) 750 Mg Tablet, 750 MG PO DAILY, (Reported) Entered as Reported by: MADDIE GROSS on 05/26/20 152 Methocarbamol (Methocarbamol) 750 Mg Tablet, 750 MG PO Q6-8HR Prescribed by: HITESH HOLLOWAY on 04/14/21 141 Nitroglycerin (Nitroglycerin) 0.4 Mg Tab.subl, 0.4 MG SL UD PRN for CHEST PAIN (ANGINA), (Reported) Entered as Reported by: PRISCILLA BROWN on 03/05/19732 Pantoprazole Sodium (Pantoprazole Sodium) 40 Mg Tablet.dr, 40 MG PO DAILY, (Reported) Entered as Reported by: PRISCILLA BROWN on 03/05/19732 Permethrin (Elimite) 60 Gm Cream..g., 60 GM TP ONCE Prescribed by: HITESH HOLLOWAY on 12/15/20 1242 Pravastatin Sodium (Pravastatin Sodium) 10 Mg Tablet, 10 MG PO HS, (Reported) Entered as Reported by: PRISCILLA BROWN on 03/05/19 0733 Prednisone (Prednisone) 20 Mg Tab, 40 MG PO DAILY Prescribed by: HITESH HOLLOWAY on 12/15/20 1242 Prednisone (Prednisone) 20 Mg Tab, 40 MG PO DAILY Prescribed by: HITESH HOLLOWAY on 04/14/21 1416 Prednisone (Prednisone) 20 Mg Tab, 40 MG PO DAILY Prescribed by: HITESH HOLLOWAY on 09/30/212024 Tramadol HCl (Ultram) 50 Mg Tablet, 50 MG PO Q6H PRN for PAIN-MODERATE (5-7) Prescribed by: HITESH HOLLOWAY on 12/15/20 1245 Triamcinolone Acet (Triamcinolone Acetonide 0.1% Cream) 15 Gm Cr, 15 GM TP BID Prescribed by: HITESH HOLLOWAY on 01/08/21 1633 Review of Systems Review of Systems Constitutional: see HPI EENTM: No Symptoms Reported Respiratory: See HPI, Cough, Shortness of Air, Wheezing Cardiovascular: See HPI, Chest Pain Gastrointestinal: No Symptoms Reported Genitourinary: No Symptoms Reported Musculoskeletal: no symptoms reported Skin: no symptoms reported Psychiatric/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: No Symptoms Reported Endocrine: No Symptoms Reported Hematologic/Lymphatic: No Symptoms Reported (HITESH HOLLOWAY APRN) Past Lavsbik-Xeutlk-Wunsze Hx Seasonal Allergies Seasonal Allergies: No (HITESH HOLLOWAY APRN) Past Medical History Surgery/Hospitalization HX: htn, chronic lower back pain, bilateral breast bx, matthias, appy, hysto, tubal, henria Surgeries: Yes (LUMBAR DISCETOMY X 2-L2 /L5) Appendectomy, Cardiac, Section, Gallbladder, Hysterectomy, Lumpectomy Respiratory: Yes COPD Currently Using CPAP: No Currently Using BIPAP: No Cardiac: Yes (CATH 03/05/19--TOTALLY OCCLUDED RCA/CHRONIC, NO INTERVENTION) Coronary Artery Disease, High Cholesterol, Hypertension 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 Genitourinary: No Gastrointestinal: Yes Gastroesophageal Reflux, Gall Bladder Disease Musculoskeletal: Yes (CHRONIC NECK PAIN; "BULGING DISCS" PER PT) Degenerate Disk Disease, Chronic Back Pain Endocrine: Yes (STATES "HYPOGLYCEMIA") HEENT: No Cancer: No Psychosocial: Yes Sleep Difficulties, Anxiety, Depression Integumentary: No Blood Disorders: No Adverse Reaction/Blood Tranf: No (HITESH HOLLOWAY APRN) Family Medical History Cardiovascular disease 19 MOTHER Cataracts Colon cancer 19 FATHER (UNKNOWN) G8 BROTHER G8 BROTHER G8 BROTHER G8 SISTER Congenital heart disease 19 MOTHER (UNKNOWN) Diabetes mellitus 19 MOTHER G8 BROTHER G8 BROTHER Infertility Kidney disease 19 MOTHER Osteoporosis G8 SISTER Physical Exam Vital Signs Vital Signs - First Documented 09/30/21 18:25 Temp 36.5 Pulse 85 Resp 18 B/P (MAP) 263/143 (183) Pulse Ox 95 O2 Delivery Room Air (PAUL,DEYSI K DO) Vital Signs Capillary Refill : (HITESH HOLLOWAY APRN) Height, Weight, BMI Height: 5'4.00" Weight: 170lbs. 0.0oz. 77.409648jt; 27.00 BMI Method:Stated General Appearance: No Apparent Distress, WD/WN HEENT: PERRL/EOMI, TMs Normal Neck: Full Range of Motion, Normal Inspection Respiratory: No Accessory Muscle Use, No Respiratory Distress, Wheezing Cardiovascular: Regular Rate, Rhythm, Normal Peripheral Pulses Gastrointestinal: Normal Bowel Sounds, Non Tender, Soft Extremity: Normal Capillary Refill, Normal Inspection Neurologic/Psychiatric: Alert, Oriented x3 Skin: Normal Color, Warm/Dry (HITESH HOLLOWAY APRN) Progress/Results/Core Measures Results/Orders Lab Results Laboratory Tests Test 09/30/21 18:32 09/30/21 18:35 09/30/21 20:23 Range/Units Influenza Type A (RT-PCR) Not Detected Not Detecte Influenza Type B (RT-PCR) Not Detected Not Detecte SARS-CoV-2 RNA (RT-PCR) Not Detected Not Detecte White Blood Count 13.2 H 4.3-11.0 10^3/uL Red Blood Count 4.48 3.80-5.11 10^6/uL Hemoglobin 14.8 11.5-16.0 g/dL Hematocrit 42 35-52 % Mean Corpuscular Volume 93 80-99 fL Mean Corpuscular Hemoglobin 33 25-34 pg Mean Corpuscular Hemoglobin Concent 35 32-36 g/dL Red Cell Distribution Width 12.2 10.0-14.5 % Platelet Count 217 130-400 10^3/uL Mean Platelet Volume 11.6 9.0-12.2 fL Immature Granulocyte % (Auto) 1 % Neutrophils (%) (Auto) 51 42-75 % Lymphocytes (%) (Auto) 37 12-44 % Monocytes (%) (Auto) 8 0-12 % Eosinophils (%) (Auto) 2 0-10 % Basophils (%) (Auto) 1 0-10 % Neutrophils # (Auto) 6.8 1.8-7.8 10^3/uL Lymphocytes # (Auto) 4.9 H 1.0-4.0 10^3/uL Monocytes # (Auto) 1.1 H 0.0-1.0 10^3/uL Eosinophils # (Auto) 0.3 0.0-0.3 10^3/uL Basophils # (Auto) 0.1 0.0-0.1 10^3/uL Immature Granulocyte # (Auto) 0.1 0.0-0.1 10^3/uL Prothrombin Time 12.3 12.2-14.7 SEC INR Comment 0.9 0.8-1.4 Activated Partial Thromboplast Time 28 24-35 SEC D-Dimer 0.33 0.00-0.49 UG/ML Sodium Level 144 135-145 MMOL/L Potassium Level 3.6 3.6-5.0 MMOL/L Chloride Level 109 H 98-107 MMOL/L Carbon Dioxide Level 20 L 21-32 MMOL/L Anion Gap 15 H 5-14 MMOL/L Blood Urea Nitrogen 16 7-18 MG/DL Creatinine 0.78 0.60-1.30 MG/DL Estimat Glomerular Filtration Rate 75 BUN/Creatinine Ratio 21 Glucose Level 131 H 70-105 MG/DL Calcium Level 9.3 8.5-10.1 MG/DL Corrected Calcium 9.4 8.5-10.1 MG/DL Magnesium Level 2.0 1.6-2.4 MG/DL Total Bilirubin 0.3 0.1-1.0 MG/DL Aspartate Amino Transf (AST/SGOT) 13 5-34 U/L Alanine Aminotransferase (ALT/SGPT) 15 0-55 U/L Alkaline Phosphatase 86 40-136 U/L Myoglobin 38.3 10.0-92.0 NG/ML Troponin I < 0.028 < 0.028 <0.028 NG/ML B-Type Natriuretic Peptide 33.4 <100.0 PG/ML Total Protein 7.3 6.4-8.2 GM/DL Albumin 3.9 3.2-4.5 GM/DL (DEYSI MILLER DO) Medications Given in ED Current Medications Medications Dose Ordered Sig/Marika Route Start Time Stop Time Status Last Admin Dose Admin Al Hydrox/Mg Hydrox/Simethicone 30 ml ONCE ONCE PO 09/30/21 18:45 09/30/21 18:46 DC 09/30/21 18:52 30 ML Albuterol/ Ipratropium 3 ml ONCE ONCE INH 09/30/21 19:30 09/30/21 19:31 DC 09/30/21 19:30 3 ML Aspirin 324 mg ONCE ONCE PO 09/30/21 18:30 09/30/21 18:31 DC 09/30/21 18:51 324 MG Labetalol HCl 10 mg ONCE ONCE IV 09/30/21 18:45 09/30/21 18:46 DC 09/30/21 18:52 10 MG Lidocaine HCl 15 ml ONCE ONCE PO 09/30/21 18:45 09/30/21 18:46 DC 09/30/21 18:52 15 ML Methylprednisolone Sodium Succinate 125 mg ONCE ONCE IVP 09/30/21 19:30 09/30/21 19:31 DC 09/30/21 19:30 125 MG (DEYSI MILLER DO) Vital Signs/I&O 09/30/21 09/30/21 09/30/21 09/30/21 18:25 18:45 19:00 19:30 Temp 36.5 Pulse 85 80 81 51 Resp 18 20 20 20 B/P (MAP) 263/143 (183) 149/80 148/100 132/87 Pulse Ox 95 94 92 96 O2 Delivery Room Air Room Air Room Air Room Air 09/30/21 09/30/21 20:30 21:19 Temp 36.7 Pulse 93 79 Resp 20 20 B/P (MAP) 131/66 131/66 Pulse Ox 92 96 O2 Delivery Room Air Room Air (DEYSI MILLER DO) Departure Communication (Admissions) EKG shows sinus rhythm at 88, no ST segment change no ectopy. 2025-the GI cocktail did not help her symptoms. The DuoNeb treatment did completely resolve her chest pain (HITESH HOLLOWAY APRN) Impression Primary Impression: Chest pain Additional Impressions: Hypertension COPD (chronic obstructive pulmonary disease) Disposition: 01 HOME, SELF-CARE Condition: Stable Departure-Patient Inst. Decision time for Depature: 19:18 (HITESH HOLLOWAY APRN) Referrals: NO,LOCAL PHYSICIAN (PCP/Family) Primary Care Physician Patient Instructions: Chest Pain, Adult ED, COPD Exacerbation, Adult ED Scripts Cefuroxime Axetil (Cefuroxime) 250 Mg Tablet 250 MG PO BID, #10 TAB Prov: HITESH HOLLOWAY APRN 09/30/21 Prednisone (Prednisone) 20 Mg Tab 40 MG PO DAILY, #6 TAB 0 Refills Prov: HITESH HOLLOWAY APRN 09/30/21 ATTENDING PHYSICIAN NOTE: I WAS PHYSICALLY PRESENT ER PHYSICIAN WHEN THIS PATIENT WAS IN ER, BUT I WAS NOT INVOLVED IN ANY DECISION MAKING OR ANY CARE OF THIS PATIENT. (DEYSI MILLER DO) HITESH HOLLOWAY APRN Sep 30, 2021 18:41 DEYSI MILLER DO Oct 01, 2021 04:38
[2021-09-30] MEDS ORDERED: LABETALOL HCL 20 MG/4 ML VIAL IV ONE (18:45)
[2021-09-30] MEDS ORDERED: LIDOCAINE 2% VISCOUS 15 ML UDC PO ONE (18:45)
[2021-09-30] MEDS ORDERED: ANTACID SUSP 30 ML UDC (MYLANTA) PO ONE (18:45)
[2021-09-30 18:46] LABS: BASOPHILS # (AUTO) 0.1 10^3/uL (0.0-0.1); BASOPHILS % (AUTO) 1 % (0-10); EOSINOPHILS # (AUTO) 0.3 10^3/uL (0.0-0.3); EOSINOPHILS % (AUTO) 2 % (0-10); HEMATOCRIT 42 % (35-52); HEMOGLOBIN 14.8 g/dL (11.5-16.0); LYMPHOCYTES # (AUTO) 4.9 10^3/uL (1.0-4.0); LYMPHOCYTES % (AUTO) 37 % (12-44); MEAN CORPUSCULAR HEMOGLOBIN 33 pg (25-34); MEAN CORPUSCULAR HGB CONC 35 g/dL (32-36); MEAN CORPUSCULAR VOLUME 93 fL (80-99); MEAN PLATELET VOLUME 11.6 fL (9.0-12.2); MONOCYTES # (AUTO) 1.1 10^3/uL (0.0-1.0); MONOCYTES % (AUTO) 8 % (0-12); NEUTROPHILS # (AUTO) 6.8 10^3/uL (1.8-7.8); NEUTROPHILS % (AUTO) 51 % (42-75); PLATELET COUNT 217 10^3/uL (130-400); WHITE BLOOD COUNT 13.2 10^3/uL (4.3-11.0)
[2021-09-30 19:05] LABS: FIBRIN DEGRADATION PRODUCTS 0.33 UG/ML (0.00-0.49); INR 0.9 (0.8-1.4); PROTHROMBIN TIME PATIENT 12.3 SEC (12.2-14.7)
[2021-09-30 19:10] LABS: ALBUMIN 3.9 GM/DL (3.2-4.5); BILIRUBIN,TOTAL 0.3 MG/DL (0.1-1.0); CALCIUM 9.3 MG/DL (8.5-10.1); CREATININE SERUM 0.78 MG/DL (0.60-1.30); POTASSIUM 3.6 MMOL/L (3.6-5.0); TOTAL PROTEIN 7.3 GM/DL (6.4-8.2)
[2021-09-30] MEDS ORDERED: RT-ALBUTEROL/IPRATROPIUM 3 ML (DUONEB) VIAL INH ONE (19:30)
[2021-09-30] MEDS ORDERED: methylPREDNISolone 125 MG (Solu-MEDROL) VIAL IVP ONE (19:30)
--- NOTE | 2021-09-30 19:38 | Diagnostic Imaging Report ---
INDICATION: Chest pain. Comparison made with prior examination of 12/24/2019. FINDINGS: The heart size, mediastinal configuration, and pulmonary vascularity are within normal limits. There is no pleural effusion, pneumothorax, or pneumonia. The osseous structures are unremarkable. IMPRESSION: No acute cardiopulmonary abnormality. Dictated by: Dictated on workstation # [id number]
[2021-09-30] MEDS ORDERED: RX-ALBUTEROL NEB 2.5 MG/3 ML PACK #5 IH STA (20:25)
[2021-09-30] MEDS ORDERED: CEFU250T80 PO (20:25)
[2021-09-30] MEDS ORDERED: PRD20T PO (20:25)
[2021-09-30 21:19] VITALS: BP 131/66
== END 2021-09-30 21:23 | disposition home or self-care (01) ==
LOC: EDUNIT# 18:18 → ER 18:20
DX: R07.9 Chest pain, unspecified (principal); I10 Essential (primary) hypertension; J44.9 Chronic obstructive pulmonary disease, unspecified
CPT/HCPCS: 36415; 71045; 80053; 83735; 83874; 83880; 84484; 85025; 85379; 85610; 85730; 87636; 93005; 93041; 96374; 96375

== ENCOUNTER 2021-10-09 12:33 | Emergency (ER) | payer OTHER ==
[~2021-10-09 12:33] MED LIST changes: +CEFU250T80 PO
--- OUTSIDE RECORDS SUMMARY | 2021-10-09 12:39 | XMS REPORT | Clinical Summary ---
Author Author [facility] Organization [facility] Address Unknown Phone Unavailable Care Team Providers Care Kitchen Manager Name Role Phone Adama Lockwood MD PCP [...] Date Last Done Comments CT Colonography 1961 Cervical Cancer Screening 1961 Colonoscopy 1961 Colorectal Cancer 1961 Screening DNA-based stool test 1961 (Cologuard) HPV/Cotest 1961 Mammogram 1961 Pap Smear 1961 Sigmoidoscopy 1961 gFOBT or FIT 1961 COVID-19 Vaccine (1) 1966 Influenza Vaccine (#1) 2021 Pneumococcal Vaccine: 65+ 2026 Years (1 of 1 - PPSV23) HPV Vaccine Aged Out No longer eligible based on patient's age to complete this topic Hepatitis A Vaccine Aged Out No longer eligible based on patient's age to complete this topic Hepatitis B Vaccine Aged Out No longer eligible based on patient's age to complete this topic Hib Vaccine Aged Out No longer eligible based on patient's age to complete this topic IPV Vaccine Aged Out No longer eligible based on patient's age to complete this topic Meningococcal Vaccine Aged Out No longer eligib le based on patient's age to (MCV4) complete this topic Pneumococcal Vaccine: Aged Out No longer eligib le based on patient's age to Pediatrics (0 to 5 Years) complete this topic and At-Risk Patients (6 to 64 Years) Rotavirus Vaccine Aged Out No longer eligible based on patient's age to complete this topic Results Not on filefrom Last 3 Months Insurance Type Payer Benefit Subscriber ID Effective Phone Address Plan / Dates Group O [facility] [id number] Effective [phone] [address] [id number] [place] [address] [id number] 2019-P [phone] C/O PGBA GITR/TRICAR E [address] [place] [id number] Advance Directives Patient Basic Acoustic Analyst Explanation Type Date Recorded Living Will CPR Directives Durable Medical POA Advanced Directives Care Teams Start Date End Date Kitchen Manager Relationship Specialty 05/16/13 Adama Lockwood MD PCP - General Nephrology
== END 2021-10-09 14:09 | disposition left against medical advice (07) ==
LOC: EDUNIT# 12:33 → ER 12:36
DX: R06.02 Shortness of breath (principal)

== ENCOUNTER 2021-12-24 15:48 | Emergency (ER) | payer OTHER ==
[~2021-12-24] VITALS: Ht 162.5 cm; Wt 73.4 kg
--- NOTE | 2021-12-24 16:14 | ED Fall/Injury ---
General Chief Complaint: Trauma-Non Activation Stated Complaint: FELL, Source: patient Exam Limitations: no limitations (HITESH HOLLOWAY APRN) History of Present Illness Date Seen by Provider: Dec 24, 2021 Time Seen by Provider: 16:13 Initial Comments To ER with reports of a fall. She slipped on the ice yesterday falling backward striking quite hypertensive on arrival. States she is supposed to take blood pressure medication but ran out of it a while ago. Occurred: yesterday Severity: moderate Injuries/Pain Location: head, neck Loss of Consciousness: no loss of consciousness Associated Symptoms (Fall): Headache, Neck Pain (HITESH HOLLOWAY APRN) Allergies and Home Medications Allergies Coded Allergies: Sulfa (Sulfonamide Antibiotics) (Unverified Allergy, Unknown, 05/26/18) latex (Unverified Allergy, Unknown, 05/26/18) loratadine (Unverified Allergy, Unknown, 05/26/18) mushroom (Unverified Allergy, Unknown, 05/25/18) pseudoephedrine (Unverified Allergy, Unknown, 05/26/18) sulfamethoxazole (Unverified Allergy, Unknown, 05/26/18) trimethoprim (Unverified Allergy, Unknown, 05/26/18) Patient Home Medication List Home Medication List Reviewed: Yes (HITESH HOLLOWAY APRN) Aspirin (Aspirin) 81 Mg Tab.chew, 81 MG PO DAILY, (Reported) Entered as Reported by: MADDIE GROSS on 05/26/20 1442 Buspirone HCl (Buspirone HCl) 10 Mg Tablet, 10 MG PO BID, (Reported) Entered as Reported by: MADDIE GROSS on 05/26/20 1523 Cefuroxime Axetil (Cefuroxime) 250 Mg Tablet, 250 MG PO BID Prescribed by: HITESH HOLLOWAY on 09/30/212024 Fluticasone/Salmeterol (Advair 100-50 Diskus) 1 Each Blst.w.dev, 1 EACH IH DAILY, (Reported) Entered as Reported by: PRISCILLA BROWN on 03/05/19 0733 Hydrocodone/Acetaminophen (Hydrocodone-Acetamin 5-325 mg) 1 Each Tablet, 1 TAB PO Q4H PRN for PAIN-MODERATE (5-7) Prescribed by: HITESH HOLLOWAY on 01/08/21 1633 Hydrocodone/Acetaminophen (Hydrocodone-Acetamin 5-325 mg) 1 Each Tablet, 1 TAB PO Q4H PRN for PAIN-MODERATE (5-7) Prescribed by: HITESH HOLLOWAY on 07/06/21 175 Hydrocodone/Acetaminophen (Hydrocodone-Acetamin 5-325 mg) 1 Each Tablet, 1 TAB PO Q4H PRN for PAIN-MODERATE (5-7) Prescribed by: HITESH HOLLOWAY on 07/23/211909 Icosapent Ethyl (Vascepa) 1 Gm Capsule, 1 GM PO BID, (Reported) Entered as Reported by: MADDIE GROSS on 05/26/20 152 Lisinopril/Hydrochlorothiazide (Lisinopril-Hctz 20-12.5 mg Tab) 1 Each Tablet, 1 EACH PO DAILY, (Reported) Entered as Reported by: PRISCILLA BROWN on 03/05/19732 Lisinopril/Hydrochlorothiazide (Lisinopril-Hctz 20-12.5 mg Tab) 1 Each Tablet, 1 EACH PO DAILY Prescribed by: HITESH HOLLOWAY on 07/23/211909 Lisinopril/Hydrochlorothiazide (Lisinopril-Hctz 20-12.5 mg Tab) 1 Each Tablet, 1 EACH PO DAILY Prescribed by: HITESH HOLLOWAY on 12/24/211730 Last Action: New Order Methocarbamol (Methocarbamol) 750 Mg Tablet, 750 MG PO DAILY, (Reported) Entered as Reported by: MADDIE GROSS on 05/26/20 1523 Methocarbamol (Methocarbamol) 750 Mg Tablet, 750 MG PO Q6-8HR Prescribed by: HITESH HOLLOWAY on 04/14/21 1416 Metoprolol Succinate (Toprol Xl) 50 Mg Tab.er.24h, 50 MG PO DAILY Prescribed by: HITESH HOLLOWAY on 12/24/211730 Last Action: New Order Nitroglycerin (Nitroglycerin) 0.4 Mg Tab.subl, 0.4 MG SL UD PRN for CHEST PAIN (ANGINA), (Reported) Entered as Reported by: PRISCILLA BROWN on 03/05/1933 Pantoprazole Sodium (Pantoprazole Sodium) 40 Mg Tablet.dr, 40 MG PO DAILY, (Reported) Entered as Reported by: PRISCILLA BROWN on 03/05/19732 Permethrin (Elimite) 60 Gm Cream..g., 60 GM TP ONCE Prescribed by: HITESH HOLLOWAY on 12/15/20 1242 Pravastatin Sodium (Pravastatin Sodium) 10 Mg Tablet, 10 MG PO HS, (Reported) Entered as Reported by: PRISCILLA BROWN on 03/05/19 0733 Prednisone (Prednisone) 20 Mg Tab, 40 MG PO DAILY Prescribed by: HITESH HOLLOWAY on 12/15/20 1242 Prednisone (Prednisone) 20 Mg Tab, 40 MG PO DAILY Prescribed by: HITESH HOLLOWAY on 04/14/21 1416 Prednisone (Prednisone) 20 Mg Tab, 40 MG PO DAILY Prescribed by: HITESH HOLLOWAY on 09/30/212024 Tramadol HCl (Ultram) 50 Mg Tablet, 50 MG PO Q6H PRN for PAIN-MODERATE (5-7) Prescribed by: HITESH HOLLOWAY on 12/15/20 1245 Tramadol HCl (Ultram) 50 Mg Tablet, 50 MG PO Q6H PRN for PAIN-MODERATE (5-7) Prescribed by: HITESH HOLLOWAY on 12/24/21 1732 Last Action: New Order Triamcinolone Acet (Triamcinolone Acetonide 0.1% Cream) 15 Gm Cr, 15 GM TP BID Prescribed by: HITESH HOLLOWAY on 01/08/21 1633 Review of Systems Review of Systems Constitutional: see HPI Eyes: See HPI, Blurred Vision Ears, Nose, Mouth, Throat: no symptoms reported Respiratory: no symptoms reported; No hemoptysis, No orthopnea, No short of breath Cardiovascular: no symptoms reported; No chest pain, No Hx of Intervention, No palpitations, No syncope, No vascular heart diseas Genitourinary: no symptoms reported Musculoskeletal: no symptoms reported Skin: no symptoms reported Psychiatric/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: No Symptoms Reported (HITESH HOLLOWAY APRN) Past Ylnwqwy-Twnrpq-Buwodg Hx Immunizations Up To Date First/Initial COVID19 Vaccinat: N/A (HITESH HOLLOWAY APRN) Seasonal Allergies Seasonal Allergies: No (HITESH HOLLOWAY APRN) Past Medical History Surgery/Hospitalization HX: htn, chronic lower back pain, bilateral breast bx, matthias, appy, hysto, tubal, henria Surgeries: Yes (LUMBAR DISCETOMY X 2-L2 /L5) Appendectomy, Cardiac, Section, Gallbladder, Hysterectomy, Lumpectomy Respiratory: Yes COPD Currently Using CPAP: No Currently Using BIPAP: No Cardiac: Yes (CATH 03/05/19--TOTALLY OCCLUDED RCA/CHRONIC, NO INTERVENTION) Coronary Artery Disease, High Cholesterol, Hypertension 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: Yes TIA DRAMATIC ARTS HISTORIAN History: Hysterectomy Genitourinary: No Gastrointestinal: Yes Gastroesophageal Reflux, Gall Bladder Disease Musculoskeletal: Yes (CHRONIC NECK PAIN; "BULGING DISCS" PER PT) Degenerate Disk Disease, Chronic Back Pain Endocrine: Yes (STATES "HYPOGLYCEMIA") HEENT: No Cancer: No Psychosocial: Yes Sleep Difficulties, Anxiety, Depression Integumentary: No Blood Disorders: No Adverse Reaction/Blood Tranf: No (HITESH HOLLOWAY APRN) Family Medical History Cardiovascular disease 19 MOTHER Cataracts Colon cancer 19 FATHER (UNKNOWN) G8 BROTHER G8 BROTHER G8 BROTHER G8 SISTER Congenital heart disease 19 MOTHER (UNKNOWN) Diabetes mellitus 19 MOTHER G8 BROTHER G8 BROTHER Infertility Kidney disease 19 MOTHER Osteoporosis G8 SISTER Physical Exam Vital Signs Vital Signs - First Documented 12/24/21 16:00 Temp 36.4 Pulse 97 Resp 16 B/P (MAP) 243/142 (175) Pulse Ox 96 O2 Delivery Room Air (JINA JONES MD) Vital Signs Capillary Refill : (HITESH HOLLOWAY APRN) Height, Weight, BMI Height: 5'4.00" Weight: 170lbs. 0.0oz. 77.797483xk; 28.00 BMI Method:Stated General Appearance: WD/WN, no apparent distress HEENT: PERRL/EOMI, normal ENT inspection, TMs normal, pharynx normal Neck: non-tender, full range of motion Cardiovascular: regular rate, rhythm, no murmur Respiratory: no respiratory distress, no accessory muscle use Gastrointestinal: normal bowel sounds, non tender, soft Neurologic/Psychiatric: alert, normal mood/affect, oriented x 3 Skin: normal color, warm/dry (HITESH HOLLOWAY APRN) Rochelle Coma Score Best Eye Response: (4) Open Spontaneously Best Verbal Response: (5) Oriented Best Motor Response: (6) Obeys Commands Corinna Total: 15 (HITESH HOLLOWAY APRN) Progress/Results/Core Measures Results/Orders Vital Signs/I&O 12/24/21 12/24/21 16:00 17:26 Temp 36.4 Pulse 97 79 Resp 16 16 B/P (MAP) 243/142 (175) 180/104 Pulse Ox 96 96 O2 Delivery Room Air Room Air (JINA JONES MD) Departure Communication (Admissions) NAME: JULIEN [facility] REC#: [id number] PT STATUS: REG ER : 1960 PHYSICIAN: HITESH HOLLOWAY APRN ADMIT DATE: 12/24/21/ER Signed Date of Exam:12/24/21 LUMBAR SPINE - 2-3 VIEWS EXAMINATION: Lumbar spine radiograph. EXAM DATE: 12/24/2021. COMPARISON: MRI 07/06/2021. HISTORY: Back pain after fall. TECHNIQUE: 3 views of the lumbar spine. FINDINGS: There is no acute fracture, dislocation, or destructive osseous process. There is multilevel lumbar spondylosis. Vertebral body heights are maintained. The soft tissues are normal. IMPRESSION: Degenerative changes of the lumbar spine without acute osseous abnormality. Dictated by: Dictated on workstation # [id number] Dict: 12/24/21 1630 Trans: 12/24/21 1637 [facility] [id number] Interpreted by: STEPHANIE OKEEFE DO Electronically signed by: STEPHANIE OKEEFE DO 12/24/21 1637 (HITESH HOLLOWAY APRN) Impression Primary Impression: High blood pressure Additional Impressions: Fall Concussion Disposition: 01 HOME, SELF-CARE Condition: Stable Departure-Patient Inst. Decision time for Depature: 16:54 (HITESH HOLLOWAY APRN) Referrals: NO,LOCAL PHYSICIAN (PCP/Family) Primary Care Physician Patient Instructions: Closed Head Injury, Concussion in Adults, High Blood Pressure ED Scripts Lisinopril/Hydrochlorothiazide (Lisinopril-Hctz 20-12.5 mg Tab) 1 Each Tablet 1 EACH PO DAILY, #30 TAB 1 Refill . Prov: HITESH HOLLOWAY APRN 12/24/21 Metoprolol Succinate (Toprol Xl) 50 Mg Tab.er.24h 50 MG PO DAILY, #30 TAB . Prov: HITESH HOLLOWAY APRN 12/24/21 Tramadol HCl (Ultram) 50 Mg Tablet 50 MG PO Q6H PRN for PAIN-MODERATE (5-7), #4 TAB . Prov: HITESH HOLLOWAY APRN 3/12/22 ATTENDING PHYSICIAN NOTE: I was physically present as attending physician in the emergency department during the care of this patient, but I was not directly involved in the decision making or delivery of care for this patient. (JINA JONES MD) HITESH HOLLOWAY APRN Dec 24, 2021 16:14 JINA JONES MD Dec 26, 2021 13:00
[2021-12-24] MEDS ORDERED: meTOprolol TARTRATE 25 MG (LOPRESSOR) TABLET PO ONE (16:15)
[2021-12-24] MEDS ORDERED: HYDROcodone/APAP 5 MG/325 MG (LORTAB) TAB PO ONE (16:15)
[2021-12-24] MEDS ORDERED: cloNIDine 0.1 MG (CATAPRES) TAB PO ONE ×2 (16:15→17:15)
--- NOTE | 2021-12-24 16:41 | Diagnostic Imaging Report ---
EXAMINATION: Lumbar spine radiograph. EXAM DATE: 12/24/2021. COMPARISON: MRI 07/06/2021. HISTORY: Back pain after fall. TECHNIQUE: 3 views of the lumbar spine. FINDINGS: There is no acute fracture, dislocation, or destructive osseous process. There is multilevel lumbar spondylosis. Vertebral body heights are maintained. The soft tissues are normal. IMPRESSION: Degenerative changes of the lumbar spine without acute osseous abnormality. Dictated by: Dictated on workstation # [id number]
--- NOTE | 2021-12-24 16:45 | Diagnostic Imaging Report ---
EXAMINATION: CT head and CT cervical spine without contrast. TECHNIQUE: Multiple contiguous axial images were obtained through the brain and cervical spine without the use of intravenous contrast. Sagittal and coronal reformations through the cervical spine were then performed. All CT scans use one or more of the following dose optimizing techniques: automated exposure control, MA and/or KvP adjustment based on patient size and exam type or iterative reconstruction. HISTORY: Head and neck pain after fall. COMPARISON: 05/20/2019. FINDINGS: CT HEAD: The ventricles and sulci are normal. No abnormal attenuation of brain parenchyma is present. No acute intracranial hemorrhage or abnormal extra-axial fluid collections are present. Calcification of the intracranial ICAs. No hyperdense vessel. The calvarium is intact. The mastoid air cells are clear. Mucosal thickening of the paranasal sinuses. The orbits are normal. CT C-SPINE: Vertebral body height and alignment are preserved. No acute fracture, dislocation or destructive osseous process. Multilevel facet hypertrophy without perched facets. Multilevel cervical spondylosis. The paraspinous soft tissues are normal. The visualized thyroid gland is normal. The visualized lung apices are normal. IMPRESSION: 1. No acute intracranial abnormality. 2. Degenerative changes of the cervical spine without acute osseous abnormality. Dictated by: Dictated on workstation # [id number]
[2021-12-24] MEDS ORDERED: TRAM-42 PO ×2 (16:55→17:31)
[2021-12-24] MEDS ORDERED: METO-352 PO ×2 (16:56→17:31)
[2021-12-24] MEDS ORDERED: LISI1TAB46 PO ×2 (17:19→17:31)
[2021-12-24 17:26] VITALS: BP 180/104
== END 2021-12-24 17:26 | disposition home or self-care (01) ==
LOC: EDUNIT# 15:48 → ER 15:49
DX: S06.0X0A Concussion without loss of consciousness, initial encounter (principal); I10 Essential (primary) hypertension; R40.2410 Glasgow coma scale score 13-15, unspecified time; Z91.040 Latex allergy status; W22.8XXA Striking against or struck by other objects, initial encounter
CPT/HCPCS: 70450; 72100; 72125

== ENCOUNTER 2022-04-09 15:45 | Emergency (ER) | payer OTHER ==
[~2022-04-09] VITALS: Ht 162 cm; Wt 76.0 kg
[~2022-04-09 15:45] MED LIST changes: +METO-352 PO
--- NOTE | 2022-04-09 16:11 | ED Lower Extremity ---
General Chief Complaint: Lower Extremity Stated Complaint: L LEG PAIN Nursing Triage Note: PT TO ED W/ C/O LLE PAIN. REPORTS HAS HX OF SCIATICA TO LT LEG ET FALL IN NOVEMBER OF THIS YEAR. PT DENIES ANY RECENT INJURY TO THIS RN. NO OTHER C/O VOICED. Source: patient Exam Limitations: no limitations (SANTOS COLE) History of Present Illness Date Seen by Provider: Apr 09, 2022 Time Seen by Provider: 16:08 Initial Comments This is a 61-year-old female that presents to the emergency room for left ankle pain. She states she had a fall in November during a snowstorm and injured her left ankle and she has had ongoing pain since then. She states that it radiates into her toes and anterior knee. She has taken bkuw-bti-oqgxglq medications without relief. She has not been able to see her primary care doctor as of yet. She denies any other injuries. Pain/Injury Location: left ankle Method of Injury: fell (SANTOS COLE) Allergies and Home Medications Allergies Coded Allergies: Sulfa (Sulfonamide Antibiotics) (Unverified Allergy, Unknown, 05/26/18) latex (Unverified Allergy, Unknown, 05/26/18) loratadine (Unverified Allergy, Unknown, 05/26/18) mushroom (Unverified Allergy, Unknown, 05/25/18) pseudoephedrine (Unverified Allergy, Unknown, 05/26/18) sulfamethoxazole (Unverified Allergy, Unknown, 05/26/18) trimethoprim (Unverified Allergy, Unknown, 05/26/18) Patient Home Medication List Home Medication List Reviewed: Yes (SANTOS COLE) Aspirin (Aspirin) 81 Mg Tab.chew, 81 MG PO DAILY, (Reported) Entered as Reported by: MADDIE GROSS on 05/26/20 1442 Buspirone HCl (Buspirone HCl) 10 Mg Tablet, 10 MG PO BID, (Reported) Entered as Reported by: MADDIE GROSS on 05/26/20 1523 Cefuroxime Axetil (Cefuroxime) 250 Mg Tablet, 250 MG PO BID Prescribed by: HITESH HOLLOWAY on 09/30/212024 Diclofenac Sodium (Diclofenac Sodium) 75 Mg Tablet.dr, 75 MG PO BID Prescribed by: Ben Cole on 04/09/22 1645 Fluticasone/Salmeterol (Advair 100-50 Diskus) 1 Each Blst.w.dev, 1 EACH IH DAILY, (Reported) Entered as Reported by: PRISCILLA BROWN on 03/05/19 0733 Hydrocodone/Acetaminophen (Hydrocodone-Acetamin 5-325 mg) 1 Each Tablet, 1 TAB PO Q4H PRN for PAIN-MODERATE (5-7) Prescribed by: HITESH HOLLOWAY on 01/08/21 1633 Hydrocodone/Acetaminophen (Hydrocodone-Acetamin 5-325 mg) 1 Each Tablet, 1 TAB PO Q4H PRN for PAIN-MODERATE (5-7) Prescribed by: HITESH HOLLOWAY on 07/06/21 1754 Hydrocodone/Acetaminophen (Hydrocodone-Acetamin 5-325 mg) 1 Each Tablet, 1 TAB PO Q4H PRN for PAIN-MODERATE (5-7) Prescribed by: HITESH HOLLOWAY on 07/23/211909 Icosapent Ethyl (Vascepa) 1 Gm Capsule, 1 GM PO BID, (Reported) Entered as Reported by: MADDIE GROSS on 05/26/20 1523 Lisinopril/Hydrochlorothiazide (Lisinopril-Hctz 20-12.5 mg Tab) 1 Each Tablet, 1 EACH PO DAILY, (Reported) Entered as Reported by: PRISCILLA BROWN on 03/05/19 0733 Lisinopril/Hydrochlorothiazide (Lisinopril-Hctz 20-12.5 mg Tab) 1 Each Tablet, 1 EACH PO DAILY Prescribed by: HITESH HOLLOWAY on 07/23/211909 Lisinopril/Hydrochlorothiazide (Lisinopril-Hctz 20-12.5 mg Tab) 1 Each Tablet, 1 EACH PO DAILY Prescribed by: HITESH HOLLOWAY on 12/24/21 173 Methocarbamol (Methocarbamol) 750 Mg Tablet, 750 MG PO DAILY, (Reported) Entered as Reported by: MADDIE GROSS on 05/26/20 1523 Methocarbamol (Methocarbamol) 750 Mg Tablet, 750 MG PO Q6-8HR Prescribed by: HITESH HOLLOWAY on 04/14/21 1416 Metoprolol Succinate (Toprol Xl) 50 Mg Tab.er.24h, 50 MG PO DAILY Prescribed by: HITESH HOLLOWAY on 12/24/21 1731 Nitroglycerin (Nitroglycerin) 0.4 Mg Tab.subl, 0.4 MG SL UD PRN for CHEST PAIN (ANGINA), (Reported) Entered as Reported by: PRISCILLA BROWN on 03/05/19732 Pantoprazole Sodium (Pantoprazole Sodium) 40 Mg Tablet.dr, 40 MG PO DAILY, (Reported) Entered as Reported by: PRISCILLA BROWN on 03/05/19732 Permethrin (Elimite) 60 Gm Cream..g., 60 GM TP ONCE Prescribed by: HITESH HOLLOWAY on 12/15/20 124 Pravastatin Sodium (Pravastatin Sodium) 10 Mg Tablet, 10 MG PO HS, (Reported) Entered as Reported by: PRISCILLA BROWN on 03/05/19732 Prednisone (Prednisone) 20 Mg Tab, 40 MG PO DAILY Prescribed by: HITESH HOLLOWAY on 12/15/20 124 Prednisone (Prednisone) 20 Mg Tab, 40 MG PO DAILY Prescribed by: HITESH HOLLOWAY on 04/14/21 1416 Prednisone (Prednisone) 20 Mg Tab, 40 MG PO DAILY Prescribed by: HITESH HOLLOWAY on 09/30/21 202 Tramadol HCl (Ultram) 50 Mg Tablet, 50 MG PO Q6H PRN for PAIN-MODERATE (5-7) Prescribed by: HITESH HOLLOWAY on 12/15/20 124 Tramadol HCl (Ultram) 50 Mg Tablet, 50 MG PO Q6H PRN for PAIN-MODERATE (5-7) Prescribed by: HITESH HOLLOWAY on 12/24/21 173 Triamcinolone Acet (Triamcinolone Acetonide 0.1% Cream) 15 Gm Cr, 15 GM TP BID Prescribed by: HITESH HOLLOWAY on 01/08/21 1633 Review of Systems Constitutional: no symptoms reported EENTM: no symptoms reported Respiratory: no symptoms reported Cardiovascular: no symptoms reported Gastrointestinal: no symptoms reported Genitourinary: no symptoms reported Musculoskeletal: other (left ankle pain) Skin: no symptoms reported Psychiatric/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: No Symptoms Reported (SANTOS COLE) Past Cnwxhch-Qkbbaq-Xdkmng Hx Patient Social History Tobacco Use?: Yes Tobacco type used: Cigarettes Smoking Status: Current Everyday Smoker Use of E-Cig and/or Vaping dev: No Substance use?: No Alcohol Use?: No Pt feels they are or have been: No (SANTOS COLE) Immunizations Up To Date First/Initial COVID19 Vaccinat: N/A Second COVID19 Vaccination Rusty: N/A Third COVID19 Vaccination Date: N/A (SANTOS COLE) Seasonal Allergies Seasonal Allergies: No (SANTOS COLE) Past Medical History Surgery/Hospitalization HX: htn, chronic lower back pain, bilateral breast bx, matthias, appy, hysto, tubal, henria Surgeries: Yes (LUMBAR DISCETOMY X 2-L2 /L5) Appendectomy, Cardiac, Section, Gallbladder, Hysterectomy, Lumpectomy Respiratory: Yes COPD Currently Using CPAP: No Currently Using BIPAP: No Cardiac: Yes (CATH 03/05/19--TOTALLY OCCLUDED RCA/CHRONIC, NO INTERVENTION) Coronary Artery Disease, High Cholesterol, Hypertension 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: 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 Genitourinary: No Gastrointestinal: Yes Gastroesophageal Reflux, Gall Bladder Disease Musculoskeletal: Yes (CHRONIC NECK PAIN; "BULGING DISCS" PER PT) Degenerate Disk Disease, Chronic Back Pain Endocrine: Yes (STATES "HYPOGLYCEMIA") HEENT: No Cancer: No Psychosocial: Yes Sleep Difficulties, Anxiety, Depression Integumentary: No Blood Disorders: No Adverse Reaction/Blood Tranf: No (SANTOS COLE) Family Medical History Cardiovascular disease 19 MOTHER Cataracts Colon cancer 19 FATHER (UNKNOWN) G8 BROTHER G8 BROTHER G8 BROTHER G8 SISTER Congenital heart disease 19 MOTHER (UNKNOWN) Diabetes mellitus 19 MOTHER G8 BROTHER G8 BROTHER Infertility Kidney disease 19 MOTHER Osteoporosis G8 SISTER Physical Exam Vital Signs Vital Signs - First Documented 04/09/22 04/09/22 15:50 16:50 Temp 35.3 Pulse 87 Resp 20 B/P (MAP) 179/108 (131) Pulse Ox 96 O2 Delivery Room Air (JINA JONES MD) Vital Signs Capillary Refill : Less Than 3 Seconds (SANTOS COLE) Height, Weight, BMI Height: 5'4.00" Weight: 170lbs. 0.0oz. 77.409047hv; 28.00 BMI Method:Stated General Appearance: WD/WN, no apparent distress HEENT: PERRL/EOMI Neck: non-tender, supple Cardiovascular: regular rate, rhythm Respiratory: chest non-tender Gastrointestinal: soft Back: normal inspection Ankles: left ankle pain (Mild tenderness palpation throughout the left ankle. 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 She is neurovascular intact distally. No bony abnormality on imaging. Patient will be treated for tendinitis and I recommended that she follow-up with a primary care doctor. (SANTOS COLE) Impression Primary Impression: Left ankle tendonitis Disposition: HOME, SELF-CARE Condition: Stable Departure-Patient Inst. Decision time for Depature: 16:44 (SANTOS COLE) Referrals: [facility],LOCAL PHYSICIAN (PCP) Primary Care Physician Patient Instructions: Tendinopathy Add. Discharge Instructions: Please follow up with your primary care provider as discussed. Return with any severe changes or worsening of symptoms. All discharge instructions reviewed with patient and/or family. Voiced understanding. Scripts Diclofenac Sodium (Diclofenac Sodium) 75 Mg Tablet. 75 MG PO BID for 7 Days, #14 TAB Prov: SANTOS COLE 04/09/22 ATTENDING PHYSICIAN NOTE: I was physically present as attending physician in the emergency department during the care of this patient, but I was not directly involved in the decision making or delivery of care for this patient. (JINA JONES MD) SANTOS COLE Apr 09, 2022 16:11 JINA JONES MD Apr 09, 2022 19:36
--- NOTE | 2022-04-09 16:23 | Diagnostic Imaging Report ---
INDICATION: Pain. No known injury. FINDINGS: Three view ankle shows the medial, lateral and posterior malleoli intact. The articular surfaces smooth. No bony erosion, fracture or osseous destruction. No evidence for joint effusion. There is plantar calcaneal spurring, chronic. IMPRESSION: No acute or suspicious abnormality. Dictated by: Dictated on workstation # [id number]
[2022-04-09] MEDS ORDERED: DICL75TA2 PO (16:45)
[2022-04-09 16:50] VITALS: BP 161/99
== END 2022-04-09 16:50 | disposition home or self-care (01) ==
LOC: EDUNIT# 15:45 → ER 15:46
DX: M77.52 Other enthesopathy of left foot and ankle (principal); F17.210 Nicotine dependence, cigarettes, uncomplicated; Z91.040 Latex allergy status; Z28.310 Unvaccinated for COVID-19
CPT/HCPCS: 73610

== ENCOUNTER 2022-05-25 20:05 | Emergency (ER) | payer OTHER ==
[~2022-05-25 20:05] MED LIST changes: +DICL75TA2 PO
[2022-05-25] MEDS ORDERED: ORPH100T PO (20:29)
[2022-05-25] MEDS ORDERED: LIDO700A45 TP (20:29)
[2022-05-25] MEDS ORDERED: MELO15TA39 PO (20:29)
--- NOTE | 2022-05-25 20:29 | ED Back Pain ---
General Chief Complaint: Lower Extremity Stated Complaint: L HIP PAIN Source of Information: Patient, Old Records History of Present Illness Date Seen by Provider: May 25, 2022 Time Seen by Provider: 20:10 Initial Comments PT ARRIVES VIA POV FROM HOME, WANTS WHEELCHAIR ON ARRIVAL C/O CHRONIC BACK PAIN AND LEFT SIDED SCIATICA--ONGOING FOR MANY YEARS, STATES PAIN HAS BEEN WORSE FOR THE LAST 3 WEEKS RATES PAIN "10" PAIN RADIATES DOWN LEFT LEG TO HER LEFT FOOT HAS SOME TINGLING TO HER LEFT PAULSON, OTHERWISE NOT MOTOR OR SENSORY DEFICITS NO LOSS OF BOWEL OR BLADDER FUNCTION NO RECENT INJURY OR UNUSUAL ACTIVITY TOOK ADVIL X 1 THIS AM--STATES NO RELIEF HAS NOT TAKEN ANYTHING ELSE FOR THIS PROBLEM HAS NOT SOUGHT CARE AT ANY TIME IN THE LAST 3 WEEKS, AND SYMPTOMS ARE NO DIFFERENT TODAY PT STATES SHE HAS DEGENERATIVE DISC DISEASE AND HAS HAD ONE PRIOR LUMBAR SPINE SURGERY/ DISCECTOMY--DONE IN [place] STATES SHE WAS TOLD IN THE PAST THAT SHE WOULD NEED ANOTHER ONE,BUT PT HAS NEVER FOLLOWED UP PT STATES SHE "DOESN'T HAVE A DR" PT STATES SHE MOVED HERE IN 2018 FROM [place] PT HAS SEEN MULTIPLE PROVIDERS AT [facility], BUT HAS NOT BEEN THERE IN A LONG TIME PT STATES SHE HAS AN APPOINTMENT AT [facility] IN [place] TO ESTABLISH CARE HAS NOT ATTEMPTED TO GO TO WALK IN CLINIC THERE AT ANY TIME PT HAS HAD MULTIPLE VISITS HERE FOR VARIOUS CHRONIC PAIN COMPLAINTS PT HAS HAD MULTIPLE MRI'S OF LUMBAR AND CERVICAL SPINE DONE HERE, WELL MULTIPLE XRAYS AND CT SCANS. ALL SHOW CHRONIC DEGENERATIVE CHANGES. PT INITIALLY REPORTED THAT NO ONE HAS REFERRED HER TO A LOCAL SPECIALIST AT ANY TIME IN THE LAST 4 YEARS, THEN LATER STATES THAT SHE WAS REFERRED TO DR. RAIN ( NEURO SURGEON AT [place] ) "BUT MY INSURANCE WOULDN'T COVER IT' PT HAS BEEN OUT OF HER BLOOD PRESSURE AND HER CHOLESTEROL MEDICATIONS--STATES THAT "THEY WON'T REFILL THEM ANYMORE" BECAUSE OF LACK OF FOLLOW UP BY PT. Other Comments PCP: WAS [facility], NOW WILL BE ESTABLISHING WITH [facility] FLIGHT SURVEYOR: DR. GOLDMAN, BUT HAS NOT FOLLOWED UP WITH HIM IN A LONG TIME Allergies and Home Medications Allergies Coded Allergies: Sulfa (Sulfonamide Antibiotics) (Unverified Allergy, Unknown, 05/26/18) latex (Unverified Allergy, Unknown, 05/26/18) loratadine (Unverified Allergy, Unknown, 05/26/18) mushroom (Unverified Allergy, Unknown, 05/25/18) pseudoephedrine (Unverified Allergy, Unknown, 05/26/18) sulfamethoxazole (Unverified Allergy, Unknown, 05/26/18) trimethoprim (Unverified Allergy, Unknown, 05/26/18) Patient Home Medication List Home Medication List Reviewed: Yes Aspirin (Aspirin) 81 Mg Tab.chew, 81 MG PO DAILY, (Reported) Entered as Reported by: MADDIE GROSS on 05/26/20 1442 Buspirone HCl (Buspirone HCl) 10 Mg Tablet, 10 MG PO BID, (Reported) Entered as Reported by: MADDIE GROSS on 05/26/20 1523 Cefuroxime Axetil (Cefuroxime) 250 Mg Tablet, 250 MG PO BID Prescribed by: HITESH HOLLOWAY on 09/30/21 202 Diclofenac Sodium (Diclofenac Sodium) 75 Mg Tablet.dr, 75 MG PO BID Prescribed by: Ben Cole on 04/09/22 1645 Fluticasone/Salmeterol (Advair 100-50 Diskus) 1 Each Blst.w.dev, 1 EACH IH DAILY, (Reported) Entered as Reported by: PRISCILLA BROWN on 03/05/19 0733 Hydrocodone/Acetaminophen (Hydrocodone-Acetamin 5-325 mg) 1 Each Tablet, 1 TAB PO Q4H PRN for PAIN-MODERATE (5-7) Prescribed by: HITESH HOLLOWAY on 01/08/21 1633 Hydrocodone/Acetaminophen (Hydrocodone-Acetamin 5-325 mg) 1 Each Tablet, 1 TAB PO Q4H PRN for PAIN-MODERATE (5-7) Prescribed by: HITESH HOLLOWAY on 07/06/21 1754 Hydrocodone/Acetaminophen (Hydrocodone-Acetamin 5-325 mg) 1 Each Tablet, 1 TAB PO Q4H PRN for PAIN-MODERATE (5-7) Prescribed by: HITESH HOLLOWAY on 07/23/21 1910 Icosapent Ethyl (Vascepa) 1 Gm Capsule, 1 GM PO BID, (Reported) Entered as Reported by: MADDIE GROSS on 05/26/20 1523 Lidocaine (Lidocaine 5% Patch) 5 % Adh..patch, 1 EACH TP Q12H PRN for Neuropathic pain Prescribed by: DEYSI MILLER on 05/25/222028 Lisinopril/Hydrochlorothiazide (Lisinopril-Hctz 20-12.5 mg Tab) 1 Each Tablet, 1 EACH PO DAILY, (Reported) Entered as Reported by: PRISCILLA BROWN on 03/05/19732 Lisinopril/Hydrochlorothiazide (Lisinopril-Hctz 20-12.5 mg Tab) 1 Each Tablet, 1 EACH PO DAILY Prescribed by: HITESH HOLLOWAY on 07/23/21 191 Lisinopril/Hydrochlorothiazide (Lisinopril-Hctz 20-12.5 mg Tab) 1 Each Tablet, 1 EACH PO DAILY Prescribed by: HITESH HOLLOWAY on 12/24/21 173 Meloxicam (Meloxicam) 15 Mg Tablet, 15 MG PO DAILY Prescribed by: DEYSI MILLER on 05/25/222028 Methocarbamol (Methocarbamol) 750 Mg Tablet, 750 MG PO DAILY, (Reported) Entered as Reported by: MADDIE GROSS on 05/26/20 1523 Methocarbamol (Methocarbamol) 750 Mg Tablet, 750 MG PO Q6-8HR Prescribed by: HITESH HOLLOWAY on 04/14/21 1416 Metoprolol Succinate (Toprol Xl) 50 Mg Tab.er.24h, 50 MG PO DAILY Prescribed by: HITESH HOLLOWAY on 12/24/21 173 Nitroglycerin (Nitroglycerin) 0.4 Mg Tab.subl, 0.4 MG SL UD PRN for CHEST PAIN (ANGINA), (Reported) Entered as Reported by: PRISCILLA BROWN on 03/05/19732 Orphenadrine Citrate (Orphenadrine Citrate) 100 Mg Tablet.er, 100 MG PO BID Prescribed by: DEYSI MILLER on 05/25/222028 Pantoprazole Sodium (Pantoprazole Sodium) 40 Mg Tablet.dr, 40 MG PO DAILY, (Reported) Entered as Reported by: PRISCILLA BROWN on 03/05/19732 Permethrin (Elimite) 60 Gm Cream..g., 60 GM TP ONCE Prescribed by: HITESH HOLLOWAY on 12/15/20 1242 Pravastatin Sodium (Pravastatin Sodium) 10 Mg Tablet, 10 MG PO HS, (Reported) Entered as Reported by: PRISCILLA BROWN on 03/05/19732 Prednisone (Prednisone) 20 Mg Tab, 40 MG PO DAILY Prescribed by: HITESH HOLLOWAY on 12/15/20 1242 Prednisone (Prednisone) 20 Mg Tab, 40 MG PO DAILY Prescribed by: HITESH HOLLOWAY on 04/14/21 1416 Prednisone (Prednisone) 20 Mg Tab, 40 MG PO DAILY Prescribed by: HITESH HOLLOWAY on 09/30/21 2025 Tramadol HCl (Ultram) 50 Mg Tablet, 50 MG PO Q6H PRN for PAIN-MODERATE (5-7) Prescribed by: HITESH HOLLOWAY on 12/15/20 1245 Tramadol HCl (Ultram) 50 Mg Tablet, 50 MG PO Q6H PRN for PAIN-MODERATE (5-7) Prescribed by: HITESH HOLLOWAY on 12/24/21 1732 Triamcinolone Acet (Triamcinolone Acetonide 0.1% Cream) 15 Gm Cr, 15 GM TP BID Prescribed by: HITESH HOLLOWAY on 01/08/21 1633 Review of Systems Constitutional: no symptoms reported Musculoskeletal: see HPI Skin: no symptoms reported Psychiatric/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: See HPI; Denies Numbness; Tingling; Denies Weakness Past Swmmsiz-Qswnjh-Emdvcp Hx Patient Social History Tobacco Use?: Yes Tobacco type used: Cigarettes Smoking Status: Current Everyday Smoker Substance use?: No Alcohol Use?: Yes Alcohol Frequency: Rarely Immunizations Up To Date First/Initial COVID19 Vaccinat: N/A Second COVID19 Vaccination Rusty: N/A Third COVID19 Vaccination Date: N/A Seasonal Allergies Seasonal Allergies: No Past Medical History Surgery/Hospitalization HX: htn, chronic lower back pain, bilateral breast bx, matthias, appy, hysto, tubal, henria Surgeries: Yes (LUMBAR DISCETOMY X 2-L2 /L5) Appendectomy, Cardiac, Section, Gallbladder, Hysterectomy, Lumpectomy, Orthopedic Respiratory: Yes COPD Currently Using CPAP: No Currently Using BIPAP: No Cardiac: Yes (CATH 03/05/19--TOTALLY OCCLUDED RCA/CHRONIC, NO INTERVENTION) Coronary Artery Disease, High Cholesterol, Hypertension 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: Yes TIA [employer]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 Genitourinary: No Gastrointestinal: Yes Gastroesophageal Reflux, Gall Bladder Disease Musculoskeletal: Yes (CHRONIC NECK PAIN; "BULGING DISCS" PER PT;CHRONIC SCIATICA) Degenerate Disk Disease, Chronic Back Pain Endocrine: Yes (STATES "HYPOGLYCEMIA") HEENT: No Cancer: No Psychosocial: Yes Sleep Difficulties, Anxiety, Depression Integumentary: No Blood Disorders: No Adverse Reaction/Blood Tranf: No Family Medical History Cardiovascular disease 19 MOTHER Cataracts Colon cancer 19 FATHER (UNKNOWN) G8 BROTHER G8 BROTHER G8 BROTHER G8 SISTER Congenital heart disease 19 MOTHER (UNKNOWN) Diabetes mellitus 19 MOTHER G8 BROTHER G8 BROTHER Infertility Kidney disease 19 MOTHER Osteoporosis G8 SISTER Physical Exam Vital Signs Vital Signs - First Documented 05/25/22 20:12 Temp 36.7 Pulse 93 Resp 16 B/P (MAP) 165/113 (130) Pulse Ox 96 O2 Delivery Room Air Capillary Refill : Height, Weight, BMI Height: 5'4.00" Weight: 170lbs. 0.0oz. 77.661415of; 28.00 BMI Method:Stated General Appearance: No Apparent Distress, WD/WN, Other (REEKS OF CIGARETTES, COVERED IN ANIMAL HAIR. ) Neck: Normal Inspection Cardiovascular: Regular Rate, Rhythm, No Edema, No JVD, No Murmur, Normal Peripheral Pulses Respiratory: Normal Breath Sounds, No Accessory Muscle Use, No Respiratory Distress Peripheral Pulses: 1+ Dorsalis Pedis (R), 1+ Left Dors-Pedis (L), 1+ Radial Pulses (R), 1+ Radial Pulses (L) Gastrointestinal: Non Tender, Soft Back: Other (TENDERESS TO LEFT SI JOINT; + STRAIGHT LEG RAISING BILATERALLY, BUT MORE PRONOUNCED ON LEFT--AT LESS THAN 30 DEGREES. MOTOR/SENSORY/VASCULAR INTACT) Extremity: Normal Capillary Refill, Non Tender, No Calf Tenderness, No Pedal Edema Neurologic/Psychiatric: Alert, Oriented x3, No Motor/Sensory Deficits, Normal Mood/Affect, state trooper II-XII Norm as Tested Skin: Normal Color, Warm/Dry; No Rash Progress/Results/Core Measures Results/Orders My Orders Orders - DEYSI MILLER DO Ketorolac Injection (Toradol Injection) (05/25/22 20:30) Orphenadrine Inj (Ed Only) (Norflex Inje (05/25/22 20:30) Medications Given in ED Current Medications Medications Dose Ordered Sig/Marika Route Start Time Stop Time Status Last Admin Dose Admin Ketorolac Tromethamine 60 mg ONCE ONCE IM 05/25/22 20:30 05/25/22 20:31 DC 05/25/22 20:35 60 MG Orphenadrine Citrate 60 mg ONCE ONCE IM 05/25/22 20:30 05/25/22 20:31 DC 05/25/22 20:35 60 MG Vital Signs/I&O 05/25/22 20:12 Temp 36.7 Pulse 93 Resp 16 B/P (MAP) 165/113 (130) Pulse Ox 96 O2 Delivery Room Air Progress Progress Note : Progress Note GIVEN TORADOL AND NORFLEX, WITH IMPROVEMENT IN SYMPTOMS Departure Impression Primary Impression: Chronic low back pain with left-sided sciatica Disposition: HOME, SELF-CARE Condition: Stable Departure-Patient Inst. Decision time for Depature: 20:27 Referrals: [facility] Patient Instructions: Chronic Pain (DC), Sciatica ED Add. Discharge Instructions: MOIST HEAT TO AREA AT 20 MINUTE INTERVALS FOLLOW UP WITH [facility] THIS WEEK FOR FURTHER CARE All discharge instructions reviewed with patient and/or family. Voiced understanding. Scripts Lidocaine (Lidocaine 5% Patch) 5 % Adh..patch 1 EACH TP Q12H PRN for Neuropathic pain MDD 2, #10 PATCH 2 patches max for 12 hours, then 12 hours patch-free period. Prov: DEYSI MILLER DO 05/25/22 Orphenadrine Citrate (Orphenadrine Citrate) 100 Mg Tablet.er 100 MG PO BID, #14 TAB Prov: DEYSI MILLER DO 05/25/22 Meloxicam (Meloxicam) 15 Mg Tablet 15 MG PO DAILY, #10 TAB Prov: DEYSI MILLER DO 05/25/22 DEYSI MILLER DO May 25, 2022 20:29
[2022-05-25] MEDS ORDERED: KETOROLAC 60 MG/2 ML VIAL IM ONE (20:30)
[2022-05-25] MEDS ORDERED: ORPHENADRINE 60 MG/2 ML (NORFLEX) AMP (ED ONLY) IM ONE (20:30)
[2022-05-25 21:01] VITALS: BP 150/88
== END 2022-05-25 21:04 | disposition home or self-care (01) ==
LOC: EDUNIT# 20:05 → ER 20:06
DX: M54.42 Lumbago with sciatica, left side (principal); G89.29 Other chronic pain; F17.210 Nicotine dependence, cigarettes, uncomplicated; Z91.040 Latex allergy status; Z28.310 Unvaccinated for COVID-19
CPT/HCPCS: 99284

== ENCOUNTER 2022-06-11 17:53 | Emergency (ER) | payer OTHER ==
[~2022-06-11] VITALS: Ht 162.5 cm; Wt 76.2 kg
[~2022-06-11 17:53] MED LIST changes: +LIDO700A45 TP; +MELO15TA39 PO; +ORPH100T PO
[2022-06-11] MEDS ORDERED: BUPIVACAINE 0.5% 30 ML (SENSORCAINE) VIAL INJ ONE (18:30)
[2022-06-11] MEDS ORDERED: methylPREDNISolone 40 MG/ML (DEPO MEDROL) VIAL IM ONE (18:30)
[2022-06-11] MEDS ORDERED: LIDOCAINE 1% INJ 20 ML VIAL INJ ONE (18:30)
--- NOTE | 2022-06-11 18:45 | ED Back Pain ---
General Chief Complaint: Lower Extremity Stated Complaint: DIFFICULTY WALKING, L LEG PAIN Nursing Triage Note: PT AMB TO [facility] WITH COMPLAINTS OF LEFT LEG PAIN. PT STATED THAT THE PAIN STARTED A WEEK AGO AND HAS PROGRESSIVELY GOTTEN WORSE. Source of Information: Patient Exam Limitations: No Limitations History of Present Illness Date Seen by Provider: Jun 11, 2022 Time Seen by Provider: 18:16 Initial Comments Patient to ER by private conveyance chief complaint of chronic low back pain status postlaminectomy by Dr. Dawson at [facility]. She is being evaluated by Dr Isabel Montez and román and has an MRI scheduled. She is setting up an appointment with Marcus Jacob for primary care but has not seen her yet. She says in the past she had help with Percocet and Lortab. She is using meloxicam twice a day as prescribed by Dr. Montez without significant relief of symptoms. She has not been on steroids for months. Allergies and Home Medications Allergies Coded Allergies: Sulfa (Sulfonamide Antibiotics) (Unverified Allergy, Unknown, 05/26/18) latex (Unverified Allergy, Unknown, 05/26/18) loratadine (Unverified Allergy, Unknown, 05/26/18) mushroom (Unverified Allergy, Unknown, 05/25/18) pseudoephedrine (Unverified Allergy, Unknown, 05/26/18) sulfamethoxazole (Unverified Allergy, Unknown, 05/26/18) trimethoprim (Unverified Allergy, Unknown, 05/26/18) Patient Home Medication List Home Medication List Reviewed: Yes Aspirin (Aspirin) 81 Mg Tab.chew, 81 MG PO DAILY, (Reported) Entered as Reported by: MADDIE GROSS on 05/26/20 1442 Buspirone HCl (Buspirone HCl) 10 Mg Tablet, 10 MG PO BID, (Reported) Entered as Reported by: MADDIE GROSS on 05/26/20 1523 Cefuroxime Axetil (Cefuroxime) 250 Mg Tablet, 250 MG PO BID Prescribed by: HITESH HOLLOWAY on 09/30/212024 Diclofenac Sodium (Diclofenac Sodium) 75 Mg Tablet.dr, 75 MG PO BID Prescribed by: Ben Cole on 04/09/22 1645 Fluticasone/Salmeterol (Advair 100-50 Diskus) 1 Each Blst.w.dev, 1 EACH IH DAILY, (Reported) Entered as Reported by: PRISCILLA BROWN on 03/05/19 0733 Hydrocodone/Acetaminophen (Hydrocodone-Acetamin 5-325 mg) 1 Each Tablet, 1 TAB PO Q4H PRN for PAIN-MODERATE (5-7) Prescribed by: HITESH HOLLOWAY on 01/08/21 1633 Hydrocodone/Acetaminophen (Hydrocodone-Acetamin 5-325 mg) 1 Each Tablet, 1 TAB PO Q4H PRN for PAIN-MODERATE (5-7) Prescribed by: HITESH HOLLOWAY on 07/06/21 1754 Hydrocodone/Acetaminophen (Hydrocodone-Acetamin 5-325 mg) 1 Each Tablet, 1 TAB PO Q4H PRN for PAIN-MODERATE (5-7) Prescribed by: HITESH HOLLOWAY on 07/23/211909 Icosapent Ethyl (Vascepa) 1 Gm Capsule, 1 GM PO BID, (Reported) Entered as Reported by: MADDIE GROSS on 05/26/20 152 Lidocaine (Lidocaine 5% Patch) 5 % Adh..patch, 1 EACH TP Q12H PRN for Neuropathic pain Prescribed by: DEYSI MILLER on 05/25/222028 Lisinopril/Hydrochlorothiazide (Lisinopril-Hctz 20-12.5 mg Tab) 1 Each Tablet, 1 EACH PO DAILY, (Reported) Entered as Reported by: PRISCILLA BROWN on 03/05/19 0733 Lisinopril/Hydrochlorothiazide (Lisinopril-Hctz 20-12.5 mg Tab) 1 Each Tablet, 1 EACH PO DAILY Prescribed by: HITESH HOLLOWAY on 07/23/211909 Lisinopril/Hydrochlorothiazide (Lisinopril-Hctz 20-12.5 mg Tab) 1 Each Tablet, 1 EACH PO DAILY Prescribed by: HITESH HOLLOWAY on 12/24/21 1731 Meloxicam (Meloxicam) 15 Mg Tablet, 15 MG PO DAILY Prescribed by: DEYSI MILLER on 05/25/222028 Methocarbamol (Methocarbamol) 750 Mg Tablet, 750 MG PO DAILY, (Reported) Entered as Reported by: MADDIE GROSS on 05/26/20 1523 Methocarbamol (Methocarbamol) 750 Mg Tablet, 750 MG PO Q6-8HR Prescribed by: HITESH HOLLOWAY on 04/14/21 141 Metoprolol Succinate (Toprol Xl) 50 Mg Tab.er.24h, 50 MG PO DAILY Prescribed by: HITESH HOLLOWAY on 12/24/21 173 Nitroglycerin (Nitroglycerin) 0.4 Mg Tab.subl, 0.4 MG SL UD PRN for CHEST PAIN (ANGINA), (Reported) Entered as Reported by: PRISCILLA BROWN on 03/05/19732 Orphenadrine Citrate (Orphenadrine Citrate) 100 Mg Tablet.er, 100 MG PO BID Prescribed by: DEYSI MILLER on 05/25/222028 Pantoprazole Sodium (Pantoprazole Sodium) 40 Mg Tablet.dr, 40 MG PO DAILY, (Reported) Entered as Reported by: PRISCILLA BROWN on 03/05/19732 Permethrin (Elimite) 60 Gm Cream..g., 60 GM TP ONCE Prescribed by: HITESH HOLLOWAY on 12/15/20 124 Pravastatin Sodium (Pravastatin Sodium) 10 Mg Tablet, 10 MG PO HS, (Reported) Entered as Reported by: PRISCILLA BROWN on 03/05/19732 Prednisone (Prednisone) 20 Mg Tab, 40 MG PO DAILY Prescribed by: HITESH HOLLOWAY on 12/15/20 124 Prednisone (Prednisone) 20 Mg Tab, 40 MG PO DAILY Prescribed by: HITESH HOLLOWAY on 04/14/21 141 Prednisone (Prednisone) 20 Mg Tab, 40 MG PO DAILY Prescribed by: HITESH HOLLOWAY on 09/30/212024 Tramadol HCl (Ultram) 50 Mg Tablet, 50 MG PO Q6H PRN for PAIN-MODERATE (5-7) Prescribed by: HITESH HOLLOWAY on 12/15/20 124 Tramadol HCl (Ultram) 50 Mg Tablet, 50 MG PO Q6H PRN for PAIN-MODERATE (5-7) Prescribed by: HITESH HOLLOWAY on 12/24/211731 Triamcinolone Acet (Triamcinolone Acetonide 0.1% Cream) 15 Gm Cr, 15 GM TP BID Prescribed by: HITESH HOLLOWAY on 01/08/21 163 Review of Systems Constitutional: No chills, No diaphoresis EENTM: No ear discharge, No ear pain Respiratory: No cough, No short of breath Cardiovascular: No chest pain, No edema Gastrointestinal: No abdominal pain, No nausea, No vomiting All Other Systems Reviewed Negative Unless Noted: Yes Past Tandrlh-Ixxsti-Xzeyuo Hx Patient Social History Tobacco Use?: Yes Tobacco type used: Cigarettes Substance use?: No Alcohol Use?: No Immunizations Up To Date Influenza Vaccine Up-to-Date: No; Not Current First/Initial COVID19 Vaccinat: N/A Second COVID19 Vaccination Rusty: N/A Third COVID19 Vaccination Date: N/A Seasonal Allergies Seasonal Allergies: No Past Medical History Surgery/Hospitalization HX: htn, chronic lower back pain, bilateral breast bx, mtathias, appy, hysto, tubal, henria Surgeries: Yes (LUMBAR DISCETOMY X 2-L2 /L5) Appendectomy, Cardiac, Section, Gallbladder, Hysterectomy, Lumpectomy, Orthopedic Respiratory: Yes COPD Currently Using CPAP: No Currently Using BIPAP: No Cardiac: Yes (CATH 03/05/19--TOTALLY OCCLUDED RCA/CHRONIC, NO INTERVENTION) Coronary Artery Disease, High Cholesterol, Hypertension 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 Genitourinary: No Gastrointestinal: Yes Gastroesophageal Reflux, Gall Bladder Disease Musculoskeletal: Yes (CHRONIC NECK PAIN; "BULGING DISCS" PER PT;CHRONIC SCIATICA) Degenerate Disk Disease, Chronic Back Pain Endocrine: Yes (STATES "HYPOGLYCEMIA") HEENT: No Cancer: No Psychosocial: Yes Sleep Difficulties, Anxiety, Depression Integumentary: No Blood Disorders: No Adverse Reaction/Blood Tranf: No Family Medical History Cardiovascular disease 19 MOTHER Cataracts Colon cancer 19 FATHER (UNKNOWN) G8 BROTHER G8 BROTHER G8 BROTHER G8 SISTER Congenital heart disease 19 MOTHER (UNKNOWN) Diabetes mellitus 19 MOTHER G8 BROTHER G8 BROTHER Infertility Kidney disease 19 MOTHER Osteoporosis G8 SISTER Physical Exam Vital Signs Vital Signs - First Documented 06/11/22 18:01 Temp 36.6 Pulse 92 Resp 16 B/P (MAP) 195/105 (135) Pulse Ox 96 O2 Delivery Room Air Capillary Refill : Less Than 3 Seconds Height, Weight, BMI Height: 5'4.00" Weight: 170lbs. 0.0oz. 77.545245ta; 28.00 BMI Method:Stated General Appearance: No Apparent Distress, Mild Distress HEENT: PERRL/EOMI, Pharynx Normal, Moist Mucous Membranes Neck: Full Range of Motion, Normal Inspection Cardiovascular: Regular Rate, Rhythm, No Edema, Normal Peripheral Pulses Respiratory: No Accessory Muscle Use, No Respiratory Distress Back: Normal Inspection, No Vertebral Tenderness, Muscle Spasm, Vertebral Tenderness (Left paravertebrals tenderness but no midline.) Extremity: Normal Capillary Refill, Normal Inspection, Normal Range of Motion Neurologic/Psychiatric: Alert, Oriented x3, No Motor/Sensory Deficits Skin: Normal Color, Warm/Dry Procedures/Interventions Progress Admixture of 50% lidocaine 1% and Marcaine half percent without epinephrine. Z track method was used and using a 25-gauge 1-1/2 inch needle we put in needle at the level of the L5-S1 facet joint just lateral to the joint. No aspirated blood. Injected 2 cc of solution and 1 cc of 40 mg/mL Depo-Medrol. Progress/Results/Core Measures Results/Orders My Orders Orders - JANETTE YUAN Methylprednisolone Acetate Inj (Depo-Med (06/11/22 18:30) Bupivacaine 0.5% Injection (Sensorcaine (06/11/22 18:30) Lidocaine 1% Inj 20 Ml (Xylocaine 1% Inj (06/11/22 18:30) Hydrocodone/Apap 5/325 Tablet (Lortab 5 (06/11/22 19:15) Medications Given in ED Current Medications Medications Dose Ordered Sig/Marika Route Start Time Stop Time Status Last Admin Dose Admin Acetaminophen/ Hydrocodone Bitart 1 ea ONCE ONCE PO 06/11/22 19:15 06/11/22 19:16 DC 06/11/22 19:11 1 EA Bupivacaine HCl 30 ml ONCE ONCE INJ 06/11/22 18:30 06/11/22 18:31 DC 06/11/22 18:53 30 ML Lidocaine HCl 20 ml ONCE ONCE INJ 06/11/22 18:30 06/11/22 18:31 DC 06/11/22 18:53 20 ML Methylprednisolone Acetate 40 mg ONCE ONCE IM 06/11/22 18:30 06/11/22 18:31 DC 06/11/22 18:53 40 MG Vital Signs/I&O 06/11/22 06/11/22 18:01 19:14 Temp 36.6 Pulse 92 86 Resp 16 B/P (MAP) 195/105 (135) 147/98 Pulse Ox 96 94 O2 Delivery Room Air Room Air Blood Pressure Mean: 135 Departure Impression Primary Impression: Lumbago with sciatica, left side Qualified Codes: M54.42 - Lumbago with sciatica, left side Disposition: HOME, SELF-CARE Condition: Stable Departure-Patient Inst. Decision time for Depature: 19:09 Referrals: NO,LOCAL PHYSICIAN (PCP/Family) Primary Care Physician Patient Instructions: Sciatica (DC), Low Back Pain ED Add. Discharge Instructions: Keep your follow-up appoint with Dr. Montez and Dr. Jacob. Get your imaging done. The numbing medicine should wear off in about 6 to 8 hours and the steroid should kick in in 12 to 24 hours and last about 5 to 7 days. Continue taking her meloxicam. Tylenol 1000 mg every 8 hours needed for pain. Wear a back brace as necessary to help relieve pain. Use topical cream such as icy hot, Biofreeze, blue emu, lidocaine patches, Salonpas etc. All discharge instructions reviewed with patient and/or family. Voiced understanding. JANETTE YUAN Jun 11, 2022 18:45
[2022-06-11 19:14] VITALS: BP 147/98
[2022-06-11] MEDS ORDERED: HYDROcodone/APAP 5 MG/325 MG (LORTAB) TAB PO ONE (19:15)
== END 2022-06-11 19:14 | disposition home or self-care (01) ==
LOC: EDUNIT# 17:53 → ER 17:55
DX: M54.42 Lumbago with sciatica, left side (principal); Z91.040 Latex allergy status; Z98.890 Other specified postprocedural states; Z28.310 Unvaccinated for COVID-19
CPT/HCPCS: 99284

== ENCOUNTER 2022-06-24 19:25 | Emergency (ER) | payer OTHER ==
[~2022-06-24] VITALS: Ht 163 cm; Wt 76.2 kg
[2022-06-24] MEDS ORDERED: MELO7.5T46 (19:43)
[2022-06-24] MEDS ORDERED: GABA-486 (19:43)
[2022-06-24] MEDS ORDERED: CYCL10TA25 (19:43)
--- NOTE | 2022-06-24 19:59 | ED Hip Pain/Injury ---
General Chief Complaint: Hip/Pelvic Problems Stated Complaint: L INNER THIGH/HIP PAIN,TROUBLE SLEEPING/EATING Nursing Triage Note: c/o left hip pain radiating to left foot since approx. dec 05 after fall. reports pain worse x4 days. seen at [facility] 06/08/22 given rx without improvement. mri scheduled for 07/04/22. History of Present Illness Date Seen by Provider: Jun 24, 2022 Time Seen by Provider: 19:50 Initial Comments Patient reports that she has been having left hip, foot and leg pain since she fell in November of this year. Has been seen several times for these issues. States that the medications at that she is taking at home is not helping her symptoms. Has an MRI scheduled this month. Denies numbness, tingling, weakness, bowel or bladder dysfunction. Ran out of her Advil at home today. Took last dose around 1400 today. Reports that it has not helped her pain at all. Reports that she has had Tramadol in the past and that seems to help. Saw her PCP a a few days ago and he did not give her narcotic medications at that time. Timing/Duration: other (months) Severity: moderate Location: hip (L) Method of Injury: fell Modifying Factors: Improves With Immobilization; Worse With Movement; Improves With Pain Medication, Improves With Rest Associated Symptoms: No fatigue, No groin pain Allergies and Home Medications Allergies Coded Allergies: Sulfa (Sulfonamide Antibiotics) (Unverified Allergy, Unknown, 05/26/18) latex (Unverified Allergy, Unknown, 05/26/18) loratadine (Unverified Allergy, Unknown, 05/26/18) mushroom (Unverified Allergy, Unknown, 05/25/18) pseudoephedrine (Unverified Allergy, Unknown, 05/26/18) sulfamethoxazole (Unverified Allergy, Unknown, 05/26/18) trimethoprim (Unverified Allergy, Unknown, 05/26/18) Patient Home Medication List Home Medication List Reviewed: Yes Aspirin (Aspirin) 81 Mg Tab.chew, 81 MG PO DAILY, (Reported) Entered as Reported by: MADDIE GROSS on 05/26/20 1442 Buspirone HCl (Buspirone HCl) 10 Mg Tablet, 10 MG PO BID, (Reported) Entered as Reported by: MADDIE GROSS on 05/26/20 1523 Cefuroxime Axetil (Cefuroxime) 250 Mg Tablet, 250 MG PO BID Prescribed by: HITESH HOLLOWAY on 09/30/212024 Cyclobenzaprine HCl (Cyclobenzaprine HCl) 10 Mg Tablet, (Reported) Entered as Reported by: STEPHANIE SEGOVIA on 06/24/221942 Last Action: New Order Diclofenac Sodium (Diclofenac Sodium) 75 Mg Tablet.dr, 75 MG PO BID Prescribed by: Ben Cole on 04/09/22 164 Fluticasone/Salmeterol (Advair 100-50 Diskus) 1 Each Blst.w.dev, 1 EACH IH DAILY, (Reported) Entered as Reported by: PRISCILLA BROWN on 03/05/19732 Gabapentin (Gabapentin) 100 Mg Capsule, (Reported) Entered as Reported by: STEPHANIE SEGOVIA on 06/24/221942 Last Action: New Order Hydrocodone/Acetaminophen (Hydrocodone-Acetamin 5-325 mg) 1 Each Tablet, 1 TAB PO Q4H PRN for PAIN-MODERATE (5-7) Prescribed by: HITESH HOLLOWAY on 01/08/21 1633 Hydrocodone/Acetaminophen (Hydrocodone-Acetamin 5-325 mg) 1 Each Tablet, 1 TAB PO Q4H PRN for PAIN-MODERATE (5-7) Prescribed by: HITESH HOLLOWAY on 07/06/21 175 Hydrocodone/Acetaminophen (Hydrocodone-Acetamin 5-325 mg) 1 Each Tablet, 1 TAB PO Q4H PRN for PAIN-MODERATE (5-7) Prescribed by: HITESH HOLLOWAY on 07/23/21 191 Icosapent Ethyl (Vascepa) 1 Gm Capsule, 1 GM PO BID, (Reported) Entered as Reported by: MADDIE GROSS on 05/26/20 152 Lidocaine (Lidocaine 5% Patch) 5 % Adh..patch, 1 EACH TP Q12H PRN for Neuropathic pain Prescribed by: DEYSI MILLER on 05/25/222028 Lisinopril/Hydrochlorothiazide (Lisinopril-Hctz 20-12.5 mg Tab) 1 Each Tablet, 1 EACH PO DAILY, (Reported) Entered as Reported by: PRISCILLA BROWN on 03/05/1933 Lisinopril/Hydrochlorothiazide (Lisinopril-Hctz 20-12.5 mg Tab) 1 Each Tablet, 1 EACH PO DAILY Prescribed by: HITESH HOLLOWAY on 07/23/211909 Lisinopril/Hydrochlorothiazide (Lisinopril-Hctz 20-12.5 mg Tab) 1 Each Tablet, 1 EACH PO DAILY Prescribed by: HITESH HOLLOWAY on 12/24/211730 Meloxicam (Meloxicam) 15 Mg Tablet, 15 MG PO DAILY Prescribed by: DEYSI MILLER on 05/25/222028 Meloxicam (Meloxicam) 7.5 Mg Tablet, (Reported) Entered as Reported by: STEPHANIE SEGOVIA on 06/24/221942 Last Action: New Order Methocarbamol (Methocarbamol) 750 Mg Tablet, 750 MG PO DAILY, (Reported) Entered as Reported by: MADDIE GROSS on 05/26/201522 Methocarbamol (Methocarbamol) 750 Mg Tablet, 750 MG PO Q6-8HR Prescribed by: HITESH HOLLOWAY on 04/14/21 141 Metoprolol Succinate (Toprol Xl) 50 Mg Tab.er.24h, 50 MG PO DAILY Prescribed by: HITESH HOLLOWAY on 12/24/211730 Nitroglycerin (Nitroglycerin) 0.4 Mg Tab.subl, 0.4 MG SL UD PRN for CHEST PAIN (ANGINA), (Reported) Entered as Reported by: PRISCILLA BROWN on 03/05/19732 Orphenadrine Citrate (Orphenadrine Citrate) 100 Mg Tablet.er, 100 MG PO BID Prescribed by: DEYSI MILLER on 05/25/222028 Pantoprazole Sodium (Pantoprazole Sodium) 40 Mg Tablet.dr, 40 MG PO DAILY, (Reported) Entered as Reported by: PRISCILLA BROWN on 03/05/19732 Permethrin (Elimite) 60 Gm Cream..g., 60 GM TP ONCE Prescribed by: HITESH HOLLOWAY on 12/15/20 124 Pravastatin Sodium (Pravastatin Sodium) 10 Mg Tablet, 10 MG PO HS, (Reported) Entered as Reported by: PRISCILLA BROWN on 03/05/19732 Prednisone (Prednisone) 20 Mg Tab, 40 MG PO DAILY Prescribed by: HITESH HOLLOWAY on 12/15/20 124 Prednisone (Prednisone) 20 Mg Tab, 40 MG PO DAILY Prescribed by: HITESH HOLLOWAY on 04/14/21 1416 Prednisone (Prednisone) 20 Mg Tab, 40 MG PO DAILY Prescribed by: HITESH HOLLOWAY on 09/30/212024 Tramadol HCl (Ultram) 50 Mg Tablet, 50 MG PO Q6H PRN for PAIN-MODERATE (5-7) Prescribed by: HITESH HOLLOWAY on 12/15/20 1245 Tramadol HCl (Ultram) 50 Mg Tablet, 50 MG PO Q6H PRN for PAIN-MODERATE (5-7) Prescribed by: HITESH HOLLOWAY on 12/24/21 1732 Triamcinolone Acet (Triamcinolone Acetonide 0.1% Cream) 15 Gm Cr, 15 GM TP BID Prescribed by: HITESH HOLLOWAY on 01/08/21 1633 Review of Systems Constitutional: No chills, No diaphoresis, No dizziness, No fever, No weakness Respiratory: no symptoms reported Cardiovascular: no symptoms reported Gastrointestinal: No abdominal pain, No diarrhea, No nausea, No vomiting Genitourinary: No dysuria, No frequency Musculoskeletal: back pain, joint pain (left hip and left) Skin: No pruritus, No rash All Other Systems Reviewed Negative Unless Noted: Yes Past Odseexb-Hyoxvu-Yrfxdo Hx Patient Social History Tobacco Use?: Yes Substance use?: No Alcohol Use?: No Pt feels they are or have been: No Immunizations Up To Date First/Initial COVID19 Vaccinat: N/A Second COVID19 Vaccination Rusty: N/A Third COVID19 Vaccination Date: N/A Seasonal Allergies Seasonal Allergies: No Past Medical History Surgery/Hospitalization HX: htn, chronic lower back pain, bilateral breast bx, matthias, appy, hysto, tubal, henria, discectomy, c-sect x2, htn, gerd, depression Surgeries: Yes (LUMBAR DISCETOMY X 2-L2 /L5) Appendectomy, Cardiac, Section, Gallbladder, Hysterectomy, Lumpectomy, Orthopedic Respiratory: Yes COPD Currently Using CPAP: No Currently Using BIPAP: No Cardiac: Yes (CATH 03/05/19--TOTALLY OCCLUDED RCA/CHRONIC, NO INTERVENTION) Coronary Artery Disease, High Cholesterol, Hypertension 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: Yes 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 Genitourinary: No Gastrointestinal: Yes Gastroesophageal Reflux, Gall Bladder Disease Musculoskeletal: Yes (CHRONIC NECK PAIN; "BULGING DISCS" PER PT;CHRONIC SCIATICA) Degenerate Disk Disease, Chronic Back Pain Endocrine: Yes (STATES "HYPOGLYCEMIA") HEENT: No Cancer: No Psychosocial: Yes Sleep Difficulties, Anxiety, Depression Integumentary: No Blood Disorders: No Adverse Reaction/Blood Tranf: No Family Medical History Reviewed Nursing Family Hx Cardiovascular disease 19 MOTHER Cataracts Colon cancer 19 FATHER (UNKNOWN) G8 BROTHER G8 BROTHER G8 BROTHER G8 SISTER Congenital heart disease 19 MOTHER (UNKNOWN) Diabetes mellitus 19 MOTHER G8 BROTHER G8 BROTHER Infertility Kidney disease 19 MOTHER Osteoporosis G8 SISTER Physical Exam Vital Signs Vital Signs - First Documented 06/24/22 19:35 Temp 36.6 Pulse 96 Resp 20 B/P (MAP) 165/86 (112) Pulse Ox 94 O2 Delivery Room Air Capillary Refill : Less Than 3 Seconds Height, Weight, BMI Height: 5'4.00" Weight: 170lbs. 0.0oz. 77.517047yz; 28.00 BMI Method:Stated General Appearance: No Apparent Distress, WD/WN Neck: Full Range of Motion, Normal Inspection, Non Tender, Supple Cardiovascular: Regular Rate, Rhythm, No Edema Respiratory: Chest Non Tender, Lungs Clear, Normal Breath Sounds, No Accessory Muscle Use, No Respiratory Distress Peripheral Pulses: 2+ Dorsalis Pedis (R), 2+ Left Dors-Pedis (L) Gastrointestinal: Normal Bowel Sounds, No Organomegaly, No Pulsatile Mass, Non Tender, Soft Back: Normal Inspection, Vertebral Tenderness (midline lower thoracic and lumbar spine tenderness to palpation) Extremity: Normal Capillary Refill, Normal Range of Motion, Swelling (dorsal left superior foot swelling) Neurologic/Psychiatric: Alert, Oriented x3, No Motor/Sensory Deficits, Normal Mood/Affect Skin: Normal Color, Warm/Dry Progress/Results/Core Measures Results/Orders My Orders Orders - MARCUS RAY APRN Ketorolac Injection (Toradol Injection) (06/24/22 20:00) Prednisone Tablet (Deltasone Tablet) (06/24/22 20:00) Ankle, Left, 3 Views (06/24/22 19:59) Medications Given in ED Current Medications Medications Dose Ordered Sig/Marika Route Start Time Stop Time Status Last Admin Dose Admin Ketorolac Tromethamine 60 mg ONCE ONCE IM 06/24/22 20:00 06/24/22 20:01 DC 06/24/22 20:05 60 MG Prednisone 60 mg ONCE ONCE PO 06/24/22 20:00 06/24/22 20:01 DC 06/24/22 20:04 60 MG Vital Signs/I&O 06/24/22 19:35 Temp 36.6 Pulse 96 Resp 20 B/P (MAP) 165/86 (112) Pulse Ox 94 O2 Delivery Room Air Blood Pressure Mean: 112 Progress Progress Note : Progress Note Patient's pain is chronic and has been ongoing since she fell in November. Saw her PCP a few days ago. Was given anti inflammatories at that time. States that none of the medications are working. Reports that Tramadol helped in the past. I explained to her that her pain is chronic and she will not be receiving narcotics from the emergency room today. I told her that we would give Toradol IM and po steroids. Will obtain XR of left foot as their is some mild swelling. 2044: Discussed negative XR with patient. Discussed over the counter medications with patient in addition. Reasons to return to the ER were discussed. No acute findings at this time. Pain seems to be chronic since she fell in November. Diagnostic Imaging Diagonstic Imaging: Xray Plain Films/CT/US/NM/MRI: ankle Comments NAME: JULIEN NEWTON [facility] REC#: [id number] PT STATUS: REG ER : 1960 PHYSICIAN: MARCUS RAY APRN ADMIT DATE: 06/24/22/ER Draft Date of Exam:06/24/22 ANKLE, LEFT, 3 VIEWS INDICATION: Left ankle pain and swelling. EXAMINATION: AP, oblique and lateral views of the left ankle were obtained. No fracture or acute bony abnormality is seen. There is plantar and posterior calcaneal spurring. IMPRESSION: No acute abnormality in the left ankle. Dictated on workstation # [id number] Dict: 06/24/222020 Trans: 06/24/222025 [facility] [id number] Interpreted by: FADI CLEMENTS MD Electronically signed by: Departure Impression Primary Impression: Chronic pain Qualified Codes: G89.29 - Other chronic pain Disposition: HOME, SELF-CARE Condition: Stable Departure-Patient Inst. Decision time for Depature: 20:48 Referrals: NO,LOCAL PHYSICIAN (PCP/Family) Primary Care Physician Patient Instructions: Chronic Pain (DC) Add. Discharge Instructions: 1. Home and rest. 2. Push fluids. 3. Alternate Tylenol/Ibuprofen as needed for pain. 4. Follow up with PCP as needed. 5. Consider using heat to the areas of pain. 6. Return here if worse or concerns. All discharge instructions reviewed with patient and/or family. Voiced understanding. MARCUS RAY APRN Jun 24, 2022 19:59
[2022-06-24] MEDS ORDERED: KETOROLAC 60 MG/2 ML VIAL IM ONE (20:00)
[2022-06-24] MEDS ORDERED: predniSONE 20 MG TAB PO ONE (20:00)
--- NOTE | 2022-06-24 20:27 | Diagnostic Imaging Report ---
INDICATION: Left ankle pain and swelling. EXAMINATION: AP, oblique and lateral views of the left ankle were obtained. No fracture or acute bony abnormality is seen. There is plantar and posterior calcaneal spurring. IMPRESSION: No acute abnormality in the left ankle. Dictated by: Dictated on workstation # [id number]
[2022-06-24 20:51] VITALS: BP 155/89
== END 2022-06-24 20:52 | disposition home or self-care (01) ==
LOC: EDUNIT# 19:25 → ER 19:29
DX: G89.29 Other chronic pain (principal); M25.572 Pain in left ankle and joints of left foot; M54.6 Pain in thoracic spine; M54.50 Low back pain, unspecified; Z91.040 Latex allergy status; Z91.81 History of falling; Z28.310 Unvaccinated for COVID-19
CPT/HCPCS: 73610

== ENCOUNTER 2022-08-04 16:40 | Emergency (ER) | payer OTHER ==
[~2022-08-04] VITALS: Ht 154.9 cm; Wt 78.9 kg
[~2022-08-04 16:40] MED LIST changes: +CYCL10TA25; +GABA-486; +MELO7.5T46
--- NOTE | 2022-08-04 17:10 | ED General ---
General Chief Complaint: Cardiac/General Problems Stated Complaint: BLOOD PRESSURE ISSUES Nursing Triage Note: PT AMB TO [facility] 5 WITH COMPLAINT OF HYPERTENSION. WAS SENT OVER FROM [facility] FOR HIGH BLOOD PRESSURE AND FURTHER CARDIAC WORKUP. Source of Information: Patient, Family Exam Limitations: No Limitations History of Present Illness Date Seen by Provider: Aug 04, 2022 Time Seen by Provider: 17:05 Initial Comments Patient is a 61 yo F who presents to the ED via referral from her PCP where she was noted to have a markedly increased BP. She was also noted to be febrile. She was given 325 mg of ASA and sent to the ED. She refused EMS transport. BP at the PCP's office was reportedly 240/140. Patient denies any symptoms. Specifically she denies chest pain, shortness of breath, vision change, headache, flank pain. She was at the PCP's office today to establish care. She states she used to be on HTN medications but has been out for months. She is scheduled for a lumbar spinal surgery and is getting medical clearance for the procedure in the next few weeks. She states she is in pain chronically. She states she did not want to come to the ED as she states she feels like she is fine. Allergies and Home Medications Allergies Coded Allergies: Sulfa (Sulfonamide Antibiotics) (Unverified Allergy, Unknown, 05/26/18) latex (Unverified Allergy, Unknown, 05/26/18) loratadine (Unverified Allergy, Unknown, 05/26/18) mushroom (Unverified Allergy, Unknown, 05/25/18) pseudoephedrine (Unverified Allergy, Unknown, 05/26/18) sulfamethoxazole (Unverified Allergy, Unknown, 05/26/18) trimethoprim (Unverified Allergy, Unknown, 05/26/18) Patient Home Medication List Home Medication List Reviewed: Yes Aspirin (Aspirin) 81 Mg Tab.chew, 81 MG PO DAILY, (Reported) Entered as Reported by: MADDIE GROSS on 05/26/20 1442 Buspirone HCl (Buspirone HCl) 10 Mg Tablet, 10 MG PO BID, (Reported) Entered as Reported by: MADDIE GROSS on 05/26/20 152 Cefuroxime Axetil (Cefuroxime) 250 Mg Tablet, 250 MG PO BID Prescribed by: HITESH HOLLOWAY on 09/30/212024 Cyclobenzaprine HCl (Cyclobenzaprine HCl) 10 Mg Tablet, (Reported) Entered as Reported by: STEPHANIE SEGOVIA on 06/24/221942 Diclofenac Sodium (Diclofenac Sodium) 75 Mg Tablet.dr, 75 MG PO BID Prescribed by: Ben Cole on 04/09/22 164 Fluticasone/Salmeterol (Advair 100-50 Diskus) 1 Each Blst.w.dev, 1 EACH IH DAILY, (Reported) Entered as Reported by: PRISCILLA BROWN on 03/05/19732 Gabapentin (Gabapentin) 100 Mg Capsule, (Reported) Entered as Reported by: STEPHANIE SEGOVIA on 06/24/221942 Hydrocodone/Acetaminophen (Hydrocodone-Acetamin 5-325 mg) 1 Each Tablet, 1 TAB P O Q4H PRN for PAIN-MODERATE (5-7) Prescribed by: HITESH HOLLOWAY on 01/08/21 163 Hydrocodone/Acetaminophen (Hydrocodone-Acetamin 5-325 mg) 1 Each Tablet, 1 TAB PO Q4H PRN for PAIN-MODERATE (5-7) Prescribed by: HITESH HOLLOWAY on 07/06/21 1754 Hydrocodone/Acetaminophen (Hydrocodone-Acetamin 5-325 mg) 1 Each Tablet, 1 TAB P O Q4H PRN for PAIN-MODERATE (5-7) Prescribed by: HITESH HOLLOWAY on 07/23/21 191 Icosapent Ethyl (Vascepa) 1 Gm Capsule, 1 GM PO BID, (Reported) Entered as Reported by: MADDIE GROSS on 05/26/20 1523 Ketorolac Tromethamine (Ketorolac Tromethamine) 10 Mg Tablet, 10 MG PO Q6H Prescribed by: Bladimir Spence on 08/04/22 180 Lidocaine (Lidocaine 5% Patch) 5 % Adh..patch, 1 EACH TP Q12H PRN for Neuropathic pain Prescribed by: DEYSI MILLER on 05/25/222028 Lisinopril/Hydrochlorothiazide (Lisinopril-Hctz 20-12.5 mg Tab) 1 Each Tablet, 1 EACH PO DAILY, (Reported) Entered as Reported by: PRISCILLA BROWN on 03/05/1933 Lisinopril/Hydrochlorothiazide (Lisinopril-Hctz 20-12.5 mg Tab) 1 Each Tablet, 1 EACH PO DAILY Prescribed by: HITESH HOLLOWAY on 07/23/211909 Lisinopril/Hydrochlorothiazide (Lisinopril-Hctz 20-12.5 mg Tab) 20 Mg-12.5 Mg Tablet, 1 EACH PO DAILY Prescribed by: Bladimir Spence on 08/04/221802 Meloxicam (Meloxicam) 15 Mg Tablet, 15 MG PO DAILY Prescribed by: DEYSI MILLER on 05/25/222028 Meloxicam (Meloxicam) 7.5 Mg Tablet, (Reported) Entered as Reported by: STEPHANIE SEGOVIA on 06/24/221942 Methocarbamol (Methocarbamol) 750 Mg Tablet, 750 MG PO DAILY, (Reported) Entered as Reported by: MADDIE GROSS on 05/26/20 152 Methocarbamol (Methocarbamol) 750 Mg Tablet, 750 MG PO Q6-8HR Prescribed by: HITESH HOLLOWAY on 04/14/21 141 Metoprolol Succinate (Toprol Xl) 50 Mg Tab.er.24h, 50 MG PO DAILY Prescribed by: IHTESH HOLLOWAY on 12/24/21 173 Nitroglycerin (Nitroglycerin) 0.4 Mg Tab.subl, 0.4 MG SL UD PRN for CHEST PAIN (ANGINA), (Reported) Entered as Reported by: PRISCILLA BROWN on 03/05/19732 Orphenadrine Citrate (Orphenadrine Citrate) 100 Mg Tablet.er, 100 MG PO BID Prescribed by: DEYSI MILLER on 05/25/222028 Pantoprazole Sodium (Pantoprazole Sodium) 40 Mg Tablet.dr, 40 MG PO DAILY, (Reported) Entered as Reported by: PRISCILLA BROWN on 03/05/19732 Permethrin (Elimite) 60 Gm Cream..g., 60 GM TP ONCE Prescribed by: HITESH HOLLOWAY on 12/15/20 124 Pravastatin Sodium (Pravastatin Sodium) 10 Mg Tablet, 10 MG PO HS, (Reported) Entered as Reported by: PRISCILLA BROWN on 03/05/19732 Prednisone (Prednisone) 20 Mg Tab, 40 MG PO DAILY Prescribed by: HITESH HOLLOWAY on 12/15/20 124 Prednisone (Prednisone) 20 Mg Tab, 40 MG PO DAILY Prescribed by: HITESH HOLLOWAY on 04/14/21 141 Prednisone (Prednisone) 20 Mg Tab, 40 MG PO DAILY Prescribed by: HITESH HOLLOWAY on 09/30/212024 Tramadol HCl (Ultram) 50 Mg Tablet, 50 MG PO Q6H PRN for PAIN-MODERATE (5-7) Prescribed by: HITESH HOLLOWAY on 12/15/20 1245 Tramadol HCl (Ultram) 50 Mg Tablet, 50 MG PO Q6H PRN for PAIN-MODERATE (5-7) Prescribed by: HITESH HOLLOWAY on 12/24/21 1732 Triamcinolone Acet (Triamcinolone Acetonide 0.1% Cream) 15 Gm Cr, 15 GM TP BID Prescribed by: HITESH HOLLOWAY on 01/08/21 1633 Review of Systems Review of Systems Constitutional: no symptoms reported EENTM: no symptoms reported Respiratory: no symptoms reported Cardiovascular: no symptoms reported Gastrointestinal: no symptoms reported Genitourinary: no symptoms reported Musculoskeletal: back pain (chronic) Skin: no symptoms reported Psychiatric/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: No Symptoms Reported Hematologic/Lymphatic: No Symptoms Reported Immunological/Allergic: no symptoms reported Past Khfgpev-Tiwiiz-Bsiydn Hx Patient Social History Tobacco Use?: Yes Tobacco type used: Cigarettes Smoking Status: Current Everyday Smoker Use of E-Cig and/or Vaping dev: No Substance use?: No Alcohol Use?: No Pt feels they are or have been: No Immunizations Up To Date First/Initial COVID19 Vaccinat: N/A Second COVID19 Vaccination Rusty: N/A Third COVID19 Vaccination Date: N/A Seasonal Allergies Seasonal Allergies: No Past Medical History Surgery/Hospitalization HX: htn, chronic lower back pain, bilateral breast bx, matthias, appy, hysto, tubal, henria, discectomy, c-sect x2, htn, gerd, depression Surgeries: Yes (LUMBAR DISCETOMY X 2-L2 /L5) Appendectomy, Cardiac, Section, Gallbladder, Hysterectomy, Lumpectomy, Orthopedic Respiratory: Yes COPD Currently Using CPAP: No Currently Using BIPAP: No Cardiac: Yes (CATH 03/05/19--TOTALLY OCCLUDED RCA/CHRONIC, NO INTERVENTION) Coronary Artery Disease, High Cholesterol, Hypertension 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: 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 Genitourinary: No Gastrointestinal: Yes Gastroesophageal Reflux, Gall Bladder Disease Musculoskeletal: Yes (CHRONIC NECK PAIN; "BULGING DISCS" PER PT;CHRONIC SCIATICA) Degenerate Disk Disease, Chronic Back Pain Endocrine: Yes (STATES "HYPOGLYCEMIA") HEENT: No Cancer: No Psychosocial: Yes Sleep Difficulties, Anxiety, Depression Integumentary: No Blood Disorders: No Adverse Reaction/Blood Tranf: No Family Medical History Cardiovascular disease 19 MOTHER Cataracts Colon cancer 19 FATHER (UNKNOWN) G8 BROTHER G8 BROTHER G8 BROTHER G8 SISTER Congenital heart disease 19 MOTHER (UNKNOWN) Diabetes mellitus 19 MOTHER G8 BROTHER G8 BROTHER Infertility Kidney disease 19 MOTHER Osteoporosis G8 SISTER Physical Exam Vital Signs Vital Signs - First Documented 08/04/22 16:45 Temp 36.7 Pulse 97 Resp 16 B/P (MAP) 198/121 (146) Pulse Ox 98 O2 Delivery Room Air Capillary Refill : Less Than 3 Seconds Height, Weight, BMI Height: 5'4.00" Weight: 170lbs. 0.0oz. 77.416383xs; 32.00 BMI Method:Stated General Appearance: No Apparent Distress, WD/WN HEENT: PERRL/EOMI, TMs Normal, Normal ENT Inspection, Moist Mucous Membranes Neck: Full Range of Motion, Normal Inspection, Non Tender, Supple Respiratory: Chest Non Tender, Lungs Clear, Normal Breath Sounds, No Accessory Muscle Use, No Respiratory Distress Cardiovascular: Regular Rate, Rhythm, Normal Peripheral Pulses Gastrointestinal: Normal Bowel Sounds Rectal: Normal Exam Back: Normal Inspection Extremity: Normal Capillary Refill Neurologic/Psychiatric: Alert, Oriented x3, No Motor/Sensory Deficits, Normal Mood/Affect, social media strategist II-XII Norm as Tested Skin: Normal Color, Warm/Dry Progress/Results/Core Measures Suspected Sepsis SIRS Temperature: Pulse: 97 Respiratory Rate: 16 Laboratory Tests 08/04/22 16:55: White Blood Count 13.9H Blood Pressure 198 /121 Mean: 146 Laboratory Tests 08/04/22 16:55: Creatinine 0.74, INR Comment 1.0, Platelet Count 220, Total Bilirubin 0.7 Results/Orders Lab Results Laboratory Tests Test 08/04/22 16:55 Range/Units White Blood Count 13.9 H 4.3-11.0 10^3/uL Red Blood Count 4.76 3.80-5.11 10^6/uL Hemoglobin 15.7 11.5-16.0 g/dL Hematocrit 44 35-52 % Mean Corpuscular Volume 93 80-99 fL Mean Corpuscular Hemoglobin 33 25-34 pg Mean Corpuscular Hemoglobin Concent 36 32-36 g/dL Red Cell Distribution Width 12.3 10.0-14.5 % Platelet Count 220 130-400 10^3/uL Mean Platelet Volume 11.6 9.0-12.2 fL Immature Granulocyte % (Auto) 0 % Neutrophils (%) (Auto) 59 42-75 % Lymphocytes (%) (Auto) 31 12-44 % Monocytes (%) (Auto) 8 0-12 % Eosinophils (%) (Auto) 1 0-10 % Basophils (%) (Auto) 1 0-10 % Neutrophils # (Auto) 8.2 H 1.8-7.8 10^3/uL Lymphocytes # (Auto) 4.2 H 1.0-4.0 10^3/uL Monocytes # (Auto) 1.1 H 0.0-1.0 10^3/uL Eosinophils # (Auto) 0.2 0.0-0.3 10^3/uL Basophils # (Auto) 0.1 0.0-0.1 10^3/uL Immature Granulocyte # (Auto) 0.1 0.0-0.1 10^3/uL Prothrombin Time 13.5 12.2-14.7 SEC INR Comment 1.0 0.8-1.4 Activated Partial Thromboplast Time 28 24-35 SEC Sodium Level 141 135-145 MMOL/L Potassium Level 3.2 L 3.6-5.0 MMOL/L Chloride Level 107 98-107 MMOL/L Carbon Dioxide Level 25 21-32 MMOL/L Anion Gap 9 5-14 MMOL/L Blood Urea Nitrogen 10 7-18 MG/DL Creatinine 0.74 0.60-1.30 MG/DL Estimat Glomerular Filtration Rate 93 BUN/Creatinine Ratio 14 Glucose Level 136 H 70-105 MG/DL Calcium Level 9.4 8.5-10.1 MG/DL Corrected Calcium 9.3 8.5-10.1 MG/DL Magnesium Level 1.8 1.6-2.4 MG/DL Total Bilirubin 0.7 0.1-1.0 MG/DL Aspartate Amino Transf (AST/SGOT) 16 5-34 U/L Alanine Aminotransferase (ALT/SGPT) 18 0-55 U/L Alkaline Phosphatase 81 40-136 U/L Myoglobin 57.4 10.0-92.0 NG/ML Troponin I < 0.028 <0.028 NG/ML Total Protein 7.2 6.4-8.2 GM/DL Albumin 4.1 3.2-4.5 GM/DL My Orders Orders - BLADIMIR SPENCE SERVICE ATTENDANT CAFETERIA Cbc With Automated Diff (08/04/22 17:06) Magnesium (08/04/22 17:06) Chest 1 View, Ap/Pa Only (08/04/22 17:06) Comprehensive Metabolic Panel (08/04/22 17:06) Myoglobin Serum (08/04/22 17:06) Protime With Inr (08/04/22 17:06) Partial Thromboplastin Time (08/04/22 17:06) O2 (08/04/22 17:06) Monitor-Rhythm Ecg Trace Only (08/04/22 17:06) Ed Iv/Invasive Line Start (08/04/22 17:06) Troponin I Rajni (08/04/22 16:55) Vital Signs/I&O 08/04/22 08/04/22 16:45 18:11 Temp 36.7 Pulse 97 90 Resp 16 18 B/P (MAP) 198/121 (146) 162/102 Pulse Ox 98 94 O2 Delivery Room Air Room Air Capillary Refill : Less Than 3 Seconds Blood Pressure Mean: 146 Progress Note : Progress Note Patient is nontoxic and well hydrated on exam. She is hypertensive but VS are otherwise reassuring. She has no evidence of any significant cardiopulmonary process ongoing at this time. EKG without acute ischemic change or arrhythmia. Laboratory evaluation largely reassuring. Patient has mild leukocytosis. Mild hypokalemia also noted. Chest xray acutely negative. Patient's BP did improve in the ED compared to reported level at PCP's office. Will d/c home with recs for supportive care and follow-up with PCP. Return precautions for urgent symptomology discussed. Patient was requesting something for the pain at home. She was given a short term rx for Ketorolac. Discussed importance of not taking any other NSAIDs with the medications. Patient verbalized understanding. ECG EKG : EKG Time: 16:54 Rate: 95 Rhythm: Normal Sinus Intervals: Normal ECG Impression: Nonspecific Changes Departure Impression Primary Impression: Hypertension Qualified Codes: I10 - Essential (primary) hypertension Disposition: 01 HOME, SELF-CARE Condition: Improved Departure-Patient Inst. Decision time for Depature: 17:55 Referrals: ANDREAS STEARNS DO (PCP/Family) Primary Care Physician Patient Instructions: High Blood Pressure (DC) Scripts Ketorolac Tromethamine (Ketorolac Tromethamine) 10 Mg Tablet 10 MG PO Q6H for Pain for 5 Days, #20 TAB Prov: BLADIMIR SPENCE APRN 08/04/22 Lisinopril/Hydrochlorothiazide (Lisinopril-Hctz 20-12.5 mg Tab) 20 Mg-12.5 Mg Tablet 1 EACH PO DAILY, #30 TAB 1 Refill . Prov: BLADIMIR SPENCE APRN 08/04/22 BLADIMIR SPENCE APRN Aug 04, 2022 17:10
[2022-08-04 17:15] LABS: BASOPHILS # (AUTO) 0.1 10^3/uL (0.0-0.1); BASOPHILS % (AUTO) 1 % (0-10); EOSINOPHILS # (AUTO) 0.2 10^3/uL (0.0-0.3); EOSINOPHILS % (AUTO) 1 % (0-10); HEMATOCRIT 44 % (35-52); HEMOGLOBIN 15.7 g/dL (11.5-16.0); LYMPHOCYTES # (AUTO) 4.2 10^3/uL (1.0-4.0); LYMPHOCYTES % (AUTO) 31 % (12-44); MEAN CORPUSCULAR HEMOGLOBIN 33 pg (25-34); MEAN CORPUSCULAR HGB CONC 36 g/dL (32-36); MEAN CORPUSCULAR VOLUME 93 fL (80-99); MEAN PLATELET VOLUME 11.6 fL (9.0-12.2); MONOCYTES # (AUTO) 1.1 10^3/uL (0.0-1.0); MONOCYTES % (AUTO) 8 % (0-12); NEUTROPHILS # (AUTO) 8.2 10^3/uL (1.8-7.8); NEUTROPHILS % (AUTO) 59 % (42-75); PLATELET COUNT 220 10^3/uL (130-400); WHITE BLOOD COUNT 13.9 10^3/uL (4.3-11.0)
--- NOTE | 2022-08-04 17:21 | Diagnostic Imaging Report ---
INDICATION: Chest pain. COMPARISON: 09/30/2021. TECHNIQUE: Single frontal radiograph of the chest dated 08/04/2022. FINDINGS: The cardiac silhouette is within normal limits in size. No significant pulmonary vascular congestion. The lungs are clear. No pleural effusion. No pneumothorax. Mild scattered osseous degenerative changes without acute osseous abnormality. IMPRESSION: Similar-appearing examination without acute cardiopulmonary abnormality. Dictated by: Dictated on workstation # [id number]
[2022-08-04 17:27] LABS: ALBUMIN 4.1 GM/DL (3.2-4.5); CHLORIDE 107 MMOL/L (98-107); POTASSIUM 3.2 MMOL/L (3.6-5.0); SODIUM 141 MMOL/L (135-145)
[2022-08-04 17:28] LABS: CALCIUM 9.4 MG/DL (8.5-10.1)
[2022-08-04 17:29] LABS: GLUCOSE 136 MG/DL (70-105); PROTHROMBIN TIME PATIENT 13.5 SEC (12.2-14.7); TOTAL PROTEIN 7.2 GM/DL (6.4-8.2)
[2022-08-04 17:30] LABS: CARBON DIOXIDE 25 MMOL/L (21-32)
[2022-08-04 17:31] LABS: BILIRUBIN,TOTAL 0.7 MG/DL (0.1-1.0)
[2022-08-04 17:33] LABS: ALKALINE PHOSPHATASE 81 U/L (40-136); CREATININE SERUM 0.74 MG/DL (0.60-1.30); GFR ESTIMATED 93
[2022-08-04 17:34] LABS: BUN/CREATININE RATIO 14
[2022-08-04 17:36] LABS: ALANINE AMINOTRANSFERASE 18 U/L (0-55); MAGNESIUM 1.8 MG/DL (1.6-2.4)
[2022-08-04] MEDS ORDERED: KETO10TA PO (18:03)
[2022-08-04] MEDS ORDERED: LISI1TAB46 PO (18:03)
[2022-08-04 18:11] VITALS: BP 162/102
== END 2022-08-04 18:10 | disposition home or self-care (01) ==
LOC: EDUNIT# 16:40 → ER 16:43
DX: I10 Essential (primary) hypertension (principal); D72.829 Elevated white blood cell count, unspecified; E87.6 Hypokalemia; F17.210 Nicotine dependence, cigarettes, uncomplicated; Z91.14 Patient's other noncompliance with medication regimen; Z91.040 Latex allergy status
CPT/HCPCS: 36415; 71045; 80053; 83735; 83874; 84484; 85025; 85610; 85730; 93005; 93041

== ENCOUNTER 2022-08-27 20:17 | Emergency (ER) | payer OTHER ==
[~2022-08-27 20:17] MED LIST changes: +KETO10TA PO
--- NOTE | 2022-08-27 20:33 | ED Chest Pain ---
General Chief Complaint: Chest Pain Stated Complaint: CHEST PAIN Nursing Triage Note: PT ARRIVAL TO ER [facility]IA [facility] FROM HOME WITH CHEST PAIN THAT LAST <1 HOUR. PAIN STARTED WHILE PUTTING AWAY GROCERIES. PATIENT DID TAKE NITRO AT HOME AND ALSO TOOK ASPIRIN VP [facility] WITH PAIN NOW GONE. PATIENT DOES STILL HAVE SOME ACHING IN LEFT SHOULDER. PAIN WAS AT 8/10 AT WORSE. PT DOES HAVE IV IN LEFT HAND BY EMS. PATIENT SEES DR. SEVILLA FOR CARDIO. Source: patient, old records Exam Limitations: no limitations History of Present Illness Date Seen by Provider: Aug 27, 2022 Time Seen by Provider: 20:18 Initial Comments This is 61-year-old woman presents to the emergency room via EMS after having an episode of chest pain at home while putting away groceries. She describes a sharp pain in the left chest. She took nitroglycerin which nearly resolved her pain. EMS administered aspirin and brought her to the emergency room. By the time my assessment she was denying any further chest pain. She does have known history of coronary artery disease as evidenced by angiography in 2019. 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 Patient makes it clear at the initiation of her visit that she will not be admitted to the hospital. Allergies and Home Medications Allergies Coded Allergies: Sulfa (Sulfonamide Antibiotics) (Unverified Allergy, Unknown, 05/26/18) latex (Unverified Allergy, Unknown, 05/26/18) loratadine (Unverified Allergy, Unknown, 05/26/18) mushroom (Unverified Allergy, Unknown, 05/25/18) pseudoephedrine (Unverified Allergy, Unknown, 05/26/18) sulfamethoxazole (Unverified Allergy, Unknown, 05/26/18) trimethoprim (Unverified Allergy, Unknown, 05/26/18) Patient Home Medication List Home Medication List Reviewed: Yes Aspirin (Aspirin) 81 Mg Tab.chew, 81 MG PO DAILY, (Reported) Entered as Reported by: MADDIE GROSS on 05/26/20 1442 Buspirone HCl (Buspirone HCl) 10 Mg Tablet, 10 MG PO BID, (Reported) Entered as Reported by: MADDIE GROSS on 05/26/20 1523 Cefuroxime Axetil (Cefuroxime) 250 Mg Tablet, 250 MG PO BID Prescribed by: HITESH HOLLOWAY on 09/30/212024 Cyclobenzaprine HCl (Cyclobenzaprine HCl) 10 Mg Tablet, (Reported) Entered as Reported by: STEPHANIE SEGOVIA on 06/24/221942 Diclofenac Sodium (Diclofenac Sodium) 75 Mg Tablet.dr, 75 MG PO BID Prescribed by: Ben Cole on 04/09/22 164 Fluticasone/Salmeterol (Advair 100-50 Diskus) 1 Each Blst.w.dev, 1 EACH IH DAILY, (Reported) Entered as Reported by: PRISCILLA BROWN on 03/05/19732 Gabapentin (Gabapentin) 100 Mg Capsule, (Reported) Entered as Reported by: STEPHANIE SEGOVIA on 06/24/221942 Hydrocodone/Acetaminophen (Hydrocodone-Acetamin 5-325 mg) 1 Each Tablet, 1 TAB PO Q4H PRN for PAIN-MODERATE (5-7) Prescribed by: HITESH HOLLOWAY on 01/08/21 1633 Hydrocodone/Acetaminophen (Hydrocodone-Acetamin 5-325 mg) 1 Each Tablet, 1 TAB PO Q4H PRN for PAIN-MODERATE (5-7) Prescribed by: HITESH HOLOLWAY on 07/06/21 1754 Hydrocodone/Acetaminophen (Hydrocodone-Acetamin 5-325 mg) 1 Each Tablet, 1 TAB PO Q4H PRN for PAIN-MODERATE (5-7) Prescribed by: HITESH HOLLOWAY on 07/23/21 191 Icosapent Ethyl (Vascepa) 1 Gm Capsule, 1 GM PO BID, (Reported) Entered as Reported by: MADDIE GROSS on 05/26/20 1523 Ketorolac Tromethamine (Ketorolac Tromethamine) 10 Mg Tablet, 10 MG PO Q6H Prescribed by: Bladimir Spence on 08/04/22 180 Lidocaine (Lidocaine 5% Patch) 5 % Adh..patch, 1 EACH TP Q12H PRN for Neuropathic pain Prescribed by: DEYSI MILLER on 05/25/222028 Lisinopril/Hydrochlorothiazide (Lisinopril-Hctz 20-12.5 mg Tab) 1 Each Tablet, 1 EACH PO DAILY, (Reported) Entered as Reported by: PRISCILLA BROWN on 03/05/19732 Lisinopril/Hydrochlorothiazide (Lisinopril-Hctz 20-12.5 mg Tab) 1 Each Tablet, 1 EACH PO DAILY Prescribed by: HITESH HOLLOWAY on 07/23/21 191 Lisinopril/Hydrochlorothiazide (Lisinopril-Hctz 20-12.5 mg Tab) 20 Mg-12.5 Mg Tablet, 1 EACH PO DAILY Prescribed by: Bladimir Spence on 08/04/221802 Meloxicam (Meloxicam) 15 Mg Tablet, 15 MG PO DAILY Prescribed by: DEYSI MILLER on 05/25/222028 Meloxicam (Meloxicam) 7.5 Mg Tablet, (Reported) Entered as Reported by: STEPHANIE SEGOVIA on 06/24/221942 Methocarbamol (Methocarbamol) 750 Mg Tablet, 750 MG PO DAILY, (Reported) Entered as Reported by: MADDIE GROSS on 05/26/20 152 Methocarbamol (Methocarbamol) 750 Mg Tablet, 750 MG PO Q6-8HR Prescribed by: HITESH HOLLOWAY on 04/14/21 141 Metoprolol Succinate (Toprol Xl) 50 Mg Tab.er.24h, 50 MG PO DAILY Prescribed by: HITESH HOLLOWAY on 12/24/21 173 Nitroglycerin (Nitroglycerin) 0.4 Mg Tab.subl, 0.4 MG SL UD PRN for CHEST PAIN (ANGINA), (Reported) Entered as Reported by: PRISCILLA BROWN on 03/05/19732 Orphenadrine Citrate (Orphenadrine Citrate) 100 Mg Tablet.er, 100 MG PO BID Prescribed by: DEYSI MILLER on 05/25/222028 Pantoprazole Sodium (Pantoprazole Sodium) 40 Mg Tablet.dr, 40 MG PO DAILY, (Reported) Entered as Reported by: PRISCILLA BROWN on 03/05/19732 Permethrin (Elimite) 60 Gm Cream..g., 60 GM TP ONCE Prescribed by: HITESH HOLLOWAY on 12/15/20 124 Pravastatin Sodium (Pravastatin Sodium) 10 Mg Tablet, 10 MG PO HS, (Reported) Entered as Reported by: PRISCILLA BROWN on 03/05/19732 Prednisone (Prednisone) 20 Mg Tab, 40 MG PO DAILY Prescribed by: HITESH HOLLOWAY on 12/15/20 124 Prednisone (Prednisone) 20 Mg Tab, 40 MG PO DAILY Prescribed by: HITESH HOLLOWAY on 04/14/21 141 Prednisone (Prednisone) 20 Mg Tab, 40 MG PO DAILY Prescribed by: HITESH HOLLOWAY on 09/30/212024 Ranolazine (Ranolazine ER) 500 Mg Tab.er.12h, 500 MG PO BID Prescribed by: JINA CUEVAS on 08/28/22 0049 Tramadol HCl (Ultram) 50 Mg Tablet, 50 MG PO Q6H PRN for PAIN-MODERATE (5-7) Prescribed by: HITESH HOLLOWAY on 12/15/20 1245 Tramadol HCl (Ultram) 50 Mg Tablet, 50 MG PO Q6H PRN for PAIN-MODERATE (5-7) Prescribed by: HITESH HOLLOWAY on 12/24/21 1732 Triamcinolone Acet (Triamcinolone Acetonide 0.1% Cream) 15 Gm Cr, 15 GM TP BID Prescribed by: HITESH HOLLOWAY on 01/08/21 1633 Review of Systems Review of Systems Constitutional: no symptoms reported EENTM: No Symptoms Reported Respiratory: No Symptoms Reported Cardiovascular: See HPI Gastrointestinal: No Symptoms Reported Genitourinary: No Symptoms Reported Musculoskeletal: no symptoms reported Skin: no symptoms reported Psychiatric/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: No Symptoms Reported Endocrine: No Symptoms Reported Hematologic/Lymphatic: No Symptoms Reported Past Vyxibak-Yujyvl-Kehojf Hx Patient Social History Tobacco Use?: No Use of E-Cig and/or Vaping dev: No Substance use?: No Alcohol Use?: No Pt feels they are or have been: No Immunizations Up To Date Influenza Vaccine Up-to-Date: No; Not Current First/Initial COVID19 Vaccinat: N/A Second COVID19 Vaccination Rusty: N/A Third COVID19 Vaccination Date: N/A Seasonal Allergies Seasonal Allergies: No Past Medical History Surgery/Hospitalization HX: htn, chronic lower back pain, bilateral breast bx, matthias, appy, hysto, tubal, henria, discectomy, c-sect x2, htn, gerd, depression Surgeries: Yes (LUMBAR DISCETOMY X 2-L2 /L5) Appendectomy, Cardiac (Angiography without intervention 2018), Section, Gallbladder, Hysterectomy, Lumpectomy, Orthopedic Respiratory: Yes COPD Currently Using CPAP: No Currently Using BIPAP: No Cardiac: Yes (CATH 03/05/19--TOTALLY OCCLUDED RCA/CHRONIC, NO INTERVENTION) Coronary Artery Disease, High Cholesterol, Hypertension 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 Genitourinary: No Gastrointestinal: Yes Gastroesophageal Reflux, Gall Bladder Disease Musculoskeletal: Yes (CHRONIC NECK PAIN; "BULGING DISCS" PER PT;CHRONIC SCIATICA) Degenerate Disk Disease, Chronic Back Pain Endocrine: Yes (STATES "HYPOGLYCEMIA") HEENT: No Cancer: No Psychosocial: Yes Sleep Difficulties, Anxiety, Depression Integumentary: No Blood Disorders: No Adverse Reaction/Blood Tranf: No Family Medical History Cardiovascular disease 19 MOTHER Cataracts Colon cancer 19 FATHER (UNKNOWN) G8 BROTHER G8 BROTHER G8 BROTHER G8 SISTER Congenital heart disease 19 MOTHER (UNKNOWN) Diabetes mellitus 19 MOTHER G8 BROTHER G8 BROTHER Infertility Kidney disease 19 MOTHER Osteoporosis G8 SISTER Physical Exam Vital Signs Vital Signs - First Documented 08/27/22 20:20 Temp 36.8 Pulse 85 Resp 18 B/P (MAP) 137/88 (104) Pulse Ox 98 O2 Delivery Room Air Capillary Refill : Less Than 3 Seconds Height, Weight, BMI Height: 5'4.00" Weight: 170lbs. 0.0oz. 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 Norm as Tested Skin: Normal Color, Warm/Dry Progress/Results/Core Measures Results/Orders Lab Results Laboratory Tests Test 08/27/22 20:28 08/27/22 23:34 Range/Units White Blood Count 12.7 H 4.3-11.0 10^3/uL Red Blood Count 4.48 3.80-5.11 10^6/uL Hemoglobin 14.8 11.5-16.0 g/dL Hematocrit 41 35-52 % Mean Corpuscular Volume 92 80-99 fL Mean Corpuscular Hemoglobin 33 25-34 pg Mean Corpuscular Hemoglobin Concent 36 32-36 g/dL Red Cell Distribution Width 12.0 10.0-14.5 % Platelet Count 203 130-400 10^3/uL Mean Platelet Volume 11.4 9.0-12.2 fL Immature Granulocyte % (Auto) 1 % Neutrophils (%) (Auto) 51 42-75 % Lymphocytes (%) (Auto) 35 12-44 % Monocytes (%) (Auto) 10 0-12 % Eosinophils (%) (Auto) 3 0-10 % Basophils (%) (Auto) 1 0-10 % Neutrophils # (Auto) 6.5 1.8-7.8 10^3/uL Lymphocytes # (Auto) 4.5 H 1.0-4.0 10^3/uL Monocytes # (Auto) 1.2 H 0.0-1.0 10^3/uL Eosinophils # (Auto) 0.3 0.0-0.3 10^3/uL Basophils # (Auto) 0.1 0.0-0.1 10^3/uL Immature Granulocyte # (Auto) 0.1 0.0-0.1 10^3/uL Prothrombin Time 12.8 12.2-14.7 SEC INR Comment 0.9 0.8-1.4 Activated Partial Thromboplast Time 26 24-35 SEC Sodium Level 137 135-145 MMOL/L Potassium Level 3.4 L 3.6-5.0 MMOL/L Chloride Level 104 98-107 MMOL/L Carbon Dioxide Level 22 21-32 MMOL/L Anion Gap 11 5-14 MMOL/L Blood Urea Nitrogen 12 7-18 MG/DL Creatinine 0.92 0.60-1.30 MG/DL Estimat Glomerular Filtration Rate 71 BUN/Creatinine Ratio 13 Glucose Level 191 H 70-105 MG/DL Calcium Level 8.9 8.5-10.1 MG/DL Corrected Calcium 9.1 8.5-10.1 MG/DL Magnesium Level 1.7 1.6-2.4 MG/DL Total Bilirubin 0.2 0.1-1.0 MG/DL Aspartate Amino Transf (AST/SGOT) 15 5-34 U/L Alanine Aminotransferase (ALT/SGPT) 15 0-55 U/L Alkaline Phosphatase 79 40-136 U/L Myoglobin 62.1 10.0-92.0 NG/ML Troponin I < 0.028 0.030 H <0.028 NG/ML Total Protein 6.6 6.4-8.2 GM/DL Albumin 3.7 3.2-4.5 GM/DL My Orders Orders - JINA JONES MD Ekg Tracing (08/27/22 20:19) Cbc With Automated Diff (08/27/22:) Magnesium (08/27/22) Chest 1 View, Ap/Pa Only (08/27/22:) Comprehensive Metabolic Panel (08/27/22) Myoglobin Serum (08/27/22) Protime With Inr (08/27/22) Partial Thromboplastin Time (08/27/22) O2 (08/27/22) Monitor-Rhythm Ecg Trace Only (08/27/22) Ed Iv/Invasive Line Start (08/27/22) Troponin I Rajni (08/27/22:) Troponin I Hemphill (08/27/22 23:30) Ekg Tracing (08/28/22 00:11) Ranolazine Er Tablet (Ranexa Er Tablet) (08/28/22 00:45) Medications Given in ED Current Medications Medications Dose Ordered Sig/Marika Route Start Time Stop Time Status Last Admin Dose Admin Ranolazine 500 mg ONCE ONCE PO 08/28/22 00:45 08/28/22 00:46 DC 08/28/22 01:02 500 MG Vital Signs/I&O 08/27/22 08/28/22 20:20 01:02 Temp 36.8 Pulse 85 79 Resp 18 16 B/P (MAP) 137/88 (104) 136/89 Pulse Ox 98 95 O2 Delivery Room Air Room Air Blood Pressure Mean: 104 Progress Progress Note : Progress Note Initial work-up was unremarkable. Patient had no further chest pain throughout her ER stay. She again made it clear that she would not be admitted to the hospital. Repeat troponin was obtained and was 0.03. This was discussed with Dr. Chapa. This was determined to be a negligible change at the 4-hour juan daniel. He recommended starting her on Ranexa. Since patient had no chest pain during her ER visit and she expressed a refusal for admission, she was discharged with instructions for close outpatient follow-up and return to the ER if chest pain returned. See discharge instructions for further discussion. Initial ECG Impression Date: Aug 27, 2022 Initial ECG Impression Time: 20:28 Initial ECG Rate: 81 Initial ECG Rhythm: Normal Sinus Comment Sinus rhythm with no ST elevation or depression. LVH noted. No abnormal intervals or axis deviation. Artifact present. EKG compared with prior and similar. EKG : EKG Time: 00:18 Rate: 75 Rhythm: Normal Sinus Comment Normal sinus rhythm with no ST elevation or depression. LVH noted. No abnormal intervals. Similar to prior today and on previous encounter. Diagnostic Imaging Diagonstic Imaging: Xray Plain Films/CT/US/NM/MRI: chest Comments NAME: [facility] REC#: [id number] PT STATUS: REG ER : 1960 PHYSICIAN: JINA JONES MD ADMIT DATE: 08/27/22/ER Signed Date of Exam:08/27/22 CHEST 1 VIEW, AP/PA ONLY INDICATION: Chest pain. COMPARISON: 08/04/2022. FINDINGS: Lungs are clear. Cardiomediastinal and hilar contours stable. There is no failure, effusion or pneumothorax. IMPRESSION: Stable chest. Dictated by: Dictated on workstation # [id number] Dict: 08/27/222054 Trans: 08/27/222125 [facility] [id number] Interpreted by: SAILAJA DOMINGUEZ Electronically signed by: SAILAJA DOMINGUEZ 08/27/222125 Departure Impression Primary Impression: Chest pain Qualified Codes: R07.9 - Chest pain, unspecified Disposition: 01 HOME, SELF-CARE Condition: Improved Departure-Patient Inst. Decision time for Depature: 00:46 Referrals: ANDREAS STEARNS DO (PCP/Family) Primary Care Physician Patient Instructions: Chest Pain Add. Discharge Instructions: It is very important that you follow-up with Dr. Sevilla as soon as possible. Please call his office in the morning to arrange follow-up. It is also very important that you return to the emergency room promptly if you have any further episodes of chest pain. Do not take any nitroglycerin while on the ranolazine unless otherwise instructed by Dr. Sevilla. Otherwise continue taking your medications as previously prescribed. Return to the emergency room if you have recurrent episodes of chest pain or other worsening symptoms such as shortness of breath, lightheadedness, etc. All discharge instructions reviewed with patient and/or family. Voiced understanding. Scripts Ranolazine (Ranolazine ER) 500 Mg Tab.er.12h 500 MG PO BID, #30 TAB Prov: JINA JONES MD 08/28/22 Copy Copies To 1: HARPREET SEVILLA MD Copies To 2: ANDREAS STEARNS JOSHUA T MD Aug 27, 2022 20:33
[2022-08-27 20:36] LABS: BASOPHILS # (AUTO) 0.1 10^3/uL (0.0-0.1); BASOPHILS % (AUTO) 1 % (0-10); EOSINOPHILS # (AUTO) 0.3 10^3/uL (0.0-0.3); EOSINOPHILS % (AUTO) 3 % (0-10); HEMATOCRIT 41 % (35-52); HEMOGLOBIN 14.8 g/dL (11.5-16.0); LYMPHOCYTES # (AUTO) 4.5 10^3/uL (1.0-4.0); LYMPHOCYTES % (AUTO) 35 % (12-44); MEAN CORPUSCULAR HEMOGLOBIN 33 pg (25-34); MEAN CORPUSCULAR HGB CONC 36 g/dL (32-36); MEAN CORPUSCULAR VOLUME 92 fL (80-99); MEAN PLATELET VOLUME 11.4 fL (9.0-12.2); MONOCYTES # (AUTO) 1.2 10^3/uL (0.0-1.0); MONOCYTES % (AUTO) 10 % (0-12); NEUTROPHILS # (AUTO) 6.5 10^3/uL (1.8-7.8); NEUTROPHILS % (AUTO) 51 % (42-75); PLATELET COUNT 203 10^3/uL (130-400); WHITE BLOOD COUNT 12.7 10^3/uL (4.3-11.0)
--- NOTE | 2022-08-27 20:58 | Diagnostic Imaging Report ---
INDICATION: Chest pain. COMPARISON: 08/04/2022. FINDINGS: Lungs are clear. Cardiomediastinal and hilar contours stable. There is no failure, effusion or pneumothorax. IMPRESSION: Stable chest. Dictated by: Dictated on workstation # [id number]
[2022-08-27 21:16] LABS: ALBUMIN 3.7 GM/DL (3.2-4.5); POTASSIUM 3.4 MMOL/L (3.6-5.0)
[2022-08-27 21:17] LABS: CALCIUM 8.9 MG/DL (8.5-10.1)
[2022-08-27 21:19] LABS: INR 0.9 (0.8-1.4); PROTHROMBIN TIME PATIENT 12.8 SEC (12.2-14.7); TOTAL PROTEIN 6.6 GM/DL (6.4-8.2)
[2022-08-27 21:20] LABS: BILIRUBIN,TOTAL 0.2 MG/DL (0.1-1.0)
[2022-08-27 21:22] LABS: CREATININE SERUM 0.92 MG/DL (0.60-1.30)
[2022-08-27 21:25] LABS: MAGNESIUM 1.7 MG/DL (1.6-2.4)
[2022-08-28] MEDS ORDERED: RANOLAZINE ER 500 MG TAB (RANEXA) PO ONE (00:45)
[2022-08-28] MEDS ORDERED: RANO500T6 PO (00:49)
[2022-08-28 01:02] VITALS: BP 136/89
== END 2022-08-28 01:02 | disposition home or self-care (01) ==
LOC: EDUNIT# 20:17 → ER 20:18
DX: R07.89 Other chest pain (principal); Z91.040 Latex allergy status; Z28.310 Unvaccinated for COVID-19
CPT/HCPCS: 36415; 71045; 80053; 83735; 83874; 84484; 85025; 85610; 85730; 93005; 93041

== ENCOUNTER → 2022-08-29 | Outpatient (CLI) | payer OTHER ==
[~2022-08-29] MED LIST changes: +RANO500T6 PO
== END ==
LOC: CARD 09:15
PROVIDERS: ATTEND Internal Medicine Cardiovascular Disease
DX: I11.9 Hypertensive heart disease without heart failure (principal)
CPT/HCPCS: 93306

== ENCOUNTER 2022-10-26 15:44 | Emergency (ER) | payer OTHER ==
[~2022-10-26] VITALS: Ht 162 cm; Wt 74.0 kg
[2022-10-26 15:50] VITALS: BP 119/86
[2022-10-26] MEDS ORDERED: HYDROcodone/APAP 5 MG/325 MG (LORTAB) TAB PO ONE (16:15)
[2022-10-26] MEDS ORDERED: ONDANSETRON 4 MG (ZOFRAN) ORAL DISSOLVE TAB PO ONE (16:15)
--- NOTE | 2022-10-26 16:23 | ED Fall/Injury ---
General Chief Complaint: Trauma-Non Activation Stated Complaint: FALL - HIT HEAD,NECK PAIN,BACK PAIN Nursing Triage Note: Patient ambulates to ER w c/o neck upper back pain. Patient fell over grandkid and hit the bed on Sunday ([id number]). pt denies hitting head or LOC. Source: patient Exam Limitations: no limitations History of Present Illness Date Seen by Provider: Oct 26, 2022 Time Seen by Provider: 15:50 Initial Comments History obtained from patient. Patient is a 62-year-old female who presents to the emergency department for evaluation of right shoulder pain and posterior neck pain that began on Sunday when she had a mechanical fall at home and struck her nightstand. Patient states she accidentally tripped over her grandchild causing the fall. She states she has been taking ibuprofen and applying heat and ice to the area without significant improvement. She denies hitting her head or loss of consciousness. States she has not had any repeated vomiting. States the pain is progressively worsened since that time. States that she is having difficulty sleeping. Allergies and Home Medications Allergies Coded Allergies: Sulfa (Sulfonamide Antibiotics) (Unverified Allergy, Unknown, 05/26/18) latex (Unverified Allergy, Unknown, 05/26/18) loratadine (Unverified Allergy, Unknown, 05/26/18) pseudoephedrine (Unverified Allergy, Unknown, 05/26/18) sulfamethoxazole (Unverified Allergy, Unknown, 05/26/18) trimethoprim (Unverified Allergy, Unknown, 05/26/18) Patient Home Medication List Home Medication List Reviewed: Yes Aspirin (Aspirin) 81 Mg Tab.chew, 81 MG PO DAILY, (Reported) Entered as Reported by: MADDIE GROSS on 05/26/20 1442 Buspirone HCl (Buspirone HCl) 10 Mg Tablet, 10 MG PO BID, (Reported) Entered as Reported by: MADDIE GROSS on 05/26/20 152 Cefuroxime Axetil (Cefuroxime) 250 Mg Tablet, 250 MG PO BID Prescribed by: HITESH HOLLOWAY on 09/30/212024 Cyclobenzaprine HCl (Cyclobenzaprine HCl) 10 Mg Tablet, (Reported) Entered as Reported by: STEPHANIE SEGOVIA on 06/24/221942 Diclofenac Sodium (Diclofenac Sodium) 75 Mg Tablet., 75 MG PO BID Prescribed by: Ben Cole on 04/09/22 1645 Fluticasone/Salmeterol (Advair 100-50 Diskus) 1 Each Blst.w.dev, 1 EACH IH DAILY, (Reported) Entered as Reported by: PRISCILLA BROWN on 03/05/19732 Gabapentin (Gabapentin) 100 Mg Capsule, (Reported) Entered as Reported by: STEPHANIE SEGOVIA on 06/24/22 194 Hydrocodone/Acetaminophen (Hydrocodone-Acetamin 5-325 mg) 1 Each Tablet, 1 TAB PO Q4H PRN for PAIN-MODERATE (5-7) Prescribed by: HITESH HOLLOWAY on 01/08/21 163 Hydrocodone/Acetaminophen (Hydrocodone-Acetamin 5-325 mg) 1 Each Tablet, 1 TAB PO Q4H PRN for PAIN-MODERATE (5-7) Prescribed by: HITESH HOLLOWAY on 07/06/21 1754 Hydrocodone/Acetaminophen (Hydrocodone-Acetamin 5-325 mg) 1 Each Tablet, 1 TAB PO Q4H PRN for PAIN-MODERATE (5-7) Prescribed by: HITESH HOLLOWAY on 07/23/211909 Icosapent Ethyl (Vascepa) 1 Gm Capsule, 1 GM PO BID, (Reported) Entered as Reported by: MADDIE GROSS on 05/26/20 152 Ketorolac Tromethamine (Ketorolac Tromethamine) 10 Mg Tablet, 10 MG PO Q6H Prescribed by: Bladimir Spence on 08/04/22 180 Lidocaine (Lidocaine 5% Patch) 5 % Adh..patch, 1 EACH TP Q12H PRN for Neuropathic pain Prescribed by: DEYSI MILLER on 05/25/222028 Lisinopril/Hydrochlorothiazide (Lisinopril-Hctz 20-12.5 mg Tab) 1 Each Tablet, 1 EACH PO DAILY, (Reported) Entered as Reported by: PRISCILLA BROWN on 03/05/19732 Lisinopril/Hydrochlorothiazide (Lisinopril-Hctz 20-12.5 mg Tab) 1 Each Tablet, 1 EACH PO DAILY Prescribed by: HITESH HOLLOWAY on 07/23/211909 Lisinopril/Hydrochlorothiazide (Lisinopril-Hctz 20-12.5 mg Tab) 20 Mg-12.5 Mg Tablet, 1 EACH PO DAILY Prescribed by: Bladimir Spence on 08/04/221802 Meloxicam (Meloxicam) 15 Mg Tablet, 15 MG PO DAILY Prescribed by: DEYSI MILLER on 05/25/222028 Meloxicam (Meloxicam) 7.5 Mg Tablet, (Reported) Entered as Reported by: STEPHANIE SEGOVIA on 06/24/221942 Methocarbamol (Methocarbamol) 750 Mg Tablet, 750 MG PO DAILY, (Reported) Entered as Reported by: MADDIE GROSS on 05/26/20 152 Methocarbamol (Methocarbamol) 750 Mg Tablet, 750 MG PO Q6-8HR Prescribed by: HITESH HOLLOWAY on 04/14/21 141 Metoprolol Succinate (Toprol Xl) 50 Mg Tab.er.24h, 50 MG PO DAILY Prescribed by: HITESH HOLLOWAY on 12/24/21 173 Nitroglycerin (Nitroglycerin) 0.4 Mg Tab.subl, 0.4 MG SL UD PRN for CHEST PAIN (ANGINA), (Reported) Entered as Reported by: PRISCILLA BROWN on 03/05/19732 Orphenadrine Citrate (Orphenadrine Citrate) 100 Mg Tablet.er, 100 MG PO BID Prescribed by: DEYSI MILLER on 05/25/222028 Pantoprazole Sodium (Pantoprazole Sodium) 40 Mg Tablet.dr, 40 MG PO DAILY, (Reported) Entered as Reported by: PRISCILLA BROWN on 03/05/19732 Permethrin (Elimite) 60 Gm Cream..g., 60 GM TP ONCE Prescribed by: HITESH HOLLOWAY on 12/15/20 124 Pravastatin Sodium (Pravastatin Sodium) 10 Mg Tablet, 10 MG PO HS, (Reported) Entered as Reported by: PRISCILLA BROWN on 03/05/19732 Prednisone (Prednisone) 20 Mg Tab, 40 MG PO DAILY Prescribed by: HITESH HOLLOWAY on 12/15/20 124 Prednisone (Prednisone) 20 Mg Tab, 40 MG PO DAILY Prescribed by: HITESH HOLLOWAY on 04/14/21 141 Prednisone (Prednisone) 20 Mg Tab, 40 MG PO DAILY Prescribed by: HITESH HOLLOWAY on 09/30/212024 Ranolazine (Ranolazine ER) 500 Mg Tab.er.12h, 500 MG PO BID Prescribed by: JINA CUEVAS on 08/28/22 0049 Tramadol HCl (Ultram) 50 Mg Tablet, 50 MG PO Q6H PRN for PAIN-MODERATE (5-7) Prescribed by: HITESH HOLLOWAY on 12/15/20 1245 Tramadol HCl (Ultram) 50 Mg Tablet, 50 MG PO Q6H PRN for PAIN-MODERATE (5-7) Prescribed by: HITESH HOLLOWAY on 12/24/21 1732 Triamcinolone Acet (Triamcinolone Acetonide 0.1% Cream) 15 Gm Cr, 15 GM TP BID Prescribed by: HITESH HOLLOWAY on 01/08/21 1633 Review of Systems Review of Systems Constitutional: no symptoms reported Eyes: No Symptoms Reported Ears, Nose, Mouth, Throat: no symptoms reported Respiratory: no symptoms reported Cardiovascular: no symptoms reported Gastrointestinal: no symptoms reported Genitourinary: no symptoms reported Musculoskeletal: no symptoms reported Skin: no symptoms reported Psychiatric/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: No Symptoms Reported Past Jxszzff-Amrebf-Malomn Hx Patient Social History Tobacco Use?: Yes Smoking Status: Current Everyday Smoker Substance use?: No Alcohol Use?: No Pt feels they are or have been: No Immunizations Up To Date First/Initial COVID19 Vaccinat: N/A Second COVID19 Vaccination Rusty: N/A Third COVID19 Vaccination Date: N/A Seasonal Allergies Seasonal Allergies: No Past Medical History Surgery/Hospitalization HX: htn, chronic lower back pain, bilateral breast bx, matthias, appy, hysto, tubal, henria, discectomy, c-sect x2, htn, gerd, depression Surgeries: Yes (LUMBAR DISCETOMY X 2-L2 /L5) Appendectomy, Cardiac, Section, Gallbladder, Hysterectomy, Lumpectomy, Orthopedic Respiratory: Yes COPD Currently Using CPAP: No Currently Using BIPAP: No Cardiac: Yes (CATH 03/05/19--TOTALLY OCCLUDED RCA/CHRONIC, NO INTERVENTION) Coronary Artery Disease, High Cholesterol, Hypertension 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 Genitourinary: No Gastrointestinal: Yes Gastroesophageal Reflux, Gall Bladder Disease Musculoskeletal: Yes (CHRONIC NECK PAIN; "BULGING DISCS" PER PT;CHRONIC SCIATICA) Degenerate Disk Disease, Chronic Back Pain Endocrine: Yes (STATES "HYPOGLYCEMIA") HEENT: No Cancer: No Psychosocial: Yes Sleep Difficulties, Anxiety, Depression Integumentary: No Blood Disorders: No Adverse Reaction/Blood Tranf: No Family Medical History Cardiovascular disease 19 MOTHER Cataracts Colon cancer 19 FATHER (UNKNOWN) G8 BROTHER G8 BROTHER G8 BROTHER G8 SISTER Congenital heart disease 19 MOTHER (UNKNOWN) Diabetes mellitus 19 MOTHER G8 BROTHER G8 BROTHER Infertility Kidney disease 19 MOTHER Osteoporosis G8 SISTER Physical Exam Vital Signs Vital Signs - First Documented 10/26/22 15:50 Temp 36.7 Pulse 99 Resp 16 B/P (MAP) 119/86 (97) Pulse Ox 97 Capillary Refill : Less Than 3 Seconds Height, Weight, BMI Height: 5'4.00" Weight: 170lbs. 0.0oz. 77.332200nk; 27.00 BMI Method:Stated General Appearance: WD/WN, no apparent distress HEENT: PERRL/EOMI, normal ENT inspection, TMs normal, pharynx normal Neck: non-tender, full range of motion, supple, normal inspection Cardiovascular: regular rate, rhythm Respiratory: chest non-tender, lungs clear, normal breath sounds, no respiratory distress, no accessory muscle use Gastrointestinal: normal bowel sounds, non tender, soft Neurologic/Psychiatric: no motor/sensory deficits, alert, normal mood/affect, oriented x 3 Skin: normal color, warm/dry Decreased range of motion of the right shoulder due to pain, tenderness to palpation in the midline cervical spine [place] Coma Score Best Eye Response: (4) Open Spontaneously Best Verbal Response: (5) Oriented Best Motor Response: (6) Obeys Commands [place] Total: 15 Progress/Results/Core Measures Results/Orders My Orders Orders - BLADIMIR SPENCE APRN Shoulder, Right, 3 Views (10/26/22 16:07) Ct Cervical Spine Wo (10/26/22 16:07) Ondansetron Oral Dissolve Tab (Zofran (10/26/22 16:15) Hydrocodone/Apap 5/325 Tablet (Lortab 5 (10/26/22 16:15) Medications Given in ED Current Medications Medications Dose Ordered Sig/Marika Route Start Time Stop Time Status Last Admin Dose Admin Acetaminophen/ Hydrocodone Bitart 1 ea ONCE ONCE PO 10/26/22 16:15 10/26/22 16:16 DC 10/26/22 16:19 1 EA Ondansetron HCl 4 mg ONCE ONCE PO 10/26/22 16:15 10/26/22 16:16 DC 10/26/22 16:19 4 MG Vital Signs/I&O 10/26/22 15:50 Temp 36.7 Pulse 99 Resp 16 B/P (MAP) 119/86 (97) Pulse Ox 97 Blood Pressure Mean: 97 Progress Progress Note : Progress Note Patient is nontoxic and well-hydrated on exam. Patient was ambulatory to the room. No focal neurologic deficits appreciated. No obvious deformity noted to the right shoulder. Orders placed for right shoulder x-rays and cervical spine CT. Order for ODT Zofran and Lortab also placed. X-rays of the right shoulder and CT of the cervical spine are both negative for acute findings. Discussed supportive care and anticipatory guidance. Follow-up with PCP. Return precautions for urgent symptomology discussed. Patient verbalized understanding. Departure Impression Primary Impression: Contusion of right shoulder Qualified Codes: S40.011A - Contusion of right shoulder, initial encounter Additional Impression: Cervical strain Qualified Codes: S16.1XXA - Strain of muscle, fascia and tendon at neck level, initial encounter Disposition: 01 HOME, SELF-CARE Condition: Stable Departure-Patient Inst. Decision time for Depature: 17:15 Referrals: ANDREAS STEARNS DO (PCP/Family) Primary Care Physician Patient Instructions: Shoulder Pain ED, Neck Pain ED Scripts Hydrocodone Bit/Acetaminophen (HYDROcodone/APAP 5 MG/325 MG TAB) 1 Tab Tab 1 TAB PO Q4H PRN for PAIN-MODERATE (5-7) for 3 Days, #18 TAB 0 Refills Prov: BLADIMIR SPENCE APRN 10/26/22 BLADIMIR SPENCE APRN Oct 26, 2022 16:23
--- NOTE | 2022-10-26 16:49 | Diagnostic Imaging Report ---
PROCEDURE: CT cervical spine without contrast. TECHNIQUE: Multiple contiguous axial images were obtained through the cervical spine without the use of intravenous contrast. Sagittal and coronal reformations were then performed. Auto Exposure Controls were utilized during the CT exam to meet ALARA standards for radiation dose reduction. INDICATION: Patient had a fall three days ago with neck and shoulder pain. COMPARISON: Exam is compared with cervical CT 12/24/2021. FINDINGS: Incidental arachnoid granulations in the occiput near the midline, stable and chronic. The central skull base appeared intact. Craniocervical relationship is normally aligned. Cervical statures are within normal limits. There is no fracture or traumatic malalignment. No paravertebral hemorrhage. There are carotid atherosclerotic vascular calcifications. No traumatic deformity to the hyoid or tracheal cartilage. There are degenerative changes to the discs, endplates, facets, and uncovertebral joints throughout the cervical spine, most severe at C6-C7 where there are [id number] chronic bony canal and greater than left foraminal stenoses. IMPRESSION: Stable chronic degenerative disease without fracture or traumatic malalignment. Dictated by: Dictated on workstation # [id number]
--- NOTE | 2022-10-26 16:51 | Diagnostic Imaging Report ---
INDICATION: Pain after a fall. FINDINGS: Three-view right shoulder demonstrates acromioclavicular arthritis without joint separation. The clavicle appeared intact. There are mild degenerative changes at the glenohumeral joint with an incidental bone island in the humeral head. There is no fracture. There is no acute appearing abnormality. IMPRESSION: No acute appearing abnormality. Dictated by: Dictated on workstation # [id number]
[2022-10-26] MEDS ORDERED: ACHD5005 PO (17:20)
== END 2022-10-26 17:12 | disposition home or self-care (01) ==
LOC: EDUNIT# 15:44 → ER 15:46
DX: S16.1XXA Strain of muscle, fascia and tendon at neck level, initial encounter (principal); S40.011A Contusion of right shoulder, initial encounter; F17.200 Nicotine dependence, unspecified, uncomplicated; Z91.040 Latex allergy status; Z28.310 Unvaccinated for COVID-19; W01.198A Fall on same level from slipping, tripping and stumbling with subsequent striking against other object, initial encounter; Y92.009 Unspecified place in unspecified non-institutional (private) residence as the place of occurrence of the external cause
CPT/HCPCS: 72125; 73030; 99283

== ENCOUNTER 2022-12-05 15:37 | Emergency (ER) | payer OTHER ==
[~2022-12-05] VITALS: Ht 162.5 cm; Wt 73.6 kg
[2022-12-05] MEDS ORDERED: HYDROcodone/APAP 7.5 MG/325 MG (LORTAB, LORCET PLUS) TABLET PO STA (16:03)
--- NOTE | 2022-12-05 16:09 | ED Back Pain ---
General Chief Complaint: Back Problems Stated Complaint: BACK PAIN Source of Information: Patient Exam Limitations: No Limitations (GISSEL ALVAREZ) History of Present Illness Date Seen by Provider: Dec 05, 2022 Time Seen by Provider: 16:04 Initial Comments Patient is a 62-year-old female with a history of chronic low back pain with sciatica who presents ED with low back pain. This started yesterday evening as she went outside to help her daughter with a flat tire. When she walked to the vehicle started having increasing pain to her lower back with sharp shooting pa in bilateral lower extremities and to the heels. She states that she did not trip or fall. Having difficulty walking she states she has chronic low back pain and is scheduled for surgery by Dr. Montez at [facility]. She was supposed to have surgery earlier but was not able to do so secondary to insurance issues. She denies of any bowel or urine incontinence, saddle paresthesia, lower extremity weakness. Similar type pain with exacerbation today. She took Advil without much improvement. She took cyclobenzaprine last night. (GISSEL ALVAREZ) Allergies and Home Medications Allergies Coded Allergies: Sulfa (Sulfonamide Antibiotics) (Unverified Allergy, Unknown, 05/26/18) latex (Unverified Allergy, Unknown, 05/26/18) loratadine (Unverified Allergy, Unknown, 05/26/18) pseudoephedrine (Unverified Allergy, Unknown, 05/26/18) sulfamethoxazole (Unverified Allergy, Unknown, 05/26/18) trimethoprim (Unverified Allergy, Unknown, 05/26/18) Patient Home Medication List Home Medication List Reviewed: Yes (GISSEL ALVAREZ) Aspirin (Aspirin) 81 Mg Tab.chew, 81 MG PO DAILY, (Reported) Entered as Reported by: MADDIE GROSS on 05/26/20 1442 Buspirone HCl (Buspirone HCl) 10 Mg Tablet, 10 MG PO BID, (Reported) Entered as Reported by: MADDIE GROSS on 05/26/20 1523 Cefuroxime Axetil (Cefuroxime) 250 Mg Tablet, 250 MG PO BID Prescribed by: HITESH HOLLOWAY on 09/30/212024 Cyclobenzaprine HCl (Cyclobenzaprine HCl) 10 Mg Tablet, (Reported) Entered as Reported by: STEPHANIE SEGOVIA on 06/24/221942 Diclofenac Sodium (Diclofenac Sodium) 75 Mg Tablet.dr, 75 MG PO BID Prescribed by: Ben Cole on 04/09/22 1645 Fluticasone/Salmeterol (Advair 100-50 Diskus) 1 Each Blst.w.dev, 1 EACH IH DAILY, (Reported) Entered as Reported by: PRISCILLA BROWN on 03/05/19 0733 Gabapentin (Gabapentin) 100 Mg Capsule, (Reported) Entered as Reported by: STEPHANIE SEGOVIA on 06/24/221942 Hydrocodone Bit/Acetaminophen (HYDROcodone/APAP 5 MG/325 MG TAB) 1 Tab Tab, 1 TAB PO Q4H PRN for PAIN-MODERATE (5-7) Prescribed by: Bladimir Spence on 10/26/22 1720 Hydrocodone/Acetaminophen (Hydrocodone-Acetamin 5-325 mg) 1 Each Tablet, 1 TAB PO Q4H PRN for PAIN-MODERATE (5-7) Prescribed by: HITESH HOLLOWAY on 01/08/21 1633 Hydrocodone/Acetaminophen (Hydrocodone-Acetamin 5-325 mg) 1 Each Tablet, 1 TAB PO Q4H PRN for PAIN-MODERATE (5-7) Prescribed by: HITESH HOLLOWAY on 07/06/21 1754 Hydrocodone/Acetaminophen (Hydrocodone-Acetamin 5-325 mg) 1 Each Tablet, 1 TAB PO Q4H PRN for PAIN-MODERATE (5-7) Prescribed by: HITESH HOLLOWAY on 07/23/21 1910 Hydrocodone/Acetaminophen (Hydrocodone-Acetamin 5-325 mg) 5 Mg-325 Mg Tablet, 1 TAB PO Q4H PRN for PAIN-MODERATE (5-7) Prescribed by: CARMEN MOSQUERA on 12/05/22 1610 Icosapent Ethyl (Vascepa) 1 Gm Capsule, 1 GM PO BID, (Reported) Entered as Reported by: MADDIE GROSS on 05/26/20 1523 Ketorolac Tromethamine (Ketorolac Tromethamine) 10 Mg Tablet, 10 MG PO Q6H Prescribed by: Bladimir Spence on 08/04/22 1803 Lidocaine (Lidocaine 5% Patch) 5 % Adh..patch, 1 EACH TP Q12H PRN for Neuropathic pain Prescribed by: DEYSI MILLER on 05/25/222028 Lisinopril/Hydrochlorothiazide (Lisinopril-Hctz 20-12.5 mg Tab) 1 Each Tablet, 1 EACH PO DAILY, (Reported) Entered as Reported by: PRISCILLA BROWN on 03/05/19732 Lisinopril/Hydrochlorothiazide (Lisinopril-Hctz 20-12.5 mg Tab) 1 Each Tablet, 1 EACH PO DAILY Prescribed by: HITESH HOLLOWAY on 07/23/211909 Lisinopril/Hydrochlorothiazide (Lisinopril-Hctz 20-12.5 mg Tab) 20 Mg-12.5 Mg Tablet, 1 EACH PO DAILY Prescribed by: Bladimir Spence on 08/04/221802 Meloxicam (Meloxicam) 15 Mg Tablet, 15 MG PO DAILY Prescribed by: DEYSI MILLER on 05/25/222028 Meloxicam (Meloxicam) 7.5 Mg Tablet, (Reported) Entered as Reported by: STEPHANIE SEGOVIA on 06/24/221942 Methocarbamol (Methocarbamol) 750 Mg Tablet, 750 MG PO DAILY, (Reported) Entered as Reported by: MADDIE GROSS on 05/26/20 1523 Methocarbamol (Methocarbamol) 750 Mg Tablet, 750 MG PO Q6-8HR Prescribed by: HITESH HOLLOWAY on 04/14/21 1416 Methylprednisolone (Methylprednisolone Dose Pack) 4 Mg Tab.ds.pk, 4 MG PO UD Prescribed by: CARMEN MOSQUERA on 12/05/22 1610 Metoprolol Succinate (Toprol Xl) 50 Mg Tab.er.24h, 50 MG PO DAILY Prescribed by: HITESH HOLLOWAY on 12/24/21 1731 Nitroglycerin (Nitroglycerin) 0.4 Mg Tab.subl, 0.4 MG SL UD PRN for CHEST PAIN (ANGINA), (Reported) Entered as Reported by: PRISCILLA BROWN on 03/05/19732 Orphenadrine Citrate (Orphenadrine Citrate) 100 Mg Tablet.er, 100 MG PO BID Prescribed by: DEYSI MILLER on 05/25/222028 Pantoprazole Sodium (Pantoprazole Sodium) 40 Mg Tablet.dr, 40 MG PO DAILY, (Reported) Entered as Reported by: PRISCILLA BROWN on 03/05/19 0733 Permethrin (Elimite) 60 Gm Cream..g., 60 GM TP ONCE Prescribed by: HITESH HOLLOWAY on 12/15/20 1242 Pravastatin Sodium (Pravastatin Sodium) 10 Mg Tablet, 10 MG PO HS, (Reported) Entered as Reported by: PRISCILLA BROWN on 03/05/19 0733 Prednisone (Prednisone) 20 Mg Tab, 40 MG PO DAILY Prescribed by: HITESH HOLLOWAY on 12/15/20 1242 Prednisone (Prednisone) 20 Mg Tab, 40 MG PO DAILY Prescribed by: HITESH HOLLOWAY on 04/14/21 1416 Prednisone (Prednisone) 20 Mg Tab, 40 MG PO DAILY Prescribed by: HITESH HOLLOWAY on 09/30/212024 Ranolazine (Ranolazine ER) 500 Mg Tab.er.12h, 500 MG PO BID Prescribed by: JINA CUEVAS on 08/28/22 0049 Tramadol HCl (Ultram) 50 Mg Tablet, 50 MG PO Q6H PRN for PAIN-MODERATE (5-7) Prescribed by: HITESH HOLLOWAY on 12/15/20 1245 Tramadol HCl (Ultram) 50 Mg Tablet, 50 MG PO Q6H PRN for PAIN-MODERATE (5-7) Prescribed by: HITESH HOLLOWAY on 12/24/21 1732 Triamcinolone Acet (Triamcinolone Acetonide 0.1% Cream) 15 Gm Cr, 15 GM TP BID Prescribed by: HITESH HOLLOWAY on 01/08/21 1633 Review of Systems Constitutional: No chills, No diaphoresis, No weakness EENTM: No blurred vision, No double vision Respiratory: No cough Cardiovascular: No chest pain Gastrointestinal: No abdominal pain, No diarrhea, No nausea, No vomiting Genitourinary: No decreased output, No discharge Musculoskeletal: back pain; No gout; joint pain; No joint swelling, No muscle pain Skin: No change in color, No change in hair/nails (GISSEL ALVAREZ) All Other Systems Reviewed Negative Unless Noted: Yes (GISSEL ALVAREZ) Past Tixbrkz-Vokyau-Gnwouo Hx Immunizations Up To Date First/Initial COVID19 Vaccinat: N/A Second COVID19 Vaccination Rusty: N/A Third COVID19 Vaccination Date: N/A (GISSEL ALVAREZ) Seasonal Allergies Seasonal Allergies: No (GISSEL ALVAREZ) Past Medical History Surgery/Hospitalization HX: htn, chronic lower back pain, bilateral breast bx, matthias, appy, hysto, tubal, henria, discectomy, c-sect x2, htn, gerd, depression Surgeries: Yes (LUMBAR DISCETOMY X 2-L2 /L5) Appendectomy, Cardiac, Section, Gallbladder, Hysterectomy, Lumpectomy, Orthopedic Respiratory: Yes COPD Currently Using CPAP: No Currently Using BIPAP: No Cardiac: Yes (CATH 03/05/19--TOTALLY OCCLUDED RCA/CHRONIC, NO INTERVENTION) Coronary Artery Disease, High Cholesterol, Hypertension 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 Genitourinary: No Gastrointestinal: Yes Gastroesophageal Reflux, Gall Bladder Disease Musculoskeletal: Yes (CHRONIC NECK PAIN; "BULGING DISCS" PER PT;CHRONIC SCIATICA) Degenerate Disk Disease, Chronic Back Pain Endocrine: Yes (STATES "HYPOGLYCEMIA") HEENT: No Cancer: No Psychosocial: Yes Sleep Difficulties, Anxiety, Depression Integumentary: No Blood Disorders: No Adverse Reaction/Blood Tranf: No (GISSEL ALVAREZ) Family Medical History Cardiovascular disease 19 MOTHER Cataracts Colon cancer 19 FATHER (UNKNOWN) G8 BROTHER G8 BROTHER G8 BROTHER G8 SISTER Congenital heart disease 19 MOTHER (UNKNOWN) Diabetes mellitus 19 MOTHER G8 BROTHER G8 BROTHER Infertility Kidney disease 19 MOTHER Osteoporosis G8 SISTER Physical Exam Vital Signs Vital Signs - First Documented 12/05/22 15:51 Temp 36.7 Pulse 95 Resp 20 B/P (MAP) 134/81 (98) Pulse Ox 95 O2 Delivery Room Air (JINA JONES MD) Vital Signs Capillary Refill : (GISSEL ALVAREZ) Height, Weight, BMI Height: 5'4.00" Weight: 170lbs. 0.0oz. 77.235661yt; 28.00 BMI Method:Stated General Appearance: No Apparent Distress, WD/WN HEENT: PERRL/EOMI, TMs Normal, Normal ENT Inspection, Pharynx Normal Neck: Full Range of Motion, Normal Inspection, Non Tender Cardiovascular: Regular Rate, Rhythm, No Edema, No Gallop, No JVD, No Murmur Respiratory: Chest Non Tender, Lungs Clear, Normal Breath Sounds, No Accessory Muscle Use, No Respiratory Distress Gastrointestinal: Normal Bowel Sounds, No Organomegaly, No Pulsatile Mass, Non Tender, Soft Back: Vertebral Tenderness (Lumbar midline tenderness. Bilateral lumbar paraspinal muscle tenderness. 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 Norm as Tested Skin: Normal Color, Warm/Dry (GISSEL ALVAREZ) Progress/Results/Core Measures Results/Orders Medications Given in ED Current Medications Medications Dose Ordered Sig/Marika Route Start Time Stop Time Status Last Admin Dose Admin Ketorolac Tromethamine 30 mg ONCE ONCE IM 12/05/22 16:15 12/05/22 16:16 DC 12/05/22 16:17 30 MG Orphenadrine Citrate 60 mg ONCE ONCE IM 12/05/22 16:15 12/05/22 16:16 DC 12/05/22 16:17 60 MG (JINA JONES MD) Vital Signs/I&O 12/05/22 12/05/22 15:51 16:54 Temp 36.7 Pulse 95 89 Resp 20 B/P (MAP) 134/81 (98) 115/88 Pulse Ox 95 94 O2 Delivery Room Air Room Air (JINA JONES MD) Departure Communication (PCP) History of chronic low back pain. Similar type pain located in her lower back bilateral lumbar paraspinal muscle with shooting pain into bilateral lower extremities. History of sciatica. she has no neurological red flag findings such as bowel or urine incontinence, saddle paresthesia, lower extremity weakness. She does not appear toxic or septic but does appear in pain. Was given dose of Toradol, Norflex and a dose of [place] with improvement of pain. No falls suggesting potential fracture. She is scheduled to follow-up with neurosurgeon. No new injuries. She will be discharged with strict follow-up. Recommend Advil. We will add on Medrol Dosepak few days worth of hydrocodone as needed. Return precaution were discussed with patient. (GISSEL ALVAREZ) Impression Primary Impression: Low back pain Disposition: 01 HOME, SELF-CARE Condition: Stable Departure-Patient Inst. Decision time for Depature: 16:08 (GISSEL ALVAREZ) Referrals: ANDREAS STEARNS DO (PCP/Family) Primary Care Physician Patient Instructions: Low Back Pain in Adults Scripts Methylprednisolone (Methylprednisolone Dose Pack) 4 Mg Tab.ds.pk 4 MG PO UD for 6 Days, #21 PKG PER DOSE PACK INSTRUCTIONS Prov: GISSEL ALVAREZ 12/05/22 Hydrocodone/Acetaminophen (Hydrocodone-Acetamin 5-325 mg) 5 Mg-325 Mg Tablet 1 TAB PO Q4H PRN for PAIN-MODERATE (5-7), #8 TAB Prov: GISSEL ALVAREZ 12/05/22 ATTENDING PHYSICIAN NOTE: I was physically present as attending physician in the emergency department during the care of this patient, but I was not directly involved in the decision making or delivery of care for this patient. (JINA JONES MD) GISSEL ALVAREZ Dec 05, 2022 16:09 JINA JONES MD Dec 05, 2022 19:44
[2022-12-05] MEDS ORDERED: METH4TAB10 PO (16:10)
[2022-12-05] MEDS ORDERED: ACHD5005 PO (16:10)
[2022-12-05] MEDS ORDERED: ORPHENADRINE 60 MG/2 ML (NORFLEX) AMP (ED ONLY) IM ONE (16:15)
[2022-12-05] MEDS ORDERED: KETOROLAC 30 MG/ML VIAL IM ONE (16:15)
[2022-12-05 16:54] VITALS: BP 115/88
== END 2022-12-05 16:54 | disposition home or self-care (01) ==
LOC: EDUNIT# 15:37 → ER 15:38
DX: M54.40 Lumbago with sciatica, unspecified side (principal); Z98.890 Other specified postprocedural states; Z91.040 Latex allergy status; Z28.310 Unvaccinated for COVID-19
CPT/HCPCS: 99284

== ENCOUNTER 2023-09-25 17:10 | Emergency (ER) | payer OTHER ==
[~2023-09-25] VITALS: Ht 162.5 cm; Wt 73.4 kg
[~2023-09-25 17:10] MED LIST changes: +METH4TAB10 PO; -ORPH100T PO; +ORPH100T3 PO
[2023-09-25] MEDS ORDERED: KETOROLAC INJ 30 MG/ML VIAL IM ONE (18:00)
--- NOTE | 2023-09-25 18:05 | ED General ---
General Chief Complaint: Lower Extremity Stated Complaint: LEG PAIN/WEAKNESS, LEGS JERKING Nursing Triage Note: PT AMB TO RM 4 WITH CC OF BILAT LEG PAIN AND WEAKNESS X 2 DAYS. PT RPEORTS HX OF SCIATICA PAIN. DENIES INJURY Source of Information: Patient Exam Limitations: No Limitations History of Present Illness Date Seen by Provider: Sep 25, 2023 Time Seen by Provider: 17:37 Allergies and Home Medications Allergies Coded Allergies: Sulfa (Sulfonamide Antibiotics) (Unverified Allergy, Unknown, 05/26/18) latex (Unverified Allergy, Unknown, 05/26/18) loratadine (Unverified Allergy, Unknown, 05/26/18) pseudoephedrine (Unverified Allergy, Unknown, 05/26/18) sulfamethoxazole (Unverified Allergy, Unknown, 05/26/18) trimethoprim (Unverified Allergy, Unknown, 05/26/18) Patient Home Medication List Aspirin (Aspirin) 81 Mg Tab.chew, 81 MG PO DAILY, (Reported) Entered as Reported by: MADDIE GROSS on 05/26/20 1442 Buspirone HCl (Buspirone HCl) 10 Mg Tablet, 10 MG PO BID, (Reported) Entered as Reported by: MADDIE GROSS on 05/26/20 1523 Cefuroxime Axetil (Cefuroxime) 250 Mg Tablet, 250 MG PO BID Prescribed by: HITESH HOLLOWAY on 09/30/212024 Cyclobenzaprine HCl (Cyclobenzaprine HCl) 10 Mg Tablet, (Reported) Entered as Reported by: STEPHANIE SEGOVIA on 06/24/221942 Diclofenac Sodium (Diclofenac Sodium) 75 Mg Tablet.dr, 75 MG PO BID Prescribed by: Ben Cole on 04/09/22 1645 Fluticasone/Salmeterol (Advair 100-50 Diskus) 1 Each Blst.w.dev, 1 EACH IH DAILY, (Reported) Entered as Reported by: PRISCILLA BROWN on 03/05/19 0733 Gabapentin (Gabapentin) 100 Mg Capsule, (Reported) Entered as Reported by: STEPHANIE SEGOVIA on 06/24/221942 Hydrocodone Bit/Acetaminophen (HYDROcodone/APAP 5 MG/325 MG TAB) 1 Tab Tab, 1 TAB PO Q4H PRN for PAIN-MODERATE (5-7) Prescribed by: Bladimir Spence on 10/26/22 1720 Hydrocodone/Acetaminophen (Hydrocodone-Acetamin 5-325 mg) 1 Each Tablet, 1 TAB PO Q4H PRN for PAIN-MODERATE (5-7) Prescribed by: HITESH HOLLOWAY on 01/08/21 1633 Hydrocodone/Acetaminophen (Hydrocodone-Acetamin 5-325 mg) 1 Each Tablet, 1 TAB PO Q4H PRN for PAIN-MODERATE (5-7) Prescribed by: HITESH HOLLOWAY on 07/06/21 1754 Hydrocodone/Acetaminophen (Hydrocodone-Acetamin 5-325 mg) 1 Each Tablet, 1 TAB PO Q4H PRN for PAIN-MODERATE (5-7) Prescribed by: HITESH HOLLOWAY on 07/23/21 191 Hydrocodone/Acetaminophen (Hydrocodone-Acetamin 5-325 mg) 5 Mg-325 Mg Tablet, 1 TAB PO Q4H PRN for PAIN-MODERATE (5-7) Prescribed by: CARMEN MOSQUERA on 12/05/22 1610 Hydrocodone/Acetaminophen (Hydrocodone-Acetamin 5-325 mg) 5 Mg-325 Mg Tablet, 1 TAB PO Q4H PRN for PAIN-MODERATE (5-7) Prescribed by: JINA CUEVAS on 09/25/23 1821 Icosapent Ethyl (Vascepa) 1 Gm Capsule, 1 GM PO BID, (Reported) Entered as Reported by: MADDIE GROSS on 05/26/20 1523 Ketorolac Tromethamine (Ketorolac Tromethamine) 10 Mg Tablet, 10 MG PO Q6H Prescribed by: Bladimir Spence on 08/04/22 1803 Lidocaine (Lidocaine 5% Patch) 5 % Adh..patch, 1 EACH TP Q12H PRN for Neuropathic pain Prescribed by: DEYSI MILLER on 05/25/222028 Lisinopril/Hydrochlorothiazide (Lisinopril-Hctz 20-12.5 mg Tab) 1 Each Tablet, 1 EACH PO DAILY, (Reported) Entered as Reported by: PRISCILLA BROWN on 03/05/19 0733 Lisinopril/Hydrochlorothiazide (Lisinopril-Hctz 20-12.5 mg Tab) 1 Each Tablet, 1 EACH PO DAILY Prescribed by: HITESH HOLLOWAY on 07/23/211909 Lisinopril/Hydrochlorothiazide (Lisinopril-Hctz 20-12.5 mg Tab) 20 Mg-12.5 Mg Tablet, 1 EACH PO DAILY Prescribed by: Bladimir Spence on 08/04/221802 Meloxicam (Meloxicam) 15 Mg Tablet, 15 MG PO DAILY Prescribed by: DEYSI MILLER on 05/25/222028 Meloxicam (Meloxicam) 7.5 Mg Tablet, (Reported) Entered as Reported by: STEPHANIE SEGOVIA on 06/24/221942 Methocarbamol (Methocarbamol) 750 Mg Tablet, 750 MG PO DAILY, (Reported) Entered as Reported by: MADDIE GROSS on 05/26/20 1523 Methocarbamol (Methocarbamol) 750 Mg Tablet, 750 MG PO Q6-8HR Prescribed by: HITESH HOLLOWAY on 04/14/21 141 Methylprednisolone (Methylprednisolone Dose Pack) 4 Mg Tab.ds.pk, 4 MG PO UD Prescribed by: CARMEN MOSQUERA on 12/05/22 1610 Metoprolol Succinate (Toprol Xl) 50 Mg Tab.er.24h, 50 MG PO DAILY Prescribed by: HITESH HOLLOWAY on 12/24/21 1731 Nitroglycerin (Nitroglycerin) 0.4 Mg Tab.subl, 0.4 MG SL UD PRN for CHEST PAIN (ANGINA), (Reported) Entered as Reported by: PRISCILLA BROWN on 03/05/19732 Orphenadrine Citrate (Orphenadrine Citrate) 100 Mg Tablet.er, 100 MG PO BID Prescribed by: DEYSI MILLER on 05/25/222028 Pantoprazole Sodium (Pantoprazole Sodium) 40 Mg Tablet.dr, 40 MG PO DAILY, (Reported) Entered as Reported by: PRISCILLA BROWN on 03/05/19732 Permethrin (Elimite) 60 Gm Cream..g., 60 GM TP ONCE Prescribed by: HITESH HLOLOWAY on 12/15/20 124 Pravastatin Sodium (Pravastatin Sodium) 10 Mg Tablet, 10 MG PO HS, (Reported) Entered as Reported by: PRISCILLA BROWN on 03/05/19732 Prednisone (Prednisone) 20 Mg Tab, 40 MG PO DAILY Prescribed by: HITESH HOLLOWAY on 12/15/20 124 Prednisone (Prednisone) 20 Mg Tab, 40 MG PO DAILY Prescribed by: HITESH HOLLOWAY on 04/14/21 1416 Prednisone (Prednisone) 20 Mg Tab, 40 MG PO DAILY Prescribed by: HITESH HOLLOWAY on 09/30/212024 Prednisone (Prednisone) 20 Mg Tab, 40 MG PO DAILY Prescribed by: JINA CUEVAS on 09/25/23 1820 Ranolazine (Ranolazine ER) 500 Mg Tab.er.12h, 500 MG PO BID Prescribed by: JINA CUEVAS on 08/28/22 0049 Tramadol HCl (Ultram) 50 Mg Tablet, 50 MG PO Q6H PRN for PAIN-MODERATE (5-7) Prescribed by: HITESH HOLLOWAY on 12/15/20 1245 Tramadol HCl (Ultram) 50 Mg Tablet, 50 MG PO Q6H PRN for PAIN-MODERATE (5-7) Prescribed by: HITESH HOLLOWAY on 12/24/21 1732 Triamcinolone Acet (Triamcinolone Acetonide 0.1% Cream) 15 Gm Cr, 15 GM TP BID Prescribed by: HITESH HOLLOWAY on 01/08/21 1633 Past Ryzohke-Luntvo-Qqflsk Hx Patient Social History Tobacco Use?: Yes Tobacco type used: Cigarettes Smoking Status: Current Everyday Smoker Substance use?: No Alcohol Use?: No Immunizations Up To Date First/Initial COVID19 Vaccinat: N/A Second COVID19 Vaccination Rusty: N/A Third COVID19 Vaccination Date: N/A Seasonal Allergies Seasonal Allergies: No Past Medical History Surgery/Hospitalization HX: htn, chronic lower back pain, bilateral breast bx, matthias, appy, hysto, tubal, henria, discectomy, c-sect x2, htn, gerd, depression Surgeries: Yes (LUMBAR DISCETOMY X 2-L2 /L5) Appendectomy, Cardiac, Section, Gallbladder, Hysterectomy, Lumpectomy, Orthopedic Respiratory: Yes COPD Currently Using CPAP: No Currently Using BIPAP: No Cardiac: Yes (CATH 03/05/19--TOTALLY OCCLUDED RCA/CHRONIC, NO INTERVENTION) Coronary Artery Disease, High Cholesterol, Hypertension 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 Genitourinary: No Gastrointestinal: Yes Gastroesophageal Reflux, Gall Bladder Disease Musculoskeletal: Yes (CHRONIC NECK PAIN; "BULGING DISCS" PER PT;CHRONIC SCIATICA) Degenerate Disk Disease, Chronic Back Pain Endocrine: Yes (STATES "HYPOGLYCEMIA") HEENT: No Cancer: No Psychosocial: Yes Sleep Difficulties, Anxiety, Depression Integumentary: No Blood Disorders: No Adverse Reaction/Blood Tranf: No Family Medical History Cardiovascular disease 19 MOTHER Cataracts Colon cancer 19 FATHER (UNKNOWN) G8 BROTHER G8 BROTHER G8 BROTHER G8 SISTER Congenital heart disease 19 MOTHER (UNKNOWN) Diabetes mellitus 19 MOTHER G8 BROTHER G8 BROTHER Infertility Kidney disease 19 MOTHER Osteoporosis G8 SISTER Physical Exam Vital Signs Vital Signs - First Documented 09/25/23 17:20 Temp 36.8 Pulse 90 Resp 16 B/P (MAP) 142/111 (121) Pulse Ox 96 O2 Delivery Room Air Capillary Refill : Less Than 3 Seconds Height, Weight, BMI Height: 5'4.00" Weight: 170lbs. 0.0oz. 77.806275ho; 27.00 BMI Method:Stated Progress/Results/Core Measures Suspected Sepsis SIRS Temperature: Pulse: 90 Respiratory Rate: 16 Blood Pressure 142 /111 Mean: 121 Results/Orders My Orders Orders - JINA JONES MD Hand, Right, 3 Views (09/25/23 17:52) Ketorolac Injection (Ketorolac Injection (09/25/23 18:00) Prednisone Tablet (Prednisone Tablet) (09/25/23 18:15) Medications Given in ED Current Medications Medications Dose Ordered Sig/Marika Route Start Time Stop Time Status Last Admin Dose Admin Ketorolac Tromethamine 30 mg ONCE ONCE IM 09/25/23 18:00 09/25/23 18:01 DC 09/25/23 18:11 30 MG Prednisone 40 mg ONCE ONCE PO 09/25/23 18:15 09/25/23 18:16 DC 09/25/23 18:23 40 MG Vital Signs/I&O 09/25/23 17:20 Temp 36.8 Pulse 90 Resp 16 B/P (MAP) 142/111 (121) Pulse Ox 96 O2 Delivery Room Air Capillary Refill : Less Than 3 Seconds Blood Pressure Mean: 121 Departure Impression Primary Impression: Lumbar radiculopathy Additional Impression: Injury of right hand Qualified Codes: S69.91XA - Unspecified injury of right wrist, hand and finger(s), initial encounter Disposition: 01 HOME, SELF-CARE Condition: Stable Departure-Patient Inst. Decision time for Depature: 18:15 Referrals: NO,LOCAL PHYSICIAN (PCP/Family) Primary Care Physician Patient Instructions: Low Back Pain ED Add. Discharge Instructions: The x-rays of your right hand were normal. No broken bones were appreciated. Use the short course of prednisone as prescribed. Take early in the day to avoid sleep disturbance. Take prednisone with food or milk to avoid upset stomach. You may use hydrocodone as prescribed for additional pain relief. Hydrocodone may cause drowsiness, so use with caution. Do not drive, operate machinery, or make important decisions while on hydrocodone. Hydrocodone may also cause constipation, see may wish to use a stool softener such as Colace while on hydrocodone. Please follow-up with your spine surgeon and your primary care provider soon as possible. Use your walker for safety and support. Return to the emergency room if you have worsening symptoms, especially if you lose control of your legs, develop bowel or bladder function problems, numbness in your groin, escalating pain not improved with medications, or other urgent issues. If these symptoms occur, it would be best to present to an emergency room with 24-hour MRI services and neurosurgical or spine surgery services. [facility] in [place] would be the most logical choice because of Dr. Montez's affiliation. All discharge instructions reviewed with patient and/or family. Voiced understanding. Scripts Hydrocodone/Acetaminophen (Hydrocodone-Acetamin 5-325 mg) 5 Mg-325 Mg Tablet 1 TAB PO Q4H PRN for PAIN-MODERATE (5-7), #10 TAB Prov: JINA JONES MD 09/25/23 Prednisone (Prednisone) 20 Mg Tab 40 MG PO DAILY, #6 TAB 0 Refills Prov: JINA JONES MD 09/25/23 JINA JONES MD Sep 25, 2023 18:04
[2023-09-25] MEDS ORDERED: predniSONE 20 MG TABLET PO ONE (18:15)
[2023-09-25] MEDS ORDERED: ACHD5005 PO (18:20)
[2023-09-25] MEDS ORDERED: PRD20T PO (18:20)
--- NOTE | 2023-09-25 18:23 | Diagnostic Imaging Report ---
Indication: Right hand pain. Time of Exam: 6:04 PM 3 views of the right hand were obtained. Metacarpals are intact. Phalanges are intact. Carpus is unremarkable. No fracture or dislocation is identified. Impression: No acute bony abnormality is detected. Dictated by: Dictated on workstation # [id number]
[2023-09-25 18:33] VITALS: BP 138/83
== END 2023-09-25 18:35 | disposition home or self-care (01) ==
LOC: EDUNIT# 17:10 → ER 17:13
DX: S69.91XA Unspecified injury of right wrist, hand and finger(s), initial encounter (principal); M54.16 Radiculopathy, lumbar region; F17.210 Nicotine dependence, cigarettes, uncomplicated; Z98.890 Other specified postprocedural states; Z91.040 Latex allergy status; X58.XXXA Exposure to other specified factors, initial encounter
CPT/HCPCS: 73130